=== PATIENT | female | born 1935 | race Caucasian/White ===

== ENCOUNTER 2017-04-21 08:42 | Inpatient (IN) | payer OTHER ==
[2017-03-01 09:35] VITALS: BMI 29.0
--- NOTE | 2017-03-01 10:18 | PAT Medication Instructions ---
Service Date Mar 01, 2017. Current Home Medication List Acetaminophen (Tylenol), 1,000 MG PO Q8 PRN for Pain Aspirin (Aspir-81), 81 MG PO QAM Calcium Carbonate-Cholecalcife (Caltrate 600+D), 1 TAB PO QPM Clopidogrel (Plavix), 75 MG PO QAM Coenzyme Q10 (Ubidecarenone) (Co Q10), 2 CAP PO QAM Colchicine (Colchicine), 0.6 MG PO HS Duloxetine HCl (Cymbalta), 1 CAP PO QAM Escitalopram (Lexapro), 10 MG PO QAM Flaxseed (Linseed) (Flaxseed Oil), 1 CAP PO QAM Gabapentin (Neurontin), 300 MG PO HS Levothyroxine Sodium (Levothyroxine Sodium), 100 MCG PO QAM Lorazepam (Ativan), 0.5 MG PO TID PRN for Anxiety Losartan Potassium (Losartan Potassium), 50 MG PO QAM Metoprolol Tartrate (Lopressor) (Lopressor), 25 MG PO BID Nitroglycerin (Nitrostat), 0.4 MG UT PRN Ocuvite Preservision (Ocuvite Preservision), 1 TAB PO BID Omeprazole (Omeprazole), 20 MG PO QAM Oxybutynin Chloride (Ditropan Xl), 1 TAB PO QAM Prednisone (Prednisone), 5 MG PO QAM Rosuvastatin Calcium (Crestor), 40 MG PO QAM Wheat Dextrin (Benefiber), 1 TAB PO QAM Zoledronic Acid (Reclast), 1 DOSE IV YEARLY Medication Instructions For Your Scheduled Surgery Check with surgeon/psychologist research assistant for instructions: Aspirin (Aspir-81), 81 MG PO QAM Clopidogrel (Plavix), 75 MG PO QAM - Continue as directed: Zoledronic Acid (Reclast), 1 DOSE IV YEARLY - Hold the following medications 2 weeks prior to surgery: Coenzyme Q10 (Ubidecarenone) (Co Q10), 2 CAP PO QAM Flaxseed (Linseed) (Flaxseed Oil), 1 CAP PO QAM - Hold the following medications the morning of surgery: Wheat Dextrin (Benefiber), 1 TAB PO QAM Oxybutynin Chloride (Ditropan Xl), 1 TAB PO QAM Ocuvite Preservision (Ocuvite Preservision), 1 TAB PO BID Losartan Potassium (Losartan Potassium), 50 MG PO QAM - Take the following medications the morning of surgery with a sip of water: Rosuvastatin Calcium (Crestor), 40 MG PO QAM Prednisone (Prednisone), 5 MG PO QAM Omeprazole (Omeprazole), 20 MG PO QAM Metoprolol Tartrate (Lopressor) (Lopressor), 25 MG PO BID Lorazepam (Ativan), 0.5 MG PO TID PRN for Anxiety (if needed) Levothyroxine Sodium (Levothyroxine Sodium), 100 MCG PO QAM Escitalopram (Lexapro), 10 MG PO QAM Duloxetine HCl (Cymbalta), 1 CAP PO QAM Nitroglycerin (Nitrostat), 0.4 MG UT PRN (if needed) Acetaminophen (Tylenol), 1,000 MG PO Q8 PRN for Pain (if needed) - Hold the following medications as scheduled the night before surgery: Colchicine (Colchicine), 0.6 MG PO HS - Take the following medications as scheduled the night before surgery: Metoprolol Tartrate (Lopressor) (Lopressor), 25 MG PO BID Lorazepam (Ativan), 0.5 MG PO TID PRN for Anxiety (if needed) Gabapentin (Neurontin), 300 MG PO HS Calcium Carbonate-Cholecalcife (Caltrate 600+D), 1 TAB PO QPM Nitroglycerin (Nitrostat), 0.4 MG UT PRN (if needed) Acetaminophen (Tylenol), 1,000 MG PO Q8 PRN for Pain (if needed) If you have any questions please call us at [phone] or [phone] or [phone]
--- NOTE | 2017-03-01 10:52 | DIAGNOSTIC IMAGING REPORT ---
CHEST PREADMISSION(PA/LAT) CLINICAL HISTORY: PAT preoperative evaluation COMPARISON STUDY: No previous studies for comparison. FINDINGS: Heart is top limits normal terms of size. Diaphragms are smooth. There are no focal infiltrates. Possible 6 mm nodule left base. IMPRESSION: Possible 6 mm nodule left base versus overlap artifact. CT of the chest is suggested as follow-up. Electronically signed by: Dylan Garzon M.D. 03/01/2017 10:51 AM Dictated Date/Time: 03/01/2017 10:50 AM
[2017-03-01 11:36] LABS: BASO % 0.5 %; BASO ABS # 0.05 K/uL (0-0.2); COMPLETE YES; EOS % 1.9 %; HEMATOCRIT 36.2 % (37-47); IG% 0.2 %; LYMPH % 26.4 %; LYMPH ABS # 2.47 K/uL (1.2-3.4); MEAN CELL VOLUME 92.8 fL (80-100); MEAN CORPUSCULAR HEMOGLOBIN 30.5 pg (25-34); MEAN CORPUSCULAR HGB CONC 32.9 g/dl (32-36); MEAN PLATELET VOLUME 11.8 fL (7.4-10.4); MONO % 12.2 %; NEUT % 58.8 %; PLATELET COUNT 141 K/uL (130-400); WHITE BLOOD COUNT 9.35 K/uL (4.8-10.8)
[2017-03-01 11:48] LABS: INR 0.9 (0.9-1.1); PROTHROMBIN TIME (PATIENT) 9.7 SECONDS (9.0-12.0)
[2017-03-01 11:48] LABS: URINE APPEARANCE CLEAR (CLEAR); URINE BILIRUBIN NEG (NEG); URINE COLOR DK YELLOW; URINE NITRITE NEG (NEG); URINE SPECIFIC GRAVITY 1.025 (1.000-1.030); UROBILINOGEN NEG (NEG); ZZUR CULT IF INDIC CLEAN CATCH NO
[2017-03-01 11:51] LABS: ESTIMATED AVERAGE GLUCOSE 126 mg/dl; HA1C FLAG Normal (Normal)
[2017-03-01 11:55] LABS: BUN/CREATININE RATIO 17.5 (10-20); CALCIUM 9.3 mg/dl (8.5-10.1); CREATININE 0.89 mg/dl (0.60-1.20); POTASSIUM 4.1 mmol/L (3.5-5.1)
[2017-03-01 12:07] LABS: MANUAL MICROSCOPIC REQUIRED? NO; REVIEW REQ? NO
[2017-04-18 11:47] VITALS: BMI 29.0
--- NOTE | 2017-04-19 07:05 | HISTORY & PHYSICAL EXAMINATION ---
DATE OF ADMISSION: 04/21/2017 SUBJECTIVE/CHIEF COMPLAINT: Right knee pain. HISTORY OF PRESENT ILLNESS: The patient is an 81-year-old female who complains of right knee pain. She states that the symptoms have been chronic and nontraumatic in nature. She states that the symptoms occur constantly, they are described as aching and sharp. She has tried cortisone injections, physical therapy and nonsteroidal anti-inflammatories with no relief. She would like to proceed with a right total knee arthroplasty. PAST MEDICAL HISTORY: Significant for hypertension, hypercholesterolemia, heart attack in 10/2015, shortness of breath while walking uphill, hypothyroidism, osteoarthritis, history of colorectal cancer. PAST SURGICAL HISTORY: One stent, cholecystectomy, left TKA, ORIF right hip, Achilles tendon repair, tonsillectomy. ALLERGIES: She has no known drug allergies. MEDICATIONS: Acetaminophen 1000 mg p.o. q. 8 hours p.r.n. pain, aspirin 81 mg p.o. q.a.m., Caltrate 1 tab p.o. q.p.m., Plavix 75 mg p.o. q.a.m., coenzyme Q10 two capsules p.o. q.a.m., duloxetine 1 capsule p.o. q.a.m., Lexapro 10 mg p.o. q.a.m., flaxseed oil 1 capsule p.o. q.a.m., Neurontin 300 mg p.o. at bedtime, levothyroxine 1000 mcg p.o. q.a.m., Ativan 0.5 mg p.o. t.i.d. p.r.n. for anxiety, losartan 50 mg p.o. q.a.m., Lopressor 25 mg p.o. b.i.d., Nitrostat 0.4 mg under the tongue p.r.n., Ocuvite PreserVision 1 tab p.o. b.i.d., omeprazole 20 mg p.o. q.a.m., Ditropan 1 tab p.o. q.a.m., prednisone 5 mg p.o. q.a.m., Crestor 40 mg p.o. q.a.m., fenofibrate 1 tablet p.o. q.a.m. SOCIAL HISTORY: She denies alcohol use. She denies smoking or tobacco use. She denies IV or illegal drug use. She lives in a 1-story house. She is currently retired. FAMILY HISTORY: Mom and father have a history of heart disease. REVIEW OF SYSTEMS: She denies headaches, fevers, chills, double vision, blurry vision, sore throat, cough, chest pain, nausea, vomiting, diarrhea, constipation, numbness, tingling, tired, urinary difficulties, thoughts to harm herself or harm others, or depression. She is positive for joint pain and joint stiffness on the right knee. OBJECTIVE: GENERAL APPEARANCE: The patient is an 81-year-old female, sitting, in no acute distress. She is well dressed and well nourished. She is awake, alert and oriented x3. VITAL SIGNS: She is 5 feet tall. She weighs 135 pounds. HEENT: Extraocular movements are intact. PERRLA. Mucosa is moist. No septal deviation. NECK: Supple with no lymphadenopathy, no JVD, no thyromegaly. HEART: Systolic murmur is appreciated in the aortic position. LUNGS: Clear to auscultation. ABDOMEN: Soft, nontender, nondistended. Normal bowel sounds. No hepatosplenomegaly. EXTREMITIES: Paying particular attention to the right knee, she is able to extend to 0 degrees, flex to 90 degrees. She has medial joint line tenderness. Ligaments are intact. NEUROLOGIC: Cranial nerves II-XII are intact. Pulses are compared bilaterally and are equal. IMAGING: Four view x-rays of the right knee show a femoral alon with osteophyte formation and [id number] on the medial aspect of the knee. IMPRESSION: Right knee primary osteoarthritis. PLAN: The patient is scheduled for a right total knee arthroplasty. She has failed conservative therapies including cortisone injections, physical therapy and nonsteroidal anti-inflammatories. This affects her activities of daily living. She would like to proceed with a right total knee arthroplasty. Risks and benefits to surgery were discussed that included but not limited to infection, DVT, pain, stiffness, need for revision surgeries, damage to blood vessels, damage to nerves, PE, , and anesthesia risks were all discussed with the patient and she wished to proceed. All questions were answered to her satisfaction. Per the cleaner operator, her Plavix and aspirin may be held for 5-7 days preoperatively. On discharge, she would like to go to [facility]. JEFFERY
[~2017-04-21] VITALS: Ht 152.4 cm; Wt 67.4 kg
[2017-04-21] VITALS (9 sets, daily range): BP systolic 105–126; BP diastolic 45–57; PULSE 60–88; TEMP 36.6–36.8; O2SAT 97–100; Ht 152.4 cm; Wt 67.4 kg
[~2017-04-21 08:42] MED LIST: ACET-1256 PO; ACETAMINOPHEN 500 MG TAB PO SCH; ASPI-232 PO; BUPIVACAINE 0.5 % 5 MG/1 ML PF 10ML VIAL ONE; CALC-354 PO; CEFAZOLIN 1000MG/55 ML D5W 55 ML IV SCH; CLOP1TAB15 PO; COEN1CAP28 PO; COLC0.6T54 PO; CZR50 PO; CeleBREX 200 MG CAP PO SCH; DEXAMETHASONE 4 MG TAB PO SCH; DULO-24 PO; ESCI10TA17 PO; EpHEDrine SULFATE 50MG/5ML SYR ONE; FAMOTIDINE 20 MG TAB PO SCH; FENTANYL CITRATE INJ 50 MCG/1 ML 2 ML VIAL ONE; FLAX12003 PO; GABA-113 PO; GABAPENTIN 300 MG CAP PO SCH; LACTATED RINGER'S 1000ML 1,000 ML IV SCH; LACTATED RINGER'S 1000ML 500 ML IV ONE; LACTATED RINGER'S 1000ML IV SCH; LEVO100T7 PO; LIDOCAINE HCL 2% 2 ML VIAL (20MG/ML) ONE; LORA-741 PO; METO25TA56 PO; METOCLOPRAMIDE HCL 10 MG TAB PO SCH; MIDAZOLAM HCL 1 MG/ML 2ML VIAL ONE; MULT-190 PO; NTRGSL/4 UT; OMEP20TA PO; OXYB5TAB21 PO; OXYCODONE HCL 10 MG TABCR (OXYCONTIN) PO SCH; PHENYLEPHRINE 100MCG/ML 5ML SYR ONE; PRED-301 PO; PROPOFOL IV EMULSION 10 MG/ML 20 ML VIAL IV ONE; ROPIVACAINE 5MG/ML 30 ML 150 MG, BUPIVACAINE/EPINEPHR 0.5% MPF 30 ML, KETOROLAC TROMETH... INFIL SCH; ROSU40TA PO; WHEATAB2 PO; ZOLE5INJ IV
--- NOTE | 2017-04-21 09:39 | History & Physical Bridge Note ---
H&P Re-Evaluation Bridge Note: I have examined the patient, reviewed the History & Physical and in the interval since the performance of the History & Physical I have noted the following changes of clinical significance: No changes noted
[2017-04-21] MEDS ORDERED: BUPIVACAINE 0.25% 30 ML VIAL ONE (10:19)
[2017-04-21] MEDS ORDERED: ORTHO JOINT ANESTHETIC ONE (10:21)
[2017-04-21] MEDS ORDERED: BACITRACIN 50000 UNIT VIAL ONE (10:21)
[2017-04-21] MEDS ORDERED: POVIDONE-IODINE OP SOLN 30 ML BTL ONE (10:21)
[2017-04-21] MEDS ORDERED: DEXAMETHASONE SOD INJ 4 MG/ML VIAL ONE (11:14)
[2017-04-21] MEDS ORDERED: ONDANSETRON INJ 2 MG/ML 2 ML VIAL ONE (11:14)
[2017-04-21] MEDS ORDERED: NURSING VERBAL MED ORDER STA (11:21)
[2017-04-21] MEDS ORDERED: FENTANYL CITRATE INJ 50 MCG/1 ML 2 ML VIAL ONE (11:35)
[2017-04-21] MEDS ORDERED: EpHEDrine SULFATE INJ 50 MG/ML AMP IV PRN (11:45)
[2017-04-21] MEDS ORDERED: TRANEXAMIC ACID INJ 1,000 MG in SODIUM CHLORIDE 0.9% 100ML 100 ML TOP SCH (11:45)
[2017-04-21] MEDS ORDERED: ATROPINE SULFATE 0.1 MG/ML 5ML SYR IV PRN (11:45)
[2017-04-21] MEDS ORDERED: MoRPHine SULFATE 10 MG/ML CARP/VIAL IV PRN (11:45)
[2017-04-21] MEDS ORDERED: ONDANSETRON INJ 2 MG/ML 2 ML VIAL IV PRN ×2 (11:45→13:00)
[2017-04-21] MEDS ORDERED: FENTANYL CITRATE INJ 50 MCG/1 ML 2 ML VIAL IV PRN (11:45)
[2017-04-21] MEDS ORDERED: PROPOFOL IV EMULSION 10 MG/ML 20 ML VIAL IV ONE (12:30)
--- NOTE | 2017-04-21 12:41 | [facility] Operative Report ---
Operative Report Operative Date Apr 21, 2017. Pre-Operative Diagnosis right knee primary osteoarthritis Post-Operative Diagnosis right knee primary osteoarthritis Procedure(s) Performed Right Total Knee Arthroplasty Surgeon Dr. Hair Calderon Ui Developer With Angular Js Surgeon(s) Jack Perla PA-C Estimated Blood Loss 100ml Findings As above Specimens A. Right Knee Bone and Tissue Drains spinal Anesthesia 2 Hemovac Complication(s) None Disposition Recovery Room / PACU Indications 81-year-old female with [id number] osteoarthritis the right knee. She is failed conservative measures including cortisone injections. She is allergic to NSAIDs. Failing conservative measures she wishes to proceed with a right total knee arthroplasty Description of Procedure Risks benefits and alternatives of surgery including but not limited to infection DVT pain stiffness need for surgery damage to blood vessels damage to nerves or risks of anesthesia were discussed with the patient and she wished to proceed. Patient was identified in the laterality was confirmed and marked. She received a preoperative antibiotic is also a spinal anesthetic and a abductor canal block. A well-padded tourniquet was applied and then the limb was prepped and draped in standard manner with ChloraPrep. The limb was exsanguinated and the tourniquet was inflated. I made a standard anterior incision. I sharply incised the skin then utilized Bovie electrocautery as well as the aqua mantis to achieve hemostasis. I made a medial parapatellar arthrotomy immobilized the patella laterally. I then excised the anterior horns of the medial and lateral meniscus as well as the infrapatellar fat pad. I elevated a portion of the MCL off of the tibia. I then pinned into place a patient-matched distal femoral cutting guide and made my distal femoral resection. I then pinned into place a size 4 5 in 1 cutting guide. I made my anterior, posterior and chamfer cuts. I then excised the cruciates and the remaining portions of the menisci. I then pinned into place a patient- matched tibial cutting guide and made my tibial resection. I then pinned into place a size 3 tibia utilizing alignment rods to confirm rotation. I then cut for the post. Utilizing a lamina revenue field auditor and then removed posterior osteophytes off the femur. I then placed a trial femur into position and cut for the trochlear component. I then sequentially trialed to size 11 polyethylene. There was good soft tissue balancing and range of motion with this polyethylene. I then prepared the patella with a freehand cut utilizing sagittal saw. I sized and drilled for a size 35 patella. There was good tracking to the patella no lateral release was needed. All the trial components were removed. The deep tissues were anesthetized with and ortho mix solution. Then with Simplex HV with gentamicin cement I cemented my definitive components. Definitive components, [employer] [place]: Femur 4 Tibia 3 Poly 11 Patella 35 oval Betadine soak was performed. A transient acid soak was performed as we were not able to give this intravenously given her prior cardiac history. A deep drain was placed. The arthrotomy was closed with interrupted #1 Vicryl suture subcutaneous tissue was closed with interrupted 2-0 Vicryl suture and skin with basilio. Sterile dressings applied and the tourniquet was released. All needle and sponge counts were correct at the end of the procedure patient was transferred to the PACU in stable condition without apparent complication. The PA-C was necessary for assistance with procedure for assistance in positioning, prepping, draping, retraction and closure. I attest to the content of the Intraoperative Record and any orders documented therein. Any exceptions are noted below.
[2017-04-21] MEDS ORDERED: METOCLOPRAMIDE HCL INJ 5 MG/ML 2 ML VIAL IV PRN (13:00)
[2017-04-21] MEDS ORDERED: ZOLPIDEM TARTRATE 5 MG TAB PO PRN (13:00)
[2017-04-21] MEDS ORDERED: BISACODYL 10 MG SUPP PR PRN (13:00)
[2017-04-21] MEDS ORDERED: ALUMINUM/MAGNESIUM/SIMETH (MAALOX MAX) 30 ML UDC PO PRN (13:00)
[2017-04-21] MEDS ORDERED: SOD PHOSPHATE/SOD BIPHOSPHATE ENEMA 132 ML BTL PR PRN (13:00)
[2017-04-21] MEDS ORDERED: MAGNESIUM HYDROXIDE SUSP 30 ML UDC PO PRN (13:00)
--- NOTE | 2017-04-21 14:16 | DIAGNOSTIC IMAGING REPORT ---
RIGHT KNEE 1 OR 2 VIEWS ROUTINE CLINICAL HISTORY: 81 years-old Female presenting with postop right knee arthroplasty. TECHNIQUE: Frontal and lateral views of the right knee were obtained. COMPARISON: None. FINDINGS: Postsurgical changes of total right knee arthroplasty with patellar resurfacing. Surgical drain in place. Soft tissue emphysema and skin basilio noted. Intramedullary alon and interlocking screw fixation of the femoral diametaphysis. No acute fracture or malalignment. Osteopenia suggested. IMPRESSION: Expected postoperative appearance status post total right knee arthroplasty with patellar resurfacing. Electronically signed by: Hair Martínez M.D. 04/21/2017 2:15 PM Dictated Date/Time: 04/21/2017 2:13 PM
[2017-04-21] MEDS ORDERED: LORAZEPAM 0.5 MG TAB PO PRN (15:15)
[2017-04-21] MEDS ORDERED: NITROGLYCERIN 0.4 MG SL PER TAB CHARGE UT PRN (15:15)
--- NOTE | 2017-04-21 15:16 | Anesthesiology Progress Note ---
Anesthesia Post Op Note Date & Time Apr 21, 2017 at 15:16 Vital Signs Pain Intensity: 0.0 Vital Signs Past 12 Hours Date Time Temp Pulse Resp B/P (MAP) Pulse Ox O2 Delivery O2 Flow Rate FiO2 04/21/17 14:38 88 16 115/51 (72) 98 Nasal Cannula 2.0 04/21/17 14:10 98 Nasal Cannula 3.0 04/21/17 14:10 36.7 82 16 115/54 (74) 98 Nasal Cannula 3.0 04/21/17 13:55 37.1 90 16 120/48 99 Nasal Cannula 4 04/21/17 13:45 37.1 84 16 122/48 99 Nasal Cannula 4 04/21/17 13:35 37.1 85 16 127/48 98 Nasal Cannula 4 04/21/17 13:25 84 16 133/48 98 Oxymask 10 04/21/17 13:15 83 16 120/46 98 Oxymask 10 04/21/17 13:05 81 16 109/44 98 Oxymask 10 04/21/17 12:55 36.2 79 16 106/43 97 Oxymask 10 04/21/17 09:55 36.8 60 18 126/56 97 Room Air Notes Mental Status: alert / awake / arousable, participated in evaluation Pt Amnestic to Procedure: Yes Nausea / Vomiting: adequately controlled Pain: adequately controlled Airway Patency, RR, SpO2: stable & adequate BP & HR: stable & adequate Hydration State: stable & adequate Anesthetic Complications: no major complications apparent
[2017-04-21] MEDS: SODIUM CHLORIDE 0.9% 1000ML 1,000 ML IV SCH (15:17)
[2017-04-21] MEDS ORDERED: IMDSR30 PO (15:25)
[2017-04-21] MEDS: OXYBUTYNIN CHLORIDE 5 MG TABCR PO SCH (17:39)
[2017-04-21] MEDS: FERROUS GLUCONATE 324 MG TAB PO SCH (17:40)
[2017-04-21] MEDS: LOSARTAN POTASSIUM 50 MG TAB PO SCH (17:44)
--- NOTE | 2017-04-21 17:45 | Medical Consult ---
Consultation Date of Consultation: Apr 21, 2017. Attending Physician: Hair Calderon M.D. Reason for Consultation: medical management History of Present Illness Patient seen and examined. States she is feeling groggy, but has no other complaints. Denies dizziness, chest pain, SOB, N/V, pain, numbness/tingling. Does not recall if she voided yet after surgery. Last BM was yesterday. Past Medical/Surgical History Medical Problems: (1) Anxiety Status: Chronic (2) Aortic stenosis Status: Chronic (3) CAD (coronary artery disease) Status: Chronic (4) Depression Status: Chronic (5) Dyslipidemia Status: Chronic (6) Glaucoma Status: Chronic (7) H/O reduction of open fracture Status: Chronic (8) History of colorectal cancer Status: Chronic (9) History of hip fracture Status: Chronic (10) HTN (hypertension) Status: Chronic (11) Hypothyroidism Status: Chronic (12) Osteoporosis Status: Chronic (13) PMR (polymyalgia rheumatica) Status: Chronic (14) S/p bare metal coronary artery stent Status: Chronic Surgical Problems: (1) History of cataract surgery Status: Chronic (2) S/P cholecystectomy Status: Chronic (3) S/P partial mastectomy Status: Chronic (4) S/p removal of bowel lesion Status: Chronic (5) S/P total knee arthroplasty Status: Chronic Family History Noncontributory due to advanced age. Social History Smoking Status: Never Smoker Allergies Coded Allergies: Cyclobenzaprine (Verified Adverse Reaction, Unknown, DRY MOUTH, 04/21/17) NSAIDs (Unverified Adverse Reaction, Unknown, DYSPEPSIA, 04/21/17) PER RECORDS Statins (Unverified Adverse Reaction, Unknown, MYALGIAS, NAUSEA, 04/21/17) PER RECORDS Home Medications Active Reported Isosorbide Mononitrate ER (Isosorbide Mononitrate) 30 Mg Tabcr 30 Mg PO DAILY Flaxseed Oil (Flaxseed (Linseed)) 1 Cap Cap 1 Cap PO QAM Ocuvite Preservision (Multivitamins/Minerals) 1 Tab Tab 1 Tab PO BID Benefiber (Wheat Dextrin) 1 Tab Tab 1 Tab PO QAM PRN Co Q10 (Coenzyme Q10) 50 Mg Cap 2 Cap PO QAM Nitrostat (Nitroglycerin) 0.4 Mg Tab 0.4 Mg UT PRN Lexapro (Escitalopram Oxalate) 10 Mg Tab 10 Mg PO QAM Ativan (Lorazepam) 0.5 Mg Tab 0.5 Mg PO TID PRN Crestor (Rosuvastatin Calcium) 40 Mg Tab 40 Mg PO QAM Plavix (Clopidogrel Bisulfate) 75 Mg Tab 75 Mg PO QAM Ditropan Xl (Oxybutynin Chloride) 5 Mg Tab 1 Tab PO QAM 90 Days Neurontin (Gabapentin) 300 Mg Cap 300 Mg PO HS Prednisone 5 Mg Tab 5 Mg PO QAM Tylenol (Acetaminophen) 500 Mg Tab 1,000 Mg PO Q8 PRN Cymbalta (Duloxetine HCl) 20 Mg Cap 1 Cap PO QAM 30 Days Lopressor (Metoprolol Tartrate) 25 Mg Tab 25 Mg PO BID Colchicine 0.6 Mg Tab 0.6 Mg PO HS Reclast (Zoledronic Acid) 5 Mg/100 Ml Inj 1 Dose IV YEARLY PT DUE FOR NEXT INFUSION IN SEP 2017 Caltrate 600+D (Calcium Carbonate-Cholecalcife) 1 Tab Tab 1 Tab PO QPM Aspir-81 (Aspirin) 81 Mg Tab 81 Mg PO QAM Levothyroxine Sodium 100 Mcg Tab 100 Mcg PO UD Take 1 tablet (100 mcg) by mouth daily except Sundays. Take 1/2 tablet (50 mcg) on Tuesday. Omeprazole 20 Mg Tab 20 Mg PO QAM Losartan Potassium 50 Mg Tab 50 Mg PO QAM Current Inpatient Medications Current Inpatient Medications Medications (Trade) Dose Ordered Sig/Joanie Route Start Time Stop Time Status Last Admin Dose Admin Lactated Ringer's 1,000 ml @ 60 mls/hr [id number] IV 04/21/17 06:00 04/21/17 22:39 Cefazolin Sodium 55 ml @ 100 mls/hr PREOP IV 04/21/17 06:00 04/21/17 18:00 04/21/17 10:50 100 MLS/HR Acetaminophen (Tylenol Tab) 1,000 mg PREOP PO 04/21/17 06:00 04/21/17 18:00 04/21/17 09:56 1,000 MG Celecoxib (CeleBREX CAP) 200 mg PREOP PO 04/21/17 06:00 04/21/17 18:00 04/21/17 09:55 200 MG Dexamethasone (Decadron Tab) 8 mg PREOP PO 04/21/17 06:00 04/21/17 18:00 04/21/17 09:55 8 MG Famotidine (Pepcid Tab) 20 mg PREOP PO 04/21/17 06:00 04/21/17 18:00 04/21/17 09:56 20 MG Gabapentin (Neurontin Cap) 300 mg PREOP PO 04/21/17 06:00 04/21/17 18:00 04/21/17 09:55 300 MG Metoclopramide HCl (Reglan Tab) 10 mg PREOP PO 04/21/17 06:00 04/21/17 18:00 04/21/17 09:55 10 MG Oxycodone HCl (Oxycontin Tab) 10 mg PREOP PO 04/21/17 06:00 04/21/17 18:00 04/21/17 09:56 10 MG Lactated Ringer's 1,000 ml @ 15 mls/hr Q24H IV 04/21/17 06:00 04/22/17 05:59 04/21/17 10:10 15 MLS/HR Sodium Chloride 1,000 ml @ 100 mls/hr Q10H IV 04/21/17 15:00 04/22/17 14:59 04/21/17 15:17 100 MLS/HR Cefazolin Sodium 1000 mg/Dextrose 55 ml @ 100 mls/hr Q8@0200,1000,1800 IV 04/21/17 18:00 04/21/17 18:32 Oxycodone HCl (Roxicodone Immediate Rel Tab) 1 TABLET FOR PAIN RATING... Q4H PRN PO 04/21/17 13:00 05/05/17 12:59 Oxycodone HCl (Oxycontin Tab) 10 mg Q12 PO 04/21/17 21:00 05/05/17 20:59 Acetaminophen (Tylenol Tab) 1,000 mg Q8 PO 04/21/17 22:00 05/21/17 21:59 Magnesium Hydroxide (Milk Of Magnesia Susp) 30 ml Q6H PRN PO 04/21/17 13:00 05/21/17 12:59 Bisacodyl (Dulcolax Supp) 10 mg DAILY PRN [place] 04/21/17 13:00 05/21/17 12:59 Sodium Biphosphate/ Sodium Phosphate (Fleet Enema) 132 ml DAILY PRN [place] 04/21/17 13:00 05/21/17 12:59 Senna (Senokot Tab) 17.2 mg HS PO 04/21/17 21:00 05/21/17 20:59 Docusate Sodium (coLACE CAP) 100 mg BID PO 04/21/17 21:00 05/21/17 20:59 Diphenhydramine HCl (Benadryl Cap) 25 mg Q8H PRN PO 04/21/17 13:00 05/21/17 12:59 Al Hydrox/Mg Hydrox/Simethicone (Maalox Max Susp) 15 ml Q4H PRN PO 04/21/17 13:00 05/21/17 12:59 Zolpidem Tartrate (Ambien Tab) 5 mg HSZ PRN PO 04/21/17 13:00 05/21/17 12:59 Multivitamins (Multivitamin Tab) 1 tab QAM PO 04/22/17 09:00 05/22/17 08:59 Ondansetron HCl (Zofran Inj) 4 mg Q6H PRN IV 04/21/17 13:00 05/21/17 12:59 Metoclopramide HCl (Reglan Inj) 10 mg Q6H PRN IV 04/21/17 13:00 05/21/17 12:59 Ferrous Gluconate (Ferrous Gluconate Tab) 324 mg TIDM PO 04/21/17 17:45 05/21/17 17:59 Pantoprazole Sodium (Protonix Tab) 40 mg QAM PO 04/22/17 09:00 05/22/17 08:59 Aspirin (Ecotrin Tab) 81 mg BID PO 04/21/17 21:00 05/21/17 20:59 Colchicine (Colchicine Tab) 0.6 mg HS PO 04/21/17 21:00 05/21/17 20:59 Duloxetine HCl (Cymbalta Cap) 20 mg QAM PO 04/22/17 09:00 05/22/17 08:59 Escitalopram Oxalate (Lexapro Tab) 10 mg QAM PO 04/22/17 09:00 05/22/17 08:59 Gabapentin (Neurontin Cap) 300 mg HS PO 04/21/17 21:00 05/21/17 20:59 Isosorbide Mononitrate (Imdur Ext Rel Tab) 30 mg DAILY PO 04/22/17 09:00 05/22/17 08:59 Levothyroxine Sodium (Synthroid Tab) 100 mcg MoTuWeThFrSa@0630 PO 04/22/17 06:30 05/22/17 06:29 Lorazepam (Ativan Tab) 0.5 mg TID PRN PO 04/21/17 15:15 05/21/17 15:14 Losartan Potassium (coZAAR TAB) 50 mg QAM PO 04/21/17 17:00 05/21/17 16:59 Metoprolol Tartrate (Lopressor Tab) 25 mg BID PO 04/21/17 21:00 05/21/17 20:59 Nitroglycerin (Nitrostat Tab) 0.4 mg PRN PRN UT 04/21/17 15:15 05/21/17 15:14 Oxybutynin Chloride (Ditropan-Xl Tab) 5 mg QAM PO 04/21/17 17:00 05/21/17 16:59 Prednisone (PredniSONE TAB) 5 mg QAM PO 04/22/17 09:00 05/22/17 08:59 Rosuvastatin Calcium (Crestor Tab) 40 mg QAM PO 04/22/17 09:00 05/22/17 08:59 Levothyroxine Sodium (Synthroid Tab) 50 mcg Q7D@0630 PO 04/24/17 06:30 05/24/17 06:29 Review of Systems Ten systems reviewed and negative except as noted in HPI. Physical Exam Date Time Temp Pulse Resp B/P (MAP) Pulse Ox O2 Delivery O2 Flow Rate FiO2 04/21/17 16:10 87 16 109/50 (69) 99 Nasal Cannula 3.0 04/21/17 15:15 100 Nasal Cannula 3.0 04/21/17 15:10 36.7 85 16 112/56 (74) 100 Nasal Cannula 3.0 04/21/17 14:38 88 16 115/51 (72) 98 Nasal Cannula 2.0 04/21/17 14:10 98 Nasal Cannula 3.0 04/21/17 14:10 36.7 82 16 115/54 (74) 98 Nasal Cannula 3.0 04/21/17 13:55 37.1 90 16 120/48 99 Nasal Cannula 4 04/21/17 13:45 37.1 84 16 122/48 99 Nasal Cannula 4 04/21/17 13:35 37.1 85 16 127/48 98 Nasal Cannula 4 04/21/17 13:25 84 16 133/48 98 Oxymask 10 04/21/17 13:15 83 16 120/46 98 Oxymask 10 04/21/17 13:05 81 16 109/44 98 Oxymask 10 04/21/17 12:55 36.2 79 16 106/43 97 Oxymask 10 04/21/17 09:55 36.8 60 18 126/56 97 Room Air General Appearance: WD/WN, no apparent distress, + pertinent finding (drowsy 81 year old female) Head: normocephalic, atraumatic Eyes: normal inspection, PERRL ENT: hearing grossly normal, pharynx normal Neck: supple, trachea midline Respiratory/Chest: lungs clear, normal breath sounds, no respiratory distress, no accessory muscle use Cardiovascular: regular rate, rhythm, + systolic murmur Abdomen/GI: normal bowel sounds, non tender, soft Extremities/Musculoskelatal: no calf tenderness, no pedal edema, + pertinent finding (s/p right TKA. dressing in place. hemovac in place with sanguinous drainage. SCDs in place. ) Neurologic/Psych: normal mood/affect, oriented x 3, + pertinent finding ( drowsy. able to sense light touch on the bilateral feet ) Skin: normal color, warm/dry Assessment & Plan S/P RIGHT TKA POD #[address] Calderon Pain control, wound care, activity per ortho Monitor daily H/H for sign of acute blood loss anemia CAD Stable, no chest pain Recently had cardiac cath 03/31/17- stent was patent On aspirin, Imdur, beta ary, statin Resume Plavix when acceptable by ortho HYPERTENSION Stable, continue Losartan, metoprolol PMR On chronic prednisone HYPOTHYROIDISM Continue levothyroxine DEPRESSION/ ANXIETY Continue home meds DVT PROPHYLAXIS Per ortho DISPOSITION Per ortho Patient seen in collaboration with Dr. Dee. Please see her addendum. Attending addendum: Agree with the above consultation H&P; please refer to above for more detail. Patient is an 81 yo female who presented to the hospital for scheduled right knee replacement surgery for longstanding pain and osteoarthritis. The patient states she is grateful to have it done and feels she waited long because she was busy taking care of her who passed last fall. She reports her pain is well controlled presently. She denies any CP or SOB. She is tolerating PO without difficulty. She states she feels upset because she expects her to be here while she is recovering but is disappointed he is not around anymore and she lives alone which she is worried about. No other physical complaints noted. Cardiac: RR, S1 and S2 auscultated, +GABRIELLA Resp: CTA B/L GI: soft, NT, ND, +bowel sounds POSTOPERATIVE STATE: s/p right TKA -pain control, DVT prophylaxis, activity as per Ortho -bowel regimen -incentive spirometry -CBC monitoring for post op anemia CAD: -cath done due to abnormal stress test -recent cath showed stable CAD, with a patent stent -continue ASA, statin, BB -please resume plavix as soon as possible when ok with Ortho
[2017-04-21] MEDS ORDERED: CEFAZOLIN IV 1,000 MG in DEXTROSE 5% 50ML 50 ML IV SCH (18:00)
[2017-04-21] MEDS: METOPROLOL TARTRATE 25 MG TAB PO SCH (21:00)
[2017-04-21] MEDS: OXYCODONE HCL 10 MG TABCR (OXYCONTIN) PO SCH (21:36)
[2017-04-21] MEDS: SENNA 8.6 MG TAB PO SCH (21:37)
[2017-04-21] MEDS: GABAPENTIN 300 MG CAP PO SCH (21:38)
[2017-04-21] MEDS: COLCHICINE 0.6 MG TAB PO SCH (21:39)
[2017-04-21] MEDS: ASPIRIN 81 MG ECTAB PO SCH (21:40)
[2017-04-21] MEDS: DOCUSATE SODIUM 100 MG CAP PO SCH (21:40)
[2017-04-21] MEDS: ACETAMINOPHEN 500 MG TAB PO SCH (21:41)
[2017-04-22] VITALS (19 sets, daily range): BP systolic 96–147; BP diastolic 46–63; PULSE 65–89; TEMP 36.4–37.3; O2SAT 92–98
[2017-04-22] MEDS: SODIUM CHLORIDE 0.9% 1000ML 1,000 ML IV SCH ×2 (00:24→10:09)
[2017-04-22] MEDS: ACETAMINOPHEN 500 MG TAB PO SCH ×3 (05:59→22:05)
[2017-04-22] MEDS: LEVOTHYROXINE 100 MCG TAB PO SCH (05:59)
[2017-04-22 06:12] LABS: PROTHROMBIN TIME (PATIENT) 10.7 SECONDS (9.0-12.0)
[2017-04-22 06:41] LABS: BUN/CREATININE RATIO 28.2 (10-20); CALCIUM 7.8 mg/dl (8.5-10.1); CREATININE 1.1 mg/dl (0.60-1.20); POTASSIUM 5.1 mmol/L (3.5-5.1)
--- NOTE | 2017-04-22 06:55 | Orthopedic Progress Note ---
Orthopedic Progress Note Date of Service Apr 22, 2017. Subjective Post OP Day: 1 Reports: feeling well, pain controlled w PO medications, Denies: complaints, chest pain, SOB, nausea / vomiting, light headedness, calf pain Additional Notes: Patient states that she had her drain pull out overnight. She states there is no light headedness, dizziness, and minimal pain in her knee. Objective calves soft nontender, N/V intact, capillary refill less than 2 sec., dressing C /D/I, A&O x3, toes mobile, hemovac drainage (100mL) Date Time Temp Pulse Resp B/P (MAP) Pulse Ox O2 Delivery O2 Flow Rate FiO2 04/22/17 04:00 36.6 81 18 119/53 (75) 97 Room Air 04/21/17 22:50 36.6 84 16 105/45 (65) 98 Room Air 04/21/17 21:40 110/57 (74) 04/21/17 19:50 Room Air 04/21/17 17:42 119/52 (74) 99 Nasal Cannula 2.0 04/21/17 16:10 87 16 109/50 (69) 99 Nasal Cannula 3.0 04/21/17 15:15 100 Nasal Cannula 3.0 04/21/17 15:10 36.7 85 16 112/56 (74) 100 Nasal Cannula 3.0 04/21/17 14:38 88 16 115/51 (72) 98 Nasal Cannula 2.0 04/21/17 14:10 98 Nasal Cannula 3.0 04/21/17 14:10 36.7 82 16 115/54 (74) 98 Nasal Cannula 3.0 04/21/17 13:55 37.1 90 16 120/48 99 Nasal Cannula 4 04/21/17 13:45 37.1 84 16 122/48 99 Nasal Cannula 4 04/21/17 13:35 37.1 85 16 127/48 98 Nasal Cannula 4 04/21/17 13:25 84 16 133/48 98 Oxymask 10 04/21/17 13:15 83 16 120/46 98 Oxymask 10 04/21/17 13:05 81 16 109/44 98 Oxymask 10 04/21/17 12:55 36.2 79 16 106/43 97 Oxymask 10 04/21/17 09:55 36.8 60 18 126/56 97 Room Air Laboratory Results 24 Hours: Test 04/22/17 05:19 Prothromb Time International Ratio 1.0 Prothrombin Time 10.7 SECONDS Assessment & Plan Assessment: POD #1 Right TKA Plan: PT/OT Discharge - SNF - would like [place] DVT Prophylaxis - ASA Patient is doing well. She will be seen by social science instructor and PT this morning. Seen and examined, agree with above Inhouse Planning Pain Management: Oxycontin, Oxy IR DVT Prophylaxis: TEDs, SCDs, ASA Discharge Planning Discharge Planning: halfway facility Pain Management: Oxycontin, Oxy IR DVT Prophylaxis: TEDs, ASA Therapy: Physical Therapy
[2017-04-22] MEDS ORDERED: ASPI-232 PO (07:01)
[2017-04-22] MEDS ORDERED: RXC5 PO (07:01)
[2017-04-22] MEDS ORDERED: OXYSR10 PO (07:01)
--- NOTE | 2017-04-22 07:02 | Discharge Instructions ---
Discharge Instructions Date of Service Apr 22, 2017. Admission Reason for Admission: Right Knee Osteoarthritis Discharge Discharge Diagnosis / Problem: S/P Right total knee arthroplasty Discharge Goals Goal(s): Decrease discomfort, Improve function Activity Recommendations Activity Limitations: per Instructions/Follow-up section . Instructions / Follow-Up Instructions / Follow-Up ACTIVITY RECOMMENDATIONS: SELF CARE INSTRUCTIONS AFTER TOTAL KNEE REPLACEMENT A. You may need to continue a physical therapy program after discharge from the hospital. There are several options available to you. Your doctor will assist you in selecting the best one for you. 1. An out-patient facility 2 to 3 times a week for therapy or home therapy. 2. Continue working on all exercises taught to you in the hospital. Your goals should be to increase bending of your knee to 90 degrees and beyond and to fully straighten your knee. B. You may progress at your own pace from walking with a walker or crutches to a cane; then to no assistive devices. C. Make walking a part of your daily routine. Be up as much as comfortable with rest periods throughout the day. Rest with leg elevation is very important. Use the ice wrap frequently for the first 3-4 weeks. D. There are no restrictions on activities. You may ride in a car, shop, participate in cell liner and all social activities. E. Wear the long elastic stockings (DALJIT hose) 20 hours a day for 2 weeks after surgery. They can be removed several times a day for laundering and for a bath. F. You may shower, no tub baths until cleared by your doctor. SPECIAL CARE INSTRUCTIONS: VERY IMPORTANT TO READ AND REVIEW A. There are a few signs you need to watch for after you are home. Call [facility] if you notice any of the followin. Increased severe knee pain. Some pain is expected especially when you exercise. 2. Increased swelling in your leg or knee; pain or swelling of the calf muscle in either lower leg. 3. Any fluid drainage from the incision. 4. Shortness of breath or chest pain. B. Please call [facility] at if you have any concerns or questions about your operation or recovery. The doctor or his nurse will return your call promptly. C. You must take antibiotics before dental work, bladder, bowel or other surgery. Your doctor will provide you with a permanent care to carry describing this precaution. IMPORTANT: * REMEMBER TO TAKE ASPIRIN, 81 MG, TWICE DAILY FOR 4 WEEKS UNLESS OTHERWISE DIRECTED. THIS IS YOUR BLOOD THINNER. * HIGH RISK PATIENTS MAY BE PRESCRIBED A STRONGER BLOOD THINNER. THIS WILL BE PROVIDED AT DISCHARGE. * CALL IF INCREASED PAIN, REDNESS, DRAINAGE OR FEVER GREATER THAT 101. * WEAR DALJIT HOSE 20 HOURS PER DAY FOR 2 WEEKS. * YOU MAY HAVE A LARGE BAND-AID LIKE DRESSING (SILVERON). THIS WILL REMAIN ON YOUR INCISION FOR 7 DAYS, THEN CAN BE REMOVED. IF INCISION IS LEAKING THROUGH DRESSING, CALL THE OFFICE . FOLLOW UP VISIT: If appointment is not already scheduled: Please call [facility] to make a follow-up appointment for 2 weeks after your surgery at . Current Hospital Diet Patient's current hospital diet: Regular Diet Discharge Diet Recommended Diet: Regular Diet Procedures Procedures Performed: Right Total Knee Arthroplasty Pending Studies Studies pending at discharge: no Laboratory Results Hemoglobin A1c Test 03/01/17 10:19 Range/Units Estimated Average Glucose 126 mg/dl Hemoglobin A1c 6.0 H 4.5-5.6 % Medical Emergencies . Who to Call and When: Medical Emergencies: If at any time you feel your situation is an emergency, please call 911 immediately. . Non-Emergent Contact Non-Emergency issues call your: Surgeon Call Non-Emergent contact if: temperature is above 101.5, your pain is worsening, wound has increased drainage, wound has increased redness . "Provider Documentation" section prepared by Jack Perla. . VTE Core Measure Inpt VTE Proph given/why not?: Other Anticoagulation (Aspirin 81mg BID), Samina.EeLanna Connors [place] Drug Monitoring Program Search Results: patient reviewed within database, no issues identified
[2017-04-22 07:29] LABS: HEMATOCRIT 24.2 % (37-47); MEAN CELL VOLUME 95.7 fL (80-100); MEAN CORPUSCULAR HEMOGLOBIN 30.8 pg (25-34); MEAN CORPUSCULAR HGB CONC 32.2 g/dl (32-36); PLATELET COUNT 135 K/uL (130-400); RED BLOOD COUNT 2.53 M/uL (4.2-5.4); WHITE BLOOD COUNT 15.31 K/uL (4.8-10.8)
[2017-04-22 07:32] LABS: PLT ESTIMATE NORMAL
[2017-04-22] MEDS: DOCUSATE SODIUM 100 MG CAP PO SCH ×2 (08:43→21:00)
[2017-04-22] MEDS: OXYCODONE HCL 10 MG TABCR (OXYCONTIN) PO SCH ×2 (08:43→21:27)
[2017-04-22] MEDS: ASPIRIN 81 MG ECTAB PO SCH ×2 (08:44→21:20)
[2017-04-22] MEDS: ROSUVASTATIN CALCIUM 20 MG TAB PO SCH (08:44)
[2017-04-22] MEDS: LOSARTAN POTASSIUM 50 MG TAB PO SCH (08:44)
[2017-04-22] MEDS: METOPROLOL TARTRATE 25 MG TAB PO SCH ×2 (08:44→21:22)
[2017-04-22] MEDS: PANTOprazole SOD 40 MG TAB PO SCH (08:45)
[2017-04-22] MEDS: OXYBUTYNIN CHLORIDE 5 MG TABCR PO SCH (08:45)
[2017-04-22] MEDS: DULOXETINE HCL 20 MG CAP PO SCH (08:45)
[2017-04-22] MEDS: FERROUS GLUCONATE 324 MG TAB PO SCH ×3 (08:45→17:45)
[2017-04-22] MEDS: ESCITALOPRAM OXALATE 10 MG TAB PO SCH (08:45)
[2017-04-22] MEDS: ISOSORBIDE MONONITRATE 30 MG TABCR PO SCH (08:45)
[2017-04-22] MEDS: MULTIVITAMIN TAB PO SCH (08:45)
--- NOTE | 2017-04-22 13:43 | Anesthesiology Progress Note ---
Anesthesia Post Op Note Date & Time Apr 22, 2017 at 13:42 Vital Signs Pain Intensity: 5.0 Vital Signs Past 12 Hours Date Time Temp Pulse Resp B/P (MAP) Pulse Ox O2 Delivery O2 Flow Rate FiO2 04/22/17 12:00 37.3 73 16 97/52 (67) 98 Room Air 04/22/17 07:25 36.7 89 18 121/56 (77) 96 Room Air 04/22/17 07:24 97 Room Air 04/22/17 04:00 36.6 81 18 119/53 (75) 97 Room Air Notes Mental Status: alert / awake / arousable, participated in evaluation Pt Amnestic to Procedure: Yes Nausea / Vomiting: adequately controlled Pain: adequately controlled Airway Patency, RR, SpO2: stable & adequate BP & HR: stable & adequate Hydration State: stable & adequate Neuraxial Anesthesia: was administered, sensory block resolved Anesthetic Complications: no major complications apparent
[2017-04-22] MEDS ORDERED: FUROSEMIDE INJ 20 MG in SYRINGE 0 ML IV SCH (15:00)
[2017-04-22] MEDS: ACETAMINOPHEN 325 MG TAB PO SCH ×2 (15:47→15:48)
--- NOTE | 2017-04-22 16:17 | Progress Note ---
Internal Med Progress Note Date of Service: Apr 22, 2017. Provider Documentation: SUBJECTIVE: s/p Right TKA ambulated ok' has some pain while ambulating 'feeling weak and dizzy no fevers no chest pain has some sob while ambulating OBJECTIVE: Vital Signs-as noted below Exam: General-alert and oriented. Not in distress ENT-Normal hearing Neck-no neck masses supple Lungs-cta b/l no wheezing no crackles present Heart-s1 and s2 heard regular rate and rhythm no murmurs Abdomen-soft bowel sounds present non tender no distension Extremities- no erythema s/p Rt TKA dressing and drain intact Neuro-alert and oriented moves extremities Lab data as noted below. ASSESSMENT & PLAN: S/P RIGHT TKA POD #[address] Calderon Pain control, wound care, activity per ortho Dvt px and disposition as per ortho. Acute blood loss anemia post op hb 7.2 will transfuse 2 units prbc. CAD Stable, no chest pain asymptomatic Recent cardiac cath 03/31/17- stent was patent Continue aspirin, Imdur, beta ary, statin Resume Plavix when acceptable by ortho HYPERTENSION Stable, continue Losartan, metoprolol PMR On chronic prednisone HYPOTHYROIDISM Continue levothyroxine DEPRESSION/ ANXIETY Continue home meds DVT PROPHYLAXIS Per ortho DISPOSITION Per ortho Vital Signs: Date Time Temp Pulse Resp B/P (MAP) Pulse Ox O2 Delivery O2 Flow Rate FiO2 04/22/17 15:32 36.5 69 18 113/54 (73) 94 Room Air 04/22/17 12:00 37.3 73 16 97/52 (67) 98 Room Air 04/22/17 07:25 36.7 89 18 121/56 (77) 96 Room Air 04/22/17 07:24 97 Room Air 04/22/17 04:00 36.6 81 18 119/53 (75) 97 Room Air 04/21/17 22:50 36.6 84 16 105/45 (65) 98 Room Air 04/21/17 21:40 110/57 (74) 04/21/17 19:50 Room Air 04/21/17 17:42 119/52 (74) 99 Nasal Cannula 2.0 Lab Results: Results Past 24 Hours Test 04/22/17 05:19 04/22/17 13:45 Range/Units White Blood Count 15.31 4.8-10.8 K/uL Red Blood Count 2.53 4.2-5.4 M/uL Hemoglobin 7.8 7.2 12.0-16.0 g/dL Hematocrit 24.2 22.0 37-47 % Mean Corpuscular Volume 95.7 80-100 fL Mean Corpuscular Hemoglobin 30.8 25-34 pg Mean Corpuscular Hemoglobin Concent 32.2 32-36 g/dl RDW Standard Deviation 46.5 36.4-46.3 fL RDW Coefficient of Variation 13.2 11.5-14.5 % Platelet Count 135 130-400 K/uL Platelet Estimate NORMAL Prothrombin Time 10.7 9.0-12.0 SECONDS Prothromb Time International Ratio 1.0 0.9-1.1 Sodium Level 141 136-145 mmol/L Potassium Level 5.1 3.5-5.1 mmol/L Chloride Level 113 98-107 mmol/L Carbon Dioxide Level 23 21-32 mmol/L Anion Gap 5.0 3-11 mmol/L Blood Urea Nitrogen 31 7-18 mg/dl Creatinine 1.10 0.60-1.20 mg/dl Est Creatinine Clear Calc Drug Dose 33.2 ml/min Estimated GFR () 53.8 Estimated GFR (Non- 46.4 BUN/Creatinine Ratio 28.2 10-20 Random Glucose 116 70-99 mg/dl Calcium Level 7.8 8.5-10.1 mg/dl
[2017-04-22] MEDS: SENNA 8.6 MG TAB PO SCH (21:00)
[2017-04-22] MEDS: COLCHICINE 0.6 MG TAB PO SCH (21:20)
[2017-04-22] MEDS: GABAPENTIN 300 MG CAP PO SCH (21:24)
[2017-04-23] MEDS: LEVOTHYROXINE 100 MCG TAB PO SCH (05:34)
[2017-04-23] MEDS: ACETAMINOPHEN 500 MG TAB PO SCH (06:01)
[2017-04-23 07:06] LABS: BUN/CREATININE RATIO 26.1 (10-20); CALCIUM 8.1 mg/dl (8.5-10.1); CREATININE 0.93 mg/dl (0.60-1.20); POTASSIUM 4.8 mmol/L (3.5-5.1)
[2017-04-23 07:20] LABS: BASO % 0.2 %; BASO ABS # 0.03 K/uL (0-0.2); COMPLETE YES; EOS % 0.5 %; HEMATOCRIT 32.1 % (37-47); IG% 0.3 %; LYMPH ABS # 2.81 K/uL (1.2-3.4); MEAN CORPUSCULAR HEMOGLOBIN 29.9 pg (25-34); MEAN CORPUSCULAR HGB CONC 32.1 g/dl (32-36); MONO % 8.4 %; NEUT % 68.6 %; PLATELET COUNT 124 K/uL (130-400); PLT ESTIMATE DECREASED; RED BLOOD COUNT 3.45 M/uL (4.2-5.4); WHITE BLOOD COUNT 12.75 K/uL (4.8-10.8)
[2017-04-23 07:45] VITALS: BP 126/56; PULSE 62; TEMP 36.5; O2SAT 96
[2017-04-23] MEDS: OXYCODONE HCL IR 5 MG TAB (IMMEDIATE RELEASE) PO PRN ×2 (07:45→12:11)
[2017-04-23] MEDS: DOCUSATE SODIUM 100 MG CAP PO SCH ×2 (09:00→10:07)
--- NOTE | 2017-04-23 09:06 | Orthopedic Progress Note ---
Orthopedic Progress Note Date of Service Apr 23, 2017. Subjective Post OP Day: 2 Reports: feeling well, pain controlled w PO medications, Denies: complaints, chest pain, SOB, nausea / vomiting, light headedness, calf pain Objective calves soft nontender, N/V intact, capillary refill less than 2 sec., dressing C /D/I, A&O x3, toes mobile Date Time Temp Pulse Resp B/P (MAP) Pulse Ox O2 Delivery O2 Flow Rate FiO2 04/23/17 07:45 36.5 62 16 126/56 (79) 96 Room Air 04/23/17 00:02 Room Air 04/22/17 23:45 36.7 70 16 110/53 97 04/22/17 22:55 36.7 65 18 110/59 (76) 92 Room Air 04/22/17 22:55 36.7 65 18 110/59 92 04/22/17 21:55 36.9 67 18 124/57 96 04/22/17 21:25 36.8 77 18 108/55 98 04/22/17 20:55 36.9 71 18 132/63 98 04/22/17 20:25 36.7 71 20 96/48 04/22/17 19:45 36.7 76 18 110/50 97 04/22/17 18:45 36.7 73 18 115/50 94 04/22/17 17:45 36.6 72 18 147/58 98 04/22/17 17:17 36.8 75 18 124/55 97 04/22/17 17:15 36.8 75 18 124/55 97 04/22/17 17:00 36.4 75 18 121/46 97 04/22/17 16:45 36.7 73 18 115/50 94 04/22/17 16:36 36.7 74 20 131/58 97 0.0 04/22/17 15:40 Room Air 04/22/17 15:32 36.5 69 18 113/54 (73) 94 Room Air 04/22/17 12:00 37.3 73 16 97/52 (67) 98 Room Air Laboratory Results 24 Hours: Test 04/22/17 13:45 04/23/17 06:01 Hematocrit 22.0 % 32.1 % Hemoglobin 7.2 g/dL 10.3 g/dL White Blood Count 12.75 K/uL Red Blood Count 3.45 M/uL Mean Corpuscular Volume 93.0 fL Mean Corpuscular Hemoglobin 29.9 pg Mean Corpuscular Hemoglobin Concent 32.1 g/dl Platelet Count 124 K/uL Neutrophils (%) (Auto) 68.6 % Lymphocytes (%) (Auto) 22.0 % Monocytes (%) (Auto) 8.4 % Eosinophils (%) (Auto) 0.5 % Basophils (%) (Auto) 0.2 % Neutrophils # (Auto) 8.73 K/uL Lymphocytes # (Auto) 2.81 K/uL Monocytes # (Auto) 1.07 K/uL Eosinophils # (Auto) 0.07 K/uL Basophils # (Auto) 0.03 K/uL Assessment & Plan Assessment: POD #2 Right TKA Plan: PT/OT Discharge - SNF - [facility] DVT Prophylaxis - ASA Seen and examined, agree with above Inhouse Planning Pain Management: Oxycontin, Oxy IR DVT Prophylaxis: TEDs, SCDs, ASA Discharge Planning [facility] ([facility] Pain Management: Oxycontin, Oxy IR DVT Prophylaxis: TEDs, ASA Therapy: Physical Therapy
--- NOTE | 2017-04-23 09:08 | Discharge Instructions ---
Discharge Instructions Date of Service Apr 23, 2017. Admission Reason for Admission: Right Knee Osteoarthritis Discharge Discharge Diagnosis / Problem: right knee ostoearthritis Discharge Goals Goal(s): Decrease discomfort, Improve function Activity Recommendations Activity Level: Up Ad Tete Weightbearing Status: Right weightbearing (as tolerated) . Additional Information Patient informed of condition: Yes Advance Directives: Yes DNR: No Level of Care: Acute Rehab Communicable Disease: No Prognosis: Stable Instructions / Follow-Up Instructions / Follow-Up ACTIVITY RECOMMENDATIONS: SELF CARE INSTRUCTIONS AFTER TOTAL KNEE REPLACEMENT A. You may need to continue a physical therapy program after discharge from the hospital. There are several options available to you. Your doctor will assist you in selecting the best one for you. 1. An out-patient facility 3 times a week for therapy. 2. Home therapy for 1 to 2 weeks with outpatient therapy to follow. 3. Continue working on all exercises taught by physical therapy three times a day for 20 minutes on non-therapy days. Your goals should be to increase the bending of your knee to 90 degrees and beyond and to fully straighten your knee. Ice and elevate knee after exercise. B. Weight as tolerated with a walker or as instructed by your physician. C. It is okay to shower if minimal to no drainage from incision. No Baths. Do not soak wound. D. Make walking a part of your daily routine. Be up as much as comfortable with rest periods throughout the day. Rest with leg elevation is very important. Use the ice wrap frequently for the first 3-4 weeks. E. There are no restrictions on activities. You may ride in a car, shop, participate in textiles and clothing teacher and all social activities. F. Wear the long elastic stockings (DALJIT hose) 20 hours a day for one month after surgery. They can be removed several times a day for laundering and when showering. G. Silverlon- This is a large adhesive bandage that contains silver ions. This helps your incision heal by fighting off bacteria and protecting it from the outside environment. You are permitted to shower with this dressing. This will remain on your incision for 7 days and then should be removed. Some visible blood or drainage through the dressing window is normal. If there is significant drainage or leaking noted before the 7 days notify your doctor's office immediately. Once removed, keep incision clean and dry. If there is any drainage or redness noted, please call your surgeon. SPECIAL CARE INSTRUCTIONS: VERY IMPORTANT TO READ AND REVIEW A. Take Aspirin (blood thinning medications) as directed by your doctor. If on Coumadin, have a pro-time (blood test) drawn according to your doctor's instructions. This will tell the doctor how well the Coumadin is thinning your blood. B. There are a few signs you need to watch for after you are home. Call [facility] if you notice any of the followin. Increased severe knee pain. Some pain is expected especially when you exercise. 2. Increased swelling in your leg or knee; pain or swelling of the calf muscle in either lower leg. 3. Any redness or fluid drainage from the incision. 4. Shortness of breath or chest pain. 5. A Temperature of 101 degrees F or greater. C. Please call [facility] at if you have any concerns or questions about your operation or recovery. The doctor or his nurse will return your call promptly. D. You must take antibiotics before dental work, bladder, bowel or other surgery. Your doctor will provide you with a permanent care to carry describing this precaution. FOLLOW UP VISIT: If appointment is not already scheduled: Please call [facility] to make a follow-up appointment for after your surgery at . Current Hospital Diet Patient's current hospital diet: Regular Diet Discharge Diet Recommended Diet: Regular Diet Procedures Procedures Performed: Right Total Knee Arthroplasty Pending Studies Studies pending at discharge: no Laboratory Results Hemoglobin A1c Test 03/01/17 10:19 Range/Units Estimated Average Glucose 126 mg/dl Hemoglobin A1c 6.0 H 4.5-5.6 % Medical Emergencies . Who to Call and When: Medical Emergencies: If at any time you feel your situation is an emergency, please call 911 immediately. . Non-Emergent Contact Non-Emergency issues call your: Surgeon Call Non-Emergent contact if: temperature is above 101, your pain is not controlled, your pain is worsening, wound has increased drainage, wound has increased redness . . "Provider Documentation" section prepared by Sea Wright. . Core Measure Problem Core Measures: None
[2017-04-23 09:10] VITALS: BP 124/58; PULSE 63; O2SAT 95
[2017-04-23] MEDS: METOPROLOL TARTRATE 25 MG TAB PO SCH (10:05)
[2017-04-23] MEDS: OXYCODONE HCL 10 MG TABCR (OXYCONTIN) PO SCH (10:05)
[2017-04-23] MEDS: LOSARTAN POTASSIUM 50 MG TAB PO SCH (10:05)
[2017-04-23] MEDS: OXYBUTYNIN CHLORIDE 5 MG TABCR PO SCH (10:06)
[2017-04-23] MEDS: FERROUS GLUCONATE 324 MG TAB PO SCH (10:06)
[2017-04-23] MEDS: PANTOprazole SOD 40 MG TAB PO SCH (10:06)
[2017-04-23] MEDS: ISOSORBIDE MONONITRATE 30 MG TABCR PO SCH (10:06)
[2017-04-23] MEDS: ROSUVASTATIN CALCIUM 20 MG TAB PO SCH (10:07)
[2017-04-23] MEDS: DULOXETINE HCL 20 MG CAP PO SCH (10:07)
[2017-04-23] MEDS: ASPIRIN 81 MG ECTAB PO SCH (10:07)
[2017-04-23] MEDS: ESCITALOPRAM OXALATE 10 MG TAB PO SCH (10:08)
[2017-04-23] MEDS: MULTIVITAMIN TAB PO SCH (10:08)
[2017-04-23 10:13] VITALS: BP 126/56; PULSE 62; TEMP 36.5; O2SAT 96
[2017-04-23] MEDS ORDERED: LORA-741 PO (10:38)
[2017-04-24] MEDS ORDERED: LEVOTHYROXINE 50 MCG TAB PO SCH (06:30)
--- NOTE | 2017-04-25 08:46 | Discharge Summary ---
Orthopedic Discharge Summary Admission Date/Reason Apr 21, 2017 at 09:37 Right Knee Osteoarthritis. Discharge Date/Disposition Apr 23, 2017 nursing home facility Diagnosis Principal Diagnosis: S/P Right Total Knee Arthroplasty Medication Reconciliation as per discharge instructions Admission Physical Exam As per Admitting History & Physical. Hospital Course POD #1 patient was feeling well with minimal pain. Her dressing was clean, dry and intact. She was Neurovascularly intact. She would like to go to [facility]. We will work on getting this authorized. POD #2 patient was feeling well. She denied any complaints. She got authorization to go to [facility]. She will be discharged on POD #2 to SNF. Discharge Instructions Please refer to the electronic Patient Visit Report (Discharge Instructions) for additional information.
== END 2017-04-23 12:40 | DRG 470 ==
LOC: C.ACU 08:42 → C.3E 09:37 → ENRESERV 13:34
PROVIDERS: ADMIT Orthopaedic Surgery; ATTEND Orthopaedic Surgery
PROC: 0SRC0J9 Replacement of Right Knee Joint with Synthetic Substitute, Cemented, Open Approach (ICD-10-PCS; principal; 2017-04-21 11:15)
DX: M17.11 Unilateral primary osteoarthritis, right knee (principal); D62 Acute posthemorrhagic anemia; I10 Essential (primary) hypertension; E78.00 Pure hypercholesterolemia, unspecified; I25.10 Atherosclerotic heart disease of native coronary artery without angina pectoris; I25.2 Old myocardial infarction; E03.9 Hypothyroidism, unspecified; M35.3 Polymyalgia rheumatica; Z79.02 Long term (current) use of antithrombotics/antiplatelets; Z79.899 Other long term (current) drug therapy; Z79.52 Long term (current) use of systemic steroids

== ENCOUNTER 2017-05-11 13:22 | Inpatient (IN) | payer OTHER ==
[~2017-05-11] VITALS: Ht 152.4 cm; Wt 62.5 kg
[~2017-05-11 13:22] MED LIST changes: -ACETAMINOPHEN 500 MG TAB PO SCH; -BUPIVACAINE 0.5 % 5 MG/1 ML PF 10ML VIAL ONE; -CEFAZOLIN 1000MG/55 ML D5W 55 ML IV SCH; -CeleBREX 200 MG CAP PO SCH; -DEXAMETHASONE 4 MG TAB PO SCH; -EpHEDrine SULFATE 50MG/5ML SYR ONE; -FAMOTIDINE 20 MG TAB PO SCH; -FENTANYL CITRATE INJ 50 MCG/1 ML 2 ML VIAL ONE; -GABAPENTIN 300 MG CAP PO SCH; +IMDSR30 PO; -LACTATED RINGER'S 1000ML 1,000 ML IV SCH; -LACTATED RINGER'S 1000ML 500 ML IV ONE; -LACTATED RINGER'S 1000ML IV SCH; -LIDOCAINE HCL 2% 2 ML VIAL (20MG/ML) ONE; -LORA-741 PO; -METOCLOPRAMIDE HCL 10 MG TAB PO SCH; -MIDAZOLAM HCL 1 MG/ML 2ML VIAL ONE; -OXYCODONE HCL 10 MG TABCR (OXYCONTIN) PO SCH; +OXYSR10 PO; -PHENYLEPHRINE 100MCG/ML 5ML SYR ONE; -PROPOFOL IV EMULSION 10 MG/ML 20 ML VIAL IV ONE; -ROPIVACAINE 5MG/ML 30 ML 150 MG, BUPIVACAINE/EPINEPHR 0.5% MPF 30 ML, KETOROLAC TROMETH... INFIL SCH; +RXC5 PO
[2017-05-11 14:50] VITALS: BP 119/63; PULSE 70; TEMP 36.8; O2SAT 97
[2017-05-11 15:01] VITALS: BP 119/63; PULSE 70; TEMP 36.8; O2SAT 97; Ht 152.4 cm; Wt 62.5 kg
[2017-05-11 15:40] VITALS: BP 106/48; PULSE 70; TEMP 36.7; O2SAT 96
[2017-05-11] MEDS ORDERED: DEXTROSE 5% 1000ML 1,000 ML IV SCH (16:15)
[2017-05-11] MEDS ORDERED: VANCOMYCIN CONSULT ACTIVE PRN (16:15)
[2017-05-11] MEDS ORDERED: VANCOMYCIN INJ 1,500 MG in SODIUM CHLORIDE 0.9% 500ML 500 ML IV ONE (16:30)
--- NOTE | 2017-05-11 16:56 | Pharmacy Progress Note ---
Pharmacy Abx Initial Consult Date of Service May 11, 2017. Pharmacy Dosing Scope Date of Consult: 05/11/17 Consultation requested by: Dr. Calderon Pharmacy is consulted to initiate vancomycin IV dosing therapy, order appropriate labs and adjust drug dose/frequency. Subjective The patient is a 81 year old female admitted on May 11, 2017 at 14:56. Objective Height (Feet): 5 Height (Inches): 0.00 Weight (Kilograms): 62.500 Vital Signs (Past 12Hrs) Vital Signs Past 12 Hours Date Time Temp Pulse Resp B/P (MAP) Pulse Ox O2 Delivery O2 Flow Rate FiO2 05/11/17 15:40 36.7 70 16 106/48 (67) 96 Room Air 05/11/17 15:01 36.8 70 15 119/63 97 Room Air 05/11/17 14:50 36.8 70 15 119/63 (81) 97 Room Air Lab Results (24Hrs) Laboratory Tests (24 Hours) Test 05/11/17 15:39 Micro Results Date/Time Source Procedure Growth Status 05/11/17 15:39 Blood Blood Culture Pending Ordered 05/11/17 15:39 Blood Blood Culture Pending Ordered Risk Factors for Resistance * Hospitalization for 48 hours or more within the past 90 days * Antimicrobial use within the last 90 days Ancef pre and postop Assessment & Plan Assessment 81 year old female admitted with a post-operative infection around her TKA (s/ p surgery 3 weeks ago).She has a PMH of hypertension, colorectal cancer, and myocardial infarction. Plan vancomycin for treatment of post-operative wound Vancomycin IV * Loading dose: 1500 mg (25 mg/kg) * Maintenance dose: 1000 mg IV (15 mg/kg) every 12 hours (population pharmacokinetics suggest a half-life of 11.9 hours) * Goal trough level for post-op infection : 15 to 20 mcg/mL * Trough is ordered for 05/13/17 prior 0600 dose Pharmacy will continue to follow and will adjust dose/frequency as necessary. Thank you.
[2017-05-11] MEDS ORDERED: PANT40TA PO (17:22)
[2017-05-11 17:30] LABS: BASO % 0.4 %; BASO ABS # 0.04 K/uL (0-0.2); COMPLETE YES; EOS % 1.2 %; IG% 0.4 %; LYMPH % 20.5 %; LYMPH ABS # 2.16 K/uL (1.2-3.4); MEAN CELL VOLUME 91.2 fL (80-100); MEAN CORPUSCULAR HEMOGLOBIN 30.6 pg (25-34); MEAN CORPUSCULAR HGB CONC 33.5 g/dl (32-36); MEAN PLATELET VOLUME 12.1 fL (7.4-10.4); MONO % 7.7 %; NEUT % 69.8 %; PLATELET COUNT 164 K/uL (130-400); RED BLOOD COUNT 3.73 M/uL (4.2-5.4); WHITE BLOOD COUNT 10.53 K/uL (4.8-10.8)
[2017-05-11 17:57] LABS: BUN/CREATININE RATIO 21.6 (10-20); CALCIUM 10.1 mg/dl (8.5-10.1); CREATININE 1.2 mg/dl (0.60-1.20); POTASSIUM 4.8 mmol/L (3.5-5.1)
[2017-05-11] MEDS ORDERED: ACETAMINOPHEN 325 MG TAB PO PRN (18:00)
[2017-05-11] MEDS ORDERED: NITROGLYCERIN 0.4 MG SL PER TAB CHARGE UT PRN (18:00)
[2017-05-11] MEDS ORDERED: WHEAT DEXTRIN PO PRN (18:00)
--- NOTE | 2017-05-11 18:33 | HISTORY & PHYSICAL EXAMINATION ---
DATE OF ADMISSION: 05/11/2017 SUBJECTIVE CHIEF COMPLAINT: Right knee pain. HISTORY OF PRESENT ILLNESS: The patient is an 81-year-old female who presented to the office with right knee pain. She was previously seen in the office on 05/04/2017 for staple removal, incision check and x-ray of her right total knee. Everything at this point in time of her office visit was okay, incision was clean, dry and intact, x-ray showed good alignment of her implant. Her range of motion was 0 degrees to 103 degrees flexion. She left the office without any complications. She went back to [facility] where she had physical therapy and on May 10, she started to notice mild drainage from her incision and on May 11, she noticed that the incision had opened and thus she came to the office. PAST MEDICAL HISTORY: Significant for hypertension, hypercholesterolemia, heart attack in October 2015, shortness of breath while walking up hill, hypothyroidism, osteoarthritis, and a history of colorectal cancer. PAST SURGICAL HISTORY: She had 1 stent, cholecystectomy, Left total knee, right total knee arthroplasty, open reduction internal fixation of the right hip, Achilles tendon repair, and tonsillectomy. ALLERGIES: She has no known drug allergies. DISCHARGE MEDICATIONS: Acetaminophen 1000 mg p.o. q. 8 hours p.r.n. pain, aspirin 81 mg b.i.d., Caltrate 1 tab p.o. q.p.m., Plavix 75 mg p.o. q.a.m., Coenzyme Q10 2 capsules p.o. q.a.m., duloxetine 1 capsule p.o. q.a.m., Lexapro 10 mg p.o. q.a.m., flaxseed oil 1 capsule p.o. q.a.m., Neurontin 300 mg p.o. at bedtime, levothyroxine 1000 mcg p.o. q.a.m., Ativan 0.5 mg p.o. t.i.d. p.r.n. for anxiety, losartan 50 mg p.o. q.a.m., Lopressor 25 mg p.o. b.i.d., Nitrostat 0.4 mg under the tongue p.r.n., Ocuvite PreserVision 1 tab p.o. b.i.d., omeprazole 20 mg p.o. q.a.m., Ditropan 1 tab p.o. q.a.m., prednisone 5 mg p.o. q.a.m., Crestor 40 mg p.o. q.a.m., fenofibrate 1 tablet p.o. q.a.m. SOCIAL HISTORY: She denies alcohol use, denies smoking or tobacco use. She denies IV or illegal drug use. She lives in a [address] house and she is currently retired. FAMILY HISTORY: Mother and father have a history of heart disease. REVIEW OF SYSTEMS: She denies headaches, fevers, chills, double vision, blurry vision, sore throat, cough, chest pain, nausea, vomiting, diarrhea, constipation, numbness, tingling, tired, urinary difficulties, thoughts to harm herself or harm others. OBJECTIVE: GENERAL APPEARANCE: The patient is an 81-year-old female sitting in a wheelchair in no acute distress. She is well dressed, well nourished. She is awake, alert and oriented x3. VITAL SIGNS: She is 5 feet tall, 135 pounds. HEENT: Extraocular movements are intact. Normocephalic, atraumatic. Mucosa was moist. No septal deviation. NECK: Supple with no lymphadenopathy, no JVD, no thyromegaly. HEART: Has a systolic murmur that is appreciated in the aortic position. LUNGS: Clear to auscultation. No wheezing or rhonchi. ABDOMEN: Soft, nontender, nondistended. Normal bowel sounds, no hepatosplenomegaly. EXTREMITIES: Paying particular attention to the right knee, you can visibly see part of the patella as the incision is open around the patellar about 3-4 cm long x 2 cm wide. There is no erythema or edema around the incision. Steri-Strips were intact. The incision distally and proximally to the knee cap were intact. She was able to extend to 0 degrees and flex to 90 degrees. NEUROLOGIC: Cranial nerves II-XII are intact. Pulses were compared bilaterally and were equal. IMPRESSION: Status post 3 weeks right total knee arthroplasty with wound dehiscence. PLAN: The patient is scheduled to go to the operating room for a right knee I&D with possible poly exchange. She noticed wound dehiscence May 10 and May 11 and presented to the office with an open wound status post 3 weeks of the right TKA. Given this, she was directly admitted to the hospital where she will undergo a right knee I&D with possible poly exchange. Risks and benefits to surgery were discussed and included but not limited to infection, DVT, pain, stiffness, need for revision surgery, damage to blood vessels, damage to nerves, PE, and anesthesia risks were all discussed with the patient and she wishes to proceed. All questions were answered to her satisfaction. JEFFERY
[2017-05-11] MEDS ORDERED: BACITRACIN 50000 UNIT VIAL ONE ×2 (20:05→20:15)
[2017-05-11] MEDS ORDERED: BUPIVACAINE 0.5 % 5 MG/1 ML MPF 30ML VIAL ONE (20:05)
[2017-05-11] MEDS ORDERED: FENTANYL CITRATE INJ 50 MCG/1 ML 2 ML VIAL ONE (20:07)
[2017-05-11] MEDS ORDERED: POVIDONE-IODINE OP SOLN 30 ML BTL ONE (20:15)
[2017-05-11] MEDS: COLCHICINE 0.6 MG TAB PO SCH (21:00)
[2017-05-11] MEDS: CEROVITE ADV FORMULA TAB PO SCH (21:00)
[2017-05-11] MEDS: GABAPENTIN 100 MG CAP PO SCH (21:00)
[2017-05-11] MEDS ORDERED: ONDANSETRON INJ 2 MG/ML 2 ML VIAL ONE (22:02)
[2017-05-11] MEDS ORDERED: LABETALOL HCL IV 5 MG/ML 20ML IV ONE (22:02)
[2017-05-11] MEDS ORDERED: ETOMIDATE 2 MG/ML 20 ML VIAL IV ONE (22:03)
[2017-05-11] MEDS ORDERED: PROPOFOL IV EMULSION 10 MG/ML 20 ML VIAL IV ONE (22:03)
[2017-05-11] MEDS ORDERED: LIDOCAINE HCL 2% 2 ML VIAL (20MG/ML) ONE (22:03)
--- NOTE | 2017-05-11 22:35 | [facility] Operative Report ---
Operative Report Operative Date May 11, 2017. Pre-Operative Diagnosis Right knee wound dehiscence Post-Operative Diagnosis Right knee wound dehiscence with rupture of the arthrotomy Procedure(s) Performed Right Knee Incision and Drainage and Poly Exchange Due to Wound Dehiscence and Arthrotomy Rupture with repair of dehised wound and arthrotomy Surgeon Dr. Calderon Fabricator Foam Rubber Surgeon(s) 0 Estimated Blood Loss 20ml Findings wound appeared clean, no signs of infection. Suture thread in arthrotomy were intact but torn through the tissue Specimens A. Explanted Hardware Right Knee For Culture: 1. Right Knee Wound - Routine - C+S, Gram Stain, Aerobic/Anaerobic Drains 2 hemovac Anesthesia geta Complication(s) None Disposition Recovery Room / PACU Indications 81 yo female who underwent on, daily right total knee arthroplasty on April 21. The only difficulty she had her postoperative course was she had a fall striking her back. There is a concern for injury to the spine at that time. Her knee had been feeling good. Yesterday at physical therapy she had some slightly increased drainage from the knee. Today after physical therapy she is returning to her room and noticed drooping of the leg. She is seen in the office and the wound had opened and the patella was visible. She presents for irrigation and debridement with exploration of the wound and possible polyethylene exchange. She had denied any fevers chills or increasing pain or swelling in the knee or any other signs or symptoms of infection. Description of Procedure Risks benefits and alternatives of surgery including but not limited to infection DVT pain stiffness need for surgery damage to blood vessels damage to nerves or risks of anesthesia were discussed with the patient and she wished to proceed. Patient was identified in the laterality was confirmed and marked. She received a preoperative antibiotic is also a spinal anesthetic and a abductor canal block. A well-padded tourniquet was applied and then the limb was prepped and draped in standard manner with ChloraPrep. The limb was exsanguinated and the tourniquet was inflated. The central aspect of her incision had opened over the course of about 6 cm. Inspection revealed that the arthrotomy repair had ruptured. The entire wound was then reopened. The Vicryl sutures throughout its for the repair of her arthrotomy were all intact and had not broken but had ripped through the tissue. I could visualize where the sutures had slows through some of the tissue. There was some hematoma within the wound but no purulent material. No signs or symptoms of infection. I did take cultures given the possible concern for infection but clinically the wound appeared clean. I removed her previous Vicryl sutures debrided the hematoma. I thoroughly irrigated the wound with bacitracin fluid. I removed the previous polyethylene. I irrigated the posterior capsule. I then trialed a 11 mm polyethylene as this is what she had previously and I was still satisfied with the soft tissue balancing and range of motion. A fresh 11 mm polyethylene was placed. A Betadine soak was performed. A deep drain was placed. I freshened the skin edges to establish a good bleeding response. The arthrotomy was closed with interrupted #1 Vicryl suture , the subcutaneous tissue was closed with interrupted 2-0 Vicryl suture and skin with 3-0 nylon horizontal mattress fashion. A provisional wound VAC was placed. All needle and sponge counts were correct at the end of the procedure patient was transferred to the PACU in stable condition without apparent complication. Given the clean appearance of the wound and the tear through of the sutures through the tissue, my suspicion is that she ruptured her arthrotomy at the time of her fall last week and then had progressive opening of the subcutaneous tissue as it saw additional stress with the arthrotomy ruptured. I attest to the content of the Intraoperative Record and any orders documented therein. Any exceptions are noted below.
--- NOTE | 2017-05-11 22:39 | Anesthesiology Progress Note ---
Anesthesia Post Op Note Date & Time May 11, 2017 at 22:39 Vital Signs Pain Intensity: 0.0 Vital Signs Past 12 Hours Date Time Temp Pulse Resp B/P (MAP) Pulse Ox O2 Delivery O2 Flow Rate FiO2 05/11/17 16:05 Room Air 05/11/17 15:40 36.7 70 16 106/48 (67) 96 Room Air 05/11/17 15:01 36.8 70 15 119/63 97 Room Air 05/11/17 14:50 36.8 70 15 119/63 (81) 97 Room Air Notes Mental Status: alert / awake / arousable, participated in evaluation Pt Amnestic to Procedure: Yes Nausea / Vomiting: adequately controlled Pain: adequately controlled Airway Patency, RR, SpO2: stable & adequate BP & HR: stable & adequate Hydration State: stable & adequate Anesthetic Complications: no major complications apparent
[2017-05-11] MEDS ORDERED: HYDROmorphone INJ 2 MG/ML SYR/VIAL ONE (22:43)
[2017-05-11] MEDS ORDERED: ALUMINUM/MAGNESIUM/SIMETH (MAALOX MAX) 30 ML UDC PO PRN (22:45)
[2017-05-11] MEDS ORDERED: PHENYLEPHRINE 100MCG/ML 5ML SYR IV PRN (22:45)
[2017-05-11] MEDS ORDERED: ATROPINE SULFATE 0.1 MG/ML 5ML SYR IV PRN (22:45)
[2017-05-11] MEDS ORDERED: OXYCODONE HCL IR 5 MG TAB (IMMEDIATE RELEASE) PO PRN (22:45)
[2017-05-11] MEDS ORDERED: EpHEDrine SULFATE INJ 50 MG/ML AMP IV PRN (22:45)
[2017-05-11] MEDS ORDERED: MAGNESIUM HYDROXIDE SUSP 30 ML UDC PO PRN (22:45)
[2017-05-11] MEDS ORDERED: HYDROmorphone INJ 2 MG/ML SYR/VIAL IV PRN (22:45)
[2017-05-11] MEDS ORDERED: ONDANSETRON INJ 2 MG/ML 2 ML VIAL IV PRN ×2 (22:45)
[2017-05-11] MEDS ORDERED: MoRPHine SULFATE 2 MG/ML CARP IV PRN (22:45)
[2017-05-12] VITALS (12 sets, daily range): BP systolic 106–182; BP diastolic 46–73; PULSE 62–89; TEMP 36.4–37.1; O2SAT 93–99
[2017-05-12] MEDS: D5W AND 1/2NSS + 20MEQ KCL 1,000 ML IV SCH ×3 (00:15→19:05)
[2017-05-12] MEDS: ACETAMINOPHEN 500 MG TAB PO SCH ×4 (00:21→23:50)
[2017-05-12] MEDS: METOPROLOL TARTRATE 25 MG TAB PO SCH ×3 (00:22→21:27)
[2017-05-12] MEDS: OXYCODONE HCL IR 5 MG TAB (IMMEDIATE RELEASE) PO PRN ×5 (01:42→23:51)
[2017-05-12] MEDS: LEVOTHYROXINE 100 MCG TAB PO SCH (05:31)
[2017-05-12] MEDS ORDERED: VANCOMYCIN INJ 1,000 MG in SODIUM CHLORIDE 0.9% 250ML 250 ML IV SCH (06:00)
--- NOTE | 2017-05-12 07:00 | Orthopedic Progress Note ---
Orthopedic Progress Note Date of Service May 12, 2017. Subjective Post OP Day: 1 Reports: feeling well, pain controlled w PO medications, Denies: complaints, chest pain, SOB, nausea / vomiting, light headedness, calf pain Objective calves soft nontender, N/V intact, capillary refill less than 2 sec., dressing C /D/I, A&O x3, toes mobile, hemovac drainage (100 last shift) Date Time Temp Pulse Resp B/P (MAP) Pulse Ox O2 Delivery O2 Flow Rate FiO2 05/12/17 05:22 68 96 Room Air 05/12/17 03:02 36.5 72 24 133/67 (89) 99 Nasal Cannula 1.0 05/12/17 01:59 36.4 74 15 132/73 (92) 99 Nasal Cannula 1.0 05/12/17 00:59 36.9 83 16 155/71 (99) 99 Nasal Cannula 3.0 05/12/17 00:31 36.8 85 18 154/65 (94) 99 Nasal Cannula 1.0 05/12/17 00:00 Room Air 91.0 05/12/17 00:00 Nasal Cannula 2.0 05/12/17 00:00 37.0 89 17 182/71 (108) 93 Room Air 05/11/17 23:20 36.2 94 16 173/66 100 Nasal Cannula 3 05/11/17 23:10 90 13 167/55 100 Nasal Cannula 3 05/11/17 23:00 86 15 174/66 100 Nasal Cannula 3 05/11/17 22:50 85 17 169/54 100 Oxymask 10 05/11/17 22:40 83 13 164/74 100 Oxymask 10 05/11/17 22:33 36.6 86 20 172/61 99 Oxymask 10 05/11/17 16:05 Room Air 05/11/17 15:40 36.7 70 16 106/48 (67) 96 Room Air 05/11/17 15:01 36.8 70 15 119/63 97 Room Air 05/11/17 14:50 36.8 70 15 119/63 (81) 97 Room Air Laboratory Results 24 Hours: Test 05/11/17 17:10 05/12/17 06:40 White Blood Count 10.53 K/uL Red Blood Count 3.73 M/uL Hemoglobin 11.4 g/dL Hematocrit 34.0 % Mean Corpuscular Volume 91.2 fL Mean Corpuscular Hemoglobin 30.6 pg Mean Corpuscular Hemoglobin Concent 33.5 g/dl Platelet Count 164 K/uL Mean Platelet Volume 12.1 fL Neutrophils (%) (Auto) 69.8 % Lymphocytes (%) (Auto) 20.5 % Monocytes (%) (Auto) 7.7 % Eosinophils (%) (Auto) 1.2 % Basophils (%) (Auto) 0.4 % Neutrophils # (Auto) 7.35 K/uL Lymphocytes # (Auto) 2.16 K/uL Monocytes # (Auto) 0.81 K/uL Eosinophils # (Auto) 0.13 K/uL Basophils # (Auto) 0.04 K/uL Assessment & Plan Assessment: POD #1 S/P 3 weeks Right TKA with wound dehiscence and arthrotomy rupture. Plan: DVT - ASA PT/OT Appreciate consults with support Discharge - SNF Pt seen and examined, agree with above Cx's growing staph, uncertain if from wound being exposed or true deep infection. Will await sensitivities Inhouse Planning Pain Management: Oxycontin, Oxy IR DVT Prophylaxis: TEDs, SCDs, ASA Discharge Planning Discharge Planning: half-way facility DVT Prophylaxis: TEDs Therapy: Physical Therapy
[2017-05-12 07:36] LABS: BUN/CREATININE RATIO 18.2 (10-20); CREATININE 0.96 mg/dl (0.60-1.20); POTASSIUM 4.4 mmol/L (3.5-5.1)
[2017-05-12 08:04] LABS: HEMATOCRIT 28.2 % (37-47); MEAN CELL VOLUME 92.8 fL (80-100); MEAN CORPUSCULAR HEMOGLOBIN 30.3 pg (25-34); MEAN CORPUSCULAR HGB CONC 32.6 g/dl (32-36); PLATELET COUNT 212 K/uL (130-400); RED BLOOD COUNT 3.04 M/uL (4.2-5.4); WHITE BLOOD COUNT 12.51 K/uL (4.8-10.8)
[2017-05-12] MEDS ORDERED: PANTOprazole SOD 40 MG TAB PO SCH ×2 (09:00)
[2017-05-12] MEDS ORDERED: NON-FORMULARY MEDICATION (Coenzyme Q10 (Ubidecarenone) (Co Q10) 2 CAP) PO SCH (09:00)
[2017-05-12] MEDS ORDERED: NON-FORMULARY MEDICATION (Flaxseed (Linseed) (Flaxseed Oil) 1 CAP) PO SCH (09:00)
[2017-05-12] MEDS: FERROUS GLUCONATE 324 MG TAB PO SCH ×3 (09:02→17:56)
[2017-05-12] MEDS: CALCIUM 600MG + VIT D 400 IU TAB PO SCH ×2 (09:02→17:56)
[2017-05-12] MEDS: LOSARTAN POTASSIUM 50 MG TAB PO SCH (09:03)
[2017-05-12] MEDS: MULTIVITAMIN TAB PO SCH (09:03)
[2017-05-12] MEDS: GABAPENTIN 100 MG CAP PO SCH ×3 (09:04→21:27)
[2017-05-12] MEDS: CEROVITE ADV FORMULA TAB PO SCH ×2 (09:05→21:27)
[2017-05-12] MEDS: ROSUVASTATIN CALCIUM 20 MG TAB PO SCH (09:05)
[2017-05-12] MEDS: ESCITALOPRAM OXALATE 10 MG TAB PO SCH (09:06)
[2017-05-12] MEDS: ISOSORBIDE MONONITRATE 30 MG TABCR PO SCH (09:06)
[2017-05-12] MEDS: OXYBUTYNIN CHLORIDE 5 MG TABCR PO SCH (09:06)
[2017-05-12] MEDS: DULOXETINE HCL 20 MG CAP PO SCH (09:06)
[2017-05-12] MEDS: PANTOprazole SOD 40 MG TAB PO SCH (09:07)
--- NOTE | 2017-05-12 09:09 | Anesthesiology Progress Note ---
Anesthesia Post Op Note Date & Time May 12, 2017 at 09:08 Vital Signs Pain Intensity: 9 Vital Signs Past 12 Hours Date Time Temp Pulse Resp B/P (MAP) Pulse Ox O2 Delivery O2 Flow Rate FiO2 05/12/17 08:05 36.6 64 14 134/70 (91) 96 Room Air 05/12/17 07:15 Room Air 05/12/17 05:22 68 96 Room Air 05/12/17 03:02 36.5 72 24 133/67 (89) 99 Nasal Cannula 1.0 05/12/17 01:59 36.4 74 15 132/73 (92) 99 Nasal Cannula 1.0 05/12/17 00:59 36.9 83 16 155/71 (99) 99 Nasal Cannula 3.0 05/12/17 00:31 36.8 85 18 154/65 (94) 99 Nasal Cannula 1.0 05/12/17 00:00 Room Air 91.0 05/12/17 00:00 Nasal Cannula 2.0 05/12/17 00:00 37.0 89 17 182/71 (108) 93 Room Air 05/11/17 23:20 36.2 94 16 173/66 100 Nasal Cannula 3 05/11/17 23:10 90 13 167/55 100 Nasal Cannula 3 05/11/17 23:00 86 15 174/66 100 Nasal Cannula 3 05/11/17 22:50 85 17 169/54 100 Oxymask 10 05/11/17 22:40 83 13 164/74 100 Oxymask 10 05/11/17 22:33 36.6 86 20 172/61 99 Oxymask 10 Notes Mental Status: alert / awake / arousable Pt Amnestic to Procedure: Yes Nausea / Vomiting: adequately controlled Pain: see Notes Airway Patency, RR, SpO2: stable & adequate BP & HR: stable & adequate Hydration State: stable & adequate pt stated she has not received any pain medication since her procedure; pt has not voided
--- NOTE | 2017-05-12 09:21 | Medical Consult ---
Consultation Date of Consultation: May 12, 2017. Attending Physician: Hair Calderon M.D. Reason for Consultation: medical management . History of Present Illness I & D / poly exchange right knee performed yesterday. Doing well postoperatively. No chest pain. No cough or dyspnea. No nausea or vomiting. Postop pain well-controlled. . Past Medical/Surgical History Chronic and Resolved Medical Problems: (1) Anxiety Status: Chronic (2) Aortic stenosis Status: Chronic (3) CAD (coronary artery disease) Status: Chronic (4) Depression Status: Chronic (5) Dyslipidemia Status: Chronic (6) Glaucoma Status: Chronic (7) H/O reduction of open fracture Status: Chronic (8) History of colorectal cancer Status: Chronic (9) History of hip fracture Status: Chronic (10) HTN (hypertension) Status: Chronic (11) Hypothyroidism Status: Chronic (12) Osteoporosis Status: Chronic (13) PMR (polymyalgia rheumatica) Status: Chronic (14) S/p bare metal coronary artery stent Status: Chronic Surgical Problems: (1) History of cataract surgery Status: Chronic (2) S/P cholecystectomy Status: Chronic (3) S/P partial mastectomy Status: Chronic (4) S/p removal of bowel lesion Status: Chronic (5) S/P total knee arthroplasty Status: Chronic . Family History FATHER Heart disease MOTHER Heart disease SISTER Heart disease SISTER Pancreatic cancer Social History Smoking Status: Never Smoker Alcohol Use: none Allergies Coded Allergies: Cyclobenzaprine (Verified Adverse Reaction, Unknown, DRY MOUTH, 04/21/17) NSAIDs (Unverified Adverse Reaction, Unknown, DYSPEPSIA, 04/21/17) PER RECORDS Statins (Unverified Adverse Reaction, Unknown, MYALGIAS, NAUSEA, 04/21/17) PER RECORDS Home Medications Reported Home Medications Medications Dose Route/Sig Max Daily Dose Days Date Category Dose Instructions Protonix (Pantoprazole Sodium) 40 Mg Tab 40 Mg PO DAILY 05/11/17 Reported Oxycodone HCl 5 Mg Tab 5-10 Mg PO Q4H PRN 04/22/17 Rx Oxycontin (Oxycodone HCl) 10 Mg Tabcr 10 Mg PO Q12 04/22/17 Rx Aspir-81 (Aspirin) 81 Mg Tab 81 Mg PO QAM 30 04/22/17 Rx Take Aspirin 81mg twice a day for 30 days. Then resume normal aspirin routine. Isosorbide Mononitrate ER (Isosorbide Mononitrate) 30 Mg Tabcr 30 Mg PO DAILY 04/21/17 Reported Flaxseed Oil (Flaxseed (Linseed)) 1 Cap Cap 1 Cap PO QAM 03/01/17 Reported Ocuvite Preservision (Multivitamins/Minerals) 1 Tab Tab 1 Tab PO BID 03/01/17 Reported Benefiber (Wheat Dextrin) 1 Tab Tab 1 Tab PO QAM PRN 03/01/17 Reported Co Q10 (Coenzyme Q10) 50 Mg Cap 2 Cap PO QAM 03/01/17 Reported Nitrostat (Nitroglycerin) 0.4 Mg Tab 0.4 Mg UT PRN 03/01/17 Reported Lexapro (Escitalopram Oxalate) 10 Mg Tab 20 Mg PO QAM 03/01/17 Reported Crestor (Rosuvastatin Calcium) 40 Mg Tab 40 Mg PO QAM 03/01/17 Reported Plavix (Clopidogrel Bisulfate) 75 Mg Tab 75 Mg PO QAM 03/01/17 Reported Ditropan Xl (Oxybutynin Chloride) 5 Mg Tab 1 Tab PO QAM 90 03/01/17 Reported Neurontin (Gabapentin) 300 Mg Cap 100 Mg PO TID 03/01/17 Reported Prednisone 5 Mg Tab 5 Mg PO QAM 03/01/17 Reported Tylenol (Acetaminophen) 500 Mg Tab 650 Mg PO Q4 PRN 03/01/17 Reported Cymbalta (Duloxetine HCl) 20 Mg Cap 1 Cap PO QAM 30 03/01/17 Reported Lopressor (Metoprolol Tartrate) 25 Mg Tab 25 Mg PO BID 03/01/17 Reported Colchicine 0.6 Mg Tab 0.6 Mg PO HS 03/01/17 Reported Reclast (Zoledronic Acid) 5 Mg/100 Ml Inj 1 Dose IV YEARLY 09/24/14 Reported PT DUE FOR NEXT INFUSION IN SEP 2017 Caltrate 600+D (Calcium Carbonate-Cholecalcife) 1 Tab Tab 1 Tab PO BID 09/24/14 Reported Levothyroxine Sodium 100 Mcg Tab 100 Mcg PO UD 09/24/14 Reported Take 1 tablet (100 mcg) by mouth daily except Sundays. Take 1/2 tablet (50 mcg) on Tuesday. Omeprazole 20 Mg Tab 20 Mg PO QAM 09/24/14 Reported Losartan Potassium 50 Mg Tab 50 Mg PO QAM 09/24/14 Reported Current Inpatient Medications Current Inpatient Medications Medications (Trade) Dose Ordered Sig/Joanie Route Start Time Stop Time Status Last Admin Dose Admin Vancomycin HCl (Consult) 1 ea UD PRN N/A 05/11/17 16:15 06/10/17 16:14 Acetaminophen (Tylenol Tab) 650 mg Q4 PRN PO 05/11/17 18:00 06/10/17 17:59 Future Hold Colchicine (Colchicine Tab) 0.6 mg HS PO 05/11/17 21:00 06/10/17 20:59 Duloxetine HCl (Cymbalta Cap) 20 mg QAM PO 05/12/17 09:00 06/11/17 08:59 05/12/17 09:06 20 MG Escitalopram Oxalate (Lexapro Tab) 20 mg QAM PO 05/12/17 09:00 06/11/17 08:59 05/12/17 09:06 20 MG Gabapentin (Neurontin Cap) 100 mg TID PO 05/11/17 21:00 06/10/17 20:59 05/12/17 09:04 100 MG Isosorbide Mononitrate (Imdur Ext Rel Tab) 30 mg DAILY PO 05/12/17 09:00 06/11/17 08:59 05/12/17 09:06 30 MG Levothyroxine Sodium (Synthroid Tab) 100 mcg MoTuWeThFrSa@0630 PO 05/12/17 06:30 06/11/17 06:29 05/12/17 05:31 100 MCG Losartan Potassium (coZAAR TAB) 50 mg QAM PO 05/12/17 09:00 06/11/17 08:59 05/12/17 09:03 50 MG Metoprolol Tartrate (Lopressor Tab) 25 mg BID PO 05/11/17 21:00 06/10/17 20:59 05/12/17 09:05 25 MG Nitroglycerin (Nitrostat Tab) 0.4 mg UD PRN UT 05/11/17 18:00 06/10/17 17:59 Multivitamins/ Minerals (Multivitamin W/ Minerals Tab) 1 tab BID PO 05/11/17 21:00 06/10/17 20:59 05/12/17 09:05 1 TAB Oxybutynin Chloride (Ditropan-Xl Tab) 5 mg QAM PO 05/12/17 09:00 9/23/17 08:59 05/12/17 09:06 5 MG Oxycodone HCl (Roxicodone Immediate Rel Tab) 5mg for pain 1-5 10mg ... Q4H PRN PO 05/11/17 18:00 05/25/17 17:59 05/12/17 07:15 10 MG Prednisone (PredniSONE TAB) 5 mg QAM PO 05/12/17 09:00 06/11/17 08:59 05/12/17 09:04 5 MG Rosuvastatin Calcium (Crestor Tab) 40 mg QAM PO 05/12/17 09:00 06/11/17 08:59 05/12/17 09:05 40 MG Calcium/Vitamin D (Caltrate Plus Tab) 1 tab BIDM PO 05/12/17 08:30 06/11/17 08:29 05/12/17 09:02 1 TAB Pantoprazole Sodium (Protonix Tab) 40 mg QAM PO 05/12/17 09:00 06/11/17 08:59 05/12/17 09:07 40 MG Levothyroxine Sodium (Synthroid Tab) 50 mcg Gaming@0630 PO 05/15/17 06:30 06/14/17 06:29 Vancomycin HCl 750 mg/Sodium Chloride 265 ml @ 125 mls/hr Q24H IV 05/12/17 18:00 05/21/17 17:59 Potassium Chloride/Dextrose/ Sod Cl 1,000 ml @ 100 mls/hr Q10H IV 05/11/17 22:35 05/12/17 22:34 05/12/17 09:00 100 MLS/HR Morphine Sulfate (MoRPHine SULFATE INJ) 2 mg Q2H PRN IV 05/11/17 22:45 05/25/17 22:44 Acetaminophen (Tylenol Tab) 1,000 mg Q8H PO 05/12/17 00:00 06/11/17 00:00 05/12/17 09:01 1,000 MG Magnesium Hydroxide (Milk Of Magnesia Susp) 30 ml Q6H PRN PO 05/11/17 22:45 06/10/17 22:44 Al Hydrox/Mg Hydrox/Simethicone (Maalox Max Susp) 15 ml Q4H PRN PO 05/11/17 22:45 06/10/17 22:44 Multivitamins (Multivitamin Tab) 1 tab QAM PO 05/12/17 09:00 06/11/17 08:59 05/12/17 09:03 1 TAB Ondansetron HCl (Zofran Inj) 4 mg Q6H PRN IV 05/11/17 22:45 06/10/17 22:44 Ferrous Gluconate (Ferrous Gluconate Tab) 324 mg TIDM PO 05/12/17 08:30 06/11/17 08:29 05/12/17 09:02 324 MG Review of Systems Constitutional: No fever Respiratory: No cough, No shortness of breath Cardiovascular: No chest pain Abdomen: No nausea, No vomiting, No GI bleeding Musculoskeletal: + joint pain Genitourinary - Female: No dysuria Psychiatric: + depression symptoms Physical Exam Date Time Temp Pulse Resp B/P (MAP) Pulse Ox O2 Delivery O2 Flow Rate FiO2 05/12/17 08:05 36.6 64 14 134/70 (91) 96 Room Air 05/12/17 07:15 Room Air 05/12/17 05:22 68 96 Room Air 05/12/17 03:02 36.5 72 24 133/67 (89) 99 Nasal Cannula 1.0 05/12/17 01:59 36.4 74 15 132/73 (92) 99 Nasal Cannula 1.0 05/12/17 00:59 36.9 83 16 155/71 (99) 99 Nasal Cannula 3.0 05/12/17 00:31 36.8 85 18 154/65 (94) 99 Nasal Cannula 1.0 05/12/17 00:00 Room Air 91.0 05/12/17 00:00 Nasal Cannula 2.0 05/12/17 00:00 37.0 89 17 182/71 (108) 93 Room Air 05/11/17 23:20 36.2 94 16 173/66 100 Nasal Cannula 3 05/11/17 23:10 90 13 167/55 100 Nasal Cannula 3 05/11/17 23:00 86 15 174/66 100 Nasal Cannula 3 05/11/17 22:50 85 17 169/54 100 Oxymask 10 05/11/17 22:40 83 13 164/74 100 Oxymask 10 05/11/17 22:33 36.6 86 20 172/61 99 Oxymask 10 05/11/17 16:05 Room Air 8/23/17 15:40 36.7 70 16 106/48 (67) 96 Room Air 05/11/17 15:01 36.8 70 15 119/63 97 Room Air 05/11/17 14:50 36.8 70 15 119/63 (81) 97 Room Air General Appearance: WD/WN, no apparent distress Head: normocephalic, atraumatic Eyes: normal inspection, PERRL, EOMI, sclerae normal ENT: hearing grossly normal, + pertinent finding (dentition fair) Neck: supple, no adenopathy, thyroid normal, no JVD, trachea midline Respiratory/Chest: lungs clear, no respiratory distress, no accessory muscle use Cardiovascular: regular rate, rhythm, no edema, no gallop, no JVD, + systolic murmur (II/ systolic murmur at base) Abdomen/GI: normal bowel sounds, non tender, soft, no organomegaly, no pulsatile mass Extremities/Musculoskelatal: no calf tenderness, + pertinent finding (right knee bandaged; SCD's applied) Neurologic/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: 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 (PERRL, EOMI, no facial palsy, no dysarthria), no motor/sensory deficits, alert, oriented x 3, + depressed affect Skin: normal color, warm/dry Lymphatic: no adenopathy (cervical) Laboratory Results Last 24 Hours Test 05/11/17 17:10 05/12/17 06:40 White Blood Count 10.53 K/uL 12.51 K/uL Red Blood Count 3.73 M/uL 3.04 M/uL Hemoglobin 11.4 g/dL 9.2 g/dL Hematocrit 34.0 % 28.2 % Mean Corpuscular Volume 91.2 fL 92.8 fL Mean Corpuscular Hemoglobin 30.6 pg 30.3 pg Mean Corpuscular Hemoglobin Concent 33.5 g/dl 32.6 g/dl Platelet Count 164 K/uL 212 K/uL Mean Platelet Volume 12.1 fL Neutrophils (%) (Auto) 69.8 % Lymphocytes (%) (Auto) 20.5 % Monocytes (%) (Auto) 7.7 % Eosinophils (%) (Auto) 1.2 % Basophils (%) (Auto) 0.4 % Neutrophils # (Auto) 7.35 K/uL Lymphocytes # (Auto) 2.16 K/uL Monocytes # (Auto) 0.81 K/uL Eosinophils # (Auto) 0.13 K/uL Basophils # (Auto) 0.04 K/uL RDW Standard Deviation 48.1 fL 48.6 fL RDW Coefficient of Variation 14.4 % 14.5 % Immature Granulocyte % (Auto) 0.4 % Immature Granulocyte # (Auto) 0.04 K/uL Sodium Level 139 mmol/L 138 mmol/L Potassium Level 4.8 mmol/L 4.4 mmol/L Chloride Level 108 mmol/L 106 mmol/L Carbon Dioxide Level 25 mmol/L 25 mmol/L Anion Gap 6.0 mmol/L 7.0 mmol/L Blood Urea Nitrogen 26 mg/dl 18 mg/dl Creatinine 1.20 mg/dl 0.96 mg/dl Est Creatinine Clear Calc Drug Dose 29.3 ml/min 36.7 ml/min Estimated GFR () 48.4 63.4 Estimated GFR (Non- 41.8 54.7 BUN/Creatinine Ratio 21.6 18.2 Random Glucose 100 mg/dl 134 mg/dl Calcium Level 10.1 mg/dl Total Bilirubin 0.6 mg/dl Aspartate Amino Transf (AST/SGOT) 26 U/L Alanine Aminotransferase (ALT/SGPT) 31 U/L Alkaline Phosphatase 157 U/L Total Protein 7.4 gm/dl Albumin 3.7 gm/dl Globulin 3.7 gm/dl Albumin/Globulin Ratio 1.0 Assessment & Plan CORONARY ARTERY DISEASE Non anginal symptoms. Continue metoprolol and nitrates. Resume aspirin and clopidogrel when OK from surgical perspective. HYPERTENSION Continue metoprolol, losartan. DYSLIPIDEMIA Continue rosuvastatin. PMR Continue prednisone. VTE PROPHYLAXIS Per Ortho. Thank you for receiving this patient in transfer. Please call if you have any questions. Cristian Meyers .
[2017-05-12 10:07] LABS: CALCIUM 8.5 mg/dl (8.5-10.1)
--- NOTE | 2017-05-12 10:14 | Medical Consult ---
Consultation Date of Consultation: May 12, 2017. Attending Physician: Hair Calderon M.D. Reason for Consultation: infected TKA , exposed hardware History of Present Illness 81-year-old female status post right TKA April 21, had initially did well postoperatively with good healing, but recently developed drainage from the wound with increasing redness and eventually exposure of hardware. She was admitted to the hospital and has undergone debridement and poly exchange. Operative Gram stain negative, cultures are pending. Patient has denied any significant fever chills or other new systemic complaints. Currently on vancomycin. 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 (15) S/p bare metal coronary artery stent Surgical Problems: (1) History of cataract surgery (2) S/P cholecystectomy (3) S/P partial mastectomy (4) S/p removal of bowel lesion (5) S/P total knee arthroplasty Family History Noncontributory Social History Smoking Status: Never Smoker Allergies Coded Allergies: Cyclobenzaprine (Verified Adverse Reaction, Unknown, DRY MOUTH, 04/21/17) NSAIDs (Unverified Adverse Reaction, Unknown, DYSPEPSIA, 04/21/17) PER RECORDS Statins (Unverified Adverse Reaction, Unknown, MYALGIAS, NAUSEA, 04/21/17) PER RECORDS Current Inpatient Medications Current Inpatient Medications Medications (Trade) Dose Ordered Sig/Joanie Route Start Time Stop Time Status Last Admin Dose Admin Vancomycin HCl (Consult) 1 ea UD PRN N/A 05/11/17 16:15 06/10/17 16:14 Acetaminophen (Tylenol Tab) 650 mg Q4 PRN PO 05/11/17 18:00 06/10/17 17:59 Future Hold Colchicine (Colchicine Tab) 0.6 mg HS PO 05/11/17 21:00 06/10/17 20:59 Duloxetine HCl (Cymbalta Cap) 20 mg QAM PO 05/12/17 09:00 06/11/17 08:59 05/12/17 09:06 20 MG Escitalopram Oxalate (Lexapro Tab) 20 mg QAM PO 05/12/17 09:00 06/11/17 08:59 05/12/17 09:06 20 MG Gabapentin (Neurontin Cap) 100 mg TID PO 05/11/17 21:00 06/10/17 20:59 05/12/17 09:04 100 MG Isosorbide Mononitrate (Imdur Ext Rel Tab) 30 mg DAILY PO 05/12/17 09:00 06/11/17 08:59 05/12/17 09:06 30 MG Levothyroxine Sodium (Synthroid Tab) 100 mcg MoTuWeThFrSa@0630 PO 05/12/17 06:30 06/11/17 06:29 05/12/17 05:31 100 MCG Losartan Potassium (coZAAR TAB) 50 mg QAM PO 05/12/17 09:00 06/11/17 08:59 05/12/17 09:03 50 MG Metoprolol Tartrate (Lopressor Tab) 25 mg BID PO 05/11/17 21:00 06/10/17 20:59 05/12/17 09:05 25 MG Nitroglycerin (Nitrostat Tab) 0.4 mg UD PRN UT 05/11/17 18:00 06/10/17 17:59 Multivitamins/ Minerals (Multivitamin W/ Minerals Tab) 1 tab BID PO 05/11/17 21:00 06/10/17 20:59 05/12/17 09:05 1 TAB Oxybutynin Chloride (Ditropan-Xl Tab) 5 mg QAM PO 05/12/17 09:00 06/11/17 08:59 05/12/17 09:06 5 MG Oxycodone HCl (Roxicodone Immediate Rel Tab) 5mg for pain 1-5 10mg ... Q4H PRN PO 05/11/17 18:00 05/25/17 17:59 05/12/17 07:15 10 MG Prednisone (PredniSONE TAB) 5 mg QAM PO 05/12/17 09:00 06/11/17 08:59 05/12/17 09:04 5 MG Rosuvastatin Calcium (Crestor Tab) 40 mg QAM PO 05/12/17 09:00 06/11/17 08:59 05/12/17 09:05 40 MG Calcium/Vitamin D (Caltrate Plus Tab) 1 tab BIDM PO 05/12/17 08:30 06/11/17 08:29 05/12/17 09:02 1 TAB Pantoprazole Sodium (Protonix Tab) 40 mg QAM PO 05/12/17 09:00 06/11/17 08:59 05/12/17 09:07 40 MG Levothyroxine Sodium (Synthroid Tab) 50 mcg Gaming@0630 PO 05/15/17 06:30 06/14/17 06:29 Vancomycin HCl 750 mg/Sodium Chloride 265 ml @ 125 mls/hr Q24H IV 05/12/17 18:00 05/21/17 17:59 Potassium Chloride/Dextrose/ Sod Cl 1,000 ml @ 100 mls/hr Q10H IV 05/11/17 22:35 05/12/17 22:34 05/12/17 09:00 100 MLS/HR Morphine Sulfate (MoRPHine SULFATE INJ) 2 mg Q2H PRN IV 05/11/17 22:45 05/25/17 22:44 Acetaminophen (Tylenol Tab) 1,000 mg Q8H PO 05/12/17 00:00 06/11/17 00:00 05/12/17 09:01 1,000 MG Magnesium Hydroxide (Milk Of Magnesia Susp) 30 ml Q6H PRN PO 05/11/17 22:45 06/10/17 22:44 Al Hydrox/Mg Hydrox/Simethicone (Maalox Max Susp) 15 ml Q4H PRN PO 05/11/17 22:45 06/10/17 22:44 Multivitamins (Multivitamin Tab) 1 tab QAM PO 05/12/17 09:00 06/11/17 08:59 05/12/17 09:03 1 TAB Ondansetron HCl (Zofran Inj) 4 mg Q6H PRN IV 05/11/17 22:45 06/10/17 22:44 Ferrous Gluconate (Ferrous Gluconate Tab) 324 mg TIDM PO 05/12/17 08:30 06/11/17 08:29 05/12/17 09:02 324 MG Review of Systems All systems were reviewed and are negative except as per HPI Physical Exam Date Time Temp Pulse Resp B/P (MAP) Pulse Ox O2 Delivery O2 Flow Rate FiO2 05/12/17 09:28 96 Room Air 05/12/17 08:05 36.6 64 14 134/70 (91) 96 Room Air 05/12/17 07:15 Room Air 05/12/17 05:22 68 96 Room Air 05/12/17 03:02 36.5 72 24 133/67 (89) 99 Nasal Cannula 1.0 05/12/17 01:59 36.4 74 15 132/73 (92) 99 Nasal Cannula 1.0 05/12/17 00:59 36.9 83 16 155/71 (99) 99 Nasal Cannula 3.0 05/12/17 00:31 36.8 85 18 154/65 (94) 99 Nasal Cannula 1.0 05/12/17 00:00 Room Air 91.0 05/12/17 00:00 Nasal Cannula 2.0 05/12/17 00:00 37.0 89 17 182/71 (108) 93 Room Air 05/11/17 23:20 36.2 94 16 173/66 100 Nasal Cannula 3 05/11/17 23:10 90 13 167/55 100 Nasal Cannula 3 05/11/17 23:00 86 15 174/66 100 Nasal Cannula 3 05/11/17 22:50 85 17 169/54 100 Oxymask 10 05/11/17 22:40 83 13 164/74 100 Oxymask 10 05/11/17 22:33 36.6 86 20 172/61 99 Oxymask 10 05/11/17 16:05 Room Air 05/11/17 15:40 36.7 70 16 106/48 (67) 96 Room Air 05/11/17 15:01 36.8 70 15 119/63 97 Room Air 05/11/17 14:50 36.8 70 15 119/63 (81) 97 Room Air General Appearance: WD/WN, no apparent distress Head: normocephalic, atraumatic Eyes: normal inspection, EOMI, sclerae normal ENT: normal ENT inspection, pharynx normal Neck: supple, no adenopathy, thyroid normal, trachea midline Respiratory/Chest: chest non-tender, lungs clear, normal breath sounds, no respiratory distress Cardiovascular: regular rate, rhythm, no gallop, no murmur Abdomen/GI: normal bowel sounds, non tender, soft, no organomegaly Back: normal inspection, no CVA tenderness Extremities/Musculoskelatal: no calf tenderness, non-tender Neurologic/Psych: alert, oriented x 3 Skin: normal color, no rash, + pertinent finding (Surgical dressing intact) Lymphatic: no adenopathy Laboratory Results Date/Time Source Procedure Growth Status 05/11/17 17:15 Blood Blood Culture Pending Received 05/11/17 17:10 Blood Blood Culture Pending Received 05/11/17 21:00 Incision Site Knee Right Gram Stain - Final Resulted 05/11/17 21:00 Incision Site Knee Right Bacterial Culture Pending Resulted Last 24 Hours Test 05/11/17 17:10 05/12/17 06:40 White Blood Count 10.53 K/uL 12.51 K/uL Red Blood Count 3.73 M/uL 3.04 M/uL Hemoglobin 11.4 g/dL 9.2 g/dL Hematocrit 34.0 % 28.2 % Mean Corpuscular Volume 91.2 fL 92.8 fL Mean Corpuscular Hemoglobin 30.6 pg 30.3 pg Mean Corpuscular Hemoglobin Concent 33.5 g/dl 32.6 g/dl Platelet Count 164 K/uL 212 K/uL Mean Platelet Volume 12.1 fL Neutrophils (%) (Auto) 69.8 % Lymphocytes (%) (Auto) 20.5 % Monocytes (%) (Auto) 7.7 % Eosinophils (%) (Auto) 1.2 % Basophils (%) (Auto) 0.4 % Neutrophils # (Auto) 7.35 K/uL Lymphocytes # (Auto) 2.16 K/uL Monocytes # (Auto) 0.81 K/uL Eosinophils # (Auto) 0.13 K/uL Basophils # (Auto) 0.04 K/uL RDW Standard Deviation 48.1 fL 48.6 fL RDW Coefficient of Variation 14.4 % 14.5 % Immature Granulocyte % (Auto) 0.4 % Immature Granulocyte # (Auto) 0.04 K/uL Sodium Level 139 mmol/L 138 mmol/L Potassium Level 4.8 mmol/L 4.4 mmol/L Chloride Level 108 mmol/L 106 mmol/L Carbon Dioxide Level 25 mmol/L 25 mmol/L Anion Gap 6.0 mmol/L 7.0 mmol/L Blood Urea Nitrogen 26 mg/dl 18 mg/dl Creatinine 1.20 mg/dl 0.96 mg/dl Est Creatinine Clear Calc Drug Dose 29.3 ml/min 36.7 ml/min Estimated GFR () 48.4 63.4 Estimated GFR (Non- 41.8 54.7 BUN/Creatinine Ratio 21.6 18.2 Random Glucose 100 mg/dl 134 mg/dl Calcium Level 10.1 mg/dl 8.5 mg/dl Total Bilirubin 0.6 mg/dl Aspartate Amino Transf (AST/SGOT) 26 U/L Alanine Aminotransferase (ALT/SGPT) 31 U/L Alkaline Phosphatase 157 U/L Total Protein 7.4 gm/dl Albumin 3.7 gm/dl Globulin 3.7 gm/dl Albumin/Globulin Ratio 1.0 Assessment & Plan Infected right TKA, cultures are pending. Patient should be continued on vancomycin pending final culture results. Will likely need 6 weeks of IV antibiotics. Would recommend PICC line placement. I will adjust antibiotics once culture results are available. Will follow.
[2017-05-12] MEDS: VANCOMYCIN INJ 750 MG in SODIUM CHLORIDE 0.9% 250ML 250 ML IV SCH (17:55)
[2017-05-12] MEDS: COLCHICINE 0.6 MG TAB PO SCH (21:27)
[2017-05-13] MEDS ORDERED: VANCOMYCIN TROUGH SCH (05:30)
[2017-05-13] MEDS: LEVOTHYROXINE 100 MCG TAB PO SCH (06:34)
[2017-05-13 06:47] VITALS: BP 113/68; PULSE 75; TEMP 37.4; O2SAT 92
[2017-05-13 06:57] LABS: CREATININE 0.95 mg/dl (0.60-1.20)
[2017-05-13] MEDS: ACETAMINOPHEN 500 MG TAB PO SCH ×2 (08:06→16:38)
[2017-05-13] MEDS: OXYCODONE HCL IR 5 MG TAB (IMMEDIATE RELEASE) PO PRN ×2 (08:09→13:11)
[2017-05-13] MEDS: CALCIUM 600MG + VIT D 400 IU TAB PO SCH ×2 (08:53→19:07)
[2017-05-13] MEDS: FERROUS GLUCONATE 324 MG TAB PO SCH ×3 (08:54→19:08)
[2017-05-13 08:56] VITALS: BP 100/56; PULSE 73
[2017-05-13] MEDS: ROSUVASTATIN CALCIUM 20 MG TAB PO SCH (08:57)
[2017-05-13] MEDS: LOSARTAN POTASSIUM 50 MG TAB PO SCH (08:57)
[2017-05-13] MEDS: DULOXETINE HCL 20 MG CAP PO SCH (08:58)
[2017-05-13] MEDS: OXYBUTYNIN CHLORIDE 5 MG TABCR PO SCH (08:58)
[2017-05-13] MEDS: ISOSORBIDE MONONITRATE 30 MG TABCR PO SCH (08:59)
[2017-05-13] MEDS: ESCITALOPRAM OXALATE 10 MG TAB PO SCH (08:59)
[2017-05-13] MEDS: METOPROLOL TARTRATE 25 MG TAB PO SCH ×2 (08:59→21:00)
[2017-05-13] MEDS: MULTIVITAMIN TAB PO SCH (09:00)
[2017-05-13] MEDS: GABAPENTIN 100 MG CAP PO SCH ×3 (09:00→22:31)
[2017-05-13] MEDS: CEROVITE ADV FORMULA TAB PO SCH ×2 (09:00→22:30)
[2017-05-13] MEDS: PANTOprazole SOD 40 MG TAB PO SCH (09:01)
[2017-05-13 15:34] VITALS: BP 90/47; PULSE 81; TEMP 37.3; O2SAT 95
[2017-05-13] MEDS: VANCOMYCIN INJ 750 MG in SODIUM CHLORIDE 0.9% 250ML 250 ML IV SCH (19:06)
--- NOTE | 2017-05-13 22:02 | Orthopedic Progress Note ---
Orthopedic Progress Note Date of Service May 13, 2017. Subjective Post OP Day: 2 Reports: feeling well, pain controlled w PO medications, Denies: complaints, chest pain, SOB, nausea / vomiting, light headedness, calf pain Objective calves soft nontender, N/V intact, capillary refill less than 2 sec., dressing C /D/I, A&O x3, toes mobile Date Time Temp Pulse Resp B/P (MAP) Pulse Ox O2 Delivery O2 Flow Rate FiO2 05/13/17 15:34 37.3 81 18 90/47 (61) 95 Room Air 05/13/17 08:56 73 100/56 (71) 05/13/17 08:00 Room Air 05/13/17 06:47 37.4 75 17 113/68 (83) 92 Room Air 05/12/17 22:41 37.1 87 16 117/63 (81) 94 Room Air Assessment & Plan Assessment: POD #2 S/P 3 weeks Right TKA with wound dehiscence and arthrotomy rupture. Plan: DVT - ASA PT/OT Appreciate consults with support Discharge - SNF Pt seen and examined, agree with above Cx's growing MSSA, no recomendation yet from Dr. Wall about abx recommendation. Once we have plan, can make arrangements for d/c Inhouse Planning Pain Management: Oxycontin, Oxy IR DVT Prophylaxis: BEATRIZ Daviss, ASA Discharge Planning Discharge Planning: correction facility (with IV antibiotics upon approval from insurance. ) DVT Prophylaxis: Ryan Therapy: Physical Therapy
[2017-05-13] MEDS: COLCHICINE 0.6 MG TAB PO SCH (22:31)
[2017-05-13 23:11] VITALS: BP 112/61; PULSE 88; TEMP 37.4; O2SAT 96
[2017-05-14] MEDS: OXYCODONE HCL IR 5 MG TAB (IMMEDIATE RELEASE) PO PRN ×3 (00:21→21:09)
[2017-05-14] MEDS: ACETAMINOPHEN 500 MG TAB PO SCH ×3 (00:22→16:28)
--- NOTE | 2017-05-14 04:34 | Progress Note ---
Medicine Progress Note Date & Time of Visit: late entry for 05/13/17 @ 16:30 . Subjective Doing well postoperatively. No fever. No chest pain. No cough or dyspnea. No nausea or vomiting. Postop pain well-controlled. . Objective Last 8 Hrs Date Time Temp Pulse Resp B/P (MAP) Pulse Ox O2 Delivery O2 Flow Rate FiO2 05/14/17 00:20 Room Air 05/13/17 23:11 37.4 88 16 112/61 (78) 96 Room Air Physical Exam: General- no distress Lungs- clear Heart- RRR Abdomen- + BS, soft, nontender Extremities- right knee bandaged; no calf tenderness Neuro- alert . Laboratory Results: Last 24 Hours Test 05/13/17 05:49 Creatinine 0.95 mg/dl Est Creatinine Clear Calc Drug Dose 37.0 ml/min Estimated GFR () 64.2 Estimated GFR (Non- 55.4 Assessment & Plan RIGHT KNEE INFECTION I&D with poly exchange performed by Ortho. Wound culture growing Staph aureus. Afebrile. ID consulted. CORONARY ARTERY DISEASE Non anginal symptoms. Continue metoprolol and nitrates. Resume aspirin and clopidogrel when OK from surgical perspective. HYPERTENSION Continue metoprolol, losartan. DYSLIPIDEMIA Continue rosuvastatin. PMR Continue prednisone. VTE PROPHYLAXIS Per Ortho. Thank you for this consultation. We will follow the patient with you during their hospital stay. Dr. Gallego will be assuming medical management 05/14. You can reach a member of the [facility] Hospitalist Team 11/04 via pager @ [phone]. You can reach me via cell @ [phone]. . . Current Inpatient Medications: Current Inpatient Medications Medications (Trade) Dose Ordered Sig/Joanie Route Start Time Stop Time Status Last Admin Dose Admin Vancomycin HCl (Consult) 1 ea UD PRN N/A 05/11/17 16:15 06/10/17 16:14 Acetaminophen (Tylenol Tab) 650 mg Q4 PRN PO 05/11/17 18:00 06/10/17 17:59 Future Hold Colchicine (Colchicine Tab) 0.6 mg HS PO 05/11/17 21:00 06/10/17 20:59 05/13/17 22:31 0.6 MG Duloxetine HCl (Cymbalta Cap) 20 mg QAM PO 05/12/17 09:00 06/11/17 08:59 05/13/17 08:58 20 MG Escitalopram Oxalate (Lexapro Tab) 20 mg QAM PO 05/12/17 09:00 06/11/17 08:59 05/13/17 08:59 20 MG Gabapentin (Neurontin Cap) 100 mg TID PO 05/11/17 21:00 06/10/17 20:59 05/13/17 22:31 100 MG Isosorbide Mononitrate (Imdur Ext Rel Tab) 30 mg DAILY PO 05/12/17 09:00 06/11/17 08:59 05/13/17 08:59 30 MG Levothyroxine Sodium (Synthroid Tab) 100 mcg MoTuWeThFrSa@0630 PO 05/12/17 06:30 06/11/17 06:29 05/13/17 06:34 100 MCG Losartan Potassium (coZAAR TAB) 50 mg QAM PO 05/12/17 09:00 06/11/17 08:59 05/13/17 08:57 50 MG Metoprolol Tartrate (Lopressor Tab) 25 mg BID PO 05/11/17 21:00 06/10/17 20:59 05/12/17 21:27 25 MG Nitroglycerin (Nitrostat Tab) 0.4 mg UD PRN UT 05/11/17 18:00 06/10/17 17:59 Multivitamins/ Minerals (Multivitamin W/ Minerals Tab) 1 tab BID PO 05/11/17 21:00 06/10/17 20:59 05/13/17 22:30 1 TAB Oxybutynin Chloride (Ditropan-Xl Tab) 5 mg QAM PO 05/12/17 09:00 06/11/17 08:59 05/13/17 08:58 5 MG Oxycodone HCl (Roxicodone Immediate Rel Tab) 5mg for pain 1-5 10mg ... Q4H PRN PO 05/11/17 18:00 05/25/17 17:59 05/14/17 00:21 10 MG Prednisone (PredniSONE TAB) 5 mg QAM PO 05/12/17 09:00 06/11/17 08:59 05/13/17 09:01 5 MG Rosuvastatin Calcium (Crestor Tab) 40 mg QAM PO 05/12/17 09:00 06/11/17 08:59 05/13/17 08:57 40 MG Calcium/Vitamin D (Caltrate Plus Tab) 1 tab BIDM PO 05/12/17 08:30 06/11/17 08:29 05/13/17 19:07 1 TAB Pantoprazole Sodium (Protonix Tab) 40 mg QAM PO 05/12/17 09:00 06/11/17 08:59 05/13/17 09:01 40 MG Levothyroxine Sodium (Synthroid Tab) 50 mcg Gaming@0630 PO 05/15/17 06:30 06/14/17 06:29 Vancomycin HCl 750 mg/Sodium Chloride 265 ml @ 125 mls/hr Q24H IV 05/12/17 18:00 05/21/17 17:59 05/13/17 19:06 125 MLS/HR Morphine Sulfate (MoRPHine SULFATE INJ) 2 mg Q2H PRN IV 05/11/17 22:45 05/25/17 22:44 05/13/17 19:12 2 MG Acetaminophen (Tylenol Tab) 1,000 mg Q8H PO 05/12/17 00:00 06/11/17 00:00 05/14/17 00:22 1,000 MG Magnesium Hydroxide (Milk Of Magnesia Susp) 30 ml Q6H PRN PO 05/11/17 22:45 06/10/17 22:44 Al Hydrox/Mg Hydrox/Simethicone (Maalox Max Susp) 15 ml Q4H PRN PO 05/11/17 22:45 06/10/17 22:44 Multivitamins (Multivitamin Tab) 1 tab QAM PO 05/12/17 09:00 06/11/17 08:59 05/13/17 09:00 1 TAB Ondansetron HCl (Zofran Inj) 4 mg Q6H PRN IV 05/11/17 22:45 06/10/17 22:44 Ferrous Gluconate (Ferrous Gluconate Tab) 324 mg TIDM PO 05/12/17 08:30 06/11/17 08:29 05/13/17 19:08 324 MG Heparin Sodium (Porcine) (Heparin 10 Unit/ ml 5 ml Flush) 5 ml PRN PRN FLUSH 05/12/17 21:15 06/11/17 21:14 05/13/17 19:44 5 ML
[2017-05-14] MEDS: LEVOTHYROXINE 100 MCG TAB PO SCH (06:00)
--- NOTE | 2017-05-14 06:13 | Infectious Disease Progress Nt ---
Progress Note Date of Service May 13, 2017. Subjective Pt evaluation today including: conversation w/ patient, physical exam, chart review, lab review, review of studies, conversation w/ outplacement consultant, review of inpatient medication list No new complaints. Remains afebrile. Pain controlled. Cultures growing MSSA. All Other Systems: Reviewed and Negative Medications Current Inpatient Medications Medications (Trade) Dose Ordered Sig/Joanie Route Start Time Stop Time Status Last Admin Dose Admin Vancomycin HCl (Consult) 1 ea UD PRN N/A 05/11/17 16:15 06/10/17 16:14 Acetaminophen (Tylenol Tab) 650 mg Q4 PRN PO 05/11/17 18:00 06/10/17 17:59 Future Hold Colchicine (Colchicine Tab) 0.6 mg HS PO 05/11/17 21:00 06/10/17 20:59 05/13/17 22:31 0.6 MG Duloxetine HCl (Cymbalta Cap) 20 mg QAM PO 05/12/17 09:00 06/11/17 08:59 05/13/17 08:58 20 MG Escitalopram Oxalate (Lexapro Tab) 20 mg QAM PO 05/12/17 09:00 06/11/17 08:59 05/13/17 08:59 20 MG Gabapentin (Neurontin Cap) 100 mg TID PO 05/11/17 21:00 06/10/17 20:59 05/13/17 22:31 100 MG Isosorbide Mononitrate (Imdur Ext Rel Tab) 30 mg DAILY PO 05/12/17 09:00 06/11/17 08:59 05/13/17 08:59 30 MG Levothyroxine Sodium (Synthroid Tab) 100 mcg MoTuWeThFrSa@0630 PO 05/12/17 06:30 06/11/17 06:29 05/14/17 06:00 100 MCG Losartan Potassium (coZAAR TAB) 50 mg QAM PO 05/12/17 09:00 06/11/17 08:59 05/13/17 08:57 50 MG Metoprolol Tartrate (Lopressor Tab) 25 mg BID PO 05/11/17 21:00 06/10/17 20:59 05/12/17 21:27 25 MG Nitroglycerin (Nitrostat Tab) 0.4 mg UD PRN UT 05/11/17 18:00 06/10/17 17:59 Multivitamins/ Minerals (Multivitamin W/ Minerals Tab) 1 tab BID PO 05/11/17 21:00 06/10/17 20:59 05/13/17 22:30 1 TAB Oxybutynin Chloride (Ditropan-Xl Tab) 5 mg QAM PO 05/12/17 09:00 06/11/17 08:59 05/13/17 08:58 5 MG Oxycodone HCl (Roxicodone Immediate Rel Tab) 5mg for pain 1-5 10mg ... Q4H PRN PO 05/11/17 18:00 05/25/17 17:59 05/14/17 00:21 10 MG Prednisone (PredniSONE TAB) 5 mg QAM PO 05/12/17 09:00 06/11/17 08:59 05/13/17 09:01 5 MG Rosuvastatin Calcium (Crestor Tab) 40 mg QAM PO 05/12/17 09:00 06/11/17 08:59 05/13/17 08:57 40 MG Calcium/Vitamin D (Caltrate Plus Tab) 1 tab BIDM PO 05/12/17 08:30 06/11/17 08:29 05/13/17 19:07 1 TAB Pantoprazole Sodium (Protonix Tab) 40 mg QAM PO 05/12/17 09:00 06/11/17 08:59 05/13/17 09:01 40 MG Levothyroxine Sodium (Synthroid Tab) 50 mcg Gaming@0630 PO 05/15/17 06:30 06/14/17 06:29 Vancomycin HCl 750 mg/Sodium Chloride 265 ml @ 125 mls/hr Q24H IV 05/12/17 18:00 05/21/17 17:59 05/13/17 19:06 125 MLS/HR Morphine Sulfate (MoRPHine SULFATE INJ) 2 mg Q2H PRN IV 05/11/17 22:45 05/25/17 22:44 05/13/17 19:12 2 MG Acetaminophen (Tylenol Tab) 1,000 mg Q8H PO 05/12/17 00:00 06/11/17 00:00 05/14/17 00:22 1,000 MG Magnesium Hydroxide (Milk Of Magnesia Susp) 30 ml Q6H PRN PO 05/11/17 22:45 06/10/17 22:44 Al Hydrox/Mg Hydrox/Simethicone (Maalox Max Susp) 15 ml Q4H PRN PO 05/11/17 22:45 06/10/17 22:44 Multivitamins (Multivitamin Tab) 1 tab QAM PO 05/12/17 09:00 06/11/17 08:59 05/13/17 09:00 1 TAB Ondansetron HCl (Zofran Inj) 4 mg Q6H PRN IV 05/11/17 22:45 06/10/17 22:44 Ferrous Gluconate (Ferrous Gluconate Tab) 324 mg TIDM PO 05/12/17 08:30 06/11/17 08:29 05/13/17 19:08 324 MG Heparin Sodium (Porcine) (Heparin 10 Unit/ ml 5 ml Flush) 5 ml PRN PRN FLUSH 05/12/17 21:15 06/11/17 21:14 05/14/17 05:36 5 ML Objective Vital Signs Date Time Temp Pulse Resp B/P (MAP) Pulse Ox O2 Delivery O2 Flow Rate FiO2 05/14/17 00:20 Room Air 05/13/17 23:11 37.4 88 16 112/61 (78) 96 Room Air 05/13/17 16:15 Room Air 05/13/17 15:34 37.3 81 18 90/47 (61) 95 Room Air 05/13/17 08:56 73 100/56 (71) 05/13/17 08:00 Room Air 05/13/17 06:47 37.4 75 17 113/68 (83) 92 Room Air Physical Exam General Appearance: WD/WN, no apparent distress Eyes: normal inspection, sclerae normal ENT: normal ENT inspection, pharynx normal Neck: supple, no adenopathy, trachea midline Respiratory/Chest: chest non-tender, lungs clear, normal breath sounds, no respiratory distress Cardiovascular: regular rate, rhythm, no gallop, no murmur Abdomen: normal bowel sounds, non tender, soft, no organomegaly Extremities: non-tender, no calf tenderness Neurologic/Psychiatric: alert, oriented x 3 Skin: normal color, warm/dry, no rash Lymphatic: no adenopathy Laboratory Results RUN DATE: 05/13/17 [facility] PAGE 1 RUN TIME: 1051 Specimen Inquiry PATIENT: LEVI LEVI LOC: JORDY U # : [id number] AGE/SX: 81/F ROOM: [facility] REG : 05/11/[address]: Hair Calderon M.D. : 1935 BED: 1 DIS : STATUS: ADM IN TLOC: SPEC #: [id number] JORDY: 05/11/17 STATUS: RES REQ #: [id number] RECD: 05/11/[address]: Hair Calderon M.D. SOURCE: INC.SITE ENTR: 05/11/17 [facility] DR: Raman Wall MD SPDESC: KNEE RIGHT Coppes, Thomas Hays Jennifer., D.O. Szulawski, Ireneusz ORDERED: AER/MELISSA CULTSMR Procedure Result Verified Site GRAM STAIN Final 05/12/17-738 RESULT RARE WBCs SEEN NO ORGANISMS SEEN OR AER/MELISSA CULT Preliminary 05/13/17-1050 Organism 1 STAPHYLOCOCCUS AUREUS QUANITY MODERATE SENS SENSITIVITY TO FOLLOW 1. STAPHYLOCOCCUS AUREUS Target Route Dose RX AB Cost M.I.C. IQ ------ ----- ------ -- ------ -------- - ------ TRIMET/SULFA S <=0.5/ 9.5 * OXACILLIN S 0.5 VANCOMYCIN S 2 ERYTHROMYCIN S <=0.5 TETRACYCLINE S <=4 CLINDAMYCIN S <=0.5 DAPTOMYCIN S 1 S = SENSITIVE I = INTERMEDIATE R = RESISTANT Assessment and Plan Infected right TKA, with MSSA, s/p debridement and poly-exchange. Will change to cefazolin, which can be continued if patient goes to SNF. If home Rx, would recommend either daptomycin or ceftriaxone to allow once daily dosing. Will discuss.
[2017-05-14] MEDS: CEFAZOLIN IV 2,000 MG in DEXTROSE 5% 50ML 50 ML IV SCH ×3 (06:44→22:09)
[2017-05-14 06:45] LABS: CREATININE 0.93 mg/dl (0.60-1.20)
[2017-05-14 07:22] VITALS: BP 125/61; PULSE 92; TEMP 36.9; O2SAT 97
[2017-05-14] MEDS: MULTIVITAMIN TAB PO SCH (09:00)
[2017-05-14] MEDS: GABAPENTIN 100 MG CAP PO SCH ×3 (09:18→21:10)
[2017-05-14] MEDS: CALCIUM 600MG + VIT D 400 IU TAB PO SCH ×2 (09:18→17:57)
[2017-05-14] MEDS: DULOXETINE HCL 20 MG CAP PO SCH (09:18)
[2017-05-14] MEDS: ROSUVASTATIN CALCIUM 20 MG TAB PO SCH (09:19)
[2017-05-14] MEDS: ISOSORBIDE MONONITRATE 30 MG TABCR PO SCH (09:19)
[2017-05-14] MEDS: LOSARTAN POTASSIUM 50 MG TAB PO SCH (09:19)
[2017-05-14] MEDS: FERROUS GLUCONATE 324 MG TAB PO SCH ×3 (09:20→17:58)
[2017-05-14] MEDS: OXYBUTYNIN CHLORIDE 5 MG TABCR PO SCH (09:20)
[2017-05-14] MEDS: METOPROLOL TARTRATE 25 MG TAB PO SCH ×2 (09:20→21:09)
[2017-05-14] MEDS: ESCITALOPRAM OXALATE 10 MG TAB PO SCH (09:20)
[2017-05-14] MEDS: CEROVITE ADV FORMULA TAB PO SCH ×2 (09:20→21:10)
[2017-05-14] MEDS: PANTOprazole SOD 40 MG TAB PO SCH (09:20)
--- NOTE | 2017-05-14 10:24 | Orthopedic Progress Note ---
Orthopedic Progress Note Date of Service May 14, 2017. Subjective Post OP Day: 3 Reports: feeling well, Denies: complaints Objective calves soft nontender, N/V intact, capillary refill less than 2 sec., dressing C /D/I Date Time Temp Pulse Resp B/P (MAP) Pulse Ox O2 Delivery O2 Flow Rate FiO2 05/14/17 08:00 Room Air 05/14/17 07:22 36.9 92 18 125/61 (82) 97 Room Air 05/14/17 00:20 Room Air 05/13/17 23:11 37.4 88 16 112/61 (78) 96 Room Air 05/13/17 16:15 Room Air 05/13/17 15:34 37.3 81 18 90/47 (61) 95 Room Air Assessment & Plan Assessment: POD # S/P 3 weeks Right TKA with wound dehiscence and arthrotomy rupture. Plan: DVT - ASA PT/OT Appreciate consults with support Discharge - SNF Cx's growing MSSA, DR. Wall rec Ancef while she is at SNF. Can D/C once arrangements for SNF are set Inhouse Planning Pain Management: Oxycontin, Oxy IR DVT Prophylaxis: TEDs, SCDs, ASA Discharge Planning Discharge Planning: half-way facility (with IV antibiotics upon approval from insurance. ) DVT Prophylaxis: TEDs Therapy: Physical Therapy
[2017-05-14 12:28] LABS: BASO % 0.3 %; BASO ABS # 0.04 K/uL (0-0.2); COMPLETE YES; EOS % 1.9 %; HEMATOCRIT 24.9 % (37-47); IG% 0.3 %; LYMPH % 15.1 %; LYMPH ABS # 1.95 K/uL (1.2-3.4); MEAN CELL VOLUME 92.9 fL (80-100); MEAN CORPUSCULAR HEMOGLOBIN 30.2 pg (25-34); MEAN CORPUSCULAR HGB CONC 32.5 g/dl (32-36); MEAN PLATELET VOLUME 11.5 fL (7.4-10.4); MONO % 9.1 %; NEUT % 73.3 %; PLATELET COUNT 176 K/uL (130-400); RED BLOOD COUNT 2.68 M/uL (4.2-5.4); WHITE BLOOD COUNT 12.91 K/uL (4.8-10.8)
[2017-05-14 15:03] VITALS: BP 90/50; PULSE 72; TEMP 36.8; O2SAT 96
[2017-05-14 16:25] VITALS: O2SAT 96
[2017-05-14] MEDS ORDERED: VANCOMYCIN TROUGH ONE (17:30)
--- NOTE | 2017-05-14 18:56 | Progress Note ---
Internal Med Progress Note Date of Service: May 14, 2017. Provider Documentation: SUBJECTIVE: sitting on the chair comfortably eating fine ambulating k afebrile awaiting placement OBJECTIVE: Vital Signs-as noted below Exam: General-alert and oriented. Not in distress ENT-normal hearing Neck-no neck masses Lungs-cta b/l no wheezing or crackles Heart-s1 and s2 heard regular rate and rhythm, no murmurs Abdomen-soft bowel sounds present non tender no distension Extremities no edema no erythema s/p right knee surgery Neuro-alert and oriented moves extremities Lab data as noted below. ASSESSMENT & PLAN: RIGHT KNEE INFECTION I&D with poly exchange performed by Ortho. Wound culture growing MSSA ID consulted. s/p picc line on iv ancef CORONARY ARTERY DISEASE stable on metoprolol and nitrates. Resume aspirin and clopidogrel when OK from surgical perspective. HYPERTENSION on metoprolol, losartan. DYSLIPIDEMIA on rosuvastatin. PMR Continue prednisone. VTE PROPHYLAXIS Per Ortho. DISPOSITION as per ortho Vital Signs: Date Time Temp Pulse Resp B/P (MAP) Pulse Ox O2 Delivery O2 Flow Rate FiO2 05/14/17 15:03 36.8 72 16 90/50 (63) 96 05/14/17 08:00 Room Air 05/14/17 07:22 36.9 92 18 125/61 (82) 97 Room Air 05/14/17 00:20 Room Air 05/13/17 23:11 37.4 88 16 112/61 (78) 96 Room Air Lab Results: Results Past 24 Hours Test 05/14/17 05:36 05/14/17 11:32 Range/Units Creatinine 0.93 0.60-1.20 mg/dl Est Creatinine Clear Calc Drug Dose 37.8 ml/min Estimated GFR () 65.9 Estimated GFR (Non- 56.8 White Blood Count 12.91 4.8-10.8 K/uL Red Blood Count 2.68 4.2-5.4 M/uL Hemoglobin 8.1 12.0-16.0 g/dL Hematocrit 24.9 37-47 % Mean Corpuscular Volume 92.9 80-100 fL Mean Corpuscular Hemoglobin 30.2 25-34 pg Mean Corpuscular Hemoglobin Concent 32.5 32-36 g/dl Platelet Count 176 130-400 K/uL Mean Platelet Volume 11.5 7.4-10.4 fL Neutrophils (%) (Auto) 73.3 % Lymphocytes (%) (Auto) 15.1 % Monocytes (%) (Auto) 9.1 % Eosinophils (%) (Auto) 1.9 % Basophils (%) (Auto) 0.3 % Neutrophils # (Auto) 9.47 1.4-6.5 K/uL Lymphocytes # (Auto) 1.95 1.2-3.4 K/uL Monocytes # (Auto) 1.17 0.11-0.59 K/uL Eosinophils # (Auto) 0.24 0-0.5 K/uL Basophils # (Auto) 0.04 0-0.2 K/uL RDW Standard Deviation 49.4 36.4-46.3 fL RDW Coefficient of Variation 14.8 11.5-14.5 % Immature Granulocyte % (Auto) 0.3 % Immature Granulocyte # (Auto) 0.04 0.00-0.02 K/uL Red Blood Cell Morphology Unremarkable
[2017-05-14] MEDS: COLCHICINE 0.6 MG TAB PO SCH (21:10)
[2017-05-14 23:09] VITALS: BP 82/38; PULSE 74; TEMP 37.5; O2SAT 97
[2017-05-14 23:10] VITALS: BP 85/44; PULSE 75
[2017-05-14] MEDS ORDERED: SODIUM CHLORIDE 0.9% 1000ML 750 ML IV SCH (23:45)
[2017-05-14] MEDS ORDERED: SODIUM CHLORIDE 0.9% 1000ML 250 ML IV SCH (23:45)
[2017-05-15] MEDS: ACETAMINOPHEN 500 MG TAB PO SCH ×2 (00:32→07:40)
[2017-05-15] MEDS: OXYCODONE HCL IR 5 MG TAB (IMMEDIATE RELEASE) PO PRN ×2 (00:39→07:40)
[2017-05-15 01:27] VITALS: BP 96/52; PULSE 73
[2017-05-15] MEDS: CEFAZOLIN IV 2,000 MG in DEXTROSE 5% 50ML 50 ML IV SCH (05:56)
[2017-05-15] MEDS ORDERED: LEVOTHYROXINE 50 MCG TAB PO SCH (06:30)
[2017-05-15 07:25] VITALS: BP 133/63; PULSE 71; TEMP 36.8; O2SAT 98
[2017-05-15] MEDS: ISOSORBIDE MONONITRATE 30 MG TABCR PO SCH (09:00)
[2017-05-15] MEDS: LOSARTAN POTASSIUM 50 MG TAB PO SCH (09:00)
[2017-05-15] MEDS: METOPROLOL TARTRATE 25 MG TAB PO SCH (09:00)
[2017-05-15] MEDS: ESCITALOPRAM OXALATE 10 MG TAB PO SCH (09:09)
[2017-05-15] MEDS: FERROUS GLUCONATE 324 MG TAB PO SCH (09:09)
[2017-05-15] MEDS: CEROVITE ADV FORMULA TAB PO SCH (09:09)
[2017-05-15] MEDS: PANTOprazole SOD 40 MG TAB PO SCH (09:09)
[2017-05-15] MEDS: OXYBUTYNIN CHLORIDE 5 MG TABCR PO SCH (09:09)
[2017-05-15] MEDS: MULTIVITAMIN TAB PO SCH (09:10)
[2017-05-15] MEDS: DULOXETINE HCL 20 MG CAP PO SCH (09:11)
[2017-05-15] MEDS: ROSUVASTATIN CALCIUM 20 MG TAB PO SCH (09:11)
[2017-05-15] MEDS: GABAPENTIN 100 MG CAP PO SCH (09:11)
[2017-05-15] MEDS: CALCIUM 600MG + VIT D 400 IU TAB PO SCH (09:11)
--- NOTE | 2017-05-15 09:15 | Orthopedic Progress Note ---
Orthopedic Progress Note Date of Service May 15, 2017. Subjective Post OP Day: 2 Reports: feeling well, pain controlled w PO medications, Denies: chest pain, SOB , nausea / vomiting, light headedness, calf pain Objective calves soft nontender, N/V intact, capillary refill less than 2 sec., dressing C /D/I, A&O x3, toes mobile Date Time Temp Pulse Resp B/P (MAP) Pulse Ox O2 Delivery O2 Flow Rate FiO2 05/15/17 07:58 Room Air 05/15/17 07:25 36.8 71 18 133/63 (86) 98 Room Air 05/15/17 01:27 73 96/52 (67) 05/15/17 00:30 Room Air 05/14/17 23:10 75 85/44 (58) 05/14/17 23:09 37.5 74 16 82/38 (53) 97 Room Air 05/14/17 16:25 96 Room Air 91.0 05/14/17 15:03 36.8 72 16 90/50 (63) 96 Laboratory Results 24 Hours: Test 05/14/17 11:32 White Blood Count 12.91 K/uL Red Blood Count 2.68 M/uL Hemoglobin 8.1 g/dL Hematocrit 24.9 % Mean Corpuscular Volume 92.9 fL Mean Corpuscular Hemoglobin 30.2 pg Mean Corpuscular Hemoglobin Concent 32.5 g/dl Platelet Count 176 K/uL Mean Platelet Volume 11.5 fL Neutrophils (%) (Auto) 73.3 % Lymphocytes (%) (Auto) 15.1 % Monocytes (%) (Auto) 9.1 % Eosinophils (%) (Auto) 1.9 % Basophils (%) (Auto) 0.3 % Neutrophils # (Auto) 9.47 K/uL Lymphocytes # (Auto) 1.95 K/uL Monocytes # (Auto) 1.17 K/uL Eosinophils # (Auto) 0.24 K/uL Basophils # (Auto) 0.04 K/uL Assessment & Plan Assessment: POD # S/P 3 weeks Right TKA with wound dehiscence and arthrotomy rupture. Plan: DVT - ASA resumed plavix per medicine PT/OT Appreciate consults with support Discharge - [facility] today pending approval Cx's growing MSSA, DR. Wall rec Ancef while she is at SNF. Patient seen and examined, agree with above Inhouse Planning Pain Management: PO Tylenol, Oxy IR DVT Prophylaxis: TEDs, SCDs, ASA Discharge Planning Discharge Planning: alf facility (with IV antibiotics upon approval from insurance. ) Pain Management: PO Tylenol, Oxy IR DVT Prophylaxis: TEDs, SCDs, ASA Therapy: Physical Therapy
[2017-05-15 09:16] VITALS: BP 101/42; PULSE 71
[2017-05-15] MEDS ORDERED: ACET-24 PO (09:23)
[2017-05-15] MEDS ORDERED: ONDA8TAB6 PO (09:23)
[2017-05-15] MEDS ORDERED: FRRG PO (09:23)
[2017-05-15] MEDS ORDERED: KFZAV1 IV (09:23)
--- NOTE | 2017-05-15 09:28 | Discharge Instructions ---
Discharge Instructions Date of Service May 15, 2017. Admission Reason for Admission: Right Knee Wound Discharge Discharge Diagnosis / Problem: s/p right knee TKA 3weeks ago, wound dehiscence and arthrotomy rupture Discharge Goals Goal(s): Decrease discomfort, Improve function, Increase independence, Therapeutic intervention Activity Recommendations Activity Level: Assistance Required Therapies: Physical Therapy, Occupational Therapy ACTIVITY RECOMMENDATIONS: SELF CARE INSTRUCTIONS AFTER TOTAL KNEE REPLACEMENT A. You may need to continue a physical therapy program after discharge from the hospital. There are several options available to you. Your doctor will assist you in selecting the best one for you. 1. An out-patient facility 2 to 3 times a week for therapy or home therapy. 2. Continue working on all exercises taught to you in the hospital. Your goals should be to increase bending of your knee to 90 degrees and beyond and to fully straighten your knee. B. You may progress at your own pace from walking with a walker or crutches to a cane; then to no assistive devices. C. Make walking a part of your daily routine. Be up as much as comfortable with rest periods throughout the day. Rest with leg elevation is very important. Use the ice wrap frequently for the first 3-4 weeks. D. There are no restrictions on activities. You may ride in a car, shop, participate in stem crusher and all social activities. E. Wear the long elastic stockings (DALJIT hose) 20 hours a day for 2 weeks after surgery. They can be removed several times a day for laundering and for a bath. F. You may shower, no tub baths until cleared by your doctor. SPECIAL CARE INSTRUCTIONS: VERY IMPORTANT TO READ AND REVIEW A. There are a few signs you need to watch for after you are home. Call [facility] if you notice any of the followin. Increased severe knee pain. Some pain is expected especially when you exercise. 2. Increased swelling in your leg or knee; pain or swelling of the calf muscle in either lower leg. 3. Any fluid drainage from the incision. 4. Shortness of breath or chest pain. B. Please call [facility] at if you have any concerns or questions about your operation or recovery. The doctor or his nurse will return your call promptly. C. You must take antibiotics before dental work, bladder, bowel or other surgery. Your doctor will provide you with a permanent care to carry describing this precaution. IMPORTANT: * REMEMBER TO TAKE ASPIRIN, 81 MG, TWICE DAILY FOR 4 WEEKS UNLESS OTHERWISE DIRECTED. THIS IS YOUR BLOOD THINNER. * HIGH RISK PATIENTS MAY BE PRESCRIBED A STRONGER BLOOD THINNER. THIS WILL BE PROVIDED AT DISCHARGE. * CALL IF INCREASED PAIN, REDNESS, DRAINAGE OR FEVER GREATER THAT 101. * WEAR DALJIT HOSE 20 HOURS PER DAY FOR 2 WEEKS. * YOU MAY HAVE A LARGE BAND-AID LIKE DRESSING (SILVERON). THIS WILL REMAIN ON YOUR INCISION FOR 7 DAYS, THEN CAN BE REMOVED. IF INCISION IS LEAKING THROUGH DRESSING, CALL THE OFFICE . FOLLOW UP VISIT: If appointment is not already scheduled: Please call [facility] to make a follow-up appointment for 2 weeks after your surgery at . . Additional Information Patient informed of condition: Yes Advance Directives: No DNR: No Level of Care: Skilled Communicable Disease: No Prognosis: Stable Miller Catheter: No Current Hospital Diet Patient's current hospital diet: Regular Diet Discharge Diet Recommended Diet: Regular Diet Procedures Procedures Performed: Right Knee Incision and Drainage and Poly Exchange Due to Wound Dehiscence and Arthrotomy Rupture with repair of dehised wound and arthrotomy Pending Studies Studies pending at discharge: no Laboratory Results Hemoglobin A1c Test 03/01/17 10:19 Range/Units Estimated Average Glucose 126 mg/dl Hemoglobin A1c 6.0 H 4.5-5.6 % Medical Emergencies . Who to Call and When: Medical Emergencies: If at any time you feel your situation is an emergency, please call 911 immediately. . Non-Emergent Contact Non-Emergency issues call your: Primary Care Provider . . "Provider Documentation" section prepared by Grecia Munoz. . Core Measure Problem Core Measures: None [place] Drug Monitoring Program Search Results: patient reviewed within database, no issues identified
[2017-05-15] MEDS ORDERED: OXYSR10 PO (09:30)
[2017-05-15] MEDS ORDERED: RXC5 PO (09:30)
[2017-05-15 10:44] VITALS: BP 101/42; PULSE 71; TEMP 36.8; O2SAT 98
[2017-05-16] MEDS ORDERED: ASPIRIN 81 MG ECTAB PO SCH (09:00)
[2017-05-16] MEDS ORDERED: CLOPIDOGREL BISULFATE 75 MG TAB PO SCH (09:00)
--- NOTE | 2017-05-31 12:57 | Discharge Summary ---
Orthopedic Discharge Summary Admission Date/Reason May 11, 2017 at 14:56 Right Knee Wound. Discharge Date/Disposition May 15, 2017 [facility] facility Diagnosis Principal Diagnosis: S/P I & D of right knee with poly exchange Medication Reconciliation as per discharge instructions Admission Physical Exam As per Admitting History & Physical. Hospital Course POD #1 patient was feeling well, dressing was clean, dry and intact. Cultures were pending from surgery. POD #2 patient was feeling well and dressing was clean, dry and intact. Her cultures came back with Staph but no sensitivities at this time. Patient was continued on vancomycin. POD #3 Patient feeling well and pain controlled. Cultures grew MSSA. Dr. Wall gave a recommendation for antibiotics to use IV. Discharge was to be to a senior living facility once approved by insurance. POD #4 patient feeling well and approved was complete. She was discharge to a SNF. Discharge Instructions Please refer to the electronic Patient Visit Report (Discharge Instructions) for additional information.
== END 2017-05-15 12:10 | DRG 909 ==
LOC: C.MSW 13:22 → UNDOADMIN 13:22 → C.MSW 14:56
PROVIDERS: ADMIT Orthopaedic Surgery; ATTEND Orthopaedic Surgery
PROC: 0SPC0JZ Removal of Synthetic Substitute from Right Knee Joint, Open Approach (ICD-10-PCS; principal; 2017-05-11 07:30)
PROC: 0J9N00Z Drainage of Right Lower Leg Subcutaneous Tissue and Fascia with Drainage Device, Open Approach (ICD-10-PCS; principal; 2017-05-11 07:30)
PROC: 0SRC0J9 Replacement of Right Knee Joint with Synthetic Substitute, Cemented, Open Approach (ICD-10-PCS; principal; 2017-05-11 07:30)
PROC: 0JCN0ZZ Extirpation of Matter from Right Lower Leg Subcutaneous Tissue and Fascia, Open Approach (ICD-10-PCS; principal; 2017-05-11 07:30)
PROC: 02HV33Z Insertion of Infusion Device into Superior Vena Cava, Percutaneous Approach (ICD-10-PCS; 2017-05-12)
DX: T81.32XA Disruption of internal operation (surgical) wound, not elsewhere classified, initial encounter (principal); E78.5 Hyperlipidemia, unspecified; I10 Essential (primary) hypertension; I25.2 Old myocardial infarction; E03.9 Hypothyroidism, unspecified; I35.0 Nonrheumatic aortic (valve) stenosis; B95.61 Methicillin susceptible Staphylococcus aureus infection as the cause of diseases classified elsewhere; H40.9 Unspecified glaucoma; M81.0 Age-related osteoporosis without current pathological fracture; M35.3 Polymyalgia rheumatica; I25.10 Atherosclerotic heart disease of native coronary artery without angina pectoris; Y83.8 Other surgical procedures as the cause of abnormal reaction of the patient, or of later complication, without mention of misadventure at the time of the procedure; Y92.129 Unspecified place in nursing home as the place of occurrence of the external cause; Z96.653 Presence of artificial knee joint, bilateral

== ENCOUNTER → 2017-07-06 | Outpatient (CLI) | payer OTHER ==
[~2017-07-06] MED LIST changes: -ACET-1256 PO; +ACET-24 PO; +ASPI81TA28 PO; +EYED OPR; +FRRG PO; +KFZAV1 IV; +ONDA8TAB6 PO; +PANT40TA PO
[2017-07-06 17:53] LABS: INR 0.9 (0.9-1.1); PARTIAL THROMBOPLASTIN RATIO 0.9; PROTHROMBIN TIME (PATIENT) 9.8 SECONDS (9.0-12.0)
[2017-07-06 17:56] LABS: BASO % 0.5 %; BASO ABS # 0.07 K/uL (0-0.2); COMPLETE YES; EOS % 1.8 %; HEMATOCRIT 37.3 % (37-47); IG% 0.4 %; LYMPH % 13.6 %; LYMPH ABS # 1.76 K/uL (1.2-3.4); MEAN CELL VOLUME 96.6 fL (80-100); MEAN CORPUSCULAR HEMOGLOBIN 31.3 pg (25-34); MEAN CORPUSCULAR HGB CONC 32.4 g/dl (32-36); MEAN PLATELET VOLUME 10.5 fL (7.4-10.4); MONO % 6.7 %; PLATELET COUNT 240 K/uL (130-400); RED BLOOD COUNT 3.86 M/uL (4.2-5.4); WHITE BLOOD COUNT 12.92 K/uL (4.8-10.8)
[2017-07-06 17:57] LABS: URINE APPEARANCE CLOUDY (CLEAR); URINE BILIRUBIN NEG (NEG); URINE COLOR DK YELLOW; URINE EPITHELIAL CELL AUTO >30 /lpf (0-5); URINE NITRITE NEG (NEG); URINE SPECIFIC GRAVITY 1.023 (1.000-1.030); UROBILINOGEN NEG (NEG)
[2017-07-06 17:58] LABS: BLOOD UREA NITROGEN 20 mg/dl (7-18); BUN/CREATININE RATIO 22.3 (10-20); CALCIUM 9.8 mg/dl (8.5-10.1); CARBON DIOXIDE 24 mmol/L (21-32); CHLORIDE 110 mmol/L (98-107); CREATININE 0.92 mg/dl (0.60-1.20); GLUCOSE 104 mg/dl (70-99); POTASSIUM 4.3 mmol/L (3.5-5.1); SODIUM 141 mmol/L (136-145)
[2017-07-06 18:08] LABS: MANUAL MICROSCOPIC REQUIRED? NO; REVIEW REQ? YES
[2017-07-06 18:18] LABS: URINE PATH CASTS 0-3 GRANULAR CASTS /lpf (0)
== END | disposition home or self-care (01) ==
LOC: C.LABMFLN 13:57
PROVIDERS: ATTEND Orthopaedic Surgery
DX: Z01.818 Encounter for other preprocedural examination (principal)

== ENCOUNTER 2017-07-15 08:36 | Inpatient (IN) | payer OTHER ==
[2017-07-07 11:19] VITALS: BMI 26.0
--- NOTE | 2017-07-13 07:57 | History and Physical ---
History & Physical Date Jul 13, 2017. Chief Complaint right knee pain History of Present Illness The patient is a 81 year old female with complaints of right knee pain after a fall. She noticed that her knee cap did not track correctly. She came in for evaluation into the office and found that the arthrotomy had failed. The skin was intact and she was not having any signs or symptoms of infection. She is scheduled for a right knee arthrotomy repair with possible poly exchange. 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 (15) S/p bare metal coronary artery stent Surgical Problems: (1) History of cataract surgery (2) S/P cholecystectomy (3) S/P partial mastectomy (4) S/p removal of bowel lesion (5) S/P total knee arthroplasty Additional History Hepatic Disease: No Endocrine Disorder: No Kidney Disease: No Hypertension: Yes Heart Disease: Yes Bleeding Tendencies: No Infectious Diseases: No Allergies Coded Allergies: Cyclobenzaprine (Verified Adverse Reaction, Unknown, DRY MOUTH, 07/07/17) NSAIDs (Unverified Adverse Reaction, Unknown, DYSPEPSIA, 07/07/17) PER RECORDS Statins (Unverified Adverse Reaction, Unknown, MYALGIAS, NAUSEA, 07/07/17) PER RECORDS Home Medications Scheduled Aspirin (Aspirin Ec), 81 MG PO QAM Calcium Carbonate-Cholecalcife (Caltrate 600+D), 1 TAB PO QAM Clopidogrel (Plavix), 75 MG PO QAM Coenzyme Q10 (Ubidecarenone) (Co Q10), 2 CAP PO QAM Colchicine (Colchicine), 0.6 MG PO HS Duloxetine HCl (Cymbalta), 1 CAP PO QAM Escitalopram (Lexapro), 20 MG PO QAM Eye Drops (Eye Drops), 1 DROP OPR HS Isosorbide Mononitrate (Isosorbide Mononitrate ER), 30 MG PO QAM Levothyroxine Sodium (Levothyroxine Sodium), 100 MCG PO UD Losartan Potassium (Losartan Potassium), 50 MG PO QAM Metoprolol Tartrate (Lopressor) (Lopressor), 25 MG PO BID Nitroglycerin (Nitrostat), 0.4 MG UT PRN Ocuvite Preservision (Ocuvite Preservision), 1 TAB PO BID Omeprazole (Omeprazole), 20 MG PO QAM Prednisone (Prednisone), 5 MG PO QAM Rosuvastatin Calcium (Crestor), 40 MG PO QAM Zoledronic Acid (Reclast), 1 DOSE IV YEARLY Scheduled PRN Wheat Dextrin (Benefiber), 1 TAB PO QAM PRN for Constipation Physical Examination Skin: warm/dry, no rash Eyes: normal inspection, EOMI ENT: normal ENT inspection Head: normocephalic, atraumatic Neck: supple, no adenopathy Respiratory/Chest: lungs clear, normal breath sounds Cardiovascular: regular rate, rhythm, no murmur Abdomen / GI: normal bowel sounds Extremities: + pertinent finding (brusing around the medial aspect of the knee , patella displaced laterally. Divit is felt where arthrotomy repair would be. ) Neurologic/Psych: alert, oriented x 3 Diagnosis S/P Fall with arthrotomy failure Plan of Treatment Patient is scheduled for a right knee arthrotomy repair with possible poly exchange. Risks and benefits to surgery were discussed. The patient understands the risks and wishes to proceed. All questions were answered to her satisfaction.
[~2017-07-15] VITALS: Ht 152.4 cm; Wt 62.3 kg
[2017-07-15] VITALS (10 sets, daily range): BP systolic 99–125; BP diastolic 45–61; PULSE 62–86; TEMP 36.5–36.9; O2SAT 94–100; Ht 152.4 cm; Wt 62.3 kg
[~2017-07-15 08:36] MED LIST changes: -ACET-24 PO; +ACETAMINOPHEN 500 MG TAB PO SCH; -ASPI-232 PO; +BUPIVACAINE 0.5 % 5 MG/1 ML PF 10ML VIAL ONE; +CEFAZOLIN 1000MG IV PUSH 5 ML IV SCH; +CeleBREX 200 MG CAP PO SCH; +DEXAMETHASONE 4 MG TAB PO SCH; +FAMOTIDINE 20 MG TAB PO SCH; -FLAX12003 PO; -FRRG PO; -GABA-113 PO; +GABAPENTIN 300 MG CAP PO SCH; -KFZAV1 IV; +LACTATED RINGER'S 1000ML 1,000 ML IV SCH; +LACTATED RINGER'S 1000ML IV SCH; +METOCLOPRAMIDE HCL 10 MG TAB PO SCH; -ONDA8TAB6 PO; -OXYB5TAB21 PO; +OXYCODONE HCL 10 MG TABCR (OXYCONTIN) PO SCH; -OXYSR10 PO; -PANT40TA PO; +ROPIVACAINE 5MG/ML 30 ML 150 MG, BUPIVACAINE/EPINEPHR 0.5% MPF 30 ML, KETOROLAC TROMETH... INFIL SCH; -RXC5 PO
[2017-07-15] MEDS ORDERED: LIDOCAINE HCL 2% 2 ML VIAL (20MG/ML) ONE (08:48)
[2017-07-15] MEDS ORDERED: MIDAZOLAM HCL 1 MG/ML 2ML VIAL ONE (08:48)
[2017-07-15] MEDS ORDERED: PROPOFOL IV EMULSION 10 MG/ML 20 ML VIAL IV ONE (08:48)
[2017-07-15] MEDS ORDERED: ATROPINE SULFATE 0.1 MG/ML 5ML SYR IV PRN (09:00)
[2017-07-15] MEDS ORDERED: ONDANSETRON INJ 2 MG/ML 2 ML VIAL IV PRN ×2 (09:00→12:15)
[2017-07-15] MEDS ORDERED: EpHEDrine SULFATE INJ 50 MG/ML AMP IV PRN (09:00)
[2017-07-15] MEDS ORDERED: FENTANYL CITRATE INJ 50 MCG/1 ML 2 ML VIAL ONE ×2 (09:21→11:06)
[2017-07-15] MEDS ORDERED: ONDANSETRON INJ 2 MG/ML 2 ML VIAL ONE (09:21)
[2017-07-15] MEDS ORDERED: IBUP-1050 PO (09:30)
[2017-07-15] MEDS ORDERED: BACITRACIN 50000 UNIT VIAL ONE (09:59)
[2017-07-15] MEDS ORDERED: ORTHO JOINT ANESTHETIC ONE (09:59)
[2017-07-15] MEDS ORDERED: POVIDONE-IODINE OP SOLN 30 ML BTL ONE (09:59)
[2017-07-15] MEDS ORDERED: EpHEDrine SULFATE INJ 50 MG/ML AMP ONE (10:36)
[2017-07-15] MEDS ORDERED: ZOLPIDEM TARTRATE 5 MG TAB PO PRN (12:15)
[2017-07-15] MEDS ORDERED: ALUMINUM/MAGNESIUM/SIMETH (MAALOX MAX) 30 ML UDC PO PRN (12:15)
[2017-07-15] MEDS ORDERED: NO NSAIDS SCH (12:15)
[2017-07-15] MEDS ORDERED: PSYLLIUM 58.6% PWD PACK S\\F PO PRN (12:15)
[2017-07-15] MEDS ORDERED: SOD PHOSPHATE/SOD BIPHOSPHATE ENEMA 132 ML BTL PR PRN (12:15)
[2017-07-15] MEDS ORDERED: BISACODYL 10 MG SUPP PR PRN (12:15)
[2017-07-15] MEDS ORDERED: MAGNESIUM HYDROXIDE SUSP 30 ML UDC PO PRN (12:15)
[2017-07-15] MEDS ORDERED: NITROGLYCERIN 0.4 MG SL PER TAB CHARGE UT PRN (12:15)
[2017-07-15] MEDS ORDERED: MoRPHine SULFATE 2 MG/ML CARP IV PRN (12:15)
[2017-07-15] MEDS: FENTANYL CITRATE INJ 50 MCG/1 ML 2 ML VIAL IV PRN ×3 (12:25→12:37)
--- NOTE | 2017-07-15 12:29 | [facility] Operative Report ---
Operative Report Operative Date Jul 15, 2017. Pre-Operative Diagnosis Disruption of right medial arthrotomy Post-Operative Diagnosis same as pre-operative Procedure(s) Performed Right medial retinacular repair Surgeon Dr. Calderon Comedian Surgeon(s) STEPHANI Agarwal Estimated Blood Loss 10ml Findings As above Specimens Culture: Right knee culture Drains 2 Hemovac Anesthesia Gen. Complication(s) None Disposition Recovery Room / PACU Indications 81-year-old female who had previously undergone a right total knee arthroplasty. She had sustained an injury and opened both her medial retinaculum as well as her skin. She underwent irrigation debridement. Cultures taken at that time grew staph and she was placed in 6 weeks of IV antibiotics. She is now 2 weeks out from the end of her antibiotic course and had been doing well from a infection standpoint. She sustained a new fall. On presentation she had obvious disruption of the medial retinaculum with lateral displacement of the patella. There is no erythema. No effusion. No fevers or chills. No signs or symptoms of any infection. She presents for repair of the medial retinaculum. Description of Procedure Risks benefits and alternatives of surgery including but not limited to infection, DVT, pain, stiffness, need for surgery, damage to blood vessels, damage to nerves or risks of anesthesia were discussed with the patient and they wished to proceed. The patient was identified and the laterality was confirmed and marked. They received a preoperative antibiotic as well as a spinal anesthetic and an abductor canal block. A well-padded tourniquet was applied and then the limb was prepped and draped in standard manner with ChloraPrep. The limb was exsanguinated and the tourniquet was inflated. I made a standard anterior incision. I sharply incised the skin then utilized Bovie electrocautery to achieve hemostasis. Her skin was intact. The medial arthrotomy was reruptured from the level of the patellar tendon extending around proximally past the level of the patella to about a centimeter proximal. The more proximal portion of her quadriceps tendon repair was intact. There was no purulent material. Minimal fluid was encountered in the knee. No signs or symptoms of infection. Given her previous history I took cultures again really didn't have any concern for infection at this time. The region was thoroughly irrigated with Pulsavac with 3 L of saline. I performed a lateral release to try to decompress and take stress off of her medial retinacular repair even though the patella seemed to sit well in the trochlear groove. The arthrotomy was closed with interrupted #2 ultra braid suture, the subcutaneous tissue was closed with interrupted 2-0 Vicryl suture. The skin was closed with with nylon. A Prevena wound VAC was placed. Sterile dressings were applied. All needle and sponge counts were correct at the end of the procedure patient was transferred to the PACU in stable condition without apparent complication. The PA-C was necessary for assistance with procedure for assistance in positioning, prepping, draping, retraction and closure. I attest to the content of the Intraoperative Record and any orders documented therein. Any exceptions are noted below.
--- NOTE | 2017-07-15 13:08 | Anesthesiology Progress Note ---
Anesthesia Post Op Note Date & Time Jul 15, 2017 at 13:08 Vital Signs Pain Intensity: 0 Vital Signs Past 12 Hours Date Time Temp Pulse Resp B/P (MAP) Pulse Ox O2 Delivery O2 Flow Rate FiO2 07/15/17 12:50 36.3 87 16 134/57 99 Nasal Cannula 3 07/15/17 12:40 87 16 140/54 96 Nasal Cannula 3 07/15/17 12:30 83 16 138/60 97 Oxymask 10 07/15/17 12:20 86 16 140/57 97 Oxymask 10 07/15/17 12:11 36.4 78 16 152/63 97 Oxymask 10 07/15/17 09:10 36.8 62 18 99/45 96 Room Air Notes Mental Status: alert / awake / arousable, participated in evaluation Pt Amnestic to Procedure: Yes Nausea / Vomiting: adequately controlled Pain: adequately controlled Airway Patency, RR, SpO2: stable & adequate BP & HR: stable & adequate Hydration State: stable & adequate Anesthetic Complications: no major complications apparent
[2017-07-15] MEDS: SODIUM CHLORIDE 0.9% 1000ML 1,000 ML IV SCH ×2 (13:48→23:08)
[2017-07-15] MEDS: FERROUS GLUCONATE 324 MG TAB PO SCH (17:31)
[2017-07-15] MEDS: CEFAZOLIN IV 1,000 MG in SYRINGE 0 ML IV SCH (17:53)
[2017-07-15] MEDS ORDERED: NON-FORMULARY MEDICATION (Coenzyme Q10 (Ubidecarenone) (Co Q10) 1 CAP) PO SCH (21:00)
[2017-07-15] MEDS: OXYCODONE HCL 10 MG TABCR (OXYCONTIN) PO SCH (21:35)
[2017-07-15] MEDS: CEROVITE ADV FORMULA TAB PO SCH (21:36)
[2017-07-15] MEDS: COLCHICINE 0.6 MG TAB PO SCH (21:36)
[2017-07-15] MEDS: ASPIRIN 81 MG ECTAB PO SCH (21:36)
[2017-07-15] MEDS: SENNA 8.6 MG TAB PO SCH (21:36)
[2017-07-15] MEDS: DOCUSATE SODIUM 100 MG CAP PO SCH (21:36)
[2017-07-15] MEDS: METOPROLOL TARTRATE 25 MG TAB PO SCH (21:38)
[2017-07-16] MEDS: CEFAZOLIN IV 1,000 MG in SYRINGE 0 ML IV SCH (01:44)
[2017-07-16 02:45] VITALS: BP 119/59; PULSE 70; TEMP 36.9; O2SAT 97
[2017-07-16] MEDS: OXYCODONE HCL IR 5 MG TAB (IMMEDIATE RELEASE) PO PRN (02:55)
[2017-07-16] MEDS: LEVOTHYROXINE 100 MCG TAB PO SCH (06:04)
[2017-07-16 06:51] VITALS: BP 111/51; PULSE 66; TEMP 36.9; O2SAT 94
[2017-07-16 06:51] LABS: INR 0.9 (0.9-1.1); PROTHROMBIN TIME (PATIENT) 10.1 SECONDS (9.0-12.0)
[2017-07-16 07:05] LABS: BUN/CREATININE RATIO 22.4 (10-20); CALCIUM 8.2 mg/dl (8.5-10.1); CREATININE 0.89 mg/dl (0.60-1.20); POTASSIUM 4.6 mmol/L (3.5-5.1)
[2017-07-16 07:24] LABS: HEMATOCRIT 29.5 % (37-47); MEAN CORPUSCULAR HEMOGLOBIN 31.3 pg (25-34); MEAN CORPUSCULAR HGB CONC 32.2 g/dl (32-36); PLATELET COUNT 135 K/uL (130-400); RED BLOOD COUNT 3.04 M/uL (4.2-5.4); WHITE BLOOD COUNT 10.24 K/uL (4.8-10.8)
--- NOTE | 2017-07-16 08:45 | Orthopedic Progress Note ---
Orthopedic Progress Note Date of Service Jul 16, 2017. Subjective Post OP Day: 1 Reports: feeling well, Denies: chest pain, SOB, nausea / vomiting, light headedness, calf pain Objective calves soft nontender, N/V intact, capillary refill less than 2 sec., dressing C /D/I (PREVENA), A&O x3, toes mobile, hemovac drainage (25/25CC PER SHIFT) Date Time Temp Pulse Resp B/P (MAP) Pulse Ox O2 Delivery O2 Flow Rate FiO2 07/16/17 06:51 36.9 66 16 111/51 (71) 94 07/16/17 02:45 36.9 70 20 119/59 (79) 97 Room Air 07/16/17 00:00 Room Air 07/15/17 23:35 36.7 75 18 113/61 (78) 97 Room Air 07/15/17 21:35 77 116/54 (74) 07/15/17 19:50 Room Air 07/15/17 18:53 36.9 83 17 107/54 (71) 97 Room Air 07/15/17 16:30 36.7 81 16 113/58 (76) 94 Room Air 07/15/17 15:42 96 Room Air 07/15/17 15:26 36.5 79 17 103/50 (67) 99 Room Air 07/15/17 14:30 82 16 118/57 (77) 100 Nasal Cannula 3.0 07/15/17 13:57 86 16 110/56 (74) 98 Nasal Cannula 3.0 07/15/17 13:30 100 Nasal Cannula 2.0 07/15/17 13:30 36.7 83 16 125/57 (79) 100 Nasal Cannula 2.0 07/15/17 13:30 100 Nasal Cannula 2.0 07/15/17 13:15 84 16 127/54 99 Nasal Cannula 3 07/15/17 13:00 88 18 133/53 99 Nasal Cannula 3 07/15/17 12:50 36.3 87 16 134/57 99 Nasal Cannula 3 07/15/17 12:40 87 16 140/54 96 Nasal Cannula 3 07/15/17 12:30 83 16 138/60 97 Oxymask 10 07/15/17 12:20 86 16 140/57 97 Oxymask 10 07/15/17 12:11 36.4 78 16 152/63 97 Oxymask 10 07/15/17 09:10 36.8 62 18 99/45 96 Room Air Laboratory Results 24 Hours: Test 07/16/17 06:05 Hematocrit 29.5 % Hemoglobin 9.5 g/dL Prothromb Time International Ratio 0.9 Prothrombin Time 10.1 SECONDS Assessment & Plan Assessment: POD#1 SP MEDIAL RETINACULAR REPAIR SP FALL Plan: PT/OT DVT PROPH PAIN MANAGEMENT DC PLANNING- PATIENT IS A FALL RISK, PLANNING ON REFERRAL TO [facility]. WILL STAY UNTIL TUESDAY [employer].
[2017-07-16] MEDS: METOPROLOL TARTRATE 25 MG TAB PO SCH ×2 (08:50→20:38)
[2017-07-16] MEDS: PANTOprazole SOD 40 MG TAB PO SCH (08:50)
[2017-07-16] MEDS: ROSUVASTATIN CALCIUM 20 MG TAB PO SCH (08:50)
[2017-07-16] MEDS: ESCITALOPRAM OXALATE 20 MG TAB PO SCH (08:50)
[2017-07-16] MEDS: CLOPIDOGREL BISULFATE 75 MG TAB PO SCH (08:50)
[2017-07-16] MEDS: CALCIUM 600MG + VIT D 400 IU TAB PO SCH (08:50)
[2017-07-16] MEDS: OXYCODONE HCL 10 MG TABCR (OXYCONTIN) PO SCH ×2 (08:50→20:36)
[2017-07-16] MEDS: ASPIRIN 81 MG ECTAB PO SCH ×2 (08:50→20:37)
[2017-07-16] MEDS: DULOXETINE HCL 20 MG CAP PO SCH (08:50)
[2017-07-16] MEDS: CEROVITE ADV FORMULA TAB PO SCH ×2 (08:50→19:34)
[2017-07-16] MEDS: DOCUSATE SODIUM 100 MG CAP PO SCH ×2 (08:51→19:32)
[2017-07-16] MEDS: FERROUS GLUCONATE 324 MG TAB PO SCH ×3 (08:51→17:28)
[2017-07-16] MEDS: LOSARTAN POTASSIUM 50 MG TAB PO SCH (08:51)
[2017-07-16] MEDS: ISOSORBIDE MONONITRATE 30 MG TABCR PO SCH (08:51)
[2017-07-16] MEDS ORDERED: NON-FORMULARY MEDICATION (Omeprazole 20 MG) PO SCH (09:00)
[2017-07-16] MEDS ORDERED: NURSING VERBAL MED ORDER ONE (09:00)
[2017-07-16] MEDS ORDERED: MULTIVITAMIN TAB PO SCH (09:00)
[2017-07-16 15:15] VITALS: BP 120/64; PULSE 74; TEMP 36.9; O2SAT 91
[2017-07-16] MEDS: SENNA 8.6 MG TAB PO SCH (19:34)
[2017-07-16 20:35] VITALS: BP 128/64; PULSE 73
[2017-07-16] MEDS: COLCHICINE 0.6 MG TAB PO SCH (20:38)
[2017-07-16 22:46] VITALS: BP 127/64; PULSE 74; TEMP 36.8; O2SAT 93
[2017-07-17] MEDS: OXYCODONE HCL IR 5 MG TAB (IMMEDIATE RELEASE) PO PRN ×3 (02:51→19:33)
[2017-07-17] MEDS ORDERED: LEVOTHYROXINE 50 MCG TAB PO SCH (06:00)
[2017-07-17 07:35] VITALS: BP 130/61; PULSE 73; TEMP 36.8; O2SAT 92
--- NOTE | 2017-07-17 08:10 | Orthopedic Progress Note ---
Orthopedic Progress Note Date of Service Jul 17, 2017. Subjective Post OP Day: 2 Reports: feeling well, Denies: chest pain, SOB, nausea / vomiting, light headedness, calf pain Objective calves soft nontender, N/V intact, capillary refill less than 2 sec., dressing C /D/I, A&O x3, toes mobile Date Time Temp Pulse Resp B/P (MAP) Pulse Ox O2 Delivery O2 Flow Rate FiO2 07/17/17 08:03 Room Air 07/17/17 07:35 36.8 73 16 130/61 (84) 92 Room Air 07/16/17 23:22 Room Air 07/16/17 22:46 36.8 74 16 127/64 (85) 93 Room Air 07/16/17 20:35 73 128/64 (85) 07/16/17 19:41 Room Air 07/16/17 15:15 36.9 74 16 120/64 (82) 91 Room Air Assessment & Plan Assessment: POD#2 SP MEDIAL RETINACULAR REPAIR SP FALL Plan: PT/OT DVT PROPH PAIN MANAGEMENT DC PLANNING- PATIENT IS A FALL RISK, PLANNING ON REFERRAL TO [facility]. 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 DC DRESSING/DRAIN TODAY
[2017-07-17] MEDS: OXYCODONE HCL 10 MG TABCR (OXYCONTIN) PO SCH ×2 (08:34→21:28)
[2017-07-17] MEDS: FERROUS GLUCONATE 324 MG TAB PO SCH ×3 (08:35→17:32)
[2017-07-17] MEDS: PANTOprazole SOD 40 MG TAB PO SCH (08:36)
[2017-07-17] MEDS: DOCUSATE SODIUM 100 MG CAP PO SCH ×2 (08:36→21:25)
[2017-07-17] MEDS: CEROVITE ADV FORMULA TAB PO SCH ×2 (08:36→21:25)
[2017-07-17] MEDS: CLOPIDOGREL BISULFATE 75 MG TAB PO SCH (08:36)
[2017-07-17] MEDS: LOSARTAN POTASSIUM 50 MG TAB PO SCH (08:37)
[2017-07-17] MEDS: ROSUVASTATIN CALCIUM 20 MG TAB PO SCH (08:37)
[2017-07-17] MEDS: CALCIUM 600MG + VIT D 400 IU TAB PO SCH (08:37)
[2017-07-17] MEDS: DULOXETINE HCL 20 MG CAP PO SCH (08:37)
[2017-07-17] MEDS: ASPIRIN 81 MG ECTAB PO SCH ×2 (08:37→21:25)
[2017-07-17] MEDS: ESCITALOPRAM OXALATE 20 MG TAB PO SCH (08:38)
[2017-07-17] MEDS: ISOSORBIDE MONONITRATE 30 MG TABCR PO SCH (08:38)
[2017-07-17] MEDS: METOPROLOL TARTRATE 25 MG TAB PO SCH ×2 (10:48→21:25)
[2017-07-17 15:05] VITALS: BP 131/63; PULSE 65; TEMP 36.6; O2SAT 97
[2017-07-17 20:50] VITALS: BP 125/62; PULSE 72
[2017-07-17] MEDS: SENNA 8.6 MG TAB PO SCH (21:25)
[2017-07-17] MEDS: COLCHICINE 0.6 MG TAB PO SCH (21:25)
[2017-07-17 22:47] VITALS: BP 134/68; PULSE 67; TEMP 36.7; O2SAT 97
[2017-07-18] MEDS: LEVOTHYROXINE 100 MCG TAB PO SCH (05:32)
--- NOTE | 2017-07-18 06:49 | Orthopedic Progress Note ---
Orthopedic Progress Note Date of Service Jul 18, 2017. Subjective Post OP Day: 3 Reports: feeling well, pain controlled w PO medications, Denies: complaints, chest pain, SOB, nausea / vomiting, light headedness, calf pain Objective calves soft nontender, N/V intact, capillary refill less than 2 sec., dressing C /D/I (mild bloody drainage to the medial aspect of the bandage. ), A&O x3, toes mobile Date Time Temp Pulse Resp B/P (MAP) Pulse Ox O2 Delivery O2 Flow Rate FiO2 07/17/17 23:10 Room Air 07/17/17 22:47 36.7 67 18 134/68 (90) 97 Room Air 07/17/17 20:50 72 125/62 (83) 07/17/17 15:45 Room Air 07/17/17 15:05 36.6 65 18 131/63 (85) 97 Room Air 07/17/17 08:03 Room Air 07/17/17 07:35 36.8 73 16 130/61 (84) 92 Room Air Assessment & Plan Assessment: POD#3 SP MEDIAL RETINACULAR REPAIR SP FALL Plan: PT/OT DVT PROPH PAIN MANAGEMENT DC PLANNING- PATIENT IS A FALL RISK[facility] 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 Inhouse Planning Pain Management: Oxy IR DVT Prophylaxis: ASA Discharge Planning [facility]charge Planning[facility] facility
[2017-07-18] MEDS ORDERED: RXC5 PO (06:51)
[2017-07-18] MEDS ORDERED: ASPEC81 PO (06:51)
--- NOTE | 2017-07-18 06:56 | Discharge Instructions ---
Discharge Instructions Date of Service Jul 18, 2017. Admission Reason for Admission: Acute Pain Post Op Of Right Knee Discharge Discharge Diagnosis / Problem: S/P Right Medial retinacular repair s/p fall Discharge Goals Goal(s): Decrease discomfort, Improve function Activity Recommendations Activity Limitations: per Instructions/Follow-up section . Instructions / Follow-Up Instructions / Follow-Up ACTIVITY RECOMMENDATIONS: SELF CARE INSTRUCTIONS AFTER TOTAL KNEE REPLACEMENT A. NO PHYSICAL THERAPY FOR 6 WEEKS DUE TO REPAIR. MAINTAIN KNEE IMMOBILIZER AT ALL TIMES. B. You may progress at your own pace from walking with a walker or crutches to a cane; then to no assistive devices. C. Make walking a part of your daily routine. Be up as much as comfortable with rest periods throughout the day. Rest with leg elevation is very important. Use the ice wrap frequently for the first 3-4 weeks. D. There are no restrictions on activities. You may ride in a car, shop, participate in conductor yard and all social activities. E. Wear the long elastic stockings (DALJIT hose) 20 hours a day for 2 weeks after surgery. They can be removed several times a day for laundering and for a bath. F. You may shower, no tub baths until cleared by your doctor. SPECIAL CARE INSTRUCTIONS: VERY IMPORTANT TO READ AND REVIEW A. There are a few signs you need to watch for after you are home. Call [facility] if you notice any of the followin. Increased severe knee pain. Some pain is expected especially when you exercise. 2. Increased swelling in your leg or knee; pain or swelling of the calf muscle in either lower leg. 3. Any fluid drainage from the incision. 4. Shortness of breath or chest pain. B. Please call [facility] at if you have any concerns or questions about your operation or recovery. The doctor or his nurse will return your call promptly. C. You must take antibiotics before dental work, bladder, bowel or other surgery. Your doctor will provide you with a permanent care to carry describing this precaution. IMPORTANT: * REMEMBER TO TAKE ASPIRIN, 81 MG, TWICE DAILY FOR 4 WEEKS UNLESS OTHERWISE DIRECTED. THIS IS YOUR BLOOD THINNER. * CALL IF INCREASED PAIN, REDNESS, DRAINAGE OR FEVER GREATER THAT 101. * WEAR DALJIT HOSE 20 HOURS PER DAY FOR 2 WEEKS. * YOU HAVE A PRESSURE BANDAGE ON. THIS CAN BE CHANGED EVERY DAY IF SOAKING THROUGH. IT CAN BE CHANGED EVERY OTHER DAY IF NOT SOAKING THROUGH. FOLLOW UP VISIT: If appointment is not already scheduled: Please call [facility] to make a follow-up appointment for 2 weeks after your surgery at . Current Hospital Diet Patient's current hospital diet: Regular Diet Discharge Diet Recommended Diet: Regular Diet Procedures Procedures Performed: Right medial retinacular repair Pending Studies Studies pending at discharge: no Medical Emergencies . Who to Call and When: Medical Emergencies: If at any time you feel your situation is an emergency, please call 911 immediately. . Non-Emergent Contact Non-Emergency issues call your: Surgeon Call Non-Emergent contact if: temperature is above 101.5, your pain is worsening, wound has increased drainage, wound has increased redness . "Provider Documentation" section prepared by Jack Perla. . VTE Core Measure Inpt VTE Proph given/why not?: Other Anticoagulation (ASA) [place] Drug Monitoring Program Search Results: patient reviewed within database, no issues identified
[2017-07-18 07:13] VITALS: BP 189/69; PULSE 63; TEMP 36.8; O2SAT 97
--- NOTE | 2017-07-18 07:42 | Anesthesiology Progress Note ---
Anesthesia Post Op Note Date & Time Jul 18, 2017 at 07:41 Vital Signs Pain Intensity: 3.0 Vital Signs Past 12 Hours Date Time Temp Pulse Resp B/P (MAP) Pulse Ox O2 Delivery O2 Flow Rate FiO2 07/18/17 07:13 36.8 63 16 189/69 (109) 97 Room Air 07/18/17 07:00 Room Air 07/17/17 23:10 Room Air 07/17/17 22:47 36.7 67 18 134/68 (90) 97 Room Air 07/17/17 20:50 72 125/62 (83) Notes Mental Status: alert / awake / arousable, participated in evaluation Pt Amnestic to Procedure: Yes Nausea / Vomiting: adequately controlled Pain: adequately controlled Airway Patency, RR, SpO2: stable & adequate BP & HR: stable & adequate Hydration State: stable & adequate Anesthetic Complications: no major complications apparent
[2017-07-18 08:18] VITALS: BP 165/69
[2017-07-18] MEDS: PANTOprazole SOD 40 MG TAB PO SCH (08:23)
[2017-07-18] MEDS: ROSUVASTATIN CALCIUM 20 MG TAB PO SCH (08:24)
[2017-07-18] MEDS: CEROVITE ADV FORMULA TAB PO SCH ×2 (08:24→21:32)
[2017-07-18] MEDS: LOSARTAN POTASSIUM 50 MG TAB PO SCH (08:24)
[2017-07-18] MEDS: ASPIRIN 81 MG ECTAB PO SCH ×2 (08:24→21:32)
[2017-07-18] MEDS: CLOPIDOGREL BISULFATE 75 MG TAB PO SCH (08:24)
[2017-07-18] MEDS: ESCITALOPRAM OXALATE 20 MG TAB PO SCH (08:24)
[2017-07-18] MEDS: CALCIUM 600MG + VIT D 400 IU TAB PO SCH (08:25)
[2017-07-18] MEDS: DOCUSATE SODIUM 100 MG CAP PO SCH ×2 (08:25→21:33)
[2017-07-18] MEDS: ISOSORBIDE MONONITRATE 30 MG TABCR PO SCH (08:25)
[2017-07-18] MEDS: FERROUS GLUCONATE 324 MG TAB PO SCH ×3 (08:26→18:07)
[2017-07-18] MEDS: DULOXETINE HCL 20 MG CAP PO SCH (08:26)
[2017-07-18] MEDS: OXYCODONE HCL IR 5 MG TAB (IMMEDIATE RELEASE) PO PRN (08:32)
[2017-07-18] MEDS: OXYCODONE HCL 10 MG TABCR (OXYCONTIN) PO SCH ×2 (08:32→21:31)
[2017-07-18] MEDS: METOPROLOL TARTRATE 25 MG TAB PO SCH ×2 (09:05→21:32)
[2017-07-18 15:15] VITALS: BP 101/56; PULSE 76; TEMP 36.4; O2SAT 97
[2017-07-18] MEDS: COLCHICINE 0.6 MG TAB PO SCH (21:32)
[2017-07-18] MEDS: SENNA 8.6 MG TAB PO SCH (21:32)
[2017-07-18 23:22] VITALS: BP 146/67; PULSE 65; TEMP 36.8; O2SAT 98
[2017-07-19] MEDS: LEVOTHYROXINE 100 MCG TAB PO SCH (05:40)
[2017-07-19 06:46] VITALS: BP 134/61; PULSE 65; TEMP 36.8; O2SAT 99
[2017-07-19] MEDS: CALCIUM 600MG + VIT D 400 IU TAB PO SCH (08:40)
[2017-07-19] MEDS: FERROUS GLUCONATE 324 MG TAB PO SCH ×2 (08:40→12:42)
[2017-07-19] MEDS: LOSARTAN POTASSIUM 50 MG TAB PO SCH (08:41)
[2017-07-19] MEDS: ROSUVASTATIN CALCIUM 20 MG TAB PO SCH (08:41)
[2017-07-19] MEDS: DOCUSATE SODIUM 100 MG CAP PO SCH (08:41)
[2017-07-19] MEDS: ASPIRIN 81 MG ECTAB PO SCH (08:42)
[2017-07-19] MEDS: ISOSORBIDE MONONITRATE 30 MG TABCR PO SCH (08:42)
[2017-07-19] MEDS: ESCITALOPRAM OXALATE 20 MG TAB PO SCH (08:42)
[2017-07-19] MEDS: DULOXETINE HCL 20 MG CAP PO SCH (08:42)
[2017-07-19] MEDS: METOPROLOL TARTRATE 25 MG TAB PO SCH (08:43)
[2017-07-19] MEDS: CLOPIDOGREL BISULFATE 75 MG TAB PO SCH (08:43)
[2017-07-19] MEDS: PANTOprazole SOD 40 MG TAB PO SCH (08:43)
[2017-07-19] MEDS: CEROVITE ADV FORMULA TAB PO SCH (08:43)
[2017-07-19] MEDS: OXYCODONE HCL 10 MG TABCR (OXYCONTIN) PO SCH (08:47)
--- NOTE | 2017-07-19 09:43 | Orthopedic Progress Note ---
Orthopedic Progress Note Date of Service Jul 19, 2017. Subjective Post OP Day: 4 Reports: feeling well, Denies: complaints Objective calves soft nontender, N/V intact, dressing C/D/I, A&O x3, toes mobile Date Time Temp Pulse Resp B/P (MAP) Pulse Ox O2 Delivery O2 Flow Rate FiO2 07/19/17 09:31 Room Air 07/19/17 06:46 36.8 65 18 134/61 (85) 99 Room Air 07/18/17 23:22 36.8 65 16 146/67 (93) 98 Room Air 07/18/17 23:15 Room Air 07/18/17 15:35 Room Air 07/18/17 15:15 36.4 76 16 101/56 (71) 97 Room Air Assessment & Plan Assessment: POD#4 SP MEDIAL RETINACULAR REPAIR SP FALL Plan: PT/OT DVT PROPH PAIN MANAGEMENT DC PLANNING- PATIENT IS A FALL RISK, PLANNING ON REFERRAL TO [facility]. AWAITING AUTHORIZATION KNEE [employer]BIL[employer]. Inhouse Planning Pain Management: Oxy IR DVT Prophylaxis: ASA Discharge Planning Discharge Planning: long term facility
[2017-07-19 10:01] VITALS: BP 134/61; PULSE 65; TEMP 36.8; O2SAT 99
[2017-07-19 15:00] VITALS: BP 127/68; PULSE 66; TEMP 36.5; O2SAT 98
[2017-07-20] MEDS ORDERED: CEFAZOLIN IV 2,000 MG in DEXTROSE 5% 50ML 50 ML IV SCH (06:00)
--- NOTE | 2017-07-27 08:53 | Discharge Summary ---
Orthopedic Discharge Summary Admission Date/Reason Jul 15, 2017 at 12:20 Acute Pain Post Op Of Right Knee. Discharge Date/Disposition Jul 18, 2017 retirement facility Diagnosis Principal Diagnosis: S/P Right knee retinacular repair after fall Medication Reconciliation as per discharge instructions Admission Physical Exam As per Admitting History & Physical. Hospital Course POD#1 patient was feeling well. Prevena dressing was intact. Knee immobilizer was remain on at all times. Her pain was well controlled. We were awaiting antibiotic treatment and placement for her to a detention facility. POD#2 patient was feeling well. Prevena dressing was intact. Knee immobilizer was remain on at all times. Her pain was well controlled. We were awaiting placement for her to a detention facility. POD#3 patient was feeling well. Prevena dressing was intact. Knee immobilizer was remain on at all times. Her pain was well controlled. She was scheduled to be discharge to a detention facility the next day. Discharge Instructions Please refer to the electronic Patient Visit Report (Discharge Instructions) for additional information.
== END 2017-07-19 16:50 | DRG 909 ==
LOC: C.ACU 08:36 → C.3E 12:20 → ENRESERV 12:55 → C.3E 07-16 13:40
PROVIDERS: ADMIT Orthopaedic Surgery; ATTEND Orthopaedic Surgery
PROC: 0LQL0ZZ Repair Right Upper Leg Tendon, Open Approach (ICD-10-PCS; principal; 2017-07-15 11:25)
DX: T81.32XA Disruption of internal operation (surgical) wound, not elsewhere classified, initial encounter (principal); F41.9 Anxiety disorder, unspecified; I25.10 Atherosclerotic heart disease of native coronary artery without angina pectoris; F32.9 Major depressive disorder, single episode, unspecified; E78.5 Hyperlipidemia, unspecified; I10 Essential (primary) hypertension; E03.9 Hypothyroidism, unspecified; M81.0 Age-related osteoporosis without current pathological fracture; M35.3 Polymyalgia rheumatica; Z96.653 Presence of artificial knee joint, bilateral; Y83.8 Other surgical procedures as the cause of abnormal reaction of the patient, or of later complication, without mention of misadventure at the time of the procedure; W19.XXXA Unspecified fall, initial encounter; Z90.49 Acquired absence of other specified parts of digestive tract; Z79.82 Long term (current) use of aspirin

== ENCOUNTER 2017-08-10 12:18 | Inpatient (IN) | payer OTHER ==
[~2017-08-10] VITALS: Ht 152.4 cm; Wt 59.5 kg
[~2017-08-10 12:18] MED LIST changes: -ACETAMINOPHEN 500 MG TAB PO SCH; +ASPEC81 PO; -ASPI81TA28 PO; -BUPIVACAINE 0.5 % 5 MG/1 ML PF 10ML VIAL ONE; -CEFAZOLIN 1000MG IV PUSH 5 ML IV SCH; -CeleBREX 200 MG CAP PO SCH; -DEXAMETHASONE 4 MG TAB PO SCH; -FAMOTIDINE 20 MG TAB PO SCH; -GABAPENTIN 300 MG CAP PO SCH; -LACTATED RINGER'S 1000ML 1,000 ML IV SCH; -LACTATED RINGER'S 1000ML IV SCH; -METOCLOPRAMIDE HCL 10 MG TAB PO SCH; -OXYCODONE HCL 10 MG TABCR (OXYCONTIN) PO SCH; -ROPIVACAINE 5MG/ML 30 ML 150 MG, BUPIVACAINE/EPINEPHR 0.5% MPF 30 ML, KETOROLAC TROMETH... INFIL SCH; +RXC5 PO
--- NOTE | 2017-08-10 13:28 | HISTORY & PHYSICAL EXAMINATION ---
DATE OF ADMISSION: 08/10/2017 CHIEF COMPLAINT: Right knee drainage. HISTORY OF PRESENT ILLNESS: The patient is an 81-year-old female that presents to the office with right knee drainage. She denies any type of trauma to her knee. She states that the drainage started a few days ago with just some mild drainage, but now has been soaking through gauze quite frequently. She did have a right total knee done 111 days ago. Then she had a fall and her incision was open of which it was repaired. Then she had a second fall with an arthrotomy disruption. She is a direct admit to [facility] for IV antibiotics for right knee cellulitis with a possibility of doing an I&D with possible poly exchange. PAST MEDICAL HISTORY: Significant for anxiety, aortic stenosis, coronary artery disease, depression, dyslipidemia, hypertension, hypothyroidism, osteoporosis, right knee degenerative joint disease. PAST SURGICAL HISTORY: Cataract surgery, cholecystectomy, partial mastectomy, right total knee arthroplasty. ALLERGIES: CYCLOBENZAPRINE, NSAIDs AND STATINS. MEDICATIONS: Aspirin 81 mg q.a.m., Plavix 75 mg q.a.m., Coenzyme Q10 2 capsules q.a.m., duloxetine 1 capsule p.o. q.a.m., Lexapro 20 mg p.o. q.a.m., isosorbide mononitrate 30 mg p.o. q.a.m., levothyroxine 100 mcg p.o. q.a.m., losartan 50 mg p.o. q.a.m., metoprolol 25 mg p.o. b.i.d., Nitrostat 0.4 mg as needed, PreserVision 1 tablet p.o. b.i.d., omeprazole 20 mg p.o. q.a.m., prednisone 5 mg p.o. q.a.m., Crestor 40 mg p.o. q.a.m. PHYSICAL EXAMINATION: HEENT: Normocephalic, atraumatic. Extraocular movements are intact. PERRLA. Mucosa was moist. No septal deviation. NECK: Supple with no lymphadenopathy, no JVD, no thyromegaly. HEART: Regular rate and rhythm. No murmurs or gallops. LUNGS: Clear to auscultation. No wheezing or rhonchi. ABDOMEN: Soft, nontender, nondistended. Normal bowel sounds, no hepatosplenomegaly. EXTREMITIES: Paying particular attention to the right lower extremity incision over her knee, presents with 3-4 cm area over the incision that is blackened with the medial aspect slightly open draining a serosanguineous fluid. There is erythema throughout the rest of the incision. She is able to extend to 0 degrees and flex to 90 degrees. The knee is warm to touch. ASSESSMENT: Status post right total knee arthroplasty with cellulitis and possible wound dehiscence. PLAN: The patient will be direct admitted from the office to [facility] for IV antibiotic treatment with possible I&D of the right knee with poly exchange. The patient denies any trauma and started noticing some drainage over the past few days. She went to [place] emergency room where she had blood cultures drawn that demonstrated a gram positive cocci of which she was getting a dose of IV vancomycin and cefepime. Risks and benefits to surgery were discussed with the patient and the patient understands the risks if the surgery were to proceed. All questions were answered. JEFFERY
[2017-08-10 14:41] VITALS: BP 145/68; PULSE 118; TEMP 39.3; O2SAT 99; Ht 152.4 cm; Wt 59.5 kg
[2017-08-10] MEDS ORDERED: VANCOMYCIN INJ 1,500 MG in SODIUM CHLORIDE 0.9% 500ML 500 ML IV ONE (15:00)
[2017-08-10] MEDS ORDERED: VANCOMYCIN CONSULT ACTIVE PRN (15:00)
[2017-08-10] MEDS ORDERED: PATIENT'S HEIGHT AND/OR WEIGHT NEEDED SCH (15:00)
--- NOTE | 2017-08-10 15:24 | Pharmacy Progress Note ---
Pharmacy Abx Initial Consult Date of Service Aug 10, 2017. Pharmacy Dosing Scope Date of Consult: 08/10/17 Consultation requested by: Jack Perla PA-C Pharmacy is consulted to initiate Vancomycin IV dosing therapy, order appropriate labs and adjust drug dose/frequency. Subjective Objective Height (Feet): 5 Height (Inches): 0.00 Weight (Kilograms): 59.500 Vital Signs (Past 12Hrs) Vital Signs Past 12 Hours Date Time Temp Pulse Resp B/P (MAP) Pulse Ox O2 Delivery O2 Flow Rate FiO2 08/10/17 14:41 39.3 118 18 145/68 99 Room Air Lab Results (24Hrs) Laboratory Tests (24 Hours) Test 08/10/17 14:36 Micro Results Date/Time Source Procedure Growth Status 08/10/17 14:36 Blood Blood Culture Pending Ordered 08/10/17 14:36 Blood Blood Culture Pending Ordered Assessment & Plan Assessment 81 year old female being treated for cellulitis and possible wound dehiscence of right knee. * Pt evaluated at [place] emergency department on 08/09. I contacted the pharmacy at [place] and spoke with Kaitlyn Jaime. She reported that Darcie received a dose of Vancomycin 1500 mg IV 08/09 @ 1723. * 1/2 preliminary BC from [place] grew GPC. Plan Continue Vancomycin IV for treatment of cellulitis and possible GPC bacteremia. * No loading dose will be given since patient received 25 mg/kg dose @ [facility] less than 24 hours ago * Maintenance dose: 1000 mg IV every 24 hours (based on renal function from June admission- Scr/crcl pending. will adjust dose if Scr elevated from baseline) * Goal trough level for cellulitis/bacteremia : 15 to 20 mcg/mL * Trough level ordered for 08/12/17 Pharmacy will continue to follow and will adjust dose/frequency as necessary. Thank you.
[2017-08-10 15:45] VITALS: TEMP 37.5
[2017-08-10 15:54] LABS: HEMATOCRIT 32.5 % (37-47); HEMOGLOBIN 10.6 g/dL (12.0-16.0); MEAN CELL VOLUME 92.9 fL (80-100); MEAN CORPUSCULAR HEMOGLOBIN 30.3 pg (25-34); MEAN CORPUSCULAR HGB CONC 32.6 g/dl (32-36); RED CELL DISTRIBUTION WIDTH CV 13.1 % (11.5-14.5); RED CELL DISTRIBUTION WIDTH SD 44.4 fL (36.4-46.3); WHITE BLOOD COUNT 8.99 K/uL (4.8-10.8)
[2017-08-10 16:39] LABS: ALBUMIN 3.3 gm/dl (3.4-5.0); CALCIUM 9.6 mg/dl (8.5-10.1); CREATININE 0.89 mg/dl (0.60-1.20)
[2017-08-10 16:42] LABS: TOTAL PROTEIN 7.3 gm/dl (6.4-8.2)
[2017-08-10] MEDS ORDERED: LIDOCAINE HCL 1% 20 ML VIAL ONE (16:53)
[2017-08-10 17:23] LABS: PLATELET COUNT 51 K/uL (130-400)
[2017-08-10 17:29] LABS: BASO % 0.6 %; BASO ABS # 0.05 K/uL (0-0.2); EOS % 0.3 %; EOS ABS # 0.03 K/uL (0-0.5); IG# 0.03 K/uL (0.00-0.02); LYMPH % 16.4 %; LYMPH ABS # 1.47 K/uL (1.2-3.4); MONO % 12.7 %; MONO ABS # 1.14 K/uL (0.11-0.59); NEUT % 69.7 %; NEUT ABS # 6.27 K/uL (1.4-6.5)
[2017-08-10] MEDS: VANCOMYCIN INJ 1,000 MG in SODIUM CHLORIDE 0.9% 250ML 250 ML IV SCH (17:47)
--- NOTE | 2017-08-10 17:49 | Orthopedic Progress Note ---
Orthopedic Progress Note Date of Service Aug 10, 2017. Objective Area of scab over skin removed, skin opened up a bit and a fair amount of cloudy fluid drained from the region Date Time Temp Pulse Resp B/P (MAP) Pulse Ox O2 Delivery O2 Flow Rate FiO2 08/10/17 15:45 37.5 08/10/17 14:41 39.3 118 18 145/68 99 Room Air Laboratory Results 24 Hours: Test 08/10/17 15:19 White Blood Count 8.99 K/uL Red Blood Count 3.50 M/uL Hemoglobin 10.6 g/dL Hematocrit 32.5 % Mean Corpuscular Volume 92.9 fL Mean Corpuscular Hemoglobin 30.3 pg Mean Corpuscular Hemoglobin Concent 32.6 g/dl Platelet Count 51 K/uL Mean Platelet Volume 12.0 fL Neutrophils (%) (Auto) 69.7 % Lymphocytes (%) (Auto) 16.4 % Monocytes (%) (Auto) 12.7 % Eosinophils (%) (Auto) 0.3 % Basophils (%) (Auto) 0.6 % Neutrophils # (Auto) 6.27 K/uL Lymphocytes # (Auto) 1.47 K/uL Monocytes # (Auto) 1.14 K/uL Eosinophils # (Auto) 0.03 K/uL Basophils # (Auto) 0.05 K/uL Assessment & Plan Assessment: R TKA infection Plan: The knee was aspirated at the bedside. Cloudy yellow fluid was drained. 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 She has previously under gone I&D and poly exchange with 6 weeks of abx after a wound dehiscence. She then fell and ruptured her retinaculum repair. This was repaired 3 weeks ago. Now with recurrent wound problem and likely deep infection. The plan will be for excision of the TKA and placement of abx spacer. The patient has been an plavix. Will hold this. Given the plavix and with the holiday tomorrow I will not be able to get all the equipment necessary to remove the knee tomorrow. Will plan to do this Tuesday.
[2017-08-10] MEDS ORDERED: NITROGLYCERIN 0.4 MG SL PER TAB CHARGE UT SCH (18:00)
[2017-08-10] MEDS ORDERED: MoRPHine SULFATE 2 MG/ML CARP IV PRN (18:00)
[2017-08-10] MEDS ORDERED: ALUMINUM/MAGNESIUM SUSP 30 ML UDC PO PRN (18:00)
[2017-08-10] MEDS ORDERED: ONDANSETRON INJ 2 MG/ML 2 ML VIAL IV PRN (18:00)
[2017-08-10] MEDS ORDERED: METOCLOPRAMIDE HCL INJ 5 MG/ML 2 ML VIAL IV PRN (18:00)
[2017-08-10] MEDS ORDERED: CALCIUM POLYCARBOPHIL 1 TAB PO PRN (18:00)
[2017-08-10] MEDS ORDERED: ACETAMINOPHEN 325 MG TAB PO PRN (18:00)
[2017-08-10 19:00] LABS: PTT PATIENT 31.5 SECONDS (21.0-31.0)
[2017-08-10] MEDS ORDERED: FERR325T18 PO (20:04)
[2017-08-10] MEDS ORDERED: PANT40TA PO (20:04)
[2017-08-10] MEDS: OXYCODONE HCL IR 5 MG TAB (IMMEDIATE RELEASE) PO PRN (20:36)
[2017-08-10] MEDS: CEROVITE ADV FORMULA TAB PO SCH (20:37)
[2017-08-10] MEDS: COLCHICINE 0.6 MG TAB PO SCH (20:37)
[2017-08-10 20:40] VITALS: BP 99/57
[2017-08-10] MEDS: METOPROLOL TARTRATE 25 MG TAB PO SCH (20:40)
--- NOTE | 2017-08-10 20:52 | Medical Consult ---
Consultation Date of Consultation: Aug 10, 2017. Attending Physician: Hair Calderon M.D. Reason for Consultation: Medical management History of Present Illness Pt is 81 y/o F with PMH CAD, hypothyroidism, anemia, PMR, anxiety, depression, GERD, HTN, hyperlipidemia is admitted for R TKA infection by Dr Calderon. Pt with hx R TKA 111 days ago. Hx I&D and poly exchange with 6 weeks IV antibiotics after wound dehiscence, then fall and ruptured retinaculum and repaired 3 weeks ago. Pt states couple of days ago noticed some discharge from right knee and noticed increased discharge. Seen at [facility] yesterday and had blood cultures which were positive for gram + cocci and given vancomycin and cefepime. Here in hospital pt seen by Dr Calderon and had R knee aspirated and pt started on vancomycin with ID consult. Pt states after R knee aspiration mild discomfort. States past couple of days having chills without fevers. Denies diaphoresis, N/V/D/C, DEY, dizziness, syncope, vision changes, neck pain, CP, SOB, orthopnea, palpitations, cough, sore throat, choking, otalgia, rhinorrhea, abdominal pain, paresthesias, weakness, urinary symptoms. Past Medical/Surgical History Medical Problems: (1) Anxiety Status: Chronic (2) Aortic stenosis Status: Chronic (3) CAD (coronary artery disease) Status: Chronic (4) Depression Status: Chronic (5) Dyslipidemia Status: Chronic (6) Glaucoma Status: Chronic (7) H/O reduction of open fracture Status: Chronic (8) History of colorectal cancer Status: Chronic (9) History of hip fracture Status: Chronic (10) HTN (hypertension) Status: Chronic (11) Hypothyroidism Status: Chronic (12) Osteoporosis Status: Chronic (13) PMR (polymyalgia rheumatica) Status: Chronic (14) S/p bare metal coronary artery stent Status: Chronic Surgical Problems: (1) History of cataract surgery Status: Chronic (2) S/P cholecystectomy Status: Chronic (3) S/P partial mastectomy Status: Chronic (4) S/p removal of bowel lesion Status: Chronic (5) S/P total knee arthroplasty Status: Chronic Family History Heart disease FATHER MOTHER SISTER Pancreatic cancer SISTER Social History Smoking Status: Never Smoker Smokeless Tobacco Use: No Alcohol Use: none Drug Use: none Allergies Coded Allergies: Cyclobenzaprine (Verified Adverse Reaction, Unknown, DRY MOUTH, 07/15/17) NSAIDs (Unverified Adverse Reaction, Unknown, DYSPEPSIA, 07/15/17) PER RECORDS Statins (Unverified Adverse Reaction, Unknown, MYALGIAS, NAUSEA, 07/15/17) PER RECORDS Current Inpatient Medications Current Inpatient Medications Medications (Trade) Dose Ordered Sig/Joanie Route Start Time Stop Time Status Last Admin Dose Admin Vancomycin HCl (Consult) 1 ea UD PRN N/A 08/10/17 15:00 09/09/17 14:59 Vancomycin HCl 1000 mg/Sodium Chloride 270 ml @ 125 mls/hr Q24H IV 08/10/17 17:00 08/20/17 16:59 08/10/17 17:47 125 MLS/HR Oxycodone/ Acetaminophen (Percocet 5-325mg Tab) `1-2 TABS FOR PAIN `1 TAB... Q4H PRN PO 08/10/17 18:00 08/24/17 17:59 Acetaminophen (Tylenol Tab) 650 mg Q6H PRN PO 08/10/17 18:00 09/09/17 17:59 Metoclopramide HCl (Reglan Inj) 10 mg Q6H PRN IV 08/10/17 18:00 09/09/17 17:59 Ondansetron HCl (Zofran Inj) 4 mg Q6H PRN IV 08/10/17 18:00 09/09/17 17:59 Al Hydroxide/Mg Hydroxide (Maalox Susp) 30 ml Q6H PRN PO 08/10/17 18:00 09/09/17 17:59 Morphine Sulfate (MoRPHine SULFATE INJ) 2 mg Q2H PRN IV 08/10/17 18:00 08/24/17 17:59 Colchicine (Colchicine Tab) 0.6 mg HS PO 08/10/17 21:00 09/09/17 20:59 Duloxetine HCl (Cymbalta Cap) 20 mg QAM PO 08/11/17 09:00 09/10/17 08:59 Escitalopram Oxalate (Lexapro Tab) 20 mg QAM PO 08/11/17 09:00 09/10/17 08:59 Isosorbide Mononitrate (Imdur Ext Rel Tab) 30 mg QAM PO 08/11/17 09:00 09/10/17 08:59 Levothyroxine Sodium (Synthroid Tab) 100 mcg MoTuWeThFrSa@0600 PO 08/11/17 06:00 09/10/17 05:59 Losartan Potassium (coZAAR TAB) 50 mg QAM PO 08/11/17 09:00 09/10/17 08:59 Metoprolol Tartrate (Lopressor Tab) 25 mg BID PO 08/10/17 21:00 09/09/17 20:59 Nitroglycerin (Nitrostat Tab) 0.4 mg PRN UT 08/10/17 18:00 09/09/17 17:59 Multivitamins/ Minerals (Multivitamin W/ Minerals Tab) 1 tab BID PO 08/10/17 21:00 09/09/17 20:59 Oxycodone HCl (Roxicodone Immediate Rel Tab) 5 mg Q4H PRN PO 08/10/17 18:00 08/24/17 17:59 Prednisone (PredniSONE TAB) 5 mg QAM PO 08/11/17 09:00 09/10/17 08:59 Rosuvastatin Calcium (Crestor Tab) 40 mg QAM PO 08/11/17 09:00 09/10/17 08:59 Calcium/Vitamin D (Caltrate Plus Tab) 1 tab QAM PO 08/11/17 09:00 09/10/17 08:59 Pantoprazole Sodium (Protonix Tab) 40 mg QAM PO 08/11/17 09:00 09/10/17 08:59 Calcium Polycarbophil (Fibercon Tab) 1 tab QAM PRN PO 08/10/17 18:00 09/09/17 17:59 Levothyroxine Sodium (Synthroid Tab) 50 mcg Gaming@0600 PO 08/14/17 06:00 09/13/17 05:59 Miscellaneous Information (Order Awaiting Action) 1 ea QS N/A 08/11/17 00:00 09/10/17 00:00 Ferrous Gluconate (Ferrous Gluconate Tab) 324 mg TID PO 08/10/17 21:00 09/09/17 20:59 Review of Systems Constitutional: + fever (denies known fever, however pt febrile upon admission) , + chills, No sweats, No weight loss, No weakness, No fatigue, No problem reported Eyes: No worsening of vision, No eye pain, No redness, No discharge, No diplopia ENT: No unusual epistaxis, No nasal symptoms, No sore throat, No trouble swallowing Respiratory: No cough, No sputum, No wheezing, No shortness of breath, No hemoptysis Cardiovascular: No chest pain, No orthopnea, No PND, No edema, No palpitations Abdomen: + problem reported, No pain, No nausea, No vomiting, No diarrhea, No constipation, No GI bleeding Musculoskeletal: + problem reported (see HPI), No calf pain Genitourinary - Female: No dysuria, No urinary frequency, No urinary urgency, No urinary incontinence, No urinary retention, No hematuria Endocrine: No fatigue, No excessive thirst, No excessive urination Hematologic / Lymphatic: No abnormal bleeding/bruising, No night sweats Integumentary: + problem reported (see HPI) Physical Exam Date Time Temp Pulse Resp B/P (MAP) Pulse Ox O2 Delivery O2 Flow Rate FiO2 08/10/17 16:00 Room Air 08/10/17 15:45 37.5 08/10/17 14:41 39.3 118 18 145/68 99 Room Air General Appearance: WD/WN, no apparent distress Head: normocephalic, atraumatic Eyes: normal inspection, PERRL, EOMI, sclerae normal ENT: hearing grossly normal, pharynx normal Neck: supple, no JVD, no carotid bruits Respiratory/Chest: chest non-tender, lungs clear, normal breath sounds, no respiratory distress, no accessory muscle use Cardiovascular: regular rate, rhythm, normal peripheral pulses, + systolic murmur Abdomen/GI: normal bowel sounds, non tender, soft Extremities/Musculoskelatal: no calf tenderness, normal capillary refill, + pertinent finding (R knee with pressure dressing in place, pt with limited flexion of R knee with reproduced tenderness. remaining extremities non-tender, ROM intact) Neurologic/Psych: alert, normal mood/affect, oriented x 3 Skin: normal color, warm/dry Laboratory Results Last 24 Hours Test 08/10/17 15:19 08/10/17 15:35 08/10/17 19:33 White Blood Count 8.99 K/uL Red Blood Count 3.50 M/uL Hemoglobin 10.6 g/dL Hematocrit 32.5 % Mean Corpuscular Volume 92.9 fL Mean Corpuscular Hemoglobin 30.3 pg Mean Corpuscular Hemoglobin Concent 32.6 g/dl Platelet Count 51 K/uL Mean Platelet Volume 12.0 fL Neutrophils (%) (Auto) 69.7 % Lymphocytes (%) (Auto) 16.4 % Monocytes (%) (Auto) 12.7 % Eosinophils (%) (Auto) 0.3 % Basophils (%) (Auto) 0.6 % Neutrophils # (Auto) 6.27 K/uL Lymphocytes # (Auto) 1.47 K/uL Monocytes # (Auto) 1.14 K/uL Eosinophils # (Auto) 0.03 K/uL Basophils # (Auto) 0.05 K/uL RDW Standard Deviation 44.4 fL RDW Coefficient of Variation 13.1 % Immature Granulocyte % (Auto) 0.3 % Immature Granulocyte # (Auto) 0.03 K/uL Red Blood Cell Morphology Unremarkable Prothrombin Time 10.5 SECONDS Prothromb Time International Ratio 1.0 Activated Partial Thromboplast Time 31.5 SECONDS Partial Thromboplastin Ratio 1.2 Sodium Level 132 mmol/L Potassium Level 4.0 mmol/L Chloride Level 101 mmol/L Carbon Dioxide Level 23 mmol/L Anion Gap 8.0 mmol/L Blood Urea Nitrogen 11 mg/dl Creatinine 0.89 mg/dl Est Creatinine Clear Calc Drug Dose 38.6 ml/min Estimated GFR () 69.5 Estimated GFR (Non- 59.9 BUN/Creatinine Ratio 12.6 Random Glucose 106 mg/dl Calcium Level 9.6 mg/dl Total Bilirubin 0.7 mg/dl Aspartate Amino Transf (AST/SGOT) 36 U/L Alanine Aminotransferase (ALT/SGPT) 22 U/L Alkaline Phosphatase 61 U/L Total Protein 7.3 gm/dl Albumin 3.3 gm/dl Globulin 4.0 gm/dl Albumin/Globulin Ratio 0.8 Assessment & Plan R TKA RECURRENT INFECTION Pt with hx multiple complications s/p R TKA >3months ago with hx I&D, poly exchange, wound dehiscence and hx 6 weeks abx use. Recurrent Infection with onset of chills, discharge from R knee. had blood cultures at [facility] yesterday and gram + cocci. Pt febrile upon admission. no leukocytosis. Plan per ortho note is to consider surgery on tuesday. -added lactate -abx per ortho - pt on vancomycin -recommend ID consult -pain management per ortho -wound management per ortho -DVT prophylaxis per ortho -cbc & prp in am HYPONATREMIA Na: 132. suspect mild dehydration -NSS 80ml/hr -repeat prp in am ANEMIA Pt with hx anemia. Hgb stable at 10.6. PLT: 51, but were clumped and repeat CBC is pending. -continue iron -monitor H&H and cbc CAD no c/o CP, SOB, LE edema -continue imdur -continue metoprolol -resume ASA & plavix per ortho when ok after surgery HTN -continue metoprolol -continue losartan GERD -continue protonix Hypothyroidism -pending TSH -continue levothyroxine PMR -continue prednisone ANXIETY/DEPRESSION -continue home meds DYSLIPIDEMIA -continue crestor DVT PROPHYLAXIS -per ortho -would recommend holding heparin until plt rechecked Full Code as per discussion with pt -Follows with Dr Orona for routine care Pt was seen with Dr Jones. See addendum ADDENDUM: This is a 81 year old female with a PMH of CAD, HTN, HLD, hypothyroidism, previous R TKA and subsequent infection presents with worsening infection and planned surgical intervention for possible worsening infection. Currently pain controlled. Had +fevers, +chills prior to arrival. Plan is to continue IV Vancomycin ID consultation for further input cultures pending plan for surgical intervention on Sunday 08/12 will give gentle IV hydration for mild hyponatremia monitor chronic thrombocytopenia - repeat platelets pending
[2017-08-10] MEDS ORDERED: EYE OPR SCH (21:00)
[2017-08-10] MEDS ORDERED: SODIUM CHLORIDE 0.9% 1000ML 1,000 ML IV SCH (21:00)
[2017-08-10] MEDS ORDERED: NON-FORMULARY MEDICATION (Coenzyme Q10 (Ubidecarenone) (Co Q10) 1 CAP) PO SCH (21:00)
[2017-08-10 21:37] LABS: HEMATOCRIT 29.5 % (37-47); HEMOGLOBIN 9.8 g/dL (12.0-16.0); MEAN CELL VOLUME 93.7 fL (80-100); MEAN CORPUSCULAR HEMOGLOBIN 31.1 pg (25-34); MEAN CORPUSCULAR HGB CONC 33.2 g/dl (32-36); RED CELL DISTRIBUTION WIDTH CV 13.1 % (11.5-14.5); RED CELL DISTRIBUTION WIDTH SD 44.1 fL (36.4-46.3); WHITE BLOOD COUNT 8.93 K/uL (4.8-10.8)
[2017-08-10] MEDS: FERROUS GLUCONATE 324 MG TAB PO SCH (21:47)
[2017-08-10 23:21] VITALS: BP 114/62; PULSE 79; TEMP 36.8; O2SAT 97
[2017-08-11] MEDS: OXYCODONE HCL IR 5 MG TAB (IMMEDIATE RELEASE) PO PRN ×3 (00:30→20:48)
[2017-08-11] MEDS: LEVOTHYROXINE 100 MCG TAB PO SCH (05:48)
[2017-08-11 07:09] VITALS: BP 132/72; PULSE 90; TEMP 36.8; O2SAT 96
[2017-08-11 07:23] LABS: CALCIUM 9.3 mg/dl (8.5-10.1); CREATININE 0.76 mg/dl (0.60-1.20); POTASSIUM 3.6 mmol/L (3.5-5.1)
[2017-08-11 07:51] LABS: BASO % 0.7 %; BASO ABS # 0.04 K/uL (0-0.2); EOS % 1.6 %; HEMATOCRIT 30.5 % (37-47); HEMOGLOBIN 9.9 g/dL (12.0-16.0); IG# 0.01 K/uL (0.00-0.02); LYMPH % 27.5 %; LYMPH ABS # 1.69 K/uL (1.2-3.4); MEAN CELL VOLUME 93.8 fL (80-100); MEAN CORPUSCULAR HEMOGLOBIN 30.5 pg (25-34); MEAN CORPUSCULAR HGB CONC 32.5 g/dl (32-36); MONO % 17.8 %; MONO ABS # 1.09 K/uL (0.11-0.59); NEUT % 52.2 %; NEUT ABS # 3.21 K/uL (1.4-6.5); RED CELL DISTRIBUTION WIDTH CV 13.2 % (11.5-14.5); WHITE BLOOD COUNT 6.14 K/uL (4.8-10.8)
[2017-08-11 08:10] VITALS: O2SAT 96
[2017-08-11] MEDS ORDERED: PANTOprazole SOD 40 MG TAB PO SCH (09:00)
--- NOTE | 2017-08-11 09:15 | Orthopedic Progress Note ---
Orthopedic Progress Note Date of Service Aug 11, 2017. Subjective Additional Notes: patient resting comfortably, denies CP/SOB, pain currently tolerable, eating breakfast Objective calves soft nontender, N/V intact, capillary refill less than 2 sec., A&O x3, toes mobile Date Time Temp Pulse Resp B/P (MAP) Pulse Ox O2 Delivery O2 Flow Rate FiO2 08/11/17 07:09 36.8 90 16 132/72 (92) 96 Room Air 08/11/17 00:20 Room Air 08/10/17 23:21 36.8 79 18 114/62 (79) 97 Room Air 08/10/17 20:40 99/57 (71) 08/10/17 16:00 Room Air 08/10/17 15:45 37.5 08/10/17 14:41 39.3 118 18 145/68 99 Room Air Laboratory Results 24 Hours: Test 08/10/17 15:19 08/10/17 19:33 08/11/17 06:33 White Blood Count 8.99 K/uL 6.14 K/uL Red Blood Count 3.50 M/uL 3.25 M/uL Hemoglobin 10.6 g/dL 9.8 g/dL 9.9 g/dL Hematocrit 32.5 % 29.5 % 30.5 % Mean Corpuscular Volume 92.9 fL 93.8 fL Mean Corpuscular Hemoglobin 30.3 pg 30.5 pg Mean Corpuscular Hemoglobin Concent 32.6 g/dl 32.5 g/dl Platelet Count 51 K/uL K/uL Mean Platelet Volume 12.0 fL Neutrophils (%) (Auto) 69.7 % 52.2 % Lymphocytes (%) (Auto) 16.4 % 27.5 % Monocytes (%) (Auto) 12.7 % 17.8 % Eosinophils (%) (Auto) 0.3 % 1.6 % Basophils (%) (Auto) 0.6 % 0.7 % Neutrophils # (Auto) 6.27 K/uL 3.21 K/uL Lymphocytes # (Auto) 1.47 K/uL 1.69 K/uL Monocytes # (Auto) 1.14 K/uL 1.09 K/uL Eosinophils # (Auto) 0.03 K/uL 0.10 K/uL Basophils # (Auto) 0.05 K/uL 0.04 K/uL Prothromb Time International Ratio 1.0 Prothrombin Time 10.5 SECONDS Assessment & Plan Assessment: R TKA infection Plan: The knee was aspirated at the bedside. Cloudy yellow fluid was drained. 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 She has previously under gone I&D and poly exchange with 6 weeks of abx after a wound dehiscence. She then fell and ruptured her retinaculum repair. This was repaired 3 weeks ago. Now with recurrent wound problem and likely deep infection. The plan will be for excision of the TKA and placement of abx spacer. The patient has been an plavix. Will hold this. Given the plavix and with the holiday tomorrow I will not be able to get all the equipment necessary to remove the knee tomorrow. Will plan to do this Tuesday. 08/11- will plan for surgery tomorrow morning with KULDIP hammond after NANCY guerrero.
[2017-08-11 09:33] VITALS: BP 132/65; PULSE 105
[2017-08-11] MEDS: CALCIUM 600MG + VIT D 400 IU TAB PO SCH (09:34)
[2017-08-11] MEDS: DULOXETINE HCL 20 MG CAP PO SCH (09:35)
[2017-08-11] MEDS: LOSARTAN POTASSIUM 50 MG TAB PO SCH (09:35)
[2017-08-11] MEDS: ISOSORBIDE MONONITRATE 30 MG TABCR PO SCH (09:36)
[2017-08-11] MEDS: ESCITALOPRAM OXALATE 20 MG TAB PO SCH (09:36)
[2017-08-11] MEDS: METOPROLOL TARTRATE 25 MG TAB PO SCH ×2 (09:36→20:47)
[2017-08-11] MEDS: PANTOprazole SOD 40 MG TAB PO SCH (09:37)
[2017-08-11] MEDS: FERROUS GLUCONATE 324 MG TAB PO SCH ×3 (09:37→20:47)
[2017-08-11] MEDS: ROSUVASTATIN CALCIUM 20 MG TAB PO SCH (09:37)
[2017-08-11] MEDS: CEROVITE ADV FORMULA TAB PO SCH ×2 (09:38→20:47)
[2017-08-11 15:20] VITALS: BP 97/41; PULSE 68; TEMP 36.7; O2SAT 95
[2017-08-11] MEDS: VANCOMYCIN INJ 1,000 MG in SODIUM CHLORIDE 0.9% 250ML 250 ML IV SCH (17:25)
--- NOTE | 2017-08-11 17:46 | Medical Consult ---
Consultation Date of Consultation: Aug 11, 2017. Attending Physician: Hair Calderon M.D. Reason for Consultation: Infected right TKA History of Present Illness 81-year-old female status post right TKA in April, with subsequent poor healing of the surgical site. Subsequently underwent incision and drainage and poly exchange with prolonged course of IV antibiotics. More recently suffered retinacular tear requiring operative repair. Now presents with worsening swelling and pain of the knee, and had joint aspirated with finding of cloudy fluid, which is now growing streptococcal species. Patient now scheduled for removal of prosthesis and spacer placement tomorrow. Currently being treated with IV vancomycin. Denies any significant fevers. Pain now 3/10 in intensity. Has tolerated antibiotics so far. 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 Surgical Problems: (1) History of cataract surgery (2) S/P cholecystectomy (3) S/P partial mastectomy (4) S/p removal of bowel lesion (5) S/P total knee arthroplasty Family History Heart disease FATHER MOTHER SISTER Pancreatic cancer SISTER Social History Smoking Status: Never Smoker Smokeless Tobacco Use: No Alcohol Use: none Drug Use: none Allergies Coded Allergies: Cyclobenzaprine (Verified Adverse Reaction, Unknown, DRY MOUTH, 07/15/17) NSAIDs (Unverified Adverse Reaction, Unknown, DYSPEPSIA, 07/15/17) PER RECORDS Statins (Unverified Adverse Reaction, Unknown, MYALGIAS, NAUSEA, 07/15/17) PER RECORDS Current Inpatient Medications Current Inpatient Medications Medications (Trade) Dose Ordered Sig/Joanie Route Start Time Stop Time Status Last Admin Dose Admin Vancomycin HCl (Consult) 1 ea UD PRN N/A 08/10/17 15:00 09/09/17 14:59 Vancomycin HCl 1000 mg/Sodium Chloride 270 ml @ 125 mls/hr Q24H IV 08/10/17 17:00 08/20/17 16:59 11/23/17 17:25 125 MLS/HR Oxycodone/ Acetaminophen (Percocet 5-325mg Tab) `1-2 TABS FOR PAIN `1 TAB... Q4H PRN PO 08/10/17 18:00 08/24/17 17:59 Acetaminophen (Tylenol Tab) 650 mg Q6H PRN PO 08/10/17 18:00 09/09/17 17:59 Metoclopramide HCl (Reglan Inj) 10 mg Q6H PRN IV 08/10/17 18:00 09/09/17 17:59 Ondansetron HCl (Zofran Inj) 4 mg Q6H PRN IV 08/10/17 18:00 09/09/17 17:59 Al Hydroxide/Mg Hydroxide (Maalox Susp) 30 ml Q6H PRN PO 08/10/17 18:00 09/09/17 17:59 Morphine Sulfate (MoRPHine SULFATE INJ) 2 mg Q2H PRN IV 08/10/17 18:00 08/24/17 17:59 Colchicine (Colchicine Tab) 0.6 mg HS PO 08/10/17 21:00 09/09/17 20:59 08/10/17 20:37 0.6 MG Duloxetine HCl (Cymbalta Cap) 20 mg QAM PO 08/11/17 09:00 09/10/17 08:59 08/11/17 09:35 20 MG Escitalopram Oxalate (Lexapro Tab) 20 mg QAM PO 08/11/17 09:00 09/10/17 08:59 08/11/17 09:36 20 MG Isosorbide Mononitrate (Imdur Ext Rel Tab) 30 mg QAM PO 08/11/17 09:00 09/10/17 08:59 08/11/17 09:36 30 MG Levothyroxine Sodium (Synthroid Tab) 100 mcg MoTuWeThFrSa@0600 PO 08/11/17 06:00 09/10/17 05:59 08/11/17 05:48 100 MCG Losartan Potassium (coZAAR TAB) 50 mg QAM PO 08/11/17 09:00 09/10/17 08:59 08/11/17 09:35 50 MG Metoprolol Tartrate (Lopressor Tab) 25 mg BID PO 08/10/17 21:00 09/09/17 20:59 08/11/17 09:36 25 MG Nitroglycerin (Nitrostat Tab) 0.4 mg PRN UT 08/10/17 18:00 09/09/17 17:59 Multivitamins/ Minerals (Multivitamin W/ Minerals Tab) 1 tab BID PO 08/10/17 21:00 09/09/17 20:59 08/11/17 09:38 1 TAB Oxycodone HCl (Roxicodone Immediate Rel Tab) 5 mg Q4H PRN PO 08/10/17 18:00 08/24/17 17:59 08/11/17 10:26 5 MG Prednisone (PredniSONE TAB) 5 mg QAM PO 08/11/17 09:00 09/10/17 08:59 08/11/17 09:38 5 MG Rosuvastatin Calcium (Crestor Tab) 40 mg QAM PO 08/11/17 09:00 09/10/17 08:59 08/11/17 09:37 40 MG Calcium/Vitamin D (Caltrate Plus Tab) 1 tab QAM PO 08/11/17 09:00 09/10/17 08:59 08/11/17 09:34 1 TAB Pantoprazole Sodium (Protonix Tab) 40 mg QAM PO 08/11/17 09:00 09/10/17 08:59 08/11/17 09:37 40 MG Calcium Polycarbophil (Fibercon Tab) 1 tab QAM PRN PO 08/10/17 18:00 09/09/17 17:59 Levothyroxine Sodium (Synthroid Tab) 50 mcg Gaming@0600 PO 08/14/17 06:00 09/13/17 05:59 Miscellaneous Information (Order Awaiting Action) 1 ea QS N/A 08/11/17 00:00 09/10/17 00:00 Ferrous Gluconate (Ferrous Gluconate Tab) 324 mg TID PO 08/10/17 21:00 09/09/17 20:59 08/11/17 14:08 324 MG Review of Systems All systems were reviewed and are negative except as per HPI Physical Exam Date Time Temp Pulse Resp B/P (MAP) Pulse Ox O2 Delivery O2 Flow Rate FiO2 08/11/17 15:20 Room Air 08/11/17 15:20 36.7 68 17 97/41 (59) 95 Room Air 08/11/17 09:33 105 132/65 (87) 08/11/17 08:10 96 Room Air 08/11/17 07:09 36.8 90 16 132/72 (92) 96 Room Air 08/11/17 00:20 Room Air 08/10/17 23:21 36.8 79 18 114/62 (79) 97 Room Air 08/10/17 20:40 99/57 (71) General Appearance: WD/WN, no apparent distress Head: normocephalic, atraumatic Eyes: normal inspection, EOMI, sclerae normal ENT: normal ENT inspection, hearing grossly normal, pharynx normal Neck: supple, no adenopathy, thyroid normal, trachea midline Respiratory/Chest: chest non-tender, lungs clear, normal breath sounds, no respiratory distress Cardiovascular: regular rate, rhythm, no gallop, no murmur Abdomen/GI: normal bowel sounds, non tender, soft, no organomegaly Back: normal inspection, no CVA tenderness Extremities/Musculoskelatal: no calf tenderness, normal capillary refill Neurologic/Psych: alert, oriented x 3 Skin: normal color, warm/dry, no rash, + pertinent finding (Dressing intact right knee) Lymphatic: no adenopathy Laboratory Results RUN DATE: 08/11/17 [facility] LAB PAGE 1 RUN TIME: 1227 Specimen Inquiry PATIENT: LEVI LEVI LOC: RASHEED U # : [id number] AGE/SX: 81/F ROOM: [facility] REG : 08/10/[address]: Hair Calderon M.D. : 1935 BED: 2 DIS : STATUS: ADM IN TLOC: SPEC #: [id number] JORDY: 08/10/17 STATUS: RES REQ #: [id number] RECD: 08/10/17 [facility] DR: Hair Calderon M.D. SOURCE: JOINT FLSP ENTR: 08/10/17 [facility] DR: Raman Wall MD SPDES: KNEE RIGHT [place] ORDERED: AER/MELISSA CULTSMR COMMENTS: Specimen Comment total knee Has Specimen Been Obtained/Collected? Y Procedure Result Verified Site GRAM STAIN Final 08/11/17 RESULT MANY WBCs SEEN NO ORGANISMS SEEN OR AER/MELISSA CULT Preliminary 08/11/17 Organism 1 STREPTOCOCCUS SPECIES QUANITY MANY SENS SENSITIVITY TO FOLLOW Last 24 Hours Test 08/10/17 19:33 08/10/17 22:03 08/11/17 06:33 08/11/17 17:29 White Blood Count 8.93 K/uL 6.14 K/uL Red Blood Count 3.15 M/uL 3.25 M/uL Hemoglobin 9.8 g/dL 9.9 g/dL Hematocrit 29.5 % 30.5 % Mean Corpuscular Volume 93.7 fL 93.8 fL Mean Corpuscular Hemoglobin 31.1 pg 30.5 pg Mean Corpuscular Hemoglobin Concent 33.2 g/dl 32.5 g/dl RDW Standard Deviation 44.1 fL 46.0 fL RDW Coefficient of Variation 13.1 % 13.2 % Platelet Count K/uL K/uL Mean Platelet Volume fL Lactic Acid Level 0.9 mmol/L Thyroid Stimulating Hormone (TSH) 1.020 uIu/ml Neutrophils (%) (Auto) 52.2 % Lymphocytes (%) (Auto) 27.5 % Monocytes (%) (Auto) 17.8 % Eosinophils (%) (Auto) 1.6 % Basophils (%) (Auto) 0.7 % Neutrophils # (Auto) 3.21 K/uL Lymphocytes # (Auto) 1.69 K/uL Monocytes # (Auto) 1.09 K/uL Eosinophils # (Auto) 0.10 K/uL Basophils # (Auto) 0.04 K/uL Immature Granulocyte % (Auto) 0.2 % Immature Granulocyte # (Auto) 0.01 K/uL Sodium Level 138 mmol/L Potassium Level 3.6 mmol/L Chloride Level 107 mmol/L Carbon Dioxide Level 21 mmol/L Anion Gap 10.0 mmol/L Blood Urea Nitrogen 10 mg/dl Creatinine 0.76 mg/dl Est Creatinine Clear Calc Drug Dose 45.2 ml/min Estimated GFR () 84.1 Estimated GFR (Non- 72.5 BUN/Creatinine Ratio 13.7 Random Glucose 95 mg/dl Calcium Level 9.3 mg/dl Assessment & Plan Infected right TKA with cultures now growing Streptococcus. Agree with need for removal of prosthesis and antibiotic spacer. Vancomycin will be continued until final culture results and sensitivities are available. Will require prolonged IV 6-8 weeks of IV antibiotics. Will follow.
[2017-08-11 20:27] LABS: PLATELET COUNT 176 K/uL (130-400)
[2017-08-11] MEDS: COLCHICINE 0.6 MG TAB PO SCH (20:47)
--- NOTE | 2017-08-11 21:29 | Progress Note ---
Medicine Progress Note Date & Time of Visit: Aug 11, 2017 at 11:15 . Subjective Doing well. No fever or chills. No chest pain. No cough or dyspnea. No nausea or vomiting. No diarrhea. Right knee pain with ambulation. . Objective Last 8 Hrs Date Time Temp Pulse Resp B/P (MAP) Pulse Ox O2 Delivery O2 Flow Rate FiO2 08/11/17 15:20 Room Air 08/11/17 15:20 36.7 68 17 97/41 (59) 95 Room Air Physical Exam: General- no distress Lungs- clear to auscultation Heart- regular, II/ sys murmur at base, no gallop Abdomen- normal bowel sounds, soft, nontender Extremities- right knee wrapped; no pretibial edema or calf tenderness Neuro- alert, oriented . Laboratory Results: Last 24 Hours Test 08/10/17 22:03 08/11/17 06:33 08/11/17 19:14 Lactic Acid Level 0.9 mmol/L Thyroid Stimulating Hormone (TSH) 1.020 uIu/ml White Blood Count 6.14 K/uL Red Blood Count 3.25 M/uL Hemoglobin 9.9 g/dL Hematocrit 30.5 % Mean Corpuscular Volume 93.8 fL Mean Corpuscular Hemoglobin 30.5 pg Mean Corpuscular Hemoglobin Concent 32.5 g/dl Platelet Count K/uL 176 K/uL Neutrophils (%) (Auto) 52.2 % Lymphocytes (%) (Auto) 27.5 % Monocytes (%) (Auto) 17.8 % Eosinophils (%) (Auto) 1.6 % Basophils (%) (Auto) 0.7 % Neutrophils # (Auto) 3.21 K/uL Lymphocytes # (Auto) 1.69 K/uL Monocytes # (Auto) 1.09 K/uL Eosinophils # (Auto) 0.10 K/uL Basophils # (Auto) 0.04 K/uL RDW Standard Deviation 46.0 fL RDW Coefficient of Variation 13.2 % Immature Granulocyte % (Auto) 0.2 % Immature Granulocyte # (Auto) 0.01 K/uL Sodium Level 138 mmol/L Potassium Level 3.6 mmol/L Chloride Level 107 mmol/L Carbon Dioxide Level 21 mmol/L Anion Gap 10.0 mmol/L Blood Urea Nitrogen 10 mg/dl Creatinine 0.76 mg/dl Est Creatinine Clear Calc Drug Dose 45.2 ml/min Estimated GFR () 84.1 Estimated GFR (Non- 72.5 BUN/Creatinine Ratio 13.7 Random Glucose 95 mg/dl Calcium Level 9.3 mg/dl Platelet Estimate NORMAL Assessment & Plan PROSTHETIC INFECTION RIGHT KNEE Management per Ortho and ID. CORONARY ARTERY DISEASE No anginal symptoms. Aspirin and clopidogrel on hold for surgery; resume as soon as possible when OK from surgical perspective. Continue metoprolol, nitrates, statin. AORTIC STENOSIS Hemodynamically stable. HYPERTENSION Continue metoprolol, losartan, nitrates. HYPOTHYROIDISM Continue levothyroxine. PMR On chronic steroid therapy with prednisone 5 mg daily. IV hydrocortisone pre- and postoperatively. VTE PROPHYLAXIS Per Orthopedic protocol. Thank you for this consultation. We will follow the patient with you during their hospital stay. You can reach a member of the [facility] Medicine Team 11/04 via pager @ [phone]. You can reach me via cell @ [phone]. . Current Inpatient Medications: Current Inpatient Medications Medications (Trade) Dose Ordered Sig/Joanie Route Start Time Stop Time Status Last Admin Dose Admin Vancomycin HCl (Consult) 1 ea UD PRN N/A 08/10/17 15:00 09/09/17 14:59 Vancomycin HCl 1000 mg/Sodium Chloride 270 ml @ 125 mls/hr Q24H IV 08/10/17 17:00 08/20/17 16:59 08/11/17 17:25 125 MLS/HR Oxycodone/ Acetaminophen (Percocet 5-325mg Tab) `1-2 TABS FOR PAIN `1 TAB... Q4H PRN PO 08/10/17 18:00 08/24/17 17:59 Acetaminophen (Tylenol Tab) 650 mg Q6H PRN PO 08/10/17 18:00 09/09/17 17:59 Metoclopramide HCl (Reglan Inj) 10 mg Q6H PRN IV 08/10/17 18:00 09/09/17 17:59 Ondansetron HCl (Zofran Inj) 4 mg Q6H PRN IV 08/10/17 18:00 09/09/17 17:59 Al Hydroxide/Mg Hydroxide (Maalox Susp) 30 ml Q6H PRN PO 08/10/17 18:00 09/09/17 17:59 Morphine Sulfate (MoRPHine SULFATE INJ) 2 mg Q2H PRN IV 08/10/17 18:00 08/24/17 17:59 Colchicine (Colchicine Tab) 0.6 mg HS PO 08/10/17 21:00 09/09/17 20:59 08/11/17 20:47 0.6 MG Duloxetine HCl (Cymbalta Cap) 20 mg QAM PO 08/11/17 09:00 09/10/17 08:59 08/11/17 09:35 20 MG Escitalopram Oxalate (Lexapro Tab) 20 mg QAM PO 08/11/17 09:00 09/10/17 08:59 08/11/17 09:36 20 MG Isosorbide Mononitrate (Imdur Ext Rel Tab) 30 mg QAM PO 08/11/17 09:00 09/10/17 08:59 08/11/17 09:36 30 MG Levothyroxine Sodium (Synthroid Tab) 100 mcg MoTuWeThFrSa@0600 PO 08/11/17 06:00 09/10/17 05:59 08/11/17 05:48 100 MCG Losartan Potassium (coZAAR TAB) 50 mg QAM PO 08/11/17 09:00 09/10/17 08:59 08/11/17 09:35 50 MG Metoprolol Tartrate (Lopressor Tab) 25 mg BID PO 08/10/17 21:00 09/09/17 20:59 08/11/17 20:47 25 MG Nitroglycerin (Nitrostat Tab) 0.4 mg PRN UT 08/10/17 18:00 09/09/17 17:59 Multivitamins/ Minerals (Multivitamin W/ Minerals Tab) 1 tab BID PO 08/10/17 21:00 09/09/17 20:59 08/11/17 20:47 1 TAB Oxycodone HCl (Roxicodone Immediate Rel Tab) 5 mg Q4H PRN PO 08/10/17 18:00 08/24/17 17:59 08/11/17 20:48 5 MG Prednisone (PredniSONE TAB) 5 mg QAM PO 08/11/17 09:00 09/10/17 08:59 08/11/17 09:38 5 MG Rosuvastatin Calcium (Crestor Tab) 40 mg QAM PO 08/11/17 09:00 09/10/17 08:59 08/11/17 09:37 40 MG Calcium/Vitamin D (Caltrate Plus Tab) 1 tab QAM PO 08/11/17 09:00 09/10/17 08:59 08/11/17 09:34 1 TAB Pantoprazole Sodium (Protonix Tab) 40 mg QAM PO 08/11/17 09:00 09/10/17 08:59 08/11/17 09:37 40 MG Calcium Polycarbophil (Fibercon Tab) 1 tab QAM PRN PO 08/10/17 18:00 09/09/17 17:59 Levothyroxine Sodium (Synthroid Tab) 50 mcg Gaming@0600 PO 08/14/17 06:00 09/13/17 05:59 Miscellaneous Information (Order Awaiting Action) 1 ea QS N/A 08/11/17 00:00 09/10/17 00:00 Ferrous Gluconate (Ferrous Gluconate Tab) 324 mg TID PO 08/10/17 21:00 09/09/17 20:59 08/11/17 20:47 324 MG Heparin Sodium (Porcine) (Heparin 10 Unit/ ml 5 ml Flush) 5 ml PRN PRN FLUSH 08/11/17 20:45 09/10/17 20:44 08/11/17 20:48 5 ML
[2017-08-11 22:58] VITALS: BP 99/49; PULSE 69; TEMP 37.1; O2SAT 96
[2017-08-12] VITALS (9 sets, daily range): BP systolic 112–161; BP diastolic 44–67; PULSE 67–92; TEMP 36.4–37.2; O2SAT 88–100
[2017-08-12] MEDS ORDERED: HYDROCORTISONE IV 50 MG in SYRINGE 0 ML IV PRN (06:00)
[2017-08-12] MEDS: LEVOTHYROXINE 100 MCG TAB PO SCH (06:15)
[2017-08-12 06:57] LABS: CREATININE 1.46 mg/dl (0.60-1.20)
[2017-08-12] MEDS ORDERED: POVIDONE-IODINE OP SOLN 30 ML BTL ONE (07:02)
[2017-08-12] MEDS ORDERED: BACITRACIN 50000 UNIT VIAL ONE ×2 (07:02→07:35)
[2017-08-12] MEDS ORDERED: MIDAZOLAM HCL 1 MG/ML 2ML VIAL ONE (07:05)
[2017-08-12] MEDS ORDERED: PROPOFOL IV EMULSION 10 MG/ML 20 ML VIAL IV ONE (07:05)
[2017-08-12] MEDS ORDERED: LIDOCAINE HCL 2% 2 ML VIAL (20MG/ML) ONE (07:05)
[2017-08-12] MEDS ORDERED: FENTANYL CITRATE INJ 50 MCG/1 ML 2 ML VIAL ONE ×2 (07:06→08:35)
[2017-08-12] MEDS ORDERED: NURSING VERBAL MED ORDER ONE ×2 (07:44→19:30)
[2017-08-12] MEDS ORDERED: VANCOMYCIN HCL 1000MG/20ML VIAL ONE (07:57)
[2017-08-12] MEDS ORDERED: DAPTOMYCIN IV SCH (08:30)
[2017-08-12] MEDS: FERROUS GLUCONATE 324 MG TAB PO SCH ×3 (09:00→14:45)
[2017-08-12] MEDS ORDERED: HYDROmorphone INJ 2 MG/ML SYR/VIAL ONE (09:14)
[2017-08-12] MEDS ORDERED: ETOMIDATE 2 MG/ML 20 ML VIAL IV ONE (10:44)
[2017-08-12] MEDS ORDERED: LABETALOL HCL IV 5 MG/ML 20ML IV ONE (10:44)
[2017-08-12] MEDS ORDERED: ONDANSETRON INJ 2 MG/ML 2 ML VIAL ONE (10:44)
--- NOTE | 2017-08-12 11:08 | [facility] Operative Report ---
Operative Report Operative Date Aug 12, 2017. Pre-Operative Diagnosis Recurrent Right Knee Infection Post-Operative Diagnosis Same as preoperative Procedure(s) Performed Right Excision Total Knee Arthroplasty, Placement Antibiotic Spacer Surgeon Dr. Hair Calderon [employer] Director Surgeon(s) Dylan Lewis PA-C Estimated Blood Loss 50ml Findings gross purulence within the knee joint. frozens positive for gram + cocci and > 15 WBC per high powered field Specimens PERMANENT: A.) Explanted Hardware, Right Knee MICROBIOLOGY: 1) Right Knee Synovial Fluid, Left OR7 @ 0830, Results phoned to surgeon in OR7 @ 0916. FROZEN: 2) Bone Prosthetic Interface, Right Knee Femur (#WBCs per high power field), Left OR7 @ 0901, Results phone to surgeon in OR7 @ 0904 3) Bone Prosthetic Interface, Right Tibia (#WBCs per high power field), Left OR7 @ 0981, Results phoned to surgeon in OR7 @ 0929 Drains 2 hemovac Anesthesia geta Complication(s) None Disposition Recovery Room / PACU Indications Patient is an 81-year-old female who had previously undergone a right total knee arthroplasty. In her early postoperative course she had wound dehiscence. A Portion of this may be secondary to a fall disrupting her medial retinaculum as it was found to be open at the time of surgery. Initially she had a fall and injured her back and was not complaining much of her knee pain and the skin incision opened and with the skin incision opened the arthrotomy was open as well. She underwent irrigation and debridement with polyethylene exchange and 6 weeks of IV antibiotics. Cultures taken at that time were positive. She had healed from this and during her rehabilitation had another fall and had a gross disruption of the retinacular repair but the skin was intact. About 3 weeks ago she will underwent open repair of this and he'll be kept in a knee immobilizer. This week she had increasing drainage from the wound. There is erythema along the entirety of the incision in the central portion had opened a bit and cloudy serous fluid was expressed from the anterior aspect the knee. Performed an aspiration which also revealed cloudy yellow fluid which is currently growing Streptococcus species as well as gram- negative bacilli. Given the recurrent infection we elected to proceed with excision of the total knee and placement of antibiotic spacer. Description of Procedure Risks benefits and alternatives of surgery including but not limited to infection, DVT, pain, stiffness, need for surgery, damage to blood vessels, damage to nerves or risks of anesthesia were discussed with the patient and they wished to proceed. The patient was identified and the laterality was confirmed and marked. They received a preoperative antibiotic as well as a spinal anesthetic and an abductor canal block. A well-padded tourniquet was applied and then the limb was prepped and draped in standard manner with ChloraPrep. The tourniquet was inflated. The central portion of her wound had opened and had some purulent material this measured a length of about 2 cm in length. I made a standard anterior incision. I sharply incised the skin then utilized Bovie electrocautery hemostasis. Purulent material was encountered in the region of the arthrotomy just proximal to the patella this region was cultured. The previous sutures were then removed. There was purulent material found to be in the intercondylar notch. I reopened her medial retinaculum and extended this proximally. I used a sagittal saw to excise the patella. The pegs were drilled out with a [employer] pin. I then used the Ultra-Drive to remove the cement mantle circumferentially around the femoral component. I also used osteotomes to ensure we had broken up the cement mantle. I then placed the Esperanza extraction clamp onto the component and then removed the femur component. This came off well without any excessive bone loss. I then used the Ultra-Drive as well as flexible osteotomes to disrupt the cement mantle around the tibial component. Once I was satisfied that we had a good circumferential clearing of the cement around the tibial component again placed the Esperanza extraction clamp onto the tibia and then extracted the tibial component. This came off well without any excessive bone loss. I then performed a thorough debridement sharply down to level of bone using a combination of curettes, knife, Bovie, versa jet. The knee was then thoroughly irrigated with a total 9 L of bacitracin saline. We exchanged our gloves and drapes and equipment for clean items. I then compared the previous femoral component to the Biomet trials and elected to use a size 62.5. I mixed vancomycin powder into this Simplex HV with tobramycin cement. I loosely cemented the femoral component into position. Once this had set I placed a large amount of cement onto the tibia and loosely cemented on a size 10 poly. I also then removed the pegs off of a patella button and cemented this in place as well. The knee was then then again thoroughly irrigated. A Betadine soak was performed. A deep drain was placed. The arthrotomy was closed with interrupted #1 Vicryl suture subcutaneous tissue was closed with interrupted 2-0 Vicryl suture. The skin was closed with with nylon. A Prevena wound VAC was placed. Sterile dressings were applied. All needle and sponge counts were correct at the end of the procedure patient was transferred to the PACU in stable condition without apparent complication. The PA-C was necessary for assistance with procedure for assistance in positioning, prepping, draping, retraction and closure. I attest to the content of the Intraoperative Record and any orders documented therein. Any exceptions are noted below.
[2017-08-12] MEDS ORDERED: NALOXONE HCL 0.4 MG/1 ML VIAL/CARP IV PRN (11:15)
[2017-08-12] MEDS ORDERED: ATROPINE SULFATE 0.1 MG/ML 5ML SYR IV PRN (11:15)
[2017-08-12] MEDS ORDERED: LABETALOL HCL IV 5 MG/ML 20ML IV PRN (11:15)
[2017-08-12] MEDS ORDERED: MoRPHine SULFATE 2 MG/ML CARP IV PRN (11:15)
[2017-08-12] MEDS ORDERED: FLUMAZENIL 0.1 MG/1 ML 10 ML VIAL IV PRN (11:15)
[2017-08-12] MEDS ORDERED: HYDROmorphone INJ 1 MG/ML SYR IV PRN (11:15)
[2017-08-12] MEDS ORDERED: PROMETHAZINE HCL INJ 12.5 MG in SODIUM CHLORIDE 0.9% 50ML 50 ML IV PRN (11:15)
[2017-08-12] MEDS ORDERED: ONDANSETRON INJ 2 MG/ML 2 ML VIAL IV PRN ×2 (11:15)
[2017-08-12] MEDS ORDERED: MAGNESIUM HYDROXIDE SUSP 30 ML UDC PO PRN (11:15)
[2017-08-12] MEDS ORDERED: EpHEDrine SULFATE INJ 50 MG/ML AMP IV PRN (11:15)
--- NOTE | 2017-08-12 11:48 | DIAGNOSTIC IMAGING REPORT ---
R KNEE 1 OR 2 VIEWS ROUTINE CLINICAL HISTORY: AP/LATERAL IN PACU RIGHT KNEE postoperative evaluation COMPARISON: 04/21/2017 DISCUSSION: Surgical removal of patient's tibial prosthetic. Possible replacement of the patient's femoral knee prosthetic. Surgical drains are in position. Soft tissue demonstrates postoperative change. IMPRESSION: Interval revision of the patient's total right knee prosthetic with removal of the patient's tibial prosthetic. Alignment remains anatomic. The above report was generated using voice recognition software. It may contain grammatical, syntax or spelling errors. Electronically signed by: Dylan Garzon M.D. 08/12/2017 11:47 AM Dictated Date/Time: 08/12/2017 11:45 AM
--- NOTE | 2017-08-12 11:51 | Anesthesiology Progress Note ---
Anesthesia Post Op Note Date & Time Aug 12, 2017 at 11:51 Vital Signs Pain Intensity: 0 Vital Signs Past 12 Hours Date Time Temp Pulse Resp B/P (MAP) Pulse Ox O2 Delivery O2 Flow Rate FiO2 08/12/17 11:40 85 18 159/60 100 Nasal Cannula 3 08/12/17 11:30 91 18 149/60 99 Oxymask 10 08/12/17 11:20 86 16 169/69 99 Oxymask 10 08/12/17 11:12 36.8 95 16 178/80 98 Oxymask 10 08/12/17 06:43 36.7 67 16 124/60 (81) 97 Room Air 08/12/17 00:00 Room Air Notes Mental Status: alert / awake / arousable, participated in evaluation Pt Amnestic to Procedure: Yes Nausea / Vomiting: adequately controlled Pain: adequately controlled Airway Patency, RR, SpO2: stable & adequate BP & HR: stable & adequate Hydration State: stable & adequate Anesthetic Complications: no major complications apparent
[2017-08-12] MEDS ORDERED: FERROUS GLUCONATE 324 MG TAB PO SCH (12:30)
[2017-08-12] MEDS: PANTOprazole SOD 40 MG TAB PO SCH ×2 (13:46→14:44)
[2017-08-12] MEDS: LOSARTAN POTASSIUM 50 MG TAB PO SCH ×2 (13:47→16:13)
[2017-08-12] MEDS: CALCIUM 600MG + VIT D 400 IU TAB PO SCH ×2 (13:47→14:45)
[2017-08-12] MEDS: ROSUVASTATIN CALCIUM 20 MG TAB PO SCH ×2 (13:48→16:13)
[2017-08-12] MEDS: DULOXETINE HCL 20 MG CAP PO SCH ×2 (13:48→16:13)
[2017-08-12] MEDS: ISOSORBIDE MONONITRATE 30 MG TABCR PO SCH ×2 (13:48→16:13)
[2017-08-12] MEDS: CEROVITE ADV FORMULA TAB PO SCH ×2 (13:49→14:45)
[2017-08-12] MEDS: METOPROLOL TARTRATE 25 MG TAB PO SCH ×3 (13:49→21:00)
[2017-08-12] MEDS: ESCITALOPRAM OXALATE 20 MG TAB PO SCH ×2 (13:49→16:13)
[2017-08-12] MEDS: ERTAPENEM IV 1 GM in SODIUM CHLOR 0.9% AD-VAN 50ML 50 ML IV SCH (14:36)
[2017-08-12] MEDS: D5W AND 1/2NSS + 20MEQ KCL 1,000 ML IV SCH (15:11)
[2017-08-12] MEDS: OXYCODONE HCL IR 5 MG TAB (IMMEDIATE RELEASE) PO PRN (15:13)
[2017-08-12] MEDS ORDERED: VANCOMYCIN TROUGH ONE (16:30)
[2017-08-12] MEDS ORDERED: ALTEPLASE, RECOMBINANT 1 MG/ML 2 ML VIAL IV ONE (17:30)
[2017-08-12] MEDS: VANCOMYCIN INJ 1,000 MG in SODIUM CHLORIDE 0.9% 250ML 250 ML IV SCH (17:37)
--- NOTE | 2017-08-12 18:00 | Pharmacy Progress Note ---
Pharmacy Abx Dose Short Note Date of Service Aug 12, 2017. Assessment & Plan Item Value Date Time Vancomycin Level Trough 11.6 mcg/ml 08/12/17 1646 Creatinine 0.76 mg/dl 08/11/17 0633 Creatinine 1.46 mg/dl H # 08/12/17 0542 Assessment 81 year old female receiving IV Vancomycin for treatment of right knee cellulitis. Infected right TKA w/ cultures rowing strep. Removal of prosthesis and antibiotic spacer today. Pt will need salvage determiner IV antibiotics upon discharge. Day # 4 of antimicrobial therapy. Increase in SCr today. Plan Vancomycin * Trough level of 11.6 mcg/mL is subtherapeutic, but patient's with increase in Scr will continue current dose. * Continue dose of 1000 mg IV every 24 hours * Goal trough level for cellulitis : ~15 mcg/mL * Random level ordered for: 08/13/17 with AM labs, this will be about 12 hours after patient's dose to re-evaluate how patient is clearing Vancomycin and recheck SCr with AM Labs. Pharmacy will continue to follow and will adjust dose/frequency as necessary. Thank you.
[2017-08-12] MEDS: OXYCODONE/ACETAMINOPHEN 5-325 TAB PO PRN (18:33)
[2017-08-12] MEDS ORDERED: MoRPHine SULFATE 4 MG/ML 1 ML CARP\\VIAL ONE (19:35)
[2017-08-12] MEDS ORDERED: MoRPHine SULFATE 4 MG/ML 1 ML CARP\\VIAL IV PRN (19:45)
--- NOTE | 2017-08-12 19:47 | Progress Note ---
Medicine Progress Note Date & Time of Visit: Aug 12, 2017 at 13:15 . Subjective Right excision total knee arthroplasty, placement of antibiotic spacer performed this morning by Dr. Calderon. Doing well postoperatively. No chest pain. No cough or dyspnea. No nausea or vomiting. Postop pain well-controlled. . Objective Last 8 Hrs Date Time Temp Pulse Resp B/P (MAP) Pulse Ox O2 Delivery O2 Flow Rate FiO2 08/12/17 15:30 Nasal Cannula 3.0 08/12/17 15:05 36.4 68 18 139/55 (83) 92 Nasal Cannula 3.0 08/12/17 14:15 36.4 77 18 139/52 (81) 100 Nasal Cannula 2.0 08/12/17 13:15 36.4 77 18 157/67 (97) 88 Nasal Cannula 3.0 08/12/17 12:41 36.6 76 17 153/64 (93) 93 Nasal Cannula 2.0 08/12/17 12:15 36.7 92 18 161/65 (97) 92 Nasal Cannula 3.0 08/12/17 12:15 Nasal Cannula 3.0 08/12/17 12:00 85 20 155/59 100 Nasal Cannula 3 08/12/17 11:55 85 20 141/58 100 Nasal Cannula 3 08/12/17 11:50 36.7 88 17 160/59 100 Nasal Cannula 3 Physical Exam: General- no distress Neck- no JVD Lungs- clear to auscultation Heart- regular, III/ sys murmur at base, no gallop Abdomen- normal bowel sounds, soft, nontender Extremities- right knee wrapped; SCD's applied to LLE; no pretibial edema or calf tenderness Neuro- sedated postoperatively . Laboratory Results: Last 24 Hours Test 08/12/17 05:42 08/12/17 16:46 Creatinine 1.46 mg/dl Est Creatinine Clear Calc Drug Dose 23.6 ml/min Estimated GFR () 38.2 Estimated GFR (Non- 32.9 Vancomycin Level Trough 11.6 mcg/ml Date/Time Source Procedure Growth Status 08/12/17 08:28 Joint Fluid/Space (Synovial) Knee Right Gram Stain - Final Resulted 08/12/17 08:28 Joint Fluid/Space (Synovial) Knee Right Bacterial Culture Pending Resulted Assessment & Plan PROSTHETIC INFECTION RIGHT KNEE Management per Ortho and ID. CORONARY ARTERY DISEASE No anginal symptoms. Aspirin and clopidogrel on hold for surgery; resume as soon as possible when OK from surgical perspective. Continue metoprolol, nitrates, statin. AORTIC STENOSIS Hemodynamically stable. HYPERTENSION Continue metoprolol, losartan, nitrates. HYPOTHYROIDISM Continue levothyroxine. PMR On chronic steroid therapy with prednisone 5 mg daily. IV hydrocortisone pre- and postoperatively. VTE PROPHYLAXIS Per Orthopedic protocol. Thank you for this consultation. We will follow the patient with you during their hospital stay. You can reach a member of the [facility] Medicine Team 11/04 via pager @ [phone]. You can reach me via cell @ [phone]. . Current Inpatient Medications: Current Inpatient Medications Medications (Trade) Dose Ordered Sig/Joanie Route Start Time Stop Time Status Last Admin Dose Admin Vancomycin HCl (Consult) 1 ea UD PRN N/A 08/10/17 15:00 09/09/17 14:59 Vancomycin HCl 1000 mg/Sodium Chloride 270 ml @ 125 mls/hr Q24H IV 08/10/17 17:00 08/20/17 16:59 08/12/17 17:37 125 MLS/HR Oxycodone/ Acetaminophen (Percocet 5-325mg Tab) `1-2 TABS FOR PAIN `1 TAB... Q4H PRN PO 08/10/17 18:00 08/24/17 17:59 08/12/17 18:33 2 TAB Acetaminophen (Tylenol Tab) 650 mg Q6H PRN PO 08/10/17 18:00 09/09/17 17:59 Metoclopramide HCl (Reglan Inj) 10 mg Q6H PRN IV 08/10/17 18:00 09/09/17 17:59 Ondansetron HCl (Zofran Inj) 4 mg Q6H PRN IV 08/10/17 18:00 09/09/17 17:59 Al Hydroxide/Mg Hydroxide (Maalox Susp) 30 ml Q6H PRN PO 08/10/17 18:00 09/09/17 17:59 Colchicine (Colchicine Tab) 0.6 mg HS PO 08/10/17 21:00 09/09/17 20:59 08/11/17 20:47 0.6 MG Duloxetine HCl (Cymbalta Cap) 20 mg QAM PO 08/11/17 09:00 09/10/17 08:59 08/11/17 09:35 20 MG Escitalopram Oxalate (Lexapro Tab) 20 mg QAM PO 08/11/17 09:00 09/10/17 08:59 08/11/17 09:36 20 MG Isosorbide Mononitrate (Imdur Ext Rel Tab) 30 mg QAM PO 08/11/17 09:00 09/10/17 08:59 08/11/17 09:36 30 MG Levothyroxine Sodium (Synthroid Tab) 100 mcg MoTuWeThFrSa@0600 PO 08/11/17 06:00 09/10/17 05:59 08/12/17 06:15 100 MCG Losartan Potassium (coZAAR TAB) 50 mg QAM PO 08/11/17 09:00 09/10/17 08:59 08/11/17 09:35 50 MG Metoprolol Tartrate (Lopressor Tab) 25 mg BID PO 08/10/17 21:00 09/09/17 20:59 08/11/17 20:47 25 MG Nitroglycerin (Nitrostat Tab) 0.4 mg PRN UT 08/10/17 18:00 09/09/17 17:59 Multivitamins/ Minerals (Multivitamin W/ Minerals Tab) 1 tab BID PO 08/10/17 21:00 09/09/17 20:59 08/11/17 20:47 1 TAB Oxycodone HCl (Roxicodone Immediate Rel Tab) 5 mg Q4H PRN PO 08/10/17 18:00 08/24/17 17:59 08/12/17 15:13 5 MG Prednisone (PredniSONE TAB) 5 mg QAM PO 08/11/17 09:00 09/10/17 08:59 08/11/17 09:38 5 MG Rosuvastatin Calcium (Crestor Tab) 40 mg QAM PO 08/11/17 09:00 09/10/17 08:59 08/11/17 09:37 40 MG Calcium/Vitamin D (Caltrate Plus Tab) 1 tab QAM PO 08/11/17 09:00 09/10/17 08:59 08/11/17 09:34 1 TAB Pantoprazole Sodium (Protonix Tab) 40 mg QAM PO 08/11/17 09:00 09/10/17 08:59 08/11/17 09:37 40 MG Calcium Polycarbophil (Fibercon Tab) 1 tab QAM PRN PO 08/10/17 18:00 09/09/17 17:59 Levothyroxine Sodium (Synthroid Tab) 50 mcg Gaming@0600 PO 08/14/17 06:00 09/13/17 05:59 Miscellaneous Information (Order Awaiting Action) 1 ea QS N/A 08/11/17 00:00 09/10/17 00:00 Ferrous Gluconate (Ferrous Gluconate Tab) 324 mg TID PO 08/10/17 21:00 09/09/17 20:59 08/11/17 20:47 324 MG Heparin Sodium (Porcine) (Heparin 10 Unit/ ml 5 ml Flush) 5 ml PRN PRN FLUSH 08/11/17 20:45 09/10/17 20:44 08/12/17 05:43 5 ML Ertapenem 1 gm/ Sodium Chloride 50 ml @ 120 mls/hr Q24H IV 08/12/17 12:00 09/23/17 11:59 08/12/17 14:36 120 MLS/HR Potassium Chloride/Dextrose/ Sod Cl 1,000 ml @ 100 mls/hr Q10H IV 08/12/17 12:30 08/13/17 11:08 08/12/17 15:11 100 MLS/HR Magnesium Hydroxide (Milk Of Magnesia Susp) 30 ml Q6H PRN PO 08/12/17 11:15 09/11/17 11:14 Aspirin (Ecotrin Tab) 81 mg BID PO 08/13/17 21:00 09/12/17 20:59 Clopidogrel Bisulfate (plAVix TAB) 75 mg QAM PO 08/13/17 09:00 09/12/17 08:59 Morphine Sulfate (MoRPHine SULFATE INJ) 3 mg Q2H PRN IV 08/12/17 19:45 08/26/17 19:44
[2017-08-12] MEDS ORDERED: HYDROCORTISONE IV 50 MG in SYRINGE 0 ML IV ONE (20:00)
[2017-08-12] MEDS: COLCHICINE 0.6 MG TAB PO SCH (21:00)
[2017-08-13] VITALS (12 sets, daily range): BP systolic 95–122; BP diastolic 47–57; PULSE 59–98; TEMP 36.2–36.9; O2SAT 94–99
[2017-08-13] MEDS: OXYCODONE HCL IR 5 MG TAB (IMMEDIATE RELEASE) PO PRN (04:48)
[2017-08-13] MEDS: LEVOTHYROXINE 100 MCG TAB PO SCH (04:57)
[2017-08-13] MEDS: D5W AND 1/2NSS + 20MEQ KCL 1,000 ML IV SCH (04:57)
[2017-08-13] MEDS: OXYCODONE/ACETAMINOPHEN 5-325 TAB PO PRN ×2 (07:46→15:20)
[2017-08-13 08:06] LABS: CALCIUM 8.7 mg/dl (8.5-10.1); CREATININE 1.3 mg/dl (0.60-1.20); POTASSIUM 4.2 mmol/L (3.5-5.1)
[2017-08-13 08:28] LABS: HEMATOCRIT 23.3 % (37-47); HEMOGLOBIN 7.4 g/dL (12.0-16.0); MEAN CELL VOLUME 94.7 fL (80-100); MEAN CORPUSCULAR HEMOGLOBIN 30.1 pg (25-34); MEAN CORPUSCULAR HGB CONC 31.8 g/dl (32-36); RED CELL DISTRIBUTION WIDTH CV 13.2 % (11.5-14.5); RED CELL DISTRIBUTION WIDTH SD 45.4 fL (36.4-46.3); WHITE BLOOD COUNT 9.58 K/uL (4.8-10.8)
[2017-08-13] MEDS ORDERED: PANTOprazole SOD 40 MG TAB PO SCH (09:00)
[2017-08-13] MEDS ORDERED: MULTIVITAMIN TAB PO SCH (09:00)
[2017-08-13] MEDS: METOPROLOL TARTRATE 25 MG TAB PO SCH ×2 (09:00→21:23)
--- NOTE | 2017-08-13 09:05 | Orthopedic Progress Note ---
Orthopedic Progress Note Date of Service Aug 13, 2017. Subjective Post OP Day: 1 Reports: feeling well Objective N/V intact, dressing C/D/I (Prevena in place), toes mobile Date Time Temp Pulse Resp B/P (MAP) Pulse Ox O2 Delivery O2 Flow Rate FiO2 08/13/17 07:40 Room Air 08/13/17 07:33 36.6 87 16 120/57 (78) 99 Room Air 08/13/17 03:04 36.6 87 16 122/51 (74) 99 Nasal Cannula 2.0 08/13/17 00:09 Nasal Cannula 2.0 08/12/17 23:05 37.2 83 18 112/44 (66) 91 Room Air 08/12/17 21:58 93 Room Air 08/12/17 19:55 37.1 84 18 147/55 (85) 100 Nasal Cannula 3.0 08/12/17 15:30 Nasal Cannula 3.0 08/12/17 15:05 36.4 68 18 139/55 (83) 92 Nasal Cannula 3.0 08/12/17 14:15 36.4 77 18 139/52 (81) 100 Nasal Cannula 2.0 08/12/17 13:15 36.4 77 18 157/67 (97) 88 Nasal Cannula 3.0 08/12/17 12:41 36.6 76 17 153/64 (93) 93 Nasal Cannula 2.0 08/12/17 12:15 36.7 92 18 161/65 (97) 92 Nasal Cannula 3.0 08/12/17 12:15 Nasal Cannula 3.0 08/12/17 12:00 85 20 155/59 100 Nasal Cannula 3 08/12/17 11:55 85 20 141/58 100 Nasal Cannula 3 08/12/17 11:50 36.7 88 17 160/59 100 Nasal Cannula 3 08/12/17 11:40 85 18 159/60 100 Nasal Cannula 3 08/12/17 11:30 91 18 149/60 99 Oxymask 10 08/12/17 11:20 86 16 169/69 99 Oxymask 10 08/12/17 11:12 36.8 95 16 178/80 98 Oxymask 10 Laboratory Results 24 Hours: Test 08/13/17 07:09 Hematocrit 23.3 % Hemoglobin 7.4 g/dL Additional Notes: Cultures: Enterococcus Faecalis and Enterobacter Cloacae(both mcguire sensitive) Assessment & Plan Assessment: 81 yo female stable POD #1 s/p excisional arthroplasty/abx spacer septic right TKA Plan: 1. Med management- will transfuse 2 units PRBCs, IV abx per ID 2. DVT prophylaxis- resume ASA and Plavix 3. PT/OT 4. D/C planning- will need 6 weeks IV abx upon d/c
[2017-08-13] MEDS: ISOSORBIDE MONONITRATE 30 MG TABCR PO SCH (09:40)
[2017-08-13] MEDS: CLOPIDOGREL BISULFATE 75 MG TAB PO SCH (09:41)
[2017-08-13] MEDS: ESCITALOPRAM OXALATE 20 MG TAB PO SCH (09:43)
[2017-08-13] MEDS: LOSARTAN POTASSIUM 50 MG TAB PO SCH (09:43)
[2017-08-13] MEDS: DULOXETINE HCL 20 MG CAP PO SCH (09:44)
[2017-08-13] MEDS: CEROVITE ADV FORMULA TAB PO SCH ×2 (09:44→21:23)
[2017-08-13] MEDS: ROSUVASTATIN CALCIUM 20 MG TAB PO SCH (09:45)
[2017-08-13] MEDS: FERROUS GLUCONATE 324 MG TAB PO SCH ×3 (09:45→21:22)
[2017-08-13] MEDS: ERTAPENEM IV 1 GM in SODIUM CHLOR 0.9% AD-VAN 50ML 50 ML IV SCH (13:23)
--- NOTE | 2017-08-13 14:57 | Pharmacy Progress Note ---
Pharmacy Antibiotic Prog Note Date of Service Aug 13, 2017. Subjective The patient is currently receiving vancomycin prn levels Objective Height (Feet): 5 Height (Inches): 0.00 Weight (Kilograms): 59.500 Lab Results (24hrs): Test 08/12/17 16:46 08/13/17 07:09 Vancomycin Level Trough 11.6 mcg/ml (SEE COMMENT) White Blood Count 9.58 K/uL (4.8-10.8) Red Blood Count 2.46 M/uL (4.2-5.4) Hemoglobin 7.4 g/dL (12.0-16.0) Hematocrit 23.3 % (37-47) Mean Corpuscular Volume 94.7 fL (80-100) Mean Corpuscular Hemoglobin 30.1 pg (25-34) Mean Corpuscular Hemoglobin Concent 31.8 g/dl (32-36) RDW Standard Deviation 45.4 fL (36.4-46.3) RDW Coefficient of Variation 13.2 % (11.5-14.5) Platelet Count K/uL (130-400) Sodium Level 140 mmol/L (136-145) Potassium Level 4.2 mmol/L (3.5-5.1) Chloride Level 108 mmol/L (98-107) Carbon Dioxide Level 25 mmol/L (21-32) Anion Gap 7.0 mmol/L (3-11) Blood Urea Nitrogen 14 mg/dl (7-18) Creatinine 1.30 mg/dl (0.60-1.20) Est Creatinine Clear Calc Drug Dose 26.5 ml/min Estimated GFR () 43.9 Estimated GFR (Non- 37.9 BUN/Creatinine Ratio 10.8 (10-20) Random Glucose 150 mg/dl (70-99) Calcium Level 8.7 mg/dl (8.5-10.1) Random Vancomycin Level 17.0 mcg/ml Assessment & Plan Assessment * 81 yo F with infected TKA. On ertapenem, vancomycin * HPI * TKA early April 2017 * Late April 2017, infected TKA s/p I&D w polyexchange, cultures with MSSA, sent to [facility] on cefazolin x6 weeks * Presented to [place] ED 08/09, received cefepime and vancomycin (1500 mg per [facility] pharmacist). Blood cultures obtained growing GPC per [facility] H&P * Current admission * Direct admission to [facility] 08/10 for positive blood cultures / infected TKA * Blood cultures obtained at [facility] 08/10 with NGTD (but post-abx at [facility]) * S/p excision of TKA w antibiotic spacer 08/12 * Joint synovial fluid 08/10 with E. faecalis, Enterobacter, Staph species * Repeat synovial fluid 08/12 intra-op with Strep species, GNR, GPC (likely same organisms as culture obtained 08/10) * ID consulted - anticipate prolonged duration of antibiotics * Concern for ROSA - SCr increased acutely 0.8 to 1.5 from 08/11 to 08/12. Stable at 1.3 mg/dL today (08/13). Vancomycin * Goal vancomycin trough 15-20 mcg/mL * Random level of 17.0 mcg/mL this AM therapeutic * OK to give additional vancomycin, but concern for scheduling ongoing dose at this time 2nd renal dysfunction. * Will give one-time dose and check random level in AM Plan * Vancomycin 1000 mg IV x1 * Repeat random in AM * Extended duration of antibiotics anticipated - will attempt to schedule vancomycin at q24h if/when possible Pharmacy will continue to follow and will adjust dose/frequency as necessary. Thank you
[2017-08-13] MEDS: VANCOMYCIN INJ 1,000 MG in SODIUM CHLORIDE 0.9% 250ML 250 ML IV SCH (16:57)
--- NOTE | 2017-08-13 19:57 | Progress Note ---
Medicine Progress Note Date & Time of Visit: Aug 13, 2017 at 09:30 . Subjective Doing well postoperatively except for postoperative pain. No chest pain. No cough or dyspnea. No nausea or vomiting. Passing flatus, but no stool. Voiding without difficulty. . Objective Last 8 Hrs Date Time Temp Pulse Resp B/P (MAP) Pulse Ox O2 Delivery O2 Flow Rate FiO2 08/13/17 16:20 Room Air 08/13/17 14:57 36.5 84 16 110/50 (70) 94 Room Air 08/13/17 14:42 36.8 98 18 115/51 08/13/17 13:33 36.7 59 17 105/55 99 08/13/17 13:32 36.7 08/13/17 12:45 36.2 82 17 95/47 97 08/13/17 12:17 36.3 80 16 108/56 97 Physical Exam: General- no distress Neck- no JVD Lungs- clear to auscultation Heart- regular, III/ sys murmur at base, no gallop Abdomen- normal bowel sounds, soft, nontender Extremities- right knee wrapped; SCD's applied to LLE; no pretibial edema or calf tenderness Neuro- alert . Laboratory Results: Last 24 Hours Test 08/13/17 07:09 White Blood Count 9.58 K/uL Red Blood Count 2.46 M/uL Hemoglobin 7.4 g/dL Hematocrit 23.3 % Mean Corpuscular Volume 94.7 fL Mean Corpuscular Hemoglobin 30.1 pg Mean Corpuscular Hemoglobin Concent 31.8 g/dl RDW Standard Deviation 45.4 fL RDW Coefficient of Variation 13.2 % Platelet Count K/uL Sodium Level 140 mmol/L Potassium Level 4.2 mmol/L Chloride Level 108 mmol/L Carbon Dioxide Level 25 mmol/L Anion Gap 7.0 mmol/L Blood Urea Nitrogen 14 mg/dl Creatinine 1.30 mg/dl Est Creatinine Clear Calc Drug Dose 26.5 ml/min Estimated GFR () 43.9 Estimated GFR (Non- 37.9 BUN/Creatinine Ratio 10.8 Random Glucose 150 mg/dl Calcium Level 8.7 mg/dl Random Vancomycin Level 17.0 mcg/ml Assessment & Plan PROSTHETIC INFECTION RIGHT KNEE Management per Ortho and ID. CORONARY ARTERY DISEASE No anginal symptoms. Aspirin and clopidogrel held for surgery; OK to resume per Ortho. Continue metoprolol, nitrates, statin. AORTIC STENOSIS Hemodynamically stable. HYPERTENSION Continue metoprolol, losartan, nitrates. HYPOTHYROIDISM Continue levothyroxine. PMR On chronic steroid therapy with prednisone 5 mg daily. VTE PROPHYLAXIS Per Orthopedic protocol. Thank you for this consultation. We will follow the patient with you during their hospital stay. You can reach a member of the [facility] Medicine Team 11/04 via pager @ [phone]. You can reach me via cell @ [phone]. . Current Inpatient Medications: Current Inpatient Medications Medications (Trade) Dose Ordered Sig/Joanie Route Start Time Stop Time Status Last Admin Dose Admin Vancomycin HCl (Consult) 1 ea UD PRN N/A 08/10/17 15:00 09/09/17 14:59 Oxycodone/ Acetaminophen (Percocet 5-325mg Tab) `1-2 TABS FOR PAIN `1 TAB... Q4H PRN PO 08/10/17 18:00 08/24/17 17:59 08/13/17 15:20 2 TAB Acetaminophen (Tylenol Tab) 650 mg Q6H PRN PO 08/10/17 18:00 09/09/17 17:59 Metoclopramide HCl (Reglan Inj) 10 mg Q6H PRN IV 08/10/17 18:00 09/09/17 17:59 Ondansetron HCl (Zofran Inj) 4 mg Q6H PRN IV 08/10/17 18:00 09/09/17 17:59 Al Hydroxide/Mg Hydroxide (Maalox Susp) 30 ml Q6H PRN PO 08/10/17 18:00 09/09/17 17:59 Colchicine (Colchicine Tab) 0.6 mg HS PO 08/10/17 21:00 09/09/17 20:59 08/11/17 20:47 0.6 MG Duloxetine HCl (Cymbalta Cap) 20 mg QAM PO 08/11/17 09:00 09/10/17 08:59 08/13/17 09:44 20 MG Escitalopram Oxalate (Lexapro Tab) 20 mg QAM PO 08/11/17 09:00 09/10/17 08:59 08/13/17 09:43 20 MG Isosorbide Mononitrate (Imdur Ext Rel Tab) 30 mg QAM PO 08/11/17 09:00 09/10/17 08:59 08/13/17 09:40 30 MG Levothyroxine Sodium (Synthroid Tab) 100 mcg MoTuWeThFrSa@0600 PO 08/11/17 06:00 09/10/17 05:59 08/13/17 04:57 100 MCG Losartan Potassium (coZAAR TAB) 50 mg QAM PO 08/11/17 09:00 09/10/17 08:59 08/13/17 09:43 50 MG Metoprolol Tartrate (Lopressor Tab) 25 mg BID PO 08/10/17 21:00 09/09/17 20:59 08/11/17 20:47 25 MG Nitroglycerin (Nitrostat Tab) 0.4 mg PRN UT 08/10/17 18:00 09/09/17 17:59 Multivitamins/ Minerals (Multivitamin W/ Minerals Tab) 1 tab BID PO 08/10/17 21:00 09/09/17 20:59 08/13/17 09:44 1 TAB Oxycodone HCl (Roxicodone Immediate Rel Tab) 5 mg Q4H PRN PO 08/10/17 18:00 08/24/17 17:59 08/13/17 04:48 5 MG Prednisone (PredniSONE TAB) 5 mg QAM PO 08/11/17 09:00 09/10/17 08:59 08/13/17 09:41 5 MG Rosuvastatin Calcium (Crestor Tab) 40 mg QAM PO 08/11/17 09:00 09/10/17 08:59 08/13/17 09:45 40 MG Calcium/Vitamin D (Caltrate Plus Tab) 1 tab QAM PO 08/11/17 09:00 09/10/17 08:59 08/11/17 09:34 1 TAB Pantoprazole Sodium (Protonix Tab) 40 mg QAM PO 08/11/17 09:00 09/10/17 08:59 08/11/17 09:37 40 MG Calcium Polycarbophil (Fibercon Tab) 1 tab QAM PRN PO 08/10/17 18:00 09/09/17 17:59 Levothyroxine Sodium (Synthroid Tab) 50 mcg Gaming@0600 PO 08/14/17 06:00 09/13/17 05:59 Miscellaneous Information (Order Awaiting Action) 1 ea QS N/A 08/11/17 00:00 09/10/17 00:00 Ferrous Gluconate (Ferrous Gluconate Tab) 324 mg TID PO 08/10/17 21:00 09/09/17 20:59 08/13/17 14:05 324 MG Heparin Sodium (Porcine) (Heparin 10 Unit/ ml 5 ml Flush) 5 ml PRN PRN FLUSH 08/11/17 20:45 09/10/17 20:44 08/13/17 16:56 5 ML Ertapenem 1 gm/ Sodium Chloride 50 ml @ 120 mls/hr Q24H IV 08/12/17 12:00 09/23/17 11:59 08/13/17 13:23 120 MLS/HR Magnesium Hydroxide (Milk Of Magnesia Susp) 30 ml Q6H PRN PO 08/12/17 11:15 09/11/17 11:14 Aspirin (Ecotrin Tab) 81 mg BID PO 08/13/17 21:00 09/12/17 20:59 Clopidogrel Bisulfate (plAVix TAB) 75 mg QAM PO 08/13/17 09:00 09/12/17 08:59 08/13/17 09:41 75 MG Morphine Sulfate (MoRPHine SULFATE INJ) 3 mg Q2H PRN IV 08/12/17 19:45 08/26/17 19:44
[2017-08-13] MEDS: ASPIRIN 81 MG ECTAB PO SCH (21:22)
[2017-08-13] MEDS: COLCHICINE 0.6 MG TAB PO SCH (21:22)
[2017-08-14] MEDS ORDERED: LEVOTHYROXINE 50 MCG TAB PO SCH (06:00)
[2017-08-14 06:20] LABS: HEMATOCRIT 27.3 % (37-47); MEAN CELL VOLUME 92.9 fL (80-100); MEAN CORPUSCULAR HEMOGLOBIN 30.6 pg (25-34); RED CELL DISTRIBUTION WIDTH CV 14.5 % (11.5-14.5); RED CELL DISTRIBUTION WIDTH SD 49.6 fL (36.4-46.3); WHITE BLOOD COUNT 9.07 K/uL (4.8-10.8)
[2017-08-14 06:43] LABS: CALCIUM 8.4 mg/dl (8.5-10.1); CREATININE 1.24 mg/dl (0.60-1.20); POTASSIUM 3.8 mmol/L (3.5-5.1)
[2017-08-14 07:35] VITALS: BP 143/56; PULSE 76; TEMP 36.9; O2SAT 93
--- NOTE | 2017-08-14 08:42 | Pharmacy Progress Note ---
Pharmacy Antibiotic Prog Note Date of Service Aug 14, 2017. Subjective The patient is currently receiving vancomycin prn levels Objective Height (Feet): 5 Height (Inches): 0.00 Weight (Kilograms): 59.500 Lab Results (24hrs): Test 08/14/17 05:38 White Blood Count 9.07 K/uL (4.8-10.8) Red Blood Count 2.94 M/uL (4.2-5.4) Hemoglobin 9.0 g/dL (12.0-16.0) Hematocrit 27.3 % (37-47) Mean Corpuscular Volume 92.9 fL (80-100) Mean Corpuscular Hemoglobin 30.6 pg (25-34) Mean Corpuscular Hemoglobin Concent 33.0 g/dl (32-36) RDW Standard Deviation 49.6 fL (36.4-46.3) RDW Coefficient of Variation 14.5 % (11.5-14.5) Platelet Count K/uL (130-400) Mean Platelet Volume fL (7.4-10.4) Sodium Level 141 mmol/L (136-145) Potassium Level 3.8 mmol/L (3.5-5.1) Chloride Level 110 mmol/L (98-107) Carbon Dioxide Level 23 mmol/L (21-32) Anion Gap 8.0 mmol/L (3-11) Blood Urea Nitrogen 14 mg/dl (7-18) Creatinine 1.24 mg/dl (0.60-1.20) Est Creatinine Clear Calc Drug Dose 27.7 ml/min Estimated GFR () 46.5 Estimated GFR (Non- 40.1 BUN/Creatinine Ratio 11.3 (10-20) Random Glucose 83 mg/dl (70-99) Calcium Level 8.4 mg/dl (8.5-10.1) Random Vancomycin Level 21.6 mcg/ml Assessment & Plan Assessment * 81 yo F with infected TKA. On ertapenem, vancomycin * HPI * TKA early April 2017 * Late April 2017, infected TKA s/p I&D w polyexchange, cultures with MSSA, sent to [facility] on cefazolin x6 weeks * Presented to [facility] 08/09, received cefepime and vancomycin (1500 mg per [facility] pharmacist). Blood cultures obtained growing GPC per [facility] H&P * Current admission * Direct admission to [facility] 08/10 for positive blood cultures / infected TKA * Blood cultures obtained at [facility] 08/10 with NGTD (but post-abx at [facility]) * S/p excision of TKA w antibiotic spacer 08/12 * Joint synovial fluid 08/10 with E. faecalis, Enterobacter, (both mcguire- sensitive), and Staph species * Repeat synovial fluid 08/12 intra-op with Strep species, GNR, GPC (likely same organisms as culture obtained 08/10) * ID consulted - anticipate prolonged duration of antibiotics * Concern for ROSA * SCr increased acutely from 08/11 to 08/12, but now stable at ~1.3 mg/dL. * Etiology may be hypoperfusion to kidney 2nd acute blood loss anemia. * Renal function may therefore improve as PRBC administered 08/13. Vancomycin * Goal vancomycin trough 15-20 mcg/mL * Random level of 21.6 mcg/mL this AM is supratherapeutic * This is not concerning as it was drawn ~12 hr after most recent dose * Indicates that patient is clearing vancomycin despite acute renal dysfunction * OK to give additional vancomycin a few hours after random this AM * OK to schedule vancomycin at this time despite renal dysfunction as SCr stable * Will check early level as high likelihood renal function may change acutely Plan * Vancomycin 1250 mg IV q24h * Trough 08/16 @ 0930 * Extended duration of antibiotics anticipated - will attempt to schedule vancomycin at q24h if/when possible Pharmacy will continue to follow and will adjust dose/frequency as necessary. Thank you
--- NOTE | 2017-08-14 08:51 | Orthopedic Progress Note ---
Orthopedic Progress Note Date of Service Aug 14, 2017. Subjective Post OP Day: 2 Reports: feeling well Objective N/V intact, dressing C/D/I, toes mobile Date Time Temp Pulse Resp B/P (MAP) Pulse Ox O2 Delivery O2 Flow Rate FiO2 08/14/17 07:35 36.9 76 18 143/56 (85) 93 Room Air 08/13/17 23:26 Room Air 08/13/17 23:10 36.9 73 16 104/52 (69) 95 Room Air 08/13/17 16:20 Room Air 08/13/17 14:57 36.5 84 16 110/50 (70) 94 Room Air 08/13/17 14:42 36.8 98 18 115/51 08/13/17 13:33 36.7 59 17 105/55 99 08/13/17 13:32 36.7 08/13/17 12:45 36.2 82 17 95/47 97 08/13/17 12:17 36.3 80 16 108/56 97 08/13/17 11:44 36.7 80 16 120/56 97 08/13/17 11:28 36.7 87 16 113/56 99 08/13/17 11:15 36.9 87 18 114/55 Laboratory Results 24 Hours: Test 08/14/17 05:38 Hematocrit 27.3 % Hemoglobin 9.0 g/dL Assessment & Plan Assessment: 81 yo female stable POD #2 s/p excisional arthroplasty/abx spacer septic right TKA Plan: 1. Med management- CBC s/p transfusion, IV abx per ID 2. DVT prophylaxis- resume ASA and Plavix 3. PT/OT- can d/c knee immobilizer in bed 4. D/C planning- pt would like to go to [place], will need 6 weeks IV abx upon d/c
[2017-08-14] MEDS: METOPROLOL TARTRATE 25 MG TAB PO SCH ×2 (09:00→20:40)
[2017-08-14] MEDS: OXYCODONE/ACETAMINOPHEN 5-325 TAB PO PRN ×2 (09:09→14:16)
[2017-08-14] MEDS: CALCIUM 600MG + VIT D 400 IU TAB PO SCH (09:10)
[2017-08-14] MEDS: DULOXETINE HCL 20 MG CAP PO SCH (09:11)
[2017-08-14] MEDS: ESCITALOPRAM OXALATE 20 MG TAB PO SCH (09:11)
[2017-08-14] MEDS: ASPIRIN 81 MG ECTAB PO SCH ×2 (09:11→20:39)
[2017-08-14] MEDS: LOSARTAN POTASSIUM 50 MG TAB PO SCH (09:11)
[2017-08-14] MEDS: ROSUVASTATIN CALCIUM 20 MG TAB PO SCH (09:11)
[2017-08-14] MEDS: CLOPIDOGREL BISULFATE 75 MG TAB PO SCH (09:12)
[2017-08-14] MEDS: ISOSORBIDE MONONITRATE 30 MG TABCR PO SCH (09:12)
[2017-08-14] MEDS: CEROVITE ADV FORMULA TAB PO SCH ×2 (09:13→20:39)
[2017-08-14] MEDS: PANTOprazole SOD 40 MG TAB PO SCH (09:13)
[2017-08-14] MEDS: FERROUS GLUCONATE 324 MG TAB PO SCH ×3 (09:13→20:39)
[2017-08-14] MEDS: VANCOMYCIN INJ 1,250 MG in SODIUM CHLORIDE 0.9% 250ML 250 ML IV SCH (09:57)
[2017-08-14] MEDS: ERTAPENEM IV 1 GM in SODIUM CHLOR 0.9% AD-VAN 50ML 50 ML IV SCH (13:02)
[2017-08-14 15:00] VITALS: BP 105/54; PULSE 77; TEMP 36.5; O2SAT 98
[2017-08-14] MEDS: COLCHICINE 0.6 MG TAB PO SCH (20:39)
[2017-08-14] MEDS: OXYCODONE HCL IR 5 MG TAB (IMMEDIATE RELEASE) PO PRN (20:47)
[2017-08-14 23:10] VITALS: BP 123/53; PULSE 75; TEMP 36.6; O2SAT 97
--- NOTE | 2017-08-14 23:21 | Progress Note ---
Medicine Progress Note Date & Time of Visit: Aug 14, 2017 at 11:30 . Subjective Better today. Postoperative pain improved. No chest pain. No cough or dyspnea. No nausea or vomiting. Passing flatus and stool. Voiding without difficulty. . Objective Last 8 Hrs Date Time Temp Pulse Resp B/P (MAP) Pulse Ox O2 Delivery O2 Flow Rate FiO2 08/14/17 15:20 Room Air Physical Exam: General- no distress Neck- no JVD Lungs- clear to auscultation Heart- regular, III/ sys murmur at base, no gallop Abdomen- normal bowel sounds, soft, nontender Extremities- Wound Vac applied right knee; SCD's applied to LLE; no pretibial edema or calf tenderness Neuro- alert . Laboratory Results: Last 24 Hours Test 08/14/17 05:38 White Blood Count 9.07 K/uL Red Blood Count 2.94 M/uL Hemoglobin 9.0 g/dL Hematocrit 27.3 % Mean Corpuscular Volume 92.9 fL Mean Corpuscular Hemoglobin 30.6 pg Mean Corpuscular Hemoglobin Concent 33.0 g/dl RDW Standard Deviation 49.6 fL RDW Coefficient of Variation 14.5 % Platelet Count K/uL Mean Platelet Volume fL Sodium Level 141 mmol/L Potassium Level 3.8 mmol/L Chloride Level 110 mmol/L Carbon Dioxide Level 23 mmol/L Anion Gap 8.0 mmol/L Blood Urea Nitrogen 14 mg/dl Creatinine 1.24 mg/dl Est Creatinine Clear Calc Drug Dose 27.7 ml/min Estimated GFR () 46.5 Estimated GFR (Non- 40.1 BUN/Creatinine Ratio 11.3 Random Glucose 83 mg/dl Calcium Level 8.4 mg/dl Random Vancomycin Level 21.6 mcg/ml Assessment & Plan PROSTHETIC INFECTION RIGHT KNEE Management per Ortho and ID. CORONARY ARTERY DISEASE No anginal symptoms. Aspirin and clopidogrel held for surgery; OK to resume per Ortho. Continue metoprolol, nitrates, statin. AORTIC STENOSIS Hemodynamically stable. HYPERTENSION Continue metoprolol, losartan, nitrates. HYPOTHYROIDISM Continue levothyroxine. PMR On chronic steroid therapy with prednisone 5 mg daily. ANEMIA Hgb 10.6 --> 7.4. Acute blood loss anemia. Received 1 unit packed RBCs. Hemoglobin today 9.0. ELEVATED CREATININE Serum creatinine 0.89 on admission and chris to 1.46 on 08/12. Creatinine today 1.4. Encourage PO fluids. Avoid potential nephrotoxins when able. VTE PROPHYLAXIS Per Orthopedic protocol. Thank you for this consultation. We will follow the patient with you during their hospital stay. You can reach a member of the [facility] Medicine Team 11/04 via pager @ [phone]. You can reach me via cell @ [phone]. . Current Inpatient Medications: Current Inpatient Medications Medications (Trade) Dose Ordered Sig/Joanie Route Start Time Stop Time Status Last Admin Dose Admin Vancomycin HCl (Consult) 1 ea UD PRN N/A 08/10/17 15:00 09/09/17 14:59 Oxycodone/ Acetaminophen (Percocet 5-325mg Tab) `1-2 TABS FOR PAIN `1 TAB... Q4H PRN PO 08/10/17 18:00 08/24/17 17:59 08/14/17 14:16 2 TAB Acetaminophen (Tylenol Tab) 650 mg Q6H PRN PO 08/10/17 18:00 09/09/17 17:59 Metoclopramide HCl (Reglan Inj) 10 mg Q6H PRN IV 08/10/17 18:00 09/09/17 17:59 Ondansetron HCl (Zofran Inj) 4 mg Q6H PRN IV 08/10/17 18:00 09/09/17 17:59 Al Hydroxide/Mg Hydroxide (Maalox Susp) 30 ml Q6H PRN PO 08/10/17 18:00 09/09/17 17:59 Colchicine (Colchicine Tab) 0.6 mg HS PO 08/10/17 21:00 09/09/17 20:59 08/14/17 20:39 0.6 MG Duloxetine HCl (Cymbalta Cap) 20 mg QAM PO 08/11/17 09:00 09/10/17 08:59 08/14/17 09:11 20 MG Escitalopram Oxalate (Lexapro Tab) 20 mg QAM PO 08/11/17 09:00 09/10/17 08:59 08/14/17 09:11 20 MG Isosorbide Mononitrate (Imdur Ext Rel Tab) 30 mg QAM PO 08/11/17 09:00 09/10/17 08:59 08/14/17 09:12 30 MG Levothyroxine Sodium (Synthroid Tab) 100 mcg MoTuWeThFrSa@0600 PO 08/11/17 06:00 09/10/17 05:59 08/13/17 04:57 100 MCG Losartan Potassium (coZAAR TAB) 50 mg QAM PO 08/11/17 09:00 09/10/17 08:59 08/14/17 09:11 50 MG Metoprolol Tartrate (Lopressor Tab) 25 mg BID PO 08/10/17 21:00 09/09/17 20:59 08/14/17 20:40 25 MG Nitroglycerin (Nitrostat Tab) 0.4 mg PRN UT 08/10/17 18:00 09/09/17 17:59 Multivitamins/ Minerals (Multivitamin W/ Minerals Tab) 1 tab BID PO 08/10/17 21:00 09/09/17 20:59 08/14/17 20:39 1 TAB Oxycodone HCl (Roxicodone Immediate Rel Tab) 5 mg Q4H PRN PO 08/10/17 18:00 08/24/17 17:59 08/14/17 20:47 5 MG Prednisone (PredniSONE TAB) 5 mg QAM PO 08/11/17 09:00 09/10/17 08:59 08/14/17 09:13 5 MG Rosuvastatin Calcium (Crestor Tab) 40 mg QAM PO 08/11/17 09:00 09/10/17 08:59 08/14/17 09:11 40 MG Calcium/Vitamin D (Caltrate Plus Tab) 1 tab QAM PO 08/11/17 09:00 09/10/17 08:59 08/14/17 09:10 1 TAB Pantoprazole Sodium (Protonix Tab) 40 mg QAM PO 08/11/17 09:00 09/10/17 08:59 08/14/17 09:13 40 MG Calcium Polycarbophil (Fibercon Tab) 1 tab QAM PRN PO 08/10/17 18:00 09/09/17 17:59 Levothyroxine Sodium (Synthroid Tab) 50 mcg Gaming@0600 PO 08/14/17 06:00 09/13/17 05:59 08/14/17 05:40 50 MCG Miscellaneous Information (Order Awaiting Action) 1 ea QS N/A 08/11/17 00:00 09/10/17 00:00 Ferrous Gluconate (Ferrous Gluconate Tab) 324 mg TID PO 08/10/17 21:00 09/09/17 20:59 08/14/17 20:39 324 MG Heparin Sodium (Porcine) (Heparin 10 Unit/ ml 5 ml Flush) 5 ml PRN PRN FLUSH 08/11/17 20:45 09/10/17 20:44 08/14/17 05:35 5 ML Ertapenem 1 gm/ Sodium Chloride 50 ml @ 120 mls/hr Q24H IV 08/12/17 12:00 09/23/17 11:59 08/14/17 13:02 120 MLS/HR Magnesium Hydroxide (Milk Of Magnesia Susp) 30 ml Q6H PRN PO 08/12/17 11:15 09/11/17 11:14 Aspirin (Ecotrin Tab) 81 mg BID PO 08/13/17 21:00 09/12/17 20:59 08/14/17 20:39 81 MG Clopidogrel Bisulfate (plAVix TAB) 75 mg QAM PO 08/13/17 09:00 09/12/17 08:59 08/14/17 09:12 75 MG Morphine Sulfate (MoRPHine SULFATE INJ) 3 mg Q2H PRN IV 08/12/17 19:45 08/26/17 19:44 Vancomycin HCl 1250 mg/Sodium Chloride 275 ml @ 125 mls/hr DAILY@1000 IV 08/14/17 10:00 09/25/17 09:59 08/14/17 09:57 125 MLS/HR
[2017-08-15] MEDS: LEVOTHYROXINE 100 MCG TAB PO SCH (05:46)
[2017-08-15 06:57] LABS: CALCIUM 9.3 mg/dl (8.5-10.1); CREATININE 1.24 mg/dl (0.60-1.20); POTASSIUM 3.8 mmol/L (3.5-5.1)
[2017-08-15 07:00] VITALS: BP 147/68; PULSE 68; TEMP 36.8; O2SAT 97
--- NOTE | 2017-08-15 07:30 | Orthopedic Progress Note ---
Orthopedic Progress Note Date of Service Aug 15, 2017. Subjective Post OP Day: 3 Reports: feeling well, pain controlled w PO medications, Denies: complaints, chest pain, SOB, nausea / vomiting, light headedness, calf pain Objective calves soft nontender, N/V intact, capillary refill less than 2 sec., dressing C /D/I, toes mobile Date Time Temp Pulse Resp B/P (MAP) Pulse Ox O2 Delivery O2 Flow Rate FiO2 08/15/17 07:00 36.8 68 18 147/68 (94) 97 Room Air 08/14/17 23:20 Room Air 08/14/17 23:10 36.6 75 16 123/53 (76) 97 Room Air 08/14/17 15:20 Room Air 08/14/17 15:00 36.5 77 18 105/54 (71) 98 Room Air 08/14/17 07:45 Room Air 08/14/17 07:35 36.9 76 18 143/56 (85) 93 Room Air Assessment & Plan Assessment: 81 yo female stable POD #3 s/p excisional arthroplasty/abx spacer septic right TKA Plan: 1. Med management- IV abx per ID - awaiting recommendation 2. DVT prophylaxis- resume ASA and Plavix 3. PT/OT- can d/c knee immobilizer in bed 4. D/C planning- pt would like to go to [place], will need 6 weeks IV abx upon d/c Inhouse Planning Pain Management: Oxy IR DVT Prophylaxis: ASA, other (Plavix 75mg) Discharge Planning Discharge Planning: retirement facility
[2017-08-15] MEDS: OXYCODONE HCL IR 5 MG TAB (IMMEDIATE RELEASE) PO PRN ×3 (09:12→21:02)
[2017-08-15] MEDS: CEROVITE ADV FORMULA TAB PO SCH ×2 (09:13→21:00)
[2017-08-15] MEDS: DULOXETINE HCL 20 MG CAP PO SCH (09:13)
[2017-08-15] MEDS: FERROUS GLUCONATE 324 MG TAB PO SCH ×3 (09:14→21:00)
[2017-08-15] MEDS: ROSUVASTATIN CALCIUM 20 MG TAB PO SCH (09:14)
[2017-08-15] MEDS: ESCITALOPRAM OXALATE 20 MG TAB PO SCH (09:15)
[2017-08-15] MEDS: CLOPIDOGREL BISULFATE 75 MG TAB PO SCH (09:15)
[2017-08-15] MEDS: ISOSORBIDE MONONITRATE 30 MG TABCR PO SCH (09:15)
[2017-08-15] MEDS: LOSARTAN POTASSIUM 50 MG TAB PO SCH (09:15)
[2017-08-15] MEDS: METOPROLOL TARTRATE 25 MG TAB PO SCH ×2 (09:16→21:01)
[2017-08-15] MEDS: ASPIRIN 81 MG ECTAB PO SCH ×2 (09:16→21:00)
[2017-08-15] MEDS: PANTOprazole SOD 40 MG TAB PO SCH (09:16)
[2017-08-15] MEDS: CALCIUM 600MG + VIT D 400 IU TAB PO SCH (09:16)
[2017-08-15] MEDS: VANCOMYCIN INJ 1,250 MG in SODIUM CHLORIDE 0.9% 250ML 250 ML IV SCH (10:41)
[2017-08-15] MEDS: ERTAPENEM IV 1 GM in SODIUM CHLOR 0.9% AD-VAN 50ML 50 ML IV SCH (12:51)
--- NOTE | 2017-08-15 14:33 | Infectious Disease Progress Nt ---
Progress Note Date of Service Aug 15, 2017. Subjective Pt evaluation today including: conversation w/ patient, physical exam, chart review, lab review, review of studies, conversation w/ x ray consultant, review of inpatient medication list Events reviewed. Cultures have grown Enterococcus, Staph, and Enterobacter. Pain controlled. Remains afebrile. All Other Systems: Reviewed and Negative Medications Current Inpatient Medications Medications (Trade) Dose Ordered Sig/Joanie Route Start Time Stop Time Status Last Admin Dose Admin Vancomycin HCl (Consult) 1 ea UD PRN N/A 08/10/17 15:00 09/09/17 14:59 Oxycodone/ Acetaminophen (Percocet 5-325mg Tab) `1-2 TABS FOR PAIN `1 TAB... Q4H PRN PO 08/10/17 18:00 08/24/17 17:59 08/14/17 14:16 2 TAB Acetaminophen (Tylenol Tab) 650 mg Q6H PRN PO 08/10/17 18:00 09/09/17 17:59 Metoclopramide HCl (Reglan Inj) 10 mg Q6H PRN IV 08/10/17 18:00 09/09/17 17:59 Ondansetron HCl (Zofran Inj) 4 mg Q6H PRN IV 08/10/17 18:00 09/09/17 17:59 Al Hydroxide/Mg Hydroxide (Maalox Susp) 30 ml Q6H PRN PO 08/10/17 18:00 09/09/17 17:59 Colchicine (Colchicine Tab) 0.6 mg HS PO 08/10/17 21:00 09/09/17 20:59 08/14/17 20:39 0.6 MG Duloxetine HCl (Cymbalta Cap) 20 mg QAM PO 08/11/17 09:00 09/10/17 08:59 08/15/17 09:13 20 MG Escitalopram Oxalate (Lexapro Tab) 20 mg QAM PO 08/11/17 09:00 09/10/17 08:59 08/15/17 09:15 20 MG Isosorbide Mononitrate (Imdur Ext Rel Tab) 30 mg QAM PO 08/11/17 09:00 09/10/17 08:59 08/15/17 09:15 30 MG Levothyroxine Sodium (Synthroid Tab) 100 mcg MoTuWeThFrSa@0600 PO 08/11/17 06:00 09/10/17 05:59 08/15/17 05:46 100 MCG Losartan Potassium (coZAAR TAB) 50 mg QAM PO 08/11/17 09:00 09/10/17 08:59 08/15/17 09:15 50 MG Metoprolol Tartrate (Lopressor Tab) 25 mg BID PO 08/10/17 21:00 09/09/17 20:59 08/15/17 09:16 25 MG Nitroglycerin (Nitrostat Tab) 0.4 mg PRN UT 08/10/17 18:00 09/09/17 17:59 Multivitamins/ Minerals (Multivitamin W/ Minerals Tab) 1 tab BID PO 08/10/17 21:00 09/09/17 20:59 08/15/17 09:13 1 TAB Oxycodone HCl (Roxicodone Immediate Rel Tab) 5 mg Q4H PRN PO 08/10/17 18:00 08/24/17 17:59 08/15/17 13:32 5 MG Prednisone (PredniSONE TAB) 5 mg QAM PO 08/11/17 09:00 09/10/17 08:59 08/15/17 09:17 5 MG Rosuvastatin Calcium (Crestor Tab) 40 mg QAM PO 08/11/17 09:00 09/10/17 08:59 08/15/17 09:14 40 MG Calcium/Vitamin D (Caltrate Plus Tab) 1 tab QAM PO 08/11/17 09:00 09/10/17 08:59 08/15/17 09:16 1 TAB Pantoprazole Sodium (Protonix Tab) 40 mg QAM PO 08/11/17 09:00 09/10/17 08:59 08/15/17 09:16 40 MG Calcium Polycarbophil (Fibercon Tab) 1 tab QAM PRN PO 08/10/17 18:00 09/09/17 17:59 Levothyroxine Sodium (Synthroid Tab) 50 mcg Gaming@0600 PO 08/14/17 06:00 09/13/17 05:59 08/14/17 05:40 50 MCG Miscellaneous Information (Order Awaiting Action) 1 ea QS N/A 08/11/17 00:00 09/10/17 00:00 Ferrous Gluconate (Ferrous Gluconate Tab) 324 mg TID PO 08/10/17 21:00 09/09/17 20:59 08/15/17 13:27 324 MG Heparin Sodium (Porcine) (Heparin 10 Unit/ ml 5 ml Flush) 5 ml PRN PRN FLUSH 08/11/17 20:45 09/10/17 20:44 08/15/17 13:26 5 ML Ertapenem 1 gm/ Sodium Chloride 50 ml @ 120 mls/hr Q24H IV 08/12/17 12:00 09/23/17 11:59 08/15/17 12:51 120 MLS/HR Magnesium Hydroxide (Milk Of Magnesia Susp) 30 ml Q6H PRN PO 08/12/17 11:15 09/11/17 11:14 Aspirin (Ecotrin Tab) 81 mg BID PO 08/13/17 21:00 09/12/17 20:59 08/15/17 09:16 81 MG Clopidogrel Bisulfate (plAVix TAB) 75 mg QAM PO 08/13/17 09:00 09/12/17 08:59 08/15/17 09:15 75 MG Morphine Sulfate (MoRPHine SULFATE INJ) 3 mg Q2H PRN IV 08/12/17 19:45 08/26/17 19:44 Vancomycin HCl 1250 mg/Sodium Chloride 275 ml @ 125 mls/hr DAILY@1000 IV 08/14/17 10:00 09/25/17 09:59 08/15/17 10:41 125 MLS/HR Objective Vital Signs Date Time Temp Pulse Resp B/P (MAP) Pulse Ox O2 Delivery O2 Flow Rate FiO2 08/15/17 07:35 Room Air 08/15/17 07:00 36.8 68 18 147/68 (94) 97 Room Air 08/14/17 23:20 Room Air 08/14/17 23:10 36.6 75 16 123/53 (76) 97 Room Air 08/14/17 15:20 Room Air 08/14/17 15:00 36.5 77 18 105/54 (71) 98 Room Air Physical Exam General Appearance: WD/WN, no apparent distress Eyes: normal inspection, EOMI, sclerae normal ENT: normal ENT inspection, pharynx normal Neck: supple, no adenopathy, trachea midline Respiratory/Chest: chest non-tender, lungs clear, normal breath sounds, no respiratory distress Cardiovascular: regular rate, rhythm, no gallop, no murmur Abdomen: normal bowel sounds, non tender, soft, no organomegaly Extremities: non-tender, normal capillary refill Neurologic/Psychiatric: alert, oriented x 3 Skin: normal color, no rash, + pertinent finding (dressing intact) Lymphatic: no adenopathy Laboratory Results RUN DATE: 08/15/17 [facility] PAGE 1 RUN TIME: 1238 Specimen Inquiry PATIENT: LEVI LEVI LOC: RASHEED U # : [id number] AGE/SX: 81/F ROOM: [facility] REG : 08/10/[address]: Hair Calderon M.D. : 1935 BED: 2 DIS : STATUS: ADM IN TLOC: SPEC #: [id number] JORDY: 08/12/17 STATUS: RES REQ #: [id number] RECD: 08/12/[address]: Hair Calderon M.D. SOURCE: JOINT FLSP ENTR: 08/12/[address]: Raman Wall MD SPDES: KNEE RIGHT CopCristian henderson M.D. Szulawski, Ireneusz ORDERED: AER/MELISSA CULTSMR Procedure Result Verified Site GRAM STAIN Final 08/12/17-09 RESULT MANY WBCs SEEN RARE GRAM POSITIVE COCCI Phoned results to TABITHA Strange on 08/12/17 at 0915 by Chandni Edgar. Results were verbalized back to MAEGAN. OR AER/MELISSA CULT Preliminary 08/15/17-1278 Organism 1 ENTEROCOCCUS FAECALIS QUANITY FEW SENS SENSITIVITY TO FOLLOW Organism 2 STAPH SPECIES QUANITY RARE SENS SENSITIVITY TO FOLLOW Organism 3 ENTEROBACTER CLOACAE QUANITY RARE SENS SENSITIVITY TO FOLLOW E FAECALIS ENT CLOAC M.I.C. RX M.I.C. RX --------- ------ --------- ------ TRIMET/SULFA <=2/38 S AMPICILLIN <=2 S CEFOTAXIME <=2 S CEFTRIAXONE <=1 S CEFEPIME <=4 S IMIPENEM <=1 S GENT SYNERGY <=500 S VANCOMYCIN 1 S PENICILLIN 2 S GENTAMICIN <=4 S TOBRAMYCIN <=4 S AMIKACIN <=16 S CIPROFLOXACIN <=1 S LEVOFLOXACIN <=2 S ERTAPENEM <=1 S DAPTOMYCIN 2 S PIP/TAZO <=16 S CONTINUED ON NEXT PAGE RUN DATE: 08/15/17 [facility] PAGE 2 RUN TIME: 1238 Specimen Inquiry SPEC: [id number] PATIENT: LEVI LEVI [id number] ( Continued) Procedure Result Verified Site OR AER/MELISSA CULT Preliminary (continued) 08/15/17-1238 E FAECALIS ENT CLOAC M.I.C. RX M.I.C. RX --------- ------ --------- ------ STREP SYNERGY <=1000 S 1. ENTEROCOCCUS FAECALIS Target Route Dose RX AB Cost M.I.C. IQ ------ ----- ------ -- ------ -------- - ------ AMPICILLIN S <=2 GENT SYNERGY S <=500 VANCOMYCIN S 1 PENICILLIN S 2 DAPTOMYCIN S 2 STREP SYNERGY S <=1000 Streptomycin Synergy Screen S Gentamicin Synergy Screen S 3. ENTEROBACTER CLOACAE Target Route Dose RX AB Cost M.I.C. IQ ------ ----- ------ -- ------ -------- - ------ TRIMET/SULFA S <=2/38 CEFOTAXIME S <=2 CEFTRIAXONE S <=1 CEFEPIME S <=4 IMIPENEM S <=1 GENTAMICIN S <=4 TOBRAMYCIN S <=4 AMIKACIN S <=16 CIPROFLOXACIN S <=1 LEVOFLOXACIN S <=2 ERTAPENEM S <=1 PIP/TAZO S <=16 S = SENSITIVE I = INTERMEDIATE R = RESISTANT END OF REPORT Last 24 Hours Test 08/15/17 05:37 Sodium Level 140 mmol/L Potassium Level 3.8 mmol/L Chloride Level 108 mmol/L Carbon Dioxide Level 26 mmol/L Anion Gap 6.0 mmol/L Blood Urea Nitrogen 13 mg/dl Creatinine 1.24 mg/dl Est Creatinine Clear Calc Drug Dose 27.7 ml/min Estimated GFR () 46.5 Estimated GFR (Non- 40.1 BUN/Creatinine Ratio 10.9 Random Glucose 74 mg/dl Calcium Level 9.3 mg/dl Assessment and Plan Infected right TKA with Enterococcus, Staph, and Enterobacter. Would treat with combination of vancomycin and ceftriaxone (I have ordered first dose of ceftriaxone), likely 6 week course. Will follow.
[2017-08-15] MEDS: CEFTRIAXONE SOD INJ 2,000 MG in DEXTROSE 5% ADD-VANTAGE 50ML 50 ML IV SCH (15:10)
[2017-08-15 16:13] VITALS: BP 105/55; PULSE 67; TEMP 36.8; O2SAT 95
--- NOTE | 2017-08-15 20:08 | Progress Note ---
Medicine Progress Note Date & Time of Visit: Aug 15, 2017 at 12:00 . Subjective No fever. Right knee pain improved. No CP. No cough or SOB. No nausea, vomiting, diarrhea. . Objective Last 8 Hrs Date Time Temp Pulse Resp B/P (MAP) Pulse Ox O2 Delivery O2 Flow Rate FiO2 08/15/17 16:13 36.8 67 18 105/55 (72) 95 Room Air 08/15/17 15:40 Room Air Physical Exam: General- sitting in chair, no distress Neck- no JVD Lungs- clear to auscultation Heart- regular, III/ sys murmur at base, no gallop Abdomen- normal bowel sounds, soft, nontender Extremities- Wound Vac applied right knee; TEDS applied to LLE; trace pretibial edema; no calf tenderness Neuro- alert . Laboratory Results: Last 24 Hours Test 08/15/17 05:37 Sodium Level 140 mmol/L Potassium Level 3.8 mmol/L Chloride Level 108 mmol/L Carbon Dioxide Level 26 mmol/L Anion Gap 6.0 mmol/L Blood Urea Nitrogen 13 mg/dl Creatinine 1.24 mg/dl Est Creatinine Clear Calc Drug Dose 27.7 ml/min Estimated GFR () 46.5 Estimated GFR (Non- 40.1 BUN/Creatinine Ratio 10.9 Random Glucose 74 mg/dl Calcium Level 9.3 mg/dl Assessment & Plan PROSTHETIC INFECTION RIGHT KNEE Management per Ortho and ID. CORONARY ARTERY DISEASE No anginal symptoms. Aspirin and clopidogrel held for surgery, resumed postop. Continue metoprolol, nitrates, statin. AORTIC STENOSIS Hemodynamically stable. HYPERTENSION Continue metoprolol, losartan, nitrates. HYPOTHYROIDISM Continue levothyroxine. PMR On chronic steroid therapy with prednisone 5 mg daily. ANEMIA Hgb 10.6 --> 7.4. Acute blood loss anemia. Received 1 unit packed RBCs. Hemoglobin 08/14 = 9.0. ELEVATED CREATININE Serum creatinine 0.89 on admission and chris to 1.46 on 08/12. Creatinine today 1.24 (stable, but not back to baseline). Encourage PO fluids. Avoid potential nephrotoxins when able. Follow. VTE PROPHYLAXIS Per Orthopedic protocol. Thank you for this consultation. We will follow the patient with you during their hospital stay. Dr. Reyes will be assuming medical management Tuesday08/16/17. You can reach a member of the [facility] Medicine Team 11/04 via pager @ [phone]. You can reach me via cell @ [phone]. . Current Inpatient Medications: Current Inpatient Medications Medications (Trade) Dose Ordered Sig/Joanie Route Start Time Stop Time Status Last Admin Dose Admin Vancomycin HCl (Consult) 1 ea UD PRN N/A 08/10/17 15:00 09/09/17 14:59 Oxycodone/ Acetaminophen (Percocet 5-325mg Tab) `1-2 TABS FOR PAIN `1 TAB... Q4H PRN PO 08/10/17 18:00 08/24/17 17:59 08/14/17 14:16 2 TAB Acetaminophen (Tylenol Tab) 650 mg Q6H PRN PO 08/10/17 18:00 09/09/17 17:59 Metoclopramide HCl (Reglan Inj) 10 mg Q6H PRN IV 08/10/17 18:00 09/09/17 17:59 Ondansetron HCl (Zofran Inj) 4 mg Q6H PRN IV 08/10/17 18:00 09/09/17 17:59 Al Hydroxide/Mg Hydroxide (Maalox Susp) 30 ml Q6H PRN PO 08/10/17 18:00 09/09/17 17:59 Colchicine (Colchicine Tab) 0.6 mg HS PO 08/10/17 21:00 09/09/17 20:59 08/14/17 20:39 0.6 MG Duloxetine HCl (Cymbalta Cap) 20 mg QAM PO 08/11/17 09:00 09/10/17 08:59 08/15/17 09:13 20 MG Escitalopram Oxalate (Lexapro Tab) 20 mg QAM PO 08/11/17 09:00 09/10/17 08:59 08/15/17 09:15 20 MG Isosorbide Mononitrate (Imdur Ext Rel Tab) 30 mg QAM PO 08/11/17 09:00 09/10/17 08:59 08/15/17 09:15 30 MG Levothyroxine Sodium (Synthroid Tab) 100 mcg MoTuWeThFrSa@0600 PO 08/11/17 06:00 09/10/17 05:59 08/15/17 05:46 100 MCG Losartan Potassium (coZAAR TAB) 50 mg QAM PO 08/11/17 09:00 09/10/17 08:59 08/15/17 09:15 50 MG Metoprolol Tartrate (Lopressor Tab) 25 mg BID PO 08/10/17 21:00 09/09/17 20:59 08/15/17 09:16 25 MG Nitroglycerin (Nitrostat Tab) 0.4 mg PRN UT 08/10/17 18:00 09/09/17 17:59 Multivitamins/ Minerals (Multivitamin W/ Minerals Tab) 1 tab BID PO 08/10/17 21:00 09/09/17 20:59 08/15/17 09:13 1 TAB Oxycodone HCl (Roxicodone Immediate Rel Tab) 5 mg Q4H PRN PO 08/10/17 18:00 08/24/17 17:59 08/15/17 13:32 5 MG Prednisone (PredniSONE TAB) 5 mg QAM PO 08/11/17 09:00 09/10/17 08:59 08/15/17 09:17 5 MG Rosuvastatin Calcium (Crestor Tab) 40 mg QAM PO 08/11/17 09:00 09/10/17 08:59 08/15/17 09:14 40 MG Calcium/Vitamin D (Caltrate Plus Tab) 1 tab QAM PO 08/11/17 09:00 09/10/17 08:59 08/15/17 09:16 1 TAB Pantoprazole Sodium (Protonix Tab) 40 mg QAM PO 08/11/17 09:00 09/10/17 08:59 08/15/17 09:16 40 MG Calcium Polycarbophil (Fibercon Tab) 1 tab QAM PRN PO 08/10/17 18:00 09/09/17 17:59 Levothyroxine Sodium (Synthroid Tab) 50 mcg Gaming@0600 PO 08/14/17 06:00 09/13/17 05:59 08/14/17 05:40 50 MCG Miscellaneous Information (Order Awaiting Action) 1 ea QS N/A 08/11/17 00:00 09/10/17 00:00 Ferrous Gluconate (Ferrous Gluconate Tab) 324 mg TID PO 08/10/17 21:00 09/09/17 20:59 08/15/17 13:27 324 MG Heparin Sodium (Porcine) (Heparin 10 Unit/ ml 5 ml Flush) 5 ml PRN PRN FLUSH 08/11/17 20:45 09/10/17 20:44 08/15/17 16:34 5 ML Magnesium Hydroxide (Milk Of Magnesia Susp) 30 ml Q6H PRN PO 08/12/17 11:15 09/11/17 11:14 Aspirin (Ecotrin Tab) 81 mg BID PO 08/13/17 21:00 09/12/17 20:59 08/15/17 09:16 81 MG Clopidogrel Bisulfate (plAVix TAB) 75 mg QAM PO 08/13/17 09:00 09/12/17 08:59 08/15/17 09:15 75 MG Morphine Sulfate (MoRPHine SULFATE INJ) 3 mg Q2H PRN IV 08/12/17 19:45 08/26/17 19:44 Vancomycin HCl 1250 mg/Sodium Chloride 275 ml @ 125 mls/hr DAILY@1000 IV 08/14/17 10:00 09/25/17 09:59 08/15/17 10:41 125 MLS/HR Ceftriaxone Sodium 2000 mg/ Dextrose 70 ml @ 100 mls/hr DAILY@1500 IV 08/15/17 15:00 09/26/17 14:59 08/15/17 15:10 100 MLS/HR
[2017-08-15 20:59] VITALS: BP 127/55; PULSE 67
[2017-08-15] MEDS: COLCHICINE 0.6 MG TAB PO SCH (21:00)
[2017-08-15] MEDS: OXYCODONE/ACETAMINOPHEN 5-325 TAB PO PRN (23:59)
[2017-08-16] VITALS (7 sets, daily range): BP systolic 117–152; BP diastolic 47–66; PULSE 66–68; TEMP 36.6–37.1; O2SAT 94–97
[2017-08-16] MEDS: LEVOTHYROXINE 100 MCG TAB PO SCH (05:57)
--- NOTE | 2017-08-16 06:32 | Orthopedic Progress Note ---
Orthopedic Progress Note Date of Service Aug 16, 2017. Subjective Post OP Day: 4 Reports: feeling well, pain controlled w PO medications, Denies: complaints, chest pain, SOB, nausea / vomiting, light headedness, calf pain Objective calves soft nontender, N/V intact, capillary refill less than 2 sec., dressing C /D/I, toes mobile Date Time Temp Pulse Resp B/P (MAP) Pulse Ox O2 Delivery O2 Flow Rate FiO2 08/16/17 00:00 36.6 68 16 117/52 (73) 94 Room Air 08/15/17 23:55 Room Air 08/15/17 20:59 67 127/55 (79) 08/15/17 16:13 36.8 67 18 105/55 (72) 95 Room Air 08/15/17 15:40 Room Air 08/15/17 07:35 Room Air 08/15/17 07:00 36.8 68 18 147/68 (94) 97 Room Air Assessment & Plan Assessment: 81 yo female stable POD #4 s/p excisional arthroplasty/abx spacer septic right TKA Plan: 1. Med management- IV abx per ID - Vanco and ceftriaxone 2. DVT prophylaxis- resume ASA and Plavix 3. PT/OT- can d/c knee immobilizer in bed 4. D/C planning- pt would like to go to [place], will need 6 weeks IV abx upon d/c Inhouse Planning Pain Management: Oxy IR DVT Prophylaxis: ASA, other (Plavix 75mg) Discharge Planning [facility]charge [facility]: [facility] facility
[2017-08-16] MEDS ORDERED: CEFT1INJ57 IV (06:37)
[2017-08-16] MEDS ORDERED: VANC1INJ94 IV (06:37)
--- NOTE | 2017-08-16 06:41 | Discharge Instructions ---
Discharge Instructions Date of Service Aug 16, 2017. Admission Reason for Admission: Post Op Infection Discharge Discharge Diagnosis / Problem: S/P antibiotic spacer placement right knee Discharge Goals Goal(s): Decrease discomfort, Improve function Activity Recommendations Activity Limitations: per Instructions/Follow-up section . Instructions / Follow-Up Instructions / Follow-Up ACTIVITY RECOMMENDATIONS: SELF CARE INSTRUCTIONS A. You may need to continue a physical therapy program after discharge from the hospital. There are several options available to you. Your doctor will assist you in selecting the best one for you. This will be at the halfway facility. B. You may progress at your own pace from walking with a walker or crutches to a cane, please use assistance at all times. C. Wear the long elastic stockings (DALJIT hose) 20 hours a day for 2 weeks after surgery. They can be removed several times a day for laundering and for a bath. D. You may shower, no tub baths until cleared by your doctor. SPECIAL CARE INSTRUCTIONS: VERY IMPORTANT TO READ AND REVIEW A. There are a few signs you need to watch for after you are home. Call [facility] if you notice any of the followin. Increased severe knee pain. Some pain is expected especially when you exercise. 2. Increased swelling in your leg or knee; pain or swelling of the calf muscle in either lower leg. 3. Any fluid drainage from the incision. 4. Shortness of breath or chest pain. B. Please call [facility] at if you have any concerns or questions about your operation or recovery. The doctor or his nurse will return your call promptly. C. You must take antibiotics before dental work, bladder, bowel or other surgery. Your doctor will provide you with a permanent care to carry describing this precaution. IMPORTANT: * REMEMBER TO TAKE ASPIRIN, 81 MG, TWICE DAILY FOR 4 WEEKS UNLESS OTHERWISE DIRECTED. THIS IS YOUR BLOOD THINNER. * CALL IF INCREASED PAIN, REDNESS, DRAINAGE OR FEVER GREATER THAT 101. * WEAR DALJIT HOSE 20 HOURS PER DAY FOR 2 WEEKS. * YOU MAY HAVE A LARGE BAND-AID LIKE DRESSING (Prevena). THIS WILL REMAIN ON YOUR INCISION FOR 7 DAYS, THEN CAN BE REMOVED. IF INCISION IS LEAKING THROUGH DRESSING, CALL THE OFFICE . FOLLOW UP VISIT: If appointment is not already scheduled: Please call [facility] to make a follow-up appointment for 2 weeks after your surgery at . Her Creatinine is slightly elevated to 1.36 on 08/16 and she is on Vancomycin. Please check PRP 2 times a week or as recommended to monitor Kidney function. Current Hospital Diet Patient's current hospital diet: Regular Diet, AHA Diet (Heart Healthy) Discharge Diet Recommended Diet: AHA Diet (Heart Healthy) Procedures Procedures Performed: Right Excision Total Knee Arthroplasty, Placement Antibiotic Spacer Pending Studies Studies pending at discharge: no Medical Emergencies . Who to Call and When: Medical Emergencies: If at any time you feel your situation is an emergency, please call 911 immediately. . Non-Emergent Contact Non-Emergency issues call your: Surgeon Call Non-Emergent contact if: temperature is above 101.5, your pain is worsening, wound has increased drainage, wound has increased redness . "Provider Documentation" section prepared by Jack Perla. . VTE Core Measure Inpt VTE Proph given/why not?: Other Anticoagulation (ASA and Plavix), [place] Drug Monitoring Program Search Results: patient reviewed within database, no issues identified
[2017-08-16] MEDS: PANTOprazole SOD 40 MG TAB PO SCH (08:28)
[2017-08-16] MEDS: CEROVITE ADV FORMULA TAB PO SCH ×2 (08:28→20:32)
[2017-08-16] MEDS: ASPIRIN 81 MG ECTAB PO SCH ×2 (08:29→20:32)
[2017-08-16] MEDS: CLOPIDOGREL BISULFATE 75 MG TAB PO SCH (08:29)
[2017-08-16] MEDS: METOPROLOL TARTRATE 25 MG TAB PO SCH ×2 (08:29→20:32)
[2017-08-16] MEDS: ESCITALOPRAM OXALATE 20 MG TAB PO SCH (08:29)
[2017-08-16] MEDS: ISOSORBIDE MONONITRATE 30 MG TABCR PO SCH (08:30)
[2017-08-16] MEDS: DULOXETINE HCL 20 MG CAP PO SCH (08:30)
[2017-08-16] MEDS: FERROUS GLUCONATE 324 MG TAB PO SCH ×3 (08:30→20:32)
[2017-08-16] MEDS: ROSUVASTATIN CALCIUM 20 MG TAB PO SCH (08:31)
[2017-08-16] MEDS: LOSARTAN POTASSIUM 50 MG TAB PO SCH (08:31)
[2017-08-16] MEDS: CALCIUM 600MG + VIT D 400 IU TAB PO SCH (08:31)
[2017-08-16] MEDS ORDERED: VANCOMYCIN TROUGH ONE (09:30)
[2017-08-16] MEDS: VANCOMYCIN INJ 1,250 MG in SODIUM CHLORIDE 0.9% 250ML 250 ML IV SCH (10:43)
[2017-08-16 10:58] LABS: CALCIUM 9.7 mg/dl (8.5-10.1); CREATININE 1.36 mg/dl (0.60-1.20); POTASSIUM 3.1 mmol/L (3.5-5.1)
--- NOTE | 2017-08-16 11:59 | Pharmacy Progress Note ---
Pharmacy Abx Dose Short Note Date of Service Aug 16, 2017. 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 She is also receiving CEFTRIAXONE IV - dosing per ID. * Day # 8 of VANCOMYCIN therapy * R knee synovial fluid cx's growing: enterococcus faecalis (sensitive vancomycin, ALOK = 1), enterobacter cloacae (sensitive ceftriaxone) and CoN staph (sensitive vancomycin ALOK = 2) * Planned duration of therapy = 6 wks per ID. * Renal fxn appears to be diminished vs admission, but stable - admission SCr 0.89, SCr has been hovering in the the 1.24-1.36 range the last 4 days. U.O. appears to be adequate. * Currently afebrile and VSS Plan Vancomycin * Trough level of 22.3 mcg/mL is supratherapeutic; prior doses hung on time; level was drawn at the appropriate time * Change to 1000 mg IV every 24 hours * Goal trough level for prosthetic joint infxn involving organisms w/ ALOK of 1 and 2: 15 to 20 mcg/mL - ideally the closer to 20mcg/mL the better given CoN Staph ALOK of 2. Clinical failure is possible w/ ALOK of 2 as the ability to obtain vancomycin AUC:ALOK >400 is difficult w/ conventional dosing methods; please correlate clinically and consider use of alternative therapy for CoN Staph if not improving (daptomycin would cover both CoN Staph and Enterococcus) * Will repeat trough level in 3 days Pharmacy will continue to follow and will adjust dose/frequency as necessary. Thank you.
--- NOTE | 2017-08-16 12:18 | Progress Note ---
Internal Med Progress Note Date of Service: Aug 16, 2017. Provider Documentation: SUBJECTIVE: The patient was seen and examined Complains of pain in right Knee joint Difficult for her to move around OBJECTIVE: Vital Signs-as noted below Exam: General-Minimal distress at rest Eyes-normal ENT-normal Neck-supple Lungs-Clear to ausucltate bilaterally Heart-Regular with ESM at the AA Abdomen-Benign,no masses,bowel sound present Extremities-Trace edema on right Right Knee is swollen and has wound vac in place Neuro-AAOx3 Lab data as noted below. ASSESSMENT & PLAN: PROSTHETIC INFECTION RIGHT KNEE Management per Ortho and ID. Wii need IV Vanco and Ceftriaxone for 6 weeks in total CORONARY ARTERY DISEASE No anginal symptoms. Aspirin and clopidogrel held for surgery, resumed postop. Continue metoprolol, nitrates, statin. Remains stable AORTIC STENOSIS Hemodynamically stable. Denies any symptoms HYPERTENSION Continue metoprolol, losartan, nitrates. Remains at the Upper side HYPOTHYROIDISM Continue levothyroxine. PMR On chronic steroid therapy with prednisone 5 mg daily. No acue issue ANEMIA Hgb 10.6 --> 7.4. Acute blood loss anemia. Received 1 unit packed RBCs. Hemoglobin 08/14 = 9.0. ELEVATED CREATININE Serum creatinine 0.89 on admission and chris to 1.46 on 08/12. Creatinine today 1.24 (stable, but not back to baseline). Encourage PO fluids. Avoid potential nephrotoxins when able. Creatinine 1.36 on 08/16-not significantly abnormal however will need monitoring Will supplemtn K VTE PROPHYLAXIS Per Orthopedic protocol. Vital Signs: Date Time Temp Pulse Resp B/P (MAP) Pulse Ox O2 Delivery O2 Flow Rate FiO2 08/16/17 08:21 36.9 68 18 145/64 (91) 94 Room Air 08/16/17 07:35 94 Room Air 08/16/17 00:00 36.6 68 16 117/52 (73) 94 Room Air 08/15/17 23:55 Room Air 08/15/17 20:59 67 127/55 (79) 08/15/17 16:13 36.8 67 18 105/55 (72) 95 Room Air 08/15/17 15:40 Room Air Lab Results: Results Past 24 Hours Test 08/16/17 09:55 Range/Units Sodium Level 141 136-145 mmol/L Potassium Level 3.1 3.5-5.1 mmol/L Chloride Level 107 98-107 mmol/L Carbon Dioxide Level 26 21-32 mmol/L Anion Gap 8.0 3-11 mmol/L Blood Urea Nitrogen 14 7-18 mg/dl Creatinine 1.36 0.60-1.20 mg/dl Est Creatinine Clear Calc Drug Dose 25.3 ml/min Estimated GFR () 41.6 Estimated GFR (Non- 35.9 BUN/Creatinine Ratio 10.1 10-20 Random Glucose 111 70-99 mg/dl Calcium Level 9.7 8.5-10.1 mg/dl Vancomycin Level Trough 22.3 SEE COMMENT mcg/ml
[2017-08-16] MEDS: POTASSIUM CHLORIDE 10 MEQ TABCR PO ONE ×2 (13:47→14:08)
[2017-08-16] MEDS: CEFTRIAXONE SOD INJ 2,000 MG in DEXTROSE 5% ADD-VANTAGE 50ML 50 ML IV SCH (14:34)
--- NOTE | 2017-08-16 14:57 | Infectious Disease Progress Nt ---
Progress Note Date of Service Aug 16, 2017. Subjective Pt evaluation today including: conversation w/ patient, physical exam, chart review, lab review, review of studies, conversation w/ networks software consultant, review of inpatient medication list Patient complaining of right knee pain, currently 5/10 in intensity. Remains afebrile. Cultures with Staph, Enterobacter, and Enterococcus. Tolerating antibiotics without apparent difficulty. All Other Systems: Reviewed and Negative Medications Current Inpatient Medications Medications (Trade) Dose Ordered Sig/Joanie Route Start Time Stop Time Status Last Admin Dose Admin Vancomycin HCl (Consult) 1 ea UD PRN N/A 08/10/17 15:00 09/09/17 14:59 Oxycodone/ Acetaminophen (Percocet 5-325mg Tab) `1-2 TABS FOR PAIN `1 TAB... Q4H PRN PO 08/10/17 18:00 08/24/17 17:59 08/15/17 23:59 1 TAB Acetaminophen (Tylenol Tab) 650 mg Q6H PRN PO 08/10/17 18:00 09/09/17 17:59 Metoclopramide HCl (Reglan Inj) 10 mg Q6H PRN IV 08/10/17 18:00 09/09/17 17:59 Ondansetron HCl (Zofran Inj) 4 mg Q6H PRN IV 08/10/17 18:00 09/09/17 17:59 Al Hydroxide/Mg Hydroxide (Maalox Susp) 30 ml Q6H PRN PO 08/10/17 18:00 09/09/17 17:59 Colchicine (Colchicine Tab) 0.6 mg HS PO 08/10/17 21:00 09/09/17 20:59 08/15/17 21:00 0.6 MG Duloxetine HCl (Cymbalta Cap) 20 mg QAM PO 08/11/17 09:00 09/10/17 08:59 08/16/17 08:30 20 MG Escitalopram Oxalate (Lexapro Tab) 20 mg QAM PO 08/11/17 09:00 09/10/17 08:59 08/16/17 08:29 20 MG Isosorbide Mononitrate (Imdur Ext Rel Tab) 30 mg QAM PO 08/11/17 09:00 09/10/17 08:59 08/16/17 08:30 30 MG Levothyroxine Sodium (Synthroid Tab) 100 mcg MoTuWeThFrSa@0600 PO 08/11/17 06:00 09/10/17 05:59 08/16/17 05:57 100 MCG Losartan Potassium (coZAAR TAB) 50 mg QAM PO 08/11/17 09:00 09/10/17 08:59 08/16/17 08:31 50 MG Metoprolol Tartrate (Lopressor Tab) 25 mg BID PO 08/10/17 21:00 09/09/17 20:59 08/16/17 08:29 25 MG Nitroglycerin (Nitrostat Tab) 0.4 mg PRN UT 08/10/17 18:00 09/09/17 17:59 Multivitamins/ Minerals (Multivitamin W/ Minerals Tab) 1 tab BID PO 08/10/17 21:00 09/09/17 20:59 08/16/17 08:28 1 TAB Oxycodone HCl (Roxicodone Immediate Rel Tab) 5 mg Q4H PRN PO 08/10/17 18:00 08/24/17 17:59 08/15/17 21:02 5 MG Prednisone (PredniSONE TAB) 5 mg QAM PO 08/11/17 09:00 09/10/17 08:59 08/16/17 08:28 5 MG Rosuvastatin Calcium (Crestor Tab) 40 mg QAM PO 08/11/17 09:00 09/10/17 08:59 08/16/17 08:31 40 MG Calcium/Vitamin D (Caltrate Plus Tab) 1 tab QAM PO 08/11/17 09:00 09/10/17 08:59 08/16/17 08:31 1 TAB Pantoprazole Sodium (Protonix Tab) 40 mg QAM PO 08/11/17 09:00 09/10/17 08:59 08/16/17 08:28 40 MG Calcium Polycarbophil (Fibercon Tab) 1 tab QAM PRN PO 08/10/17 18:00 09/09/17 17:59 Levothyroxine Sodium (Synthroid Tab) 50 mcg Gaming@0600 PO 08/14/17 06:00 09/13/17 05:59 08/14/17 05:40 50 MCG Miscellaneous Information (Order Awaiting Action) 1 ea QS N/A 08/11/17 00:00 09/10/17 00:00 Ferrous Gluconate (Ferrous Gluconate Tab) 324 mg TID PO 08/10/17 21:00 09/09/17 20:59 08/16/17 13:48 324 MG Heparin Sodium (Porcine) (Heparin 10 Unit/ ml 5 ml Flush) 5 ml PRN PRN FLUSH 08/11/17 20:45 09/10/17 20:44 08/16/17 14:10 5 ML Magnesium Hydroxide (Milk Of Magnesia Susp) 30 ml Q6H PRN PO 08/12/17 11:15 09/11/17 11:14 Aspirin (Ecotrin Tab) 81 mg BID PO 08/13/17 21:00 09/12/17 20:59 08/16/17 08:29 81 MG Clopidogrel Bisulfate (plAVix TAB) 75 mg QAM PO 08/13/17 09:00 09/12/17 08:59 08/16/17 08:29 75 MG Morphine Sulfate (MoRPHine SULFATE INJ) 3 mg Q2H PRN IV 08/12/17 19:45 08/26/17 19:44 Ceftriaxone Sodium 2000 mg/ Dextrose 70 ml @ 100 mls/hr DAILY@1500 IV 08/15/17 15:00 09/26/17 14:59 08/16/17 14:34 100 MLS/HR Vancomycin HCl 1000 mg/Sodium Chloride 270 ml @ 125 mls/hr Q24H IV 08/17/17 10:00 09/25/17 09:59 Objective Vital Signs Date Time Temp Pulse Resp B/P (MAP) Pulse Ox O2 Delivery O2 Flow Rate FiO2 08/16/17 13:14 36.9 68 18 94 Room Air 08/16/17 08:21 36.9 68 18 145/64 (91) 94 Room Air 08/16/17 07:35 94 Room Air 08/16/17 00:00 36.6 68 16 117/52 (73) 94 Room Air 08/15/17 23:55 Room Air 08/15/17 20:59 67 127/55 (79) 08/15/17 16:13 36.8 67 18 105/55 (72) 95 Room Air 08/15/17 15:40 Room Air Physical Exam General Appearance: WD/WN, no apparent distress Eyes: normal inspection, EOMI, sclerae normal ENT: normal ENT inspection, pharynx normal Neck: supple, no adenopathy, trachea midline Respiratory/Chest: chest non-tender, lungs clear, normal breath sounds, no respiratory distress Cardiovascular: regular rate, rhythm, no gallop, no murmur Abdomen: normal bowel sounds, non tender, soft, no organomegaly Extremities: no calf tenderness, normal capillary refill, + pertinent finding ( Wound VAC in place below right knee) Neurologic/Psychiatric: alert, oriented x 3 Skin: normal color, no rash Lymphatic: no adenopathy Laboratory Results RUN DATE: 08/16/17 [facility] LAB PAGE 1 RUN TIME: 1032 Specimen Inquiry PATIENT: LEVI LEVI [place] [facility] [id number] AGE/SX: 81/F ROOM: [facility] REG : 08/10/[address]: Hair Calderon M.D. : 1935 BED: 2 DIS : STATUS: ADM IN TLOC: SPEC #: [id number] JORDY: 08/12/17 STATUS: RES REQ #: [id number] RECD: 08/12/[address]: Hair Calderon M.D. SOURCE: JOINT FLSP ENTR: 08/12/[address] [facility] [address]: Raman Wall MD [facility] KNEE RIGHT CopCristian henderson M.D. Szulawski, Ireneusz ORDERED: AER/MELISSA CULTSMR Procedure Result Verified Site GRAM STAIN Final 08/12/17-916 RESULT MANY WBCs SEEN RARE GRAM POSITIVE COCCI Phoned results to TABITHA Strange on 08/12/17 at 0915 by Chandni Edgar. Results were verbalized back to MAEGAN. OR AER/MELISSA CULT Preliminary 08/16/17-1031 Organism 1 ENTEROCOCCUS FAECALIS QUANITY FEW SENS SENSITIVITY TO FOLLOW Organism 2 COAG NEG STAPHYLOCOCCUS QUANITY RARE SENS SENSITIVITY TO FOLLOW Organism 3 ENTEROBACTER CLOACAE QUANITY RARE SENS SENSITIVITY TO FOLLOW CONTINUED ON NEXT PAGE RUN DATE: 08/16/17 [facility] LAB PAGE 2 RUN TIME: 103 Specimen Inquiry SPEC: [id number] PATIENT: LEVI LEVI [id number] ( Continued) Procedure Result Verified Site OR AER/MELISSA CULT Preliminary (continued) 08/16/17 E FAECALIS HIDES INSPECTOR ENT CLOAC M.I.C. RX M.I.C. RX M.I.C. RX --------- ------ --------- ------ --------- ------ TRIMET/SULFA > R <=238 S AMPICILLIN <=2 S * OXACILLIN >2 R CEFOTAXIME <=2 S CEFTRIAXONE <=1 S CEFEPIME <=4 S IMIPENEM <=1 S GENT SYNERGY <=500 S VANCOMYCIN 1 S 2 S PENICILLIN 2 S GENTAMICIN <=4 S TOBRAMYCIN <=4 S ERYTHROMYCIN >4 R TETRACYCLINE >8 R AMIKACIN <=16 S CIPROFLOXACIN <=1 S LEVOFLOXACIN <=2 S CLINDAMYCIN >4 R ERTAPENEM <=1 S DAPTOMYCIN 2 S <=0.5 S PIP/TAZO <=16 S STREP SYNERGY <=1000 S 1. ENTEROCOCCUS FAECALIS Target Route Dose RX AB Cost M.I.C. IQ ------ ----- ------ -- ------ -------- - ------ AMPICILLIN S <=2 GENT SYNERGY S <=500 VANCOMYCIN S 1 PENICILLIN S 2 DAPTOMYCIN S 2 STREP SYNERGY S <=1000 Streptomycin Synergy Screen S Gentamicin Synergy Screen S 2. COAG NEG STAPHYLOCOCCUS Target Route Dose RX AB Cost M.I.C. IQ ------ ----- ------ -- ------ -------- - ------ TRIMET/SULFA R >2/38 * OXACILLIN R >2 VANCOMYCIN S 2 ERYTHROMYCIN R >4 TETRACYCLINE R >8 CLINDAMYCIN R >4 DAPTOMYCIN S <=0.5 CONTINUED ON NEXT PAGE RUN DATE: 08/16/17 [facility] LAB PAGE 3 RUN TIME: 1032 Specimen Inquiry SPEC: [id number] PATIENT: LEVI LEVI [id number] ( Continued) Procedure Result Verified Site OR AER/MELISSA CULT Preliminary (continued) 08/16/17-1031 3. ENTEROBACTER CLOACAE Target Route Dose RX AB Cost M.I.C. IQ ------ ----- ------ -- ------ -------- - ------ TRIMET/SULFA S <=2/38 CEFOTAXIME S <=2 CEFTRIAXONE S <=1 CEFEPIME S <=4 IMIPENEM S <=1 GENTAMICIN S <=4 TOBRAMYCIN S <=4 AMIKACIN S <=16 CIPROFLOXACIN S <=1 LEVOFLOXACIN S <=2 ERTAPENEM S <=1 PIP/TAZO S <=16 S = SENSITIVE I = INTERMEDIATE R = RESISTANT Last 24 Hours Test 08/16/17 09:55 Sodium Level 141 mmol/L Potassium Level 3.1 mmol/L Chloride Level 107 mmol/L Carbon Dioxide Level 26 mmol/L Anion Gap 8.0 mmol/L Blood Urea Nitrogen 14 mg/dl Creatinine 1.36 mg/dl Est Creatinine Clear Calc Drug Dose 25.3 ml/min Estimated GFR () 41.6 Estimated GFR (Non- 35.9 BUN/Creatinine Ratio 10.1 Random Glucose 111 mg/dl Calcium Level 9.7 mg/dl Vancomycin Level Trough 22.3 mcg/ml Assessment and Plan Infected right TKA with Enterococcus, Staph, and Enterobacter. Would continue treatment with combination of vancomycin and ceftriaxone,, likely 6 week course of antibiotics. Will follow.
[2017-08-16] MEDS: OXYCODONE HCL IR 5 MG TAB (IMMEDIATE RELEASE) PO PRN ×2 (15:32→21:10)
[2017-08-16] MEDS: COLCHICINE 0.6 MG TAB PO SCH (20:33)
[2017-08-17] MEDS: LEVOTHYROXINE 100 MCG TAB PO SCH (05:18)
[2017-08-17 06:38] LABS: CREATININE 1.32 mg/dl (0.60-1.20)
[2017-08-17 07:20] VITALS: O2SAT 94
[2017-08-17 07:52] VITALS: BP 152/64; PULSE 68; TEMP 37.1; O2SAT 94
[2017-08-17] MEDS: CALCIUM 600MG + VIT D 400 IU TAB PO SCH (08:38)
[2017-08-17] MEDS: LOSARTAN POTASSIUM 50 MG TAB PO SCH (08:39)
[2017-08-17] MEDS: PANTOprazole SOD 40 MG TAB PO SCH (08:39)
[2017-08-17] MEDS: FERROUS GLUCONATE 324 MG TAB PO SCH (08:39)
[2017-08-17] MEDS: ISOSORBIDE MONONITRATE 30 MG TABCR PO SCH (08:39)
[2017-08-17] MEDS: ESCITALOPRAM OXALATE 20 MG TAB PO SCH (08:40)
[2017-08-17] MEDS: CLOPIDOGREL BISULFATE 75 MG TAB PO SCH (08:40)
[2017-08-17] MEDS: ASPIRIN 81 MG ECTAB PO SCH (08:40)
[2017-08-17] MEDS: CEROVITE ADV FORMULA TAB PO SCH (08:40)
[2017-08-17] MEDS: METOPROLOL TARTRATE 25 MG TAB PO SCH (08:40)
[2017-08-17] MEDS: ROSUVASTATIN CALCIUM 20 MG TAB PO SCH (08:41)
[2017-08-17] MEDS: DULOXETINE HCL 20 MG CAP PO SCH (08:41)
[2017-08-17 09:19] VITALS: O2SAT 94
[2017-08-17 09:44] LABS: POTASSIUM 3.3 mmol/L (3.5-5.1)
[2017-08-17] MEDS ORDERED: VANCOMYCIN INJ 1,000 MG in SODIUM CHLORIDE 0.9% 250ML 250 ML IV SCH (10:00)
[2017-08-17] MEDS: OXYCODONE HCL IR 5 MG TAB (IMMEDIATE RELEASE) PO PRN (10:21)
--- NOTE | 2017-08-17 10:42 | Orthopedic Progress Note ---
Orthopedic Progress Note Date of Service Aug 17, 2017. Subjective Post OP Day: 5 Reports: feeling well, Denies: complaints Objective calves soft nontender, N/V intact, dressing C/D/I (prevena intact), A&O x3, toes mobile Date Time Temp Pulse Resp B/P (MAP) Pulse Ox O2 Delivery O2 Flow Rate FiO2 08/17/17 09:19 94 Room Air 08/17/17 08:38 18 08/17/17 07:52 37.1 68 28 152/64 (93) 94 Room Air 08/17/17 07:20 94 Room Air 08/16/17 22:50 36.7 66 16 139/65 (89) 94 Room Air 08/16/17 22:50 Room Air 08/16/17 20:33 66 129/66 (87) 08/16/17 15:20 Room Air 08/16/17 15:07 36.6 66 17 126/47 (73) 97 Room Air 08/16/17 13:14 36.9 68 18 94 Room Air Assessment & Plan Assessment: 81 yo female stable POD #5 s/p excisional arthroplasty/abx spacer septic right TKA Plan: 1. Med management- IV abx per ID - Vanco and ceftriaxone 2. DVT prophylaxis- resume ASA and Plavix 3. PT/OT- can d/c knee immobilizer in bed 4. D/C planning- to go to [place] today, will need 6 weeks IV abx upon d/c Inhouse Planning Pain Management: Oxy IR DVT Prophylaxis: ASA, other (Plavix 75mg) Discharge Planning Discharge Planning: retirement facility
[2017-08-17] MEDS ORDERED: VANC1INJ94 IV (10:45)
--- NOTE | 2017-08-17 10:55 | Infectious Disease Progress Nt ---
Progress Note Date of Service Aug 17, 2017. Subjective Pt evaluation today including: conversation w/ patient, physical exam, chart review, lab review, review of studies, conversation w/ clinical practice consultant, review of inpatient medication list Patient offering no new complaints today. Tolerating antibiotics without apparent difficulty. Remains afebrile. Knee pain better. All Other Systems: Reviewed and Negative Medications Current Inpatient Medications Medications (Trade) Dose Ordered Sig/Joanie Route Start Time Stop Time Status Last Admin Dose Admin Vancomycin HCl (Consult) 1 ea UD PRN N/A 08/10/17 15:00 09/09/17 14:59 Oxycodone/ Acetaminophen (Percocet 5-325mg Tab) `1-2 TABS FOR PAIN `1 TAB... Q4H PRN PO 08/10/17 18:00 08/24/17 17:59 08/15/17 23:59 1 TAB Acetaminophen (Tylenol Tab) 650 mg Q6H PRN PO 08/10/17 18:00 09/09/17 17:59 Metoclopramide HCl (Reglan Inj) 10 mg Q6H PRN IV 08/10/17 18:00 09/09/17 17:59 Ondansetron HCl (Zofran Inj) 4 mg Q6H PRN IV 08/10/17 18:00 09/09/17 17:59 Al Hydroxide/Mg Hydroxide (Maalox Susp) 30 ml Q6H PRN PO 08/10/17 18:00 09/09/17 17:59 Colchicine (Colchicine Tab) 0.6 mg HS PO 08/10/17 21:00 09/09/17 20:59 08/16/17 20:33 0.6 MG Duloxetine HCl (Cymbalta Cap) 20 mg QAM PO 08/11/17 09:00 09/10/17 08:59 08/17/17 08:41 20 MG Escitalopram Oxalate (Lexapro Tab) 20 mg QAM PO 08/11/17 09:00 09/10/17 08:59 08/17/17 08:40 20 MG Isosorbide Mononitrate (Imdur Ext Rel Tab) 30 mg QAM PO 08/11/17 09:00 09/10/17 08:59 08/17/17 08:39 30 MG Levothyroxine Sodium (Synthroid Tab) 100 mcg MoTuWeThFrSa@0600 PO 08/11/17 06:00 09/10/17 05:59 08/17/17 05:18 100 MCG Losartan Potassium (coZAAR TAB) 50 mg QAM PO 08/11/17 09:00 09/10/17 08:59 08/17/17 08:39 50 MG Metoprolol Tartrate (Lopressor Tab) 25 mg BID PO 08/10/17 21:00 09/09/17 20:59 08/17/17 08:40 25 MG Nitroglycerin (Nitrostat Tab) 0.4 mg PRN UT 08/10/17 18:00 09/09/17 17:59 Multivitamins/ Minerals (Multivitamin W/ Minerals Tab) 1 tab BID PO 08/10/17 21:00 09/09/17 20:59 08/17/17 08:40 1 TAB Oxycodone HCl (Roxicodone Immediate Rel Tab) 5 mg Q4H PRN PO 08/10/17 18:00 08/24/17 17:59 08/17/17 10:21 5 MG Prednisone (PredniSONE TAB) 5 mg QAM PO 08/11/17 09:00 09/10/17 08:59 08/17/17 08:39 5 MG Rosuvastatin Calcium (Crestor Tab) 40 mg QAM PO 08/11/17 09:00 09/10/17 08:59 08/17/17 08:41 40 MG Calcium/Vitamin D (Caltrate Plus Tab) 1 tab QAM PO 08/11/17 09:00 09/10/17 08:59 08/17/17 08:38 1 TAB Pantoprazole Sodium (Protonix Tab) 40 mg QAM PO 08/11/17 09:00 09/10/17 08:59 08/17/17 08:39 40 MG Calcium Polycarbophil (Fibercon Tab) 1 tab QAM PRN PO 08/10/17 18:00 09/09/17 17:59 Levothyroxine Sodium (Synthroid Tab) 50 mcg Gaming@0600 PO 08/14/17 06:00 09/13/17 05:59 08/14/17 05:40 50 MCG Miscellaneous Information (Order Awaiting Action) 1 ea QS N/A 08/11/17 00:00 09/10/17 00:00 Ferrous Gluconate (Ferrous Gluconate Tab) 324 mg TID PO 08/10/17 21:00 09/09/17 20:59 08/17/17 08:39 324 MG Heparin Sodium (Porcine) (Heparin 10 Unit/ ml 5 ml Flush) 5 ml PRN PRN FLUSH 08/11/17 20:45 09/10/17 20:44 08/17/17 09:16 5 ML Magnesium Hydroxide (Milk Of Magnesia Susp) 30 ml Q6H PRN PO 08/12/17 11:15 09/11/17 11:14 Aspirin (Ecotrin Tab) 81 mg BID PO 08/13/17 21:00 09/12/17 20:59 08/17/17 08:40 81 MG Clopidogrel Bisulfate (plAVix TAB) 75 mg QAM PO 08/13/17 09:00 09/12/17 08:59 08/17/17 08:40 75 MG Morphine Sulfate (MoRPHine SULFATE INJ) 3 mg Q2H PRN IV 08/12/17 19:45 08/26/17 19:44 Ceftriaxone Sodium 2000 mg/ Dextrose 70 ml @ 100 mls/hr DAILY@1500 IV 08/15/17 15:00 09/26/17 14:59 08/16/17 14:34 100 MLS/HR Vancomycin HCl 1000 mg/Sodium Chloride 270 ml @ 125 mls/hr Q24H IV 08/17/17 10:00 09/25/17 09:59 08/17/17 10:03 125 MLS/HR Objective Vital Signs Date Time Temp Pulse Resp B/P (MAP) Pulse Ox O2 Delivery O2 Flow Rate FiO2 08/17/17 09:19 94 Room Air 08/17/17 08:38 18 08/17/17 07:52 37.1 68 28 152/64 (93) 94 Room Air 08/17/17 07:20 94 Room Air 08/16/17 22:50 36.7 66 16 139/65 (89) 94 Room Air 08/16/17 22:50 Room Air 08/16/17 20:33 66 129/66 (87) 08/16/17 15:20 Room Air 08/16/17 15:07 36.6 66 17 126/47 (73) 97 Room Air 08/16/17 13:14 36.9 68 18 94 Room Air Physical Exam General Appearance: WD/WN, no apparent distress Eyes: normal inspection, EOMI, sclerae normal ENT: normal ENT inspection, pharynx normal Neck: supple, no adenopathy, thyroid normal, trachea midline Respiratory/Chest: chest non-tender, lungs clear, normal breath sounds, no respiratory distress Cardiovascular: regular rate, rhythm, no gallop, no murmur Abdomen: normal bowel sounds, non tender, soft, no organomegaly Extremities: no calf tenderness, normal capillary refill Neurologic/Psychiatric: alert, oriented x 3 Skin: normal color, no rash, + pertinent finding (Wound VAC in place right leg) Lymphatic: no adenopathy Laboratory Results Last 24 Hours Test 08/17/17 05:33 08/17/17 09:14 Creatinine 1.32 mg/dl Est Creatinine Clear Calc Drug Dose 26.0 ml/min Estimated GFR () 43.1 Estimated GFR (Non- 37.2 Sodium Level 138 mmol/L Potassium Level 3.3 mmol/L Chloride Level 105 mmol/L Carbon Dioxide Level 28 mmol/L Anion Gap 5.0 mmol/L Assessment and Plan Infected right TKA with Enterococcus, Staph, and Enterobacter. Would continue treatment with combination of vancomycin and ceftriaxone,, likely 6 week course of antibiotics. Would like to see 2 weeks after discharge as outpatient.
[2017-08-17] MEDS ORDERED: RXC5 PO (10:57)
[2017-08-17] MEDS: CEFTRIAXONE SOD INJ 2,000 MG in DEXTROSE 5% ADD-VANTAGE 50ML 50 ML IV SCH (12:53)
[2017-08-17] MEDS ORDERED: POTASSIUM CHLORIDE 10 MEQ TABCR PO STA (13:45)
--- NOTE | 2017-08-17 13:49 | Progress Note ---
Internal Med Progress Note Date of Service: Aug 17, 2017. Provider Documentation: SUBJECTIVE: The patient was seen and examined Complains of pain in right Knee joint but less compared to yesterday Denies any other symptoms Waiting to go to Rehab OBJECTIVE: Vital Signs-as noted below Exam: General-Minimal distress at rest Eyes-normal ENT-normal Neck-supple Lungs-Clear to ausucltate bilaterally Heart-Regular with ESM at the AA Abdomen-Benign,no masses,bowel sound present Extremities-Trace edema on right Right Knee is swollen and has wound vac in place Moderate pain on movement of the right knee Neuro-AAOx3 Lab data as noted below. ASSESSMENT & PLAN: PROSTHETIC INFECTION RIGHT KNEE Management per Ortho and ID. Wii need IV Vanco and Ceftriaxone for 6 weeks in total Discussed with the ID and the patient CORONARY ARTERY DISEASE No anginal symptoms. Aspirin and clopidogrel held for surgery, resumed postop. Continue metoprolol, nitrates, statin. Remains stable AORTIC STENOSIS Hemodynamically stable. Denies any symptoms HYPERTENSION Continue metoprolol, losartan, nitrates. Remains at the Upper side HYPOTHYROIDISM Continue levothyroxine. PMR On chronic steroid therapy with prednisone 5 mg daily. No acue issue ANEMIA Hgb 10.6 --> 7.4. Acute blood loss anemia. Received 1 unit packed RBCs. Hemoglobin 08/14 = 9.0. ELEVATED CREATININE Serum creatinine 0.89 on admission and chris to 1.46 on 08/12. Creatinine today 1.24 (stable, but not back to baseline). Encourage PO fluids. Avoid potential nephrotoxins when able. Creatinine 1.36 on 08/16-not significantly abnormal however will need monitoring Will supplement K again today VTE PROPHYLAXIS Per Orthopedic protocol. Medically stable Vital Signs: Date Time Temp Pulse Resp B/P (MAP) Pulse Ox O2 Delivery O2 Flow Rate FiO2 08/17/17 09:19 94 Room Air 08/17/17 08:38 18 08/17/17 07:52 37.1 68 28 152/64 (93) 94 Room Air 08/17/17 07:20 94 Room Air 08/16/17 22:50 36.7 66 16 139/65 (89) 94 Room Air 08/16/17 22:50 Room Air 08/16/17 20:33 66 129/66 (87) 08/16/17 15:20 Room Air 08/16/17 15:07 36.6 66 17 126/47 (73) 97 Room Air Lab Results: Results Past 24 Hours Test 08/17/17 05:33 08/17/17 09:14 Range/Units Creatinine 1.32 0.60-1.20 mg/dl Est Creatinine Clear Calc Drug Dose 26.0 ml/min Estimated GFR () 43.1 Estimated GFR (Non- 37.2 Sodium Level 138 136-145 mmol/L Potassium Level 3.3 3.5-5.1 mmol/L Chloride Level 105 98-107 mmol/L Carbon Dioxide Level 28 21-32 mmol/L Anion Gap 5.0 3-11 mmol/L
--- NOTE | 2017-08-18 13:05 | Discharge Summary ---
Orthopedic Discharge Summary Admission Date/Reason Aug 10, 2017 at 14:22 Post Op Infection. Discharge Date/Disposition Aug 16, 2017 retirement facility Diagnosis Principal Diagnosis: Recurrent Right Knee Infection Procedure(s) Performed Right Excision Total Knee Arthroplasty, Placement Antibiotic Spacer Consultations Dr Wall- Infectious Disease Dr Reyes- Medical Management Medication Reconciliation New Medications: Ceftriaxone Sod (Rocephin) 1 Gm Inj 2 GM IV Q24H for 42 Days, VIAL Vancomycin HCl in Sodium Chlor (VANCOMYCIN in NSS) 1 Inj Inj 1000 MG IV DAILY for 42 Days, BAG In 250 ml NSS Continued Medications: Aspirin (Aspirin EC Low Dose) 81 Mg Ectab 81 MG PO BID for 30 Days Take aspirin 81mg BID for 30 days then continue normal routine aspirin if taken before surgery. Calcium Carbonate-Cholecalcife (Caltrate 600+D) 1 Tab Tab 1 TAB PO QAM Clopidogrel (Plavix) 75 Mg Tab 75 MG PO QAM, TAB Coenzyme Q10 (Ubidecarenone) (Co Q10) 50 Mg Cap 1 CAP PO BID, CAP Colchicine (Colchicine) 0.6 Mg Tab 0.6 MG PO HS, TAB Duloxetine HCl (Cymbalta) 20 Mg Cap 1 CAP PO QAM for 30 Days, #30 CAP Escitalopram (Lexapro) 10 Mg Tab 20 MG PO QAM, TAB Ferrous Gluconate (Ferrous Gluconate) 324 Mg Tab 324 MG PO TID, TAB Isosorbide Mononitrate (Isosorbide Mononitrate ER) 30 Mg Tabcr 30 MG PO QAM Levothyroxine Sodium (Levothyroxine Sodium) 100 Mcg Tab 100 MCG PO UD Take 1 tablet (100 mcg) by mouth daily except Sundays. Take 1/2 tablet (50 mcg) on Tuesday. Losartan Potassium (Losartan Potassium) 50 Mg Tab 50 MG PO QAM Metoprolol Tartrate (Lopressor) (Lopressor) 25 Mg Tab 25 MG PO BID, TAB Nitroglycerin (Nitrostat) 0.4 Mg Tab 0.4 MG UT PRN, BTL Ocuvite Preservision (Ocuvite Preservision) 1 Tab Tab 1 TAB PO BID, TAB Oxycodone HCl (Oxycodone HCl) 5 Mg Tab 5-10 MG PO Q4H PRN for Pain, #36 TAB (This prescription has been renewed) Pantoprazole Sodium (Protonix) 40 Mg Tab 40 MG PO DAILY, #30 TAB Prednisone (Prednisone) 5 Mg Tab 5 MG PO QAM, TAB Rosuvastatin Calcium (Crestor) 40 Mg Tab 40 MG PO QAM, TAB Wheat Dextrin (Benefiber) 1 Tab Tab 1 TAB PO QAM PRN for Constipation Admission Physical Exam As per Admitting History & Physical. Hospital Course Patient is an 81-year-old female who had previously undergone a right total knee arthroplasty. In her early postoperative course she had wound dehiscence. A Portion of this may be secondary to a fall disrupting her medial retinaculum as it was found to be open at the time of surgery. Initially she had a fall and injured her back and was not complaining much of her knee pain and the skin incision opened and with the skin incision opened the arthrotomy was open as well. She underwent irrigation and debridement with polyethylene exchange and 6 weeks of IV antibiotics. Cultures taken at that time were positive. She had healed from this and during her rehabilitation had another fall and had a gross disruption of the retinacular repair but the skin was intact. About 3 weeks ago she will underwent open repair of this and he'll be kept in a knee immobilizer. This week she had increasing drainage from the wound. There is erythema along the entirety of the incision in the central portion had opened a bit and cloudy serous fluid was expressed from the anterior aspect the knee. Performed an aspiration which also revealed cloudy yellow fluid which is currently growing Streptococcus species as well as gram- negative bacilli. Given the recurrent infection we elected to proceed with excision of the total knee and placement of antibiotic spacer. She was admitted and underwent removal of TKA and placement of antibiotic spacer. please refer to daily progress notes and discharge instructions for further details. Discharge Instructions Instructions / Follow-Up Instructions / Follow-Up ACTIVITY RECOMMENDATIONS: SELF CARE INSTRUCTIONS A. You may need to continue a physical therapy program after discharge from the hospital. There are several options available to you. Your doctor will assist you in selecting the best one for you. This will be at the assisted facility. B. You may progress at your own pace from walking with a walker or crutches to a cane, please use assistance at all times. C. Wear the long elastic stockings (DALJIT hose) 20 hours a day for 2 weeks after surgery. They can be removed several times a day for laundering and for a bath. D. You may shower, no tub baths until cleared by your doctor. SPECIAL CARE INSTRUCTIONS: VERY IMPORTANT TO READ AND REVIEW A. There are a few signs you need to watch for after you are home. Call [facility] if you notice any of the followin. Increased severe knee pain. Some pain is expected especially when you exercise. 2. Increased swelling in your leg or knee; pain or swelling of the calf muscle in either lower leg. 3. Any fluid drainage from the incision. 4. Shortness of breath or chest pain. B. Please call [facility] at if you have any concerns or questions about your operation or recovery. The doctor or his nurse will return your call promptly. C. You must take antibiotics before dental work, bladder, bowel or other surgery. Your doctor will provide you with a permanent care to carry describing this precaution. IMPORTANT: * REMEMBER TO TAKE ASPIRIN, 81 MG, TWICE DAILY FOR 4 WEEKS UNLESS OTHERWISE DIRECTED. THIS IS YOUR BLOOD THINNER. * CALL IF INCREASED PAIN, REDNESS, DRAINAGE OR FEVER GREATER THAT 101. * WEAR DALJIT HOSE 20 HOURS PER DAY FOR 2 WEEKS. * YOU MAY HAVE A LARGE BAND-AID LIKE DRESSING (Prevena). THIS WILL REMAIN ON YOUR INCISION FOR 7 DAYS, THEN CAN BE REMOVED. IF INCISION IS LEAKING THROUGH DRESSING, CALL THE OFFICE . FOLLOW UP VISIT: If appointment is not already scheduled: Please call [facility] to make a follow-up appointment for 2 weeks after your surgery at . Her Creatinine is slightly elevated to 1.36 on 08/16 and she is on Vancomycin. Please check PRP 2 times a week or as recommended to monitor Kidney function. Current Hospital Diet Patient's current hospital diet: Regular Diet, AHA Diet (Heart Healthy) Discharge Diet Recommended Diet: AHA Diet (Heart Healthy) Procedures Procedures Performed: Right Excision Total Knee Arthroplasty, Placement Antibiotic Spacer Pending Studies Studies pending at discharge: no Medical Emergencies . Who to Call and When: Medical Emergencies: If at any time you feel your situation is an emergency, please call [phone] immediately. . Non-Emergent Contact Non-Emergency issues call your: Surgeon Call Non-Emergent contact if: temperature is above 101.5, your pain is worsening, wound has increased drainage, wound has increased redness . "Provider Documentation" section prepared by Jack Perla. . VTE Core Measure Inpt VTE Proph given/why not?: Other Anticoagulation (ASA and Plavix), Fabiana STYLES Drug Monitoring Program Search Results: patient reviewed within database, no issues identified <Electronically signed by Jack Perla Jr., PA-C> <Electronically signed by Hair Calderon M.D.> Signed: 08/16/17647 Signed: 08/16/17 1448 The status of this report is Addendum * If report status is Draft, the document has not been finalized by the responsible provider. Addendum: 08/17/173 Addendum: Kush Kidd,P.A. on 08/17/17 @ 10:53 Discharge Inst - Addendum Addendum Notes: Prevena dressing to be removed 08/20/17. Wound may be left to open air if dry. If still draining, cover with 4x4 gauze or ABD. Addendum Provider: Addendum Notes were documented by provider Kush Kidd. Signed: 08/16/17647 Addendum: 08/17/174 Addendum: Kush Kidd,P.A. on 08/17/17 @ 10:54 Discharge Inst - Addendum Addendum Notes: Follow up with Dr Wall in 2 weeks. call for appt. [phone] Addendum Provider: Addendum Notes were documented by provider Kush Kidd.
[2017-08-19] MEDS ORDERED: VANCOMYCIN TROUGH ONE (09:30)
== END 2017-08-17 13:48 | DRG 464 ==
LOC: C.MSN 14:22
PROVIDERS: ADMIT Orthopaedic Surgery; ATTEND Orthopaedic Surgery
PROC: 02HV33Z Insertion of Infusion Device into Superior Vena Cava, Percutaneous Approach (ICD-10-PCS; 2017-08-11)
PROC: 0SPC0JZ Removal of Synthetic Substitute from Right Knee Joint, Open Approach (ICD-10-PCS; principal; 2017-08-12 07:30)
PROC: 0SHC08Z Insertion of Spacer into Right Knee Joint, Open Approach (ICD-10-PCS; principal; 2017-08-12 07:30)
DX: T84.53XA Infection and inflammatory reaction due to internal right knee prosthesis, initial encounter (principal); L03.115 Cellulitis of right lower limb; D62 Acute posthemorrhagic anemia; B95.2 Enterococcus as the cause of diseases classified elsewhere; B95.7 Other staphylococcus as the cause of diseases classified elsewhere; B96.89 Other specified bacterial agents as the cause of diseases classified elsewhere; M35.3 Polymyalgia rheumatica; I35.0 Nonrheumatic aortic (valve) stenosis; I11.9 Hypertensive heart disease without heart failure; E03.9 Hypothyroidism, unspecified; I25.10 Atherosclerotic heart disease of native coronary artery without angina pectoris; E87.5 Hyperkalemia; K21.9 Gastro-esophageal reflux disease without esophagitis; F41.9 Anxiety disorder, unspecified; F32.9 Major depressive disorder, single episode, unspecified; Z79.899 Other long term (current) drug therapy; Z79.02 Long term (current) use of antithrombotics/antiplatelets; Z79.52 Long term (current) use of systemic steroids; Z91.81 History of falling; Z96.651 Presence of right artificial knee joint; Z80.0 Family history of malignant neoplasm of digestive organs; Y83.1 Surgical operation with implant of artificial internal device as the cause of abnormal reaction of the patient, or of later complication, without mention of misadventure at the time of the procedure

== ENCOUNTER → 2017-10-05 | Outpatient (CLI) | payer OTHER ==
[~2017-10-05] MED LIST changes: -EYED OPR; +FERR325T18 PO; -OMEP20TA PO; +PANT40TA PO; +VANC1INJ94 IV; -ZOLE5INJ IV
[2017-10-05 12:28] LABS: HEMATOCRIT 31.8 % (37-47); HEMOGLOBIN 10.3 g/dL (12.0-16.0); MEAN CELL VOLUME 93.8 fL (80-100); MEAN CORPUSCULAR HEMOGLOBIN 30.4 pg (25-34); MEAN CORPUSCULAR HGB CONC 32.4 g/dl (32-36); RED CELL DISTRIBUTION WIDTH CV 14.2 % (11.5-14.5); RED CELL DISTRIBUTION WIDTH SD 48.3 fL (36.4-46.3); WHITE BLOOD COUNT 13.44 K/uL (4.8-10.8)
[2017-10-05 12:31] LABS: PTT PATIENT 23.4 SECONDS (21.0-31.0)
[2017-10-05 12:45] LABS: BASO % 0.7 %; BASO ABS # 0.09 K/uL (0-0.2); EOS % 2.2 %; EOS ABS # 0.29 K/uL (0-0.5); IG# 0.07 K/uL (0.00-0.02); LYMPH % 12.2 %; LYMPH ABS # 1.64 K/uL (1.2-3.4); MEAN PLATELET VOLUME 11.1 fL (7.4-10.4); MONO % 8.2 %; NEUT % 76.2 %; NEUT ABS # 10.25 K/uL (1.4-6.5); PLATELET COUNT 219 K/uL (130-400)
[2017-10-05 13:05] LABS: BLOOD UREA NITROGEN 23 mg/dl (7-18); CALCIUM 10.4 mg/dl (8.5-10.1); CARBON DIOXIDE 25 mmol/L (21-32); CREATININE 1.34 mg/dl (0.60-1.20); GLUCOSE 113 mg/dl (70-99); POTASSIUM 4.4 mmol/L (3.5-5.1); SODIUM 141 mmol/L (136-145)
== END | disposition home or self-care (01) ==
LOC: C.LABMFLN 09:55
PROVIDERS: ATTEND Internal Medicine
DX: Z01.812 Encounter for preprocedural laboratory examination (principal)

== ENCOUNTER → 2017-10-17 | Outpatient (CLI) | payer OTHER ==
[~2017-10-17] MED LIST changes: -ASPEC81 PO; +ASPI81TA28 PO; +ONDA8TAB6 PO; +OXYC1TAB3 PO; -RXC5 PO; -VANC1INJ94 IV
== END | disposition home or self-care (01) ==
LOC: C.LAB 14:22
PROVIDERS: ATTEND Orthopaedic Surgery
DX: Z96.651 Presence of right artificial knee joint (principal)

== ENCOUNTER → 2017-10-17 | Outpatient (CLI) | payer OTHER | END | disposition home or self-care (01) | LOC: C.LABSPEC 14:35 | PROVIDERS: ATTEND Orthopaedic Surgery | DX: Z96.651 Presence of right artificial knee joint (principal) ==

== ENCOUNTER 2017-10-28 09:58 | Day surgery (SDC) | payer OTHER ==
[2017-10-10 15:51] VITALS: BMI 24.0
--- NOTE | 2017-10-24 08:21 | History and Physical ---
History & Physical Date Oct 24, 2017. Chief Complaint Right hip pain History of Present Illness The patient is a 81 year old female with complaints of right knee pain. She has had an antibiotic spacer for her right knee for the last 8 weeks. She has finished her course of IV antibiotics as well. She is scheduled for a right hip removal of hardware and possible right knee aspiration. 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 Surgical Problems: (1) History of cataract surgery (2) S/P cholecystectomy (3) S/P partial mastectomy (4) S/p removal of bowel lesion (5) S/P total knee arthroplasty Additional History Hepatic Disease: No Endocrine Disorder: Yes Kidney Disease: No Hypertension: Yes Heart Disease: No Bleeding Tendencies: No Infectious Diseases: No Allergies Coded Allergies: Cyclobenzaprine (Verified Adverse Reaction, Unknown, DRY MOUTH, 10/10/17) NSAIDs (Unverified Adverse Reaction, Unknown, DYSPEPSIA, 10/10/17) PER RECORDS Statins (Unverified Adverse Reaction, Unknown, MYALGIAS, NAUSEA, 10/10/17) PER RECORDS Home Medications Scheduled Aspirin (Aspirin Ec), 81 MG PO QAM Calcium Carbonate-Cholecalcife (Caltrate 600+D), 1 TAB PO QAM Clopidogrel (Plavix), 75 MG PO QAM Coenzyme Q10 (Ubidecarenone) (Co Q10), 1 CAP PO QAM Colchicine (Colchicine), 0.6 MG PO HS Duloxetine HCl (Cymbalta), 1 CAP PO QAM Escitalopram (Lexapro), 20 MG PO QAM Ferrous Gluconate (Ferrous Gluconate), 324 MG PO QAM Isosorbide Mononitrate (Isosorbide Mononitrate ER), 30 MG PO QAM Levothyroxine Sodium (Levothyroxine Sodium), 100 MCG PO UD Losartan Potassium (Losartan Potassium), 50 MG PO QAM Metoprolol Tartrate (Lopressor) (Lopressor), 25 MG PO BID Nitroglycerin (Nitrostat), 0.4 MG UT PRN Ocuvite Preservision (Ocuvite Preservision), 1 TAB PO BID Pantoprazole Sodium (Protonix), 40 MG PO QAM Prednisone (Prednisone), 5 MG PO QAM Rosuvastatin Calcium (Crestor), 40 MG PO QAM Scheduled PRN Ondansetron Hcl (Zofran), 8 MG PO PRN PRN for Nausea Oxycodone Ir (Roxicodone Ir), 1-2 TAB PO Q4H PRN for Severe Pain Wheat Dextrin (Benefiber), 1 TAB PO QAM PRN for Constipation Physical Examination Skin: warm/dry, no rash Eyes: normal inspection, EOMI ENT: normal ENT inspection Head: normocephalic, atraumatic Neck: supple, no adenopathy Respiratory/Chest: lungs clear, normal breath sounds Cardiovascular: regular rate, rhythm Abdomen / GI: normal bowel sounds, non tender Extremities: normal inspection Diagnosis Right knee pain Plan of Treatment Patient is scheduled for Right hip removal of hardware with possible aspiration of right knee. Risks and benefits to the surgery were discussed with the patient and she wishes to proceed. All questions were answered to her satisfaction.
[~2017-10-28] VITALS: Ht 152.4 cm; Wt 55.5 kg
[~2017-10-28 09:58] MED LIST changes: +BUPIVACAINE 0.25% 30 ML VIAL ONE; +BUPIVACAINE 0.5 % 5 MG/1 ML PF 10ML VIAL ONE; +CEFAZOLIN 1000MG IV PUSH 7.5 ML IV SCH; +LACTATED RINGER'S 1000ML 1,000 ML IV SCH; +LACTATED RINGER'S 1000ML 500 ML IV SCH
[2017-10-28 10:42] VITALS: BP 104/67; PULSE 55; TEMP 36.7; O2SAT 98; Ht 152.4 cm; Wt 55.5 kg
[2017-10-28] MEDS ORDERED: MIDAZOLAM HCL 1 MG/ML 2ML VIAL ONE (12:20)
[2017-10-28] MEDS ORDERED: FENTANYL CITRATE INJ 50 MCG/1 ML 2 ML VIAL ONE ×2 (12:20→14:37)
[2017-10-28] MEDS ORDERED: BUPIVACAINE/EPINEPHRINE 0.5% MPF 1:200,000 30 ML VIAL ONE (13:00)
[2017-10-28] MEDS ORDERED: HYDROmorphone INJ 2 MG/ML SYR/VIAL IV PRN (15:00)
[2017-10-28] MEDS ORDERED: ONDANSETRON INJ 2 MG/ML 2 ML VIAL IV PRN ×2 (15:00→16:30)
[2017-10-28] MEDS ORDERED: ATROPINE SULFATE 0.1 MG/ML 5ML SYR IV PRN (15:00)
[2017-10-28] MEDS ORDERED: ETOMIDATE 2 MG/ML 20 ML VIAL IV ONE (15:28)
[2017-10-28] MEDS ORDERED: DEXAMETHASONE SOD INJ 4 MG/ML VIAL ONE (15:28)
[2017-10-28] MEDS ORDERED: LIDOCAINE HCL 2% 2 ML VIAL (20MG/ML) ONE (15:28)
[2017-10-28] MEDS ORDERED: ONDANSETRON INJ 2 MG/ML 2 ML VIAL ONE (15:28)
[2017-10-28] MEDS ORDERED: PROPOFOL IV EMULSION 10 MG/ML 20 ML VIAL IV ONE (15:28)
--- NOTE | 2017-10-28 16:12 | [facility] Operative Report ---
Operative Report Operative Date Oct 28, 2017. Pre-Operative Diagnosis Status Post Infected Right Total Knee Arthroplastyand status post long TFN Post-Operative Diagnosis Same Procedure(s) Performed Right hip hardware removal Synthes long tronchanteric fixation nail), aspiration of right knee Surgeon Dr. Calderon Scientific Specialist Surgeon(s) Danisha Kidd PA-C Estimated Blood Loss 200ml Specimens a. right knee explants culture 1 right knee aspirate culture aerobic, anerobic, gram stain cell count Drains None Anesthesia Type General Complication(s) none Disposition Recovery Room / PACU Indications The patient is a 81-year-old female who previously undergone a right total knee arthroplasty. Socially developed infections in the that thorough irrigation and debridement with polyethylene exchange. She subsequently had a excision of the total knee arthroplasty with antibiotic spacer placed. She's been on a course of IV antibiotics. She is about ready to have a revision total knee placed into position. However she has a long trochanteric fixation nail proximally to this and this needs to be removed prior to a revision femoral component being placed. She presents for hardware removal. Description of Procedure Risks benefits and alternatives of surgery including but not limited to infection, DVT, PE, pain, stiffness, need for surgery, damage to blood vessels, damage to nerves or risks of anesthesia, were discussed with the patient and her family and they wished to proceed. Patient was identified in the laterality was confirmed and marked. They received a preoperative antibiotic. The patient was transferred to the fracture table. The operative limb was placed in traction and the well leg was placed in a well leg zuniga that was well-padded. The arms were well-padded and placed out of the way of the surgical field. The hip was then prepped and draped in the usual standard manner with ChloraPrep. I made a longitudinal incision proximal to the greater trochanter. I sharply incised through the skin and then used Bovie electrocautery to achieve hemostasis. I incised through the fascia and then bluntly dissected down to the tip of the greater trochanter. Under fluoroscopic guidance I placed a guide pin into the greater trochanter and ensured proper placement on both AP and lateral fluoroscopy views. Once I was satisfied with the position of the guide. I advanced this distally. I then overreamed with the 17 mm proximal reamer. This cleared of any overgrown bone. I then loosened the set screw over the helical blade. I then made an incision over the distal aspect of the femur and dissected down to the distal interlocking screw and then remove this. I then reopened the incision over the helical blade and dissected down to this. I inserted the insertion device onto the helical blade and then extended on an extraction alon and removed helical blade. I then placed a threaded in extraction alon to the proximal aspect of the nail and then removed the nail. I then aspirated the knee for approximately 3 mL of serous fluid. This was sent for culture Gram stain and sensitivities. Her previous aspiration done in the office had already been negative for growth. The wounds were anesthetized with Marcaine. The fascia was closed with interrupted #1 Vicryl suture. Subcutaneous tissues closed with interrupted 2-0 Vicryl suture and the skin with basilio. Sterile dressings applied. All needle and sponge counts were correct at the end of the procedure the patient was transferred to the PACU in stable condition without apparent complication. The PA-C was necessary for assistance with procedure for assistance in positioning, prepping, draping, retraction and closure. I attest to the content of the Intraoperative Record and any orders documented therein. Any exceptions are noted below.
--- NOTE | 2017-10-28 16:19 | DIAGNOSTIC IMAGING REPORT ---
R HIP OR FILMS CLINICAL HISTORY: 81 years-old Female presenting with RT TROC NAIL. TECHNIQUE: 1 fluoroscopic spot image(s) obtained as part of an intraoperative procedure. COMPARISON: None. FINDINGS/IMPRESSION: An intramedullary nail track may be present through the proximal right femoral metadiaphysis. An interlocking screw track may also be present through the femoral head and neck. The right femoral head appears congruent in the acetabulum. Please see surgical report for further details. Fluoroscopy dosage (mGy): 7.70. Fluoroscopy time: 75.9 seconds. Number of fluoroscopic spot images: 1. Electronically signed by: Hair Martínez M.D. 10/28/2017 4:18 PM Dictated Date/Time: 10/28/2017 4:17 PM
[2017-10-28] MEDS ORDERED: OXYC-57 PO (16:24)
[2017-10-28] MEDS ORDERED: MoRPHine SULFATE 2 MG/ML CARP IV PRN (16:30)
[2017-10-28] MEDS ORDERED: ACETAMINOPHEN 325 MG TAB PO PRN (16:30)
[2017-10-28] MEDS ORDERED: OXYCODONE/ACETAMINOPHEN 5-325 TAB PO PRN (16:30)
[2017-10-28] MEDS ORDERED: OXYCODONE HCL IR 5 MG TAB (IMMEDIATE RELEASE) PO PRN (16:30)
--- NOTE | 2017-10-28 16:35 | Anesthesiology Progress Note ---
Anesthesia Post Op Note Date & Time Oct 28, 2017 at 16:35 Vital Signs Pain Intensity: 0 Vital Signs Past 12 Hours Date Time Temp Pulse Resp B/P (MAP) Pulse Ox O2 Delivery O2 Flow Rate FiO2 10/28/17 16:30 68 16 144/51 95 Oxymask 10 10/28/17 16:20 36.3 62 16 125/44 100 Oxymask 10 10/28/17 10:42 36.7 55 18 104/67 (79) 98 Room Air Notes Mental Status: alert / awake / arousable, participated in evaluation Pt Amnestic to Procedure: Yes Nausea / Vomiting: adequately controlled Pain: adequately controlled Airway Patency, RR, SpO2: stable & adequate BP & HR: stable & adequate Hydration State: stable & adequate Anesthetic Complications: no major complications apparent
--- NOTE | 2017-10-28 16:37 | Discharge Instructions ---
Discharge Instructions Date of Service Oct 28, 2017. Visit Reason for Visit: Retained Hardware Of Right Knee Discharge Discharge Diagnosis / Problem: Retained Hardware Right Femur Discharge Goals Goal(s): Decrease discomfort, Improve function, Increase independence Activity Recommendations Activity Limitations: per Instructions/Follow-up section Weightbearing Status: Right weightbearing (as tolerated) Anesthesia . Post Anesthesia Instructions: If you have had General Anesthesia or IV Sedation: * Do not drive today. * Resume driving when surgeon permits. * Do not make important decisions or sign legal documents today. * Call surgeon for: 1. Temperature elevations greater than 101 degrees F. 2. Uncontrollable pain. 3. Excessive bleeding. 4. Persistent nausea and vomiting. 5. Medication intolerance (nausea, vomiting or rash). * For nausea and vomiting use only clear liquids such as: tea, soda, bouillon until nausea subsides, then gradually increase diet as tolerated. * If you have any concerns or questions, call your surgeon's office. If physician is unavailable and it is an emergency, call 911 or go to the nearest emergency room. . Instructions / Follow-Up Instructions / Follow-Up YOU CAN RESTART YOUR PLAVIX TOMORROW. 10/29/17 You may be Weightbearing as tolerated on the right lower extremity. You may use crutches or a walker as needed Change the dressing in [address] 4[address]4 gauze over each wound. Please keep them covered. Once the wounds remain dry, you may leave them to the open air. If the dressings become saturated before the 48 hour kg, you can change them. You may notice some bloody drainage on the dressings. This is normal. You may shower in 72 hours. No tub baths. No direct shower pressure on the wounds themselves. Do not soak them. No creams or ointments on the wounds. Place small ice packs on the wounds of and on for the next 48 hours to help with pain and swelling. Please call Dr Calderon's office with any questions. [phone] Calderon in 10-14 days. Please call for an appointment. [phone] Diet Recommendations Recommended Home Diet: resume previous diet Procedures Procedures Performed: Right hip hardware removal Synthes long tronchanteric fixation nail), aspiration of right knee Pending Studies Studies pending at discharge: yes List of pending studies: Gram stain and Culture Right Knee fluid. Medical Emergencies . Who to Call and When: Medical Emergencies: If at any time you feel your situation is an emergency, please call 911 immediately. . Non-Emergent Contact Non-Emergency issues call your: Surgeon Call Non-Emergent contact if: temperature is above 101.5, your pain is not controlled, your pain is worsening, wound has increased drainage, wound has increased redness . . "Provider Documentation" section prepared by Kush Kidd. . [place] Drug Monitoring Program Search Results: patient reviewed within database, see additional documentation Drug Monitoring Findings: Pt receiving Oxycodone from Dr Nelson Ferrera in [place] on regular schedule. Pt will need to follow up with him for further pain medications once the post operative period is over.
[2017-10-28 17:03] VITALS: BP 140/49; PULSE 74; TEMP 36.6; O2SAT 18; O2SAT 96
[2017-10-28] MEDS ORDERED: OXYCODONE HCL IR 5 MG TAB (IMMEDIATE RELEASE) ONE (17:10)
[2017-10-28 17:30] VITALS: BP 135/50; PULSE 66; O2SAT 97
[2017-10-28 18:00] VITALS: BP 131/65; PULSE 70; TEMP 36.6; O2SAT 95
== END 2017-10-28 18:34 | disposition home or self-care (01) ==
LOC: C.ACU 09:58
PROVIDERS: ATTEND Orthopaedic Surgery
DX: Z47.2 Encounter for removal of internal fixation device (principal); M35.3 Polymyalgia rheumatica; I35.0 Nonrheumatic aortic (valve) stenosis; F41.9 Anxiety disorder, unspecified; I25.10 Atherosclerotic heart disease of native coronary artery without angina pectoris; F32.9 Major depressive disorder, single episode, unspecified; E78.5 Hyperlipidemia, unspecified; I10 Essential (primary) hypertension; E03.9 Hypothyroidism, unspecified; M81.0 Age-related osteoporosis without current pathological fracture; Z90.49 Acquired absence of other specified parts of digestive tract; Z96.651 Presence of right artificial knee joint; Z88.8 Allergy status to other drugs, medicaments and biological substances; Z88.6 Allergy status to analgesic agent; Z79.82 Long term (current) use of aspirin; Z79.899 Other long term (current) drug therapy; Z79.52 Long term (current) use of systemic steroids

== ENCOUNTER → 2017-11-23 | Outpatient (CLI) | payer OTHER ==
[~2017-11-23] MED LIST changes: +ASPEC81 PO; -BUPIVACAINE 0.25% 30 ML VIAL ONE; -BUPIVACAINE 0.5 % 5 MG/1 ML PF 10ML VIAL ONE; -CEFAZOLIN 1000MG IV PUSH 7.5 ML IV SCH; +CLB200 PO; -LACTATED RINGER'S 1000ML 1,000 ML IV SCH; -LACTATED RINGER'S 1000ML 500 ML IV SCH; +NRN100 PO; +OXYB10TA13 PO; +OXYC-57 PO; -OXYC1TAB3 PO; +RXC5 PO; +SULF-302 PO
[2017-11-23 17:58] LABS: ALBUMIN 3.6 gm/dl (3.4-5.0); BLOOD UREA NITROGEN 33 mg/dl (7-18); CALCIUM 9.7 mg/dl (8.5-10.1); CARBON DIOXIDE 24 mmol/L (21-32); GLUCOSE 127 mg/dl (70-99); POTASSIUM 5.1 mmol/L (3.5-5.1); SODIUM 138 mmol/L (136-145)
[2017-11-23 18:04] LABS: INR 0.9 (0.9-1.1); PTT PATIENT 24.8 SECONDS (21.0-31.0)
[2017-11-23 18:27] LABS: HEMATOCRIT 31.3 % (37-47); HEMOGLOBIN 9.9 g/dL (12.0-16.0); MEAN CELL VOLUME 96.6 fL (80-100); MEAN CORPUSCULAR HEMOGLOBIN 30.6 pg (25-34); MEAN CORPUSCULAR HGB CONC 31.6 g/dl (32-36); MEAN PLATELET VOLUME 12.1 fL (7.4-10.4); RED CELL DISTRIBUTION WIDTH CV 15.1 % (11.5-14.5); RED CELL DISTRIBUTION WIDTH SD 53.2 fL (36.4-46.3); WHITE BLOOD COUNT 8.05 K/uL (4.8-10.8)
[2017-11-23 18:28] LABS: BASO ABS # 0.08 K/uL (0-0.2); EOS % 1.9 %; EOS ABS # 0.15 K/uL (0-0.5); IG# 0.03 K/uL (0.00-0.02); LYMPH % 21.6 %; LYMPH ABS # 1.74 K/uL (1.2-3.4); MONO % 5.8 %; MONO ABS # 0.47 K/uL (0.11-0.59); NEUT % 69.3 %; NEUT ABS # 5.58 K/uL (1.4-6.5)
[2017-11-24 08:31] LABS: HEMOGLOBIN A1C 5.1 % (4.5-5.6)
== END | disposition home or self-care (01) ==
LOC: C.LABMFLN 13:11
PROVIDERS: ATTEND Orthopaedic Surgery
DX: Z01.812 Encounter for preprocedural laboratory examination (principal)

== ENCOUNTER 2017-11-25 04:51 | Inpatient (IN) | payer OTHER ==
[2017-10-27 07:24] VITALS: BMI 24.0
--- NOTE | 2017-11-21 15:59 | HISTORY & PHYSICAL EXAMINATION ---
DATE OF ADMISSION: 11/25/2017 CHIEF COMPLAINT: Right knee pain. HISTORY OF PRESENT ILLNESS: The patient is an 81-year-old female who complains of right knee pain. She currently has an antibiotic spacer in her right knee. She has had antibiotic therapy for about 8 weeks. She is scheduled to have a right revision total knee arthroplasty. PAST MEDICAL HISTORY: Significant for anxiety; aortic stenosis; coronary artery disease; depression; dyslipidemia; glaucoma; history of open reduction internal fixation, right hip; history of colorectal cancer; history of hip fracture; hypertension; hypothyroidism; osteoporosis; right knee DJD; status post coronary artery stent. PAST SURGICAL HISTORY: History of cataract surgery, cholecystectomy, partial mastectomy, removal of bowel lesion, and right total knee arthroplasty. SOCIAL HISTORY: She denies alcohol. She denies smoking or tobacco use. She denies IV or illegal drug use. FAMILY HISTORY: Noncontributory. ALLERGIES: CYCLOBENZAPRINE, NSAIDS, STATINS. MEDICATIONS: Aspirin 81 mg daily, calcium 1 tab daily, Coenzyme Q10 one capsule daily, Cymbalta 1 capsule in the morning, Lexapro 20 mg 1 tablet in the morning, isosorbide mononitrate 30 mg p.o. daily, levothyroxine 100 mcg p.o. daily, losartan 50 mg p.o. daily, Lopressor 25 mg p.o. twice a day, Ocuvite PreserVision 1 tab p.o. twice a day, Protonix 40 mg p.o. daily, prednisone 5 mg p.o. daily, Crestor 40 mg p.o. daily. REVIEW OF SYSTEMS: She denies headaches, fevers, chills, double vision, blurry vision, sore throat, cough, chest pain, nausea, vomiting, diarrhea, constipation, numbness or tingling, She has joint pain, joint stiffness of the right knee, no urinary difficulties, thoughts to harm herself or harm others or depression. OBJECTIVE: GENERAL APPEARANCE: The patient is an 81-year-old female, sitting, in no acute distress. She is well-dressed, well-nourished. She is awake, alert and oriented x3. VITAL SIGNS: She is 5 feet tall, 124 pounds, blood pressure is 112/60. HEENT: Normocephalic, atraumatic. Extraocular movements are intact. Mucosa was moist. NECK: Supple with no lymphadenopathy, no JVD, no thyromegaly. HEART: Regular rate and rhythm with no murmurs or gallops. LUNGS: Clear to auscultation. No wheezing or rhonchi. ABDOMEN: Soft, nontender, nondistended. Normal bowel sounds. No hepatosplenomegaly. EXTREMITIES: Paying particular attention to the right knee. She has a surgical scar over her right knee that is well healed. She has limited range of motion 0-90 degrees. Decreased strength. NEUROLOGIC: Cranial nerves II-XII are intact. Pulses were compared bilaterally and were equal. 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 PLAN: The patient is scheduled for a right revision total knee arthroplasty. Risks and benefits and alternatives to surgery were discussed that include but not limited to infection, DVT, pain, stiffness, need for revision surgeries, damage to blood vessels, damage to nerves, PE, , and anesthesia risks were all discussed with patient and she wished to proceed. All questions were answered to her satisfaction. DVT prophylaxis will be aspirin 81 mg twice a day. Discharge; she would like to go to [facility] for outpatient physical therapy. JEFFERY
[2017-11-25] VITALS (14 sets, daily range): BP systolic 103–186; BP diastolic 54–81; PULSE 64–104; TEMP 36.4–37; O2SAT 98–100; Ht 152.4 cm; Wt 55.5 kg
[~2017-11-25] VITALS: Ht 152.4 cm; Wt 55.5 kg
[~2017-11-25 04:51] MED LIST changes: -ASPEC81 PO; -CLB200 PO; -NRN100 PO; +ONDA-170 PO; -ONDA8TAB6 PO; -OXYB10TA13 PO; -RXC5 PO; -SULF-302 PO
[2017-11-25] MEDS ORDERED: GABAPENTIN 300 MG CAP PO SCH (06:00)
[2017-11-25] MEDS: TRANEXAMIC ACID INJ 1,000 MG x 2 Bags IV SCH ×4 (06:00→06:30)
[2017-11-25] MEDS ORDERED: LACTATED RINGER'S 1000ML 1,000 ML IV SCH ×2 (06:00)
[2017-11-25] MEDS ORDERED: CeleBREX 200 MG CAP PO SCH (06:00)
[2017-11-25] MEDS ORDERED: CEFAZOLIN 1000MG IV PUSH 7.5 ML IV SCH (06:00)
[2017-11-25] MEDS ORDERED: DEXAMETHASONE 4 MG TAB PO SCH (06:00)
[2017-11-25] MEDS ORDERED: ROPIVACAINE 5MG/ML 30 ML 150 MG, BUPIVACAINE 0.5% MPF INJ 30 ML, EpINEphrine HCL INJ 0.... INFIL SCH ×8 (06:00)
[2017-11-25] MEDS ORDERED: METOCLOPRAMIDE HCL 10 MG TAB PO SCH (06:00)
[2017-11-25] MEDS ORDERED: FAMOTIDINE 20 MG TAB PO SCH (06:00)
[2017-11-25] MEDS ORDERED: ACETAMINOPHEN 500 MG TAB PO SCH (06:00)
[2017-11-25] MEDS ORDERED: POVIDONE-IODINE OP SOLN 30 ML BTL ONE (06:31)
[2017-11-25] MEDS ORDERED: ORTHO JOINT ANESTHETIC ONE (06:31)
[2017-11-25] MEDS ORDERED: BACITRACIN 50000 UNIT VIAL ONE (06:32)
[2017-11-25] MEDS ORDERED: BUPIVACAINE 0.5 % 5 MG/1 ML PF 10ML VIAL ONE (06:37)
[2017-11-25] MEDS ORDERED: BUPIVACAINE 0.25% 30 ML VIAL ONE (06:37)
[2017-11-25] MEDS ORDERED: FENTANYL CITRATE INJ 50 MCG/1 ML 2 ML VIAL ONE (06:56)
[2017-11-25] MEDS ORDERED: MIDAZOLAM HCL 1 MG/ML 2ML VIAL ONE (06:56)
[2017-11-25] MEDS ORDERED: HYDROmorphone INJ 2 MG/ML SYR/VIAL ONE (07:48)
[2017-11-25] MEDS ORDERED: HYDROmorphone INJ 1 MG/ML SYR IV PRN (09:30)
[2017-11-25] MEDS ORDERED: ATROPINE SULFATE 0.1 MG/ML 5ML SYR IV PRN (09:30)
[2017-11-25] MEDS ORDERED: LABETALOL HCL IV 5 MG/ML 20ML IV PRN (09:30)
[2017-11-25] MEDS ORDERED: MEPERIDINE HCL 25 MG/ML CARP IV PRN (09:30)
[2017-11-25] MEDS ORDERED: ONDANSETRON INJ 2 MG/ML 2 ML VIAL IV PRN (09:30)
[2017-11-25] MEDS ORDERED: EpHEDrine SULFATE INJ 50 MG/ML AMP IV PRN (09:30)
[2017-11-25] MEDS ORDERED: FENTANYL CITRATE INJ 50 MCG/1 ML 2 ML VIAL IV PRN (09:30)
[2017-11-25] MEDS ORDERED: PROPOFOL IV EMULSION 10 MG/ML 20 ML VIAL IV ONE (09:38)
[2017-11-25] MEDS ORDERED: DEXAMETHASONE SOD INJ 4 MG/ML VIAL ONE (09:38)
[2017-11-25] MEDS ORDERED: ONDANSETRON INJ 2 MG/ML 2 ML VIAL ONE (09:38)
[2017-11-25] MEDS ORDERED: LIDOCAINE HCL 2% 2 ML VIAL (20MG/ML) ONE (09:38)
--- NOTE | 2017-11-25 09:59 | OPERATIVE REPORT ---
DATE OF OPERATION: 11/25/2017 PREOPERATIVE DIAGNOSIS: Status post placement of articulated cement spacer for an infected right total knee. PROCEDURE: Revision articulated cement spacer to posterior stabilized right total knee. SURGEON: Maynor Borges MD ORGANIZATIONAL DEVELOPMENT SPECIALIST: Hair Calderon MD ANESTHESIA: Spinal. COMPLICATIONS: None. DESCRIPTION OF PROCEDURE: Following induction of adequate spinal anesthesia, the patient's right leg was prepped and draped in the usual sterile manner. The limb was exsanguinated with an Esmarch bandage and tourniquet inflated to 350 mmHg. A longitudinal incision was made through the previously made incision. Subcutaneous tissue was sharply dissected. Electrocautery was used for hemostasis. A medial parapatellar incision was made. Medial face of the tibia was subperiosteally elevated using electrocautery. A significant scarring in the synovium was removed using sharp dissection circumferentially. The patella was unable to be subluxed into the lateral gutter. A lateral snip was provided. An oscillating saw was then used to remove the provisionally placed patella and a lateral release was carried out, which gave enough mobility to the patella to sublux it into the lateral gutter. Attention was turned to the tibial component, which was undermined using an oscillating saw and was removed using a bone tenaculum, Next, attention was turned to the femur, where narrow flexible osteotomes were used to undermine the bone cement interface of the tibia until the femur could be disimpacted using a bone tamp and a mallet. Virtually, no additional bone was lost in this process. The soft tissue was sent to the lab for pathologic evaluation. There were found to be no inflammatory cells. There were less than 5 white cells per high power field. Next, attention was turned back to the tibia, where the cement in the canal was removed using a combination of drill, bone tamp and a rongeur. This removed all cement. Sequential reamers were taken down through the tibia and a clean-up cut was made using the appropriate guide until a flat defect free proximal tibia was presented. Tibial baseplate was placed and overdrilled using the boss reamer and a 4-mm offset in the 5 position was chosen the size to be used. The proximal tibia was prepared using a drill punch and a mallet and the trial tibial baseplate with the stem was placed. Next, attention was turned to the femur, where sequential reamings were taken up to a size 14. This gave good filling of the canal and a size 3 femoral component was chosen the size to be used. Augment cuts 5 mm posteriorly and 5 mm distal laterally were made. The trial femoral component was prepared after cutting the notch. The femoral component was impacted into position. Trial reduction was carried out and a 60-mm component gave good reproduction of soft tissue tension in flexion and extension. The patella was then prepared using drill and a 33 patella was chosen the size to be used. With a towel clip provisionally repairing the lateral snip, the patella tracked nicely. The trials were all removed. The final components were assembled on the back table. The knee was thoroughly irrigated with pulsatile irrigation, removing all debris and the tibial component was first cemented into position. All excess cement was removed. Following this, the femoral component was cemented into position and the tibial poly was placed. Lastly, the patella was cemented. The knee was irrigated while cement hardened. A Hemovac drain was placed and the knee was closed using #1 FiberWire. Subcutaneous tissue was closed using 0 Dexon and skin was closed with basilio. Sterile dressing of Adaptic, 4 x 4's, sterile Webril and a double length José was applied. The patient tolerated the procedure well. I attest to the content of the Intraoperative Record and any orders documented therein. Any exception s are noted below.
[2017-11-25] MEDS: SODIUM CHLORIDE 0.9% 1000ML 1,000 ML IV SCH ×2 (10:26→23:19)
[2017-11-25] MEDS ORDERED: MoRPHine SULFATE 2 MG/ML CARP IV PRN (10:30)
[2017-11-25] MEDS ORDERED: ZOLPIDEM TARTRATE 5 MG TAB PO PRN (10:30)
[2017-11-25] MEDS ORDERED: MAGNESIUM HYDROXIDE SUSP 30 ML UDC PO PRN (10:30)
[2017-11-25] MEDS ORDERED: SOD PHOSPHATE/SOD BIPHOSPHATE ENEMA 132 ML BTL PR PRN (10:30)
[2017-11-25] MEDS ORDERED: ALUMINUM/MAGNESIUM/SIMETH (MAALOX MAX) 30 ML UDC PO PRN (10:30)
[2017-11-25] MEDS ORDERED: CALCIUM POLYCARBOPHIL 1 TAB PO PRN (10:30)
[2017-11-25] MEDS ORDERED: ONDANSETRON 8 MG TAB PO PRN (10:30)
[2017-11-25] MEDS ORDERED: BISACODYL 10 MG SUPP PR PRN (10:30)
[2017-11-25] MEDS ORDERED: OXYCODONE HCL IR 5 MG TAB (IMMEDIATE RELEASE) PO PRN (10:30)
[2017-11-25] MEDS ORDERED: CEFAZOLIN IV 1,000 MG in DEXTROSE 5% 50ML 50 ML IV SCH (10:30)
[2017-11-25] MEDS ORDERED: NITROGLYCERIN 0.4 MG SL PER TAB CHARGE UT PRN (10:30)
--- NOTE | 2017-11-25 11:07 | DIAGNOSTIC IMAGING REPORT ---
RIGHT KNEE 2 VIEWS History: Right total knee arthroplasty replacement. Right knee infection. Postop. FINDINGS: The patient is status post revision of a right total knee arthroplasty. The hardware is intact. No fracture or dislocation. Surgical drains are in place. IMPRESSION: Status post replacement of a right total knee arthroplasty. No evidence for hardware complication. Electronically signed by: Nelson Pate M.D. 11/25/2017 11:06 AM Dictated Date/Time: 11/25/2017 11:04 AM
--- NOTE | 2017-11-25 13:01 | Anesthesiology Progress Note ---
Anesthesia Post Op Note Date & Time Nov 25, 2017 at 12:59 Vital Signs Pain Intensity: 0 Vital Signs Past 12 Hours Date Time Temp Pulse Resp B/P (MAP) Pulse Ox O2 Delivery O2 Flow Rate FiO2 11/25/17 12:51 93 14 11/25/17 12:51 93 14 99 11/25/17 12:50 127/78 11/25/17 12:46 91 18 99 11/25/17 12:46 91 18 11/25/17 12:45 116/54 11/25/17 12:41 91 24 11/25/17 12:41 90 24 99 11/25/17 12:40 119/51 11/25/17 12:36 95 24 11/25/17 12:36 95 24 96 11/25/17 12:35 132/50 11/25/17 12:31 89 18 94 11/25/17 12:31 90 18 11/25/17 12:30 104/52 11/25/17 12:30 37.2 11/25/17 12:26 90 23 97 11/25/17 12:26 91 23 11/25/17 12:25 113/51 11/25/17 12:24 91 27 96 11/25/17 12:24 92 27 11/25/17 12:20 113/47 11/25/17 12:19 91 25 95 11/25/17 12:19 91 25 11/25/17 12:18 91 27 11/25/17 12:18 91 27 95 11/25/17 12:15 125/49 11/25/17 12:13 97 16 11/25/17 12:13 96 16 98 11/25/17 12:10 119/45 11/25/17 12:08 92 25 96 11/25/17 12:08 92 25 11/25/17 12:05 129/49 11/25/17 12:03 95 16 11/25/17 12:03 94 16 98 11/25/17 12:00 117/49 11/25/17 11:58 91 25 11/25/17 11:58 91 25 93 11/25/17 11:57 92 25 11/25/17 11:57 91 25 94 11/25/17 11:55 117/48 11/25/17 11:52 93 24 92 11/25/17 11:52 93 24 3/9/18 11:50 111/46 3/9/18 11:47 96 17 97 3/9/18 11:47 96 17 3/9/18 11:46 95 26 3/9/18 11:46 95 26 92 3/9/18 11:45 122/51 3/9/18 11:41 93 24 3/9/18 11:41 94 24 94 3/9/18 11:40 122/48 3/9/18 11:36 95 18 97 3/9/18 11:36 95 18 3/9/18 11:35 134/51 3/9/18 11:33 99 14 3/9/18 11:33 100 14 97 3/9/18 11:30 120/50 3/9/18 11:28 94 20 95 3/9/18 11:28 93 20 3/9/18 11:25 120/52 3/9/18 11:23 97 16 3/9/18 11:23 97 16 96 3/9/18 11:22 96 24 3/9/18 11:22 96 24 94 3/9/18 11:20 138/56 3/9/18 11:17 94 20 3/9/18 11:17 94 20 93 3/9/18 11:15 133/52 3/9/18 11:12 94 23 94 3/9/18 11:12 94 23 3/9/18 11:11 96 29 3/9/18 11:11 96 29 96 3/9/18 11:10 139/55 3/9/18 11:06 97 23 3/9/18 11:06 97 23 98 3/9/18 11:05 126/49 3/9/18 11:01 100 25 3/9/18 11:01 99 25 99 3/9/18 11:00 136/53 3/9/18 10:57 104 17 3/9/18 10:57 104 17 98 3/9/18 10:55 124/47 3/9/18 10:52 93 17 99 3/9/18 10:52 94 17 3/9/18 10:51 92 14 3/9/18 10:51 92 14 99 3/9/18 10:50 117/50 3/9/18 10:46 93 16 116/39 98 3/9/18 10:46 92 16 3/9/18 10:41 86 16 100 11/25/17 10:41 86 16 11/25/17 10:40 88/49 11/25/17 10:39 85 12 100 11/25/17 10:39 85 12 11/25/17 10:35 103/37 11/25/17 10:34 85 16 100 11/25/17 10:34 85 16 11/25/17 10:30 93/38 11/25/17 10:29 84 11/25/17 10:29 37.2 84 16 102/37 100 Oxymask 10 11/25/17 10:29 84 102/37 98 11/25/17 05:38 36.7 64 20 132/55 100 Room Air Notes Mental Status: alert / awake / arousable, participated in evaluation Pt Amnestic to Procedure: Yes Nausea / Vomiting: adequately controlled Pain: adequately controlled Airway Patency, RR, SpO2: stable & adequate BP & HR: stable & adequate Hydration State: stable & adequate Anesthetic Complications: no major complications apparent pt somnolent from narcotic administration.I have ordered a continuous pulse oximetry on the floor for her.
[2017-11-25] MEDS ORDERED: ISOSORBIDE MONONITRATE 30 MG TABCR PO STA (13:40)
[2017-11-25] MEDS: ESCITALOPRAM OXALATE 10 MG TAB PO SCH (14:00)
[2017-11-25] MEDS: DULOXETINE HCL 20 MG CAP PO SCH (14:00)
[2017-11-25] MEDS: ACETAMINOPHEN 500 MG TAB PO SCH ×2 (14:00→21:51)
[2017-11-25] MEDS ORDERED: INFLUENZA VACCINE HIGH DOSE 65+ 0.5 ML SYR IM. ONE (16:15)
[2017-11-25] MEDS ORDERED: PNEUMOCOCCAL ADMINISTRATION CHARGE ONE (16:15)
[2017-11-25] MEDS ORDERED: PNEUMOCOCCAL POLYSACCHARIDES 25 MCG/0.5 ML VIAL/SYR IM. ONE (16:15)
[2017-11-25] MEDS ORDERED: INFLUENZA ADMINISTRATION CHARGE ONE (16:15)
[2017-11-25] MEDS ORDERED: VANCOMYCIN CONSULT ACTIVE PRN (17:00)
[2017-11-25] MEDS: FERROUS GLUCONATE 324 MG TAB PO SCH (17:45)
[2017-11-25] MEDS: CEFAZOLIN IV 1,000 MG in SYRINGE 0 ML IV SCH (18:29)
--- NOTE | 2017-11-25 18:43 | Pharmacy Progress Note ---
Pharmacy Abx Initial Consult Date of Service Nov 25, 2017. Pharmacy Dosing Scope Date of Consult: 11/25/17 Consultation requested by: Dr. Calderon Pharmacy is consulted to initiate Vancomycin IV dosing therapy, order appropriate labs and adjust drug dose/frequency. Subjective The patient is a 82 year old female admitted on Nov 25, 2017 at 06:45. Objective Height (Feet): 5 Height (Inches): 0 Weight (Kilograms): 55.450 Vital Signs (Past 12Hrs) Vital Signs Past 12 Hours Date Time Temp Pulse Resp B/P (MAP) Pulse Ox O2 Delivery O2 Flow Rate FiO2 11/25/17 18:02 36.6 88 18 155/81 (105) 100 Oxymask 2.0 11/25/17 17:09 36.9 83 16 112/58 (76) 100 Nasal Cannula 4.0 11/25/17 16:09 36.4 87 18 112/56 (74) 100 Oxymask 4.0 11/25/17 15:20 36.5 91 16 136/60 (85) 100 Oxymask 4.0 11/25/17 15:20 100 Oxymask 4.0 11/25/17 14:45 88 12 108/54 (72) 100 Oxymask 4.0 11/25/17 14:17 36.8 91 12 116/63 (80) 100 Oxymask 4.0 11/25/17 14:09 98 Nasal Cannula 4.0 11/25/17 13:45 92 12 103/62 (76) 100 Oxymask 4.0 11/25/17 13:45 Oxymask 11/25/17 13:15 36.6 104 12 150/64 (92) 98 Oxymask 4.0 11/25/17 13:02 95 15 99 11/25/17 13:02 95 15 11/25/17 13:00 135/56 11/25/17 12:57 98 13 11/25/17 12:57 98 13 99 11/25/17 12:55 123/76 11/25/17 12:52 92 14 11/25/17 12:52 92 14 99 11/25/17 12:51 93 14 11/25/17 12:51 93 14 99 11/25/17 12:50 127/78 11/25/17 12:46 91 18 99 3/9/18 12:46 91 18 3/9/18 12:45 116/54 3/9/18 12:41 91 24 3/9/18 12:41 90 24 99 3/9/18 12:40 119/51 3/9/18 12:36 95 24 3/9/18 12:36 95 24 96 3/9/18 12:35 132/50 3/9/18 12:31 89 18 94 3/9/18 12:31 90 18 3/9/18 12:30 104/52 3/9/18 12:30 37.2 3/9/18 12:26 90 23 97 3/9/18 12:26 91 23 3/9/18 12:25 113/51 3/9/18 12:24 91 27 96 3/9/18 12:24 92 27 3/9/18 12:20 113/47 3/9/18 12:19 91 25 95 3/9/18 12:19 91 25 3/9/18 12:18 91 27 3/9/18 12:18 91 27 95 3/9/18 12:15 125/49 3/9/18 12:13 97 16 3/9/18 12:13 96 16 98 3/9/18 12:10 119/45 3/9/18 12:08 92 25 96 3/9/18 12:08 92 25 3/9/18 12:05 129/49 3/9/18 12:03 95 16 3/9/18 12:03 94 16 98 3/9/18 12:00 117/49 3/9/18 11:58 91 25 3/9/18 11:58 91 25 93 3/9/18 11:57 92 25 3/9/18 11:57 91 25 94 3/9/18 11:55 117/48 3/9/18 11:52 93 24 92 3/9/18 11:52 93 24 3/9/18 11:50 111/46 3/9/18 11:47 96 17 97 3/9/18 11:47 96 17 3/9/18 11:46 95 26 3/9/18 11:46 95 26 92 3/9/18 11:45 122/51 3/9/18 11:41 93 24 3/9/18 11:41 94 24 94 3/9/18 11:40 122/48 3/9/18 11:36 95 18 97 3/9/18 11:36 95 18 3/9/18 11:35 134/51 3/9/18 11:33 99 14 3/9/18 11:33 100 14 97 3/9/18 11:30 120/50 3/9/18 11:28 94 20 95 3/9/18 11:28 93 20 3/9/18 11:25 120/52 3/9/18 11:23 97 16 3/9/18 11:23 97 16 96 3/9/18 11:22 96 24 3/9/18 11:22 96 24 94 3/9/18 11:20 138/56 3/9/18 11:17 94 20 3/9/18 11:17 94 20 93 3/9/18 11:15 133/52 3/9/18 11:12 94 23 94 3/9/18 11:12 94 23 3/9/18 11:11 96 29 3/9/18 11:11 96 29 96 3/9/18 11:10 139/55 3/9/18 11:06 97 23 3/9/18 11:06 97 23 98 3/9/18 11:05 126/49 3/9/18 11:01 100 25 3/9/18 11:01 99 25 99 3/9/18 11:00 136/53 3/9/18 10:57 104 17 3/9/18 10:57 104 17 98 3/9/18 10:55 124/47 3/9/18 10:52 93 17 99 3/9/18 10:52 94 17 3/9/18 10:51 92 14 3/9/18 10:51 92 14 99 3/9/18 10:50 117/50 3/9/18 10:46 93 16 116/39 98 3/9/18 10:46 92 16 3/9/18 10:41 86 16 100 3/9/18 10:41 86 16 3/9/18 10:40 88/49 3/9/18 10:39 85 12 100 3/9/18 10:39 85 12 3/9/18 10:35 103/37 3/9/18 10:34 85 16 100 3/9/18 10:34 85 16 3/9/18 10:30 93/38 11/25/17 10:29 84 11/25/17 10:29 37.2 84 16 102/37 100 Oxymask 10 11/25/17 10:29 84 102/37 98 Risk Factors for Resistance * Antimicrobial use within the last 90 days Assessment & Plan Assessment 82 year old female with infected R-TKA s/p revision today. History of joint infection with methicillin resistant CONS, E.faecalis (mcguire- sensitive), and Enterobacter cloacae (mcguire-sensitive) Plan Vancomycin IV * Loading dose: 1250 mg (23 mg/kg) * Maintenance dose: not scheduled at this time * Goal trough level for bone/joint infection : 15 to 20 mcg/mL * Random level will be ordered on 11/26 once Scr/CrCl values are available * Most recent Scr of 1.5 mg/dL is from 11/23/17 -> estimated vanc T1/2 of 31.5 hr based on this data Pharmacy will continue to follow and will adjust dose/frequency as necessary. Thank you.
[2017-11-25] MEDS ORDERED: VANCOMYCIN INJ 1,250 MG in SODIUM CHLORIDE 0.9% 250ML 250 ML IV ONE (18:45)
[2017-11-25] MEDS: DOCUSATE SODIUM 100 MG CAP PO SCH (21:49)
[2017-11-25] MEDS: CeleBREX 200 MG CAP PO SCH (21:49)
[2017-11-25] MEDS: ASPIRIN 81 MG ECTAB PO SCH (21:50)
[2017-11-25] MEDS: METOPROLOL TARTRATE 25 MG TAB PO SCH (21:50)
[2017-11-25] MEDS: COLCHICINE 0.6 MG TAB PO SCH (21:50)
[2017-11-25] MEDS: CEROVITE ADV FORMULA TAB PO SCH (21:51)
[2017-11-25] MEDS: SENNA 8.6 MG TAB PO SCH (21:51)
[2017-11-25] MEDS: ONDANSETRON INJ 2 MG/ML 2 ML VIAL IV PRN (23:16)
[2017-11-26] VITALS (25 sets, daily range): BP systolic 100–150; BP diastolic 52–80; PULSE 62–86; TEMP 36.6–37.6; O2SAT 96–100
[2017-11-26] MEDS ORDERED: NURSING VERBAL MED ORDER ONE ×3 (00:30→11:30)
[2017-11-26] MEDS ORDERED: PROMETHAZINE HCL INJ 25 MG in SODIUM CHLORIDE 0.9% 50ML 50 ML IV PRN (00:30)
[2017-11-26] MEDS: CEFAZOLIN IV 1,000 MG in SYRINGE 0 ML IV SCH (01:55)
[2017-11-26] MEDS: LEVOTHYROXINE 100 MCG TAB PO SCH (06:10)
[2017-11-26] MEDS: ACETAMINOPHEN 500 MG TAB PO SCH ×3 (06:11→22:00)
[2017-11-26] MEDS ORDERED: OXYB10TA13 PO (06:24)
[2017-11-26 07:49] LABS: CALCIUM 8.3 mg/dl (8.5-10.1); CREATININE 1.28 mg/dl (0.60-1.20); POTASSIUM 5.1 mmol/L (3.5-5.1)
[2017-11-26 07:50] LABS: HEMOGLOBIN 7.4 g/dL (12.0-16.0); MEAN CORPUSCULAR HEMOGLOBIN 29.6 pg (25-34); MEAN CORPUSCULAR HGB CONC 30.8 g/dl (32-36); PLATELET COUNT 185 K/uL (130-400); RED CELL DISTRIBUTION WIDTH CV 14.5 % (11.5-14.5); RED CELL DISTRIBUTION WIDTH SD 50.9 fL (36.4-46.3); WHITE BLOOD COUNT 13.02 K/uL (4.8-10.8)
[2017-11-26] MEDS ORDERED: NRN100 PO (07:52)
--- NOTE | 2017-11-26 08:07 | Medical Consult ---
Consultation Date of Consultation: Nov 26, 2017. Attending Physician: Hair Calderon M.D. Reason for Consultation: elevated blood pressure post-op History of Present Illness The patient is an 81-year-old female complains of right knee pain and was admitted for a right total knee arthroplasty. She underwent surgery on 11/25 and subsequently had postoperative high blood pressure with a systolic in the 180s. This improved spontaneously to 167/68 millimeters to 150 systolic without medication. Throughout the night she continued to improve from a respiratory standpoint and a blood pressure standpoint. Review of systems reveals controlled pain in her knee postoperatively. She is tolerating p.o. she denies nausea chest pain shortness of breath or any other symptom at this time. She does have a history of aortic stenosis and is receiving postoperative IV fluids , which will be stopped. Past Medical/Surgical History Medical Problems: (1) Anxiety Status: Chronic (2) Aortic stenosis Status: Chronic (3) CAD (coronary artery disease) Permanent Comment: s/p stent in 2016 Status: Chronic (4) Depression Status: Chronic (5) Dyslipidemia Status: Chronic (6) Glaucoma Status: Chronic (7) H/O reduction of open fracture Status: Chronic (8) History of colorectal cancer Status: Chronic (9) History of hip fracture Status: Chronic (10) HTN (hypertension) Status: Chronic (11) Hypothyroidism Status: Chronic (12) Osteoporosis Status: Chronic (13) PMR (polymyalgia rheumatica) Status: Chronic (14) S/p bare metal coronary artery stent Status: Chronic Surgical Problems: (1) History of cataract surgery Status: Chronic (2) S/P cholecystectomy Status: Chronic (3) S/P partial mastectomy Status: Chronic (4) S/p removal of bowel lesion Status: Chronic (5) S/P total knee arthroplasty Status: Chronic Family History Heart disease FATHER MOTHER SISTER Pancreatic cancer SISTER Social History Smoking Status: Never Smoker Smokeless Tobacco Use: No Alcohol Use: none Drug Use: none Marital Status: single Housing Status: lives alone Occupation Status: retired Allergies Coded Allergies: Cyclobenzaprine (Verified Adverse Reaction, Unknown, DRY MOUTH, 11/25/17) NSAIDs (Verified Adverse Reaction, Unknown, DYSPEPSIA, 11/25/17) PER RECORDS Statins (Verified Adverse Reaction, Unknown, MYALGIAS, NAUSEA, 11/25/17) PER RECORDS Home Medications Reported Home Medications Medications Dose Route/Sig Max Daily Dose Days Date Category Dose Instructions Gabapentin 100 Mg Cap 100 Mg PO HS 11/26/17 Reported Ditropan Xl (Oxybutynin Chloride) 10 Mg Tab 1 Tab PO DAILY 30 11/26/17 Reported Percocet 5MG/325MG (Oxycodone/Acetaminophen) Tab 1-2 Tablets PO Q4-6H PRN 10/28/17 Rx Zofran (Ondansetron HCl) 8 Mg Tab 8 Mg PO PRN PRN 10/10/17 Reported Aspirin Ec (Aspirin) 81 Mg Tab 81 Mg PO QAM 10/10/17 Reported PT WILL CHECK WITH SURGEON Ferrous Gluconate 324 Mg Tab 324 Mg PO QAM 08/10/17 Reported Protonix (Pantoprazole Sodium) 40 Mg Tab 40 Mg PO QAM 08/10/17 Reported Isosorbide Mononitrate ER (Isosorbide Mononitrate) 30 Mg Tabcr 30 Mg PO QAM 04/21/17 Reported Ocuvite Preservision (Multivitamins/Minerals) 1 Tab Tab 1 Tab PO BID 03/01/17 Reported Benefiber (Wheat Dextrin) 1 Tab Tab 1 Tab PO QAM PRN 03/01/17 Reported Co Q10 (Coenzyme Q10) 50 Mg Cap 1 Cap PO QAM 03/01/17 Reported Nitrostat (Nitroglycerin) 0.4 Mg Tab 0.4 Mg UT PRN 03/01/17 Reported Lexapro (Escitalopram Oxalate) 10 Mg Tab 20 Mg PO QAM 03/01/17 Reported Crestor (Rosuvastatin Calcium) 40 Mg Tab 40 Mg PO QAM 03/01/17 Reported Plavix (Clopidogrel Bisulfate) 75 Mg Tab 75 Mg PO QAM 03/01/17 Reported STOPPED OCT 21, 2017. PT REPORTS PT IS TO STOP ALL TOGETHER Prednisone 5 Mg Tab 5 Mg PO QAM 03/01/17 Reported Cymbalta (Duloxetine HCl) 20 Mg Cap 1 Cap PO QAM 30 03/01/17 Reported Lopressor (Metoprolol Tartrate) 25 Mg Tab 25 Mg PO BID 03/01/17 Reported Colchicine 0.6 Mg Tab 0.6 Mg PO HS 03/01/17 Reported Caltrate 600+D (Calcium Carbonate-Cholecalcife) 1 Tab Tab 1 Tab PO QAM 09/24/14 Reported Levothyroxine Sodium 100 Mcg Tab 100 Mcg PO UD 09/24/14 Reported Take 1 tablet (100 mcg) by mouth daily except Sundays. Take 1/2 tablet (50 mcg) on Tuesday. Losartan Potassium 50 Mg Tab 50 Mg PO QAM 09/24/14 Reported Current Inpatient Medications Current Inpatient Medications Medications (Trade) Dose Ordered Sig/Joanie Route Start Time Stop Time Status Last Admin Dose Admin Sodium Chloride 1,000 ml @ 100 mls/hr Q10H IV 11/25/17 10:26 11/26/17 10:25 11/25/17 23:19 100 MLS/HR Celecoxib (CeleBREX CAP) 200 mg BID PO 11/25/17 21:00 12/25/17 20:59 11/25/17 21:49 200 MG Oxycodone HCl (Roxicodone Immediate Rel Tab) 1 TABLET FOR PAIN RATING... Q4H PRN PO 11/25/17 10:30 12/09/17 10:29 Morphine Sulfate (MoRPHine SULFATE INJ) 2 mg Q4H PRN IV 11/25/17 10:30 12/09/17 10:29 Acetaminophen (Tylenol Tab) 1,000 mg Q8H PO 11/25/17 14:00 12/25/17 13:59 11/26/17 06:11 1,000 MG Magnesium Hydroxide (Milk Of Magnesia Susp) 30 ml Q6H PRN PO 11/25/17 10:30 12/25/17 10:29 Bisacodyl (Dulcolax Supp) 10 mg DAILY PRN MO 11/25/17 10:30 12/25/17 10:29 Sodium Biphosphate/ Sodium Phosphate (Fleet Enema) 132 ml DAILY PRN MO 11/25/17 10:30 12/25/17 10:29 Senna (Senokot Tab) 17.2 mg HS PO 11/25/17 21:00 12/25/17 20:59 11/25/17 21:51 17.2 MG Docusate Sodium (coLACE CAP) 100 mg BID PO 11/25/17 21:00 12/25/17 20:59 11/25/17 21:49 100 MG Diphenhydramine HCl (Benadryl Cap) 25 mg Q8H PRN PO 11/25/17 10:30 12/25/17 10:29 Al Hydrox/Mg Hydrox/Simethicone (Maalox Max Susp) 15 ml Q4H PRN PO 11/25/17 10:30 12/25/17 10:29 Zolpidem Tartrate (Ambien Tab) 5 mg HSZ PRN PO 11/25/17 10:30 12/25/17 10:29 Ondansetron HCl (Zofran Inj) 4 mg Q6H PRN IV 11/25/17 10:30 12/25/17 10:29 11/25/17 23:16 4 MG Ferrous Gluconate (Ferrous Gluconate Tab) 324 mg TIDM PO 11/25/17 17:45 12/25/17 17:44 Aspirin (Ecotrin Tab) 81 mg BID PO 11/25/17 21:00 12/25/17 20:59 11/25/17 21:50 81 MG Colchicine (Colchicine Tab) 0.6 mg HS PO 11/25/17 21:00 12/25/17 20:59 11/25/17 21:50 0.6 MG Duloxetine HCl (Cymbalta Cap) 20 mg QAM PO 11/25/17 14:00 12/25/17 13:59 Escitalopram Oxalate (Lexapro Tab) 20 mg QAM PO 11/25/17 14:00 12/25/17 13:59 Isosorbide Mononitrate (Imdur Ext Rel Tab) 30 mg QAM PO 11/26/17 09:00 12/26/17 08:59 Levothyroxine Sodium (Synthroid Tab) 100 mcg MoTuWeThFrSa@0630 PO 11/26/17 06:30 12/26/17 06:29 11/26/17 06:10 100 MCG Losartan Potassium (coZAAR TAB) 50 mg QAM PO 11/26/17 09:00 12/26/17 08:59 Metoprolol Tartrate (Lopressor Tab) 25 mg BID PO 11/25/17 21:00 12/25/17 20:59 11/25/17 21:50 25 MG Nitroglycerin (Nitrostat Tab) 0.4 mg UD PRN UT 11/25/17 10:30 12/25/17 10:29 Multivitamins/ Minerals (Multivitamin W/ Minerals Tab) 1 tab BID PO 11/25/17 21:00 12/25/17 20:59 11/25/17 21:51 1 TAB Ondansetron HCl (Zofran Tab) 8 mg ONE PRN PO 11/25/17 10:30 12/25/17 10:29 Pantoprazole Sodium (Protonix Tab) 40 mg QAM PO 11/26/17 09:00 12/26/17 08:59 Prednisone (PredniSONE TAB) 5 mg QAM PO 11/26/17 09:00 12/26/17 08:59 Rosuvastatin Calcium (Crestor Tab) 40 mg QAM PO 11/26/17 09:00 12/26/17 08:59 Calcium/Vitamin D (Caltrate Plus Tab) 1 tab QAM PO 11/26/17 09:00 12/26/17 08:59 Calcium Polycarbophil (Fibercon Tab) 1 tab DAILY PRN PO 11/25/17 10:30 12/25/17 10:29 Levothyroxine Sodium (Synthroid Tab) 50 mcg Q7D@0630 PO 11/27/17 06:30 12/27/17 06:29 Miscellaneous Information (Consult) 1 ea UD PRN N/A 11/25/17 17:00 12/25/17 16:59 Promethazine HCl 25 mg/Sodium Chloride 51 ml @ 204 mls/hr Q6H PRN IV 11/26/17 00:30 12/26/17 00:29 Review of Systems At least 10 systems were reviewed and negative except as indicated in HPI. Physical Exam Date Time Temp Pulse Resp B/P (MAP) Pulse Ox O2 Delivery O2 Flow Rate FiO2 11/26/17 07:22 36.8 75 16 133/63 (86) 99 Room Air 11/26/17 06:00 119/63 (81) 11/26/17 03:52 37.3 81 16 100/55 (70) 100 Oxymask 4.0 11/26/17 00:00 150/71 (97) 11/25/17 23:15 100 Oxymask 4.0 11/25/17 23:15 167/68 (101) 11/25/17 23:04 37.0 75 14 186/76 (112) 100 Oxymask 4.0 11/25/17 22:22 36.9 88 16 148/79 (102) 100 Nasal Cannula 4.0 11/25/17 20:14 36.8 80 16 150/73 (98) 100 Nasal Cannula 4.0 11/25/17 18:50 36.8 79 16 127/68 (87) 100 Nasal Cannula 4.0 11/25/17 18:02 36.6 88 18 155/81 (105) 100 Oxymask 2.0 11/25/17 17:09 36.9 83 16 112/58 (76) 100 Nasal Cannula 4.0 11/25/17 16:09 36.4 87 18 112/56 (74) 100 Oxymask 4.0 11/25/17 15:20 36.5 91 16 136/60 (85) 100 Oxymask 4.0 11/25/17 15:20 100 Oxymask 4.0 11/25/17 14:45 88 12 108/54 (72) 100 Oxymask 4.0 11/25/17 14:17 36.8 91 12 116/63 (80) 100 Oxymask 4.0 11/25/17 14:09 98 Nasal Cannula 4.0 11/25/17 13:45 92 12 103/62 (76) 100 Oxymask 4.0 11/25/17 13:45 Oxymask 11/25/17 13:15 36.6 104 12 150/64 (92) 98 Oxymask 4.0 11/25/17 13:02 95 15 99 11/25/17 13:02 95 15 11/25/17 13:00 135/56 11/25/17 12:57 98 13 11/25/17 12:57 98 13 99 11/25/17 12:55 123/76 11/25/17 12:52 92 14 11/25/17 12:52 92 14 99 11/25/17 12:51 93 14 11/25/17 12:51 93 14 99 11/25/17 12:50 127/78 11/25/17 12:46 91 18 99 11/25/17 12:46 91 18 11/25/17 12:45 116/54 11/25/17 12:41 91 24 11/25/17 12:41 90 24 99 11/25/17 12:40 119/51 11/25/17 12:36 95 24 11/25/17 12:36 95 24 96 11/25/17 12:35 132/50 11/25/17 12:31 89 18 94 3/9/18 12:31 90 18 3/9/18 12:30 104/52 3/9/18 12:30 37.2 3/9/18 12:26 90 23 97 3/9/18 12:26 91 23 3/9/18 12:25 113/51 3/9/18 12:24 91 27 96 3/9/18 12:24 92 27 3/9/18 12:20 113/47 3/9/18 12:19 91 25 95 3/9/18 12:19 91 25 3/9/18 12:18 91 27 3/9/18 12:18 91 27 95 3/9/18 12:15 125/49 3/9/18 12:13 97 16 3/9/18 12:13 96 16 98 3/9/18 12:10 119/45 3/9/18 12:08 92 25 96 3/9/18 12:08 92 25 3/9/18 12:05 129/49 3/9/18 12:03 95 16 3/9/18 12:03 94 16 98 3/9/18 12:00 117/49 3/9/18 11:58 91 25 3/9/18 11:58 91 25 93 3/9/18 11:57 92 25 3/9/18 11:57 91 25 94 3/9/18 11:55 117/48 3/9/18 11:52 93 24 92 3/9/18 11:52 93 24 3/9/18 11:50 111/46 3/9/18 11:47 96 17 97 3/9/18 11:47 96 17 3/9/18 11:46 95 26 3/9/18 11:46 95 26 92 3/9/18 11:45 122/51 3/9/18 11:41 93 24 3/9/18 11:41 94 24 94 3/9/18 11:40 122/48 3/9/18 11:36 95 18 97 3/9/18 11:36 95 18 3/9/18 11:35 134/51 3/9/18 11:33 99 14 3/9/18 11:33 100 14 97 3/9/18 11:30 120/50 3/9/18 11:28 94 20 95 3/9/18 11:28 93 20 3/9/18 11:25 120/52 18 11:23 97 16 18 11:23 97 16 96 18 11:22 96 24 18 11:22 96 24 94 18 11:20 138/56 18 11:17 94 20 18 11:17 94 20 93 11/25/17 11:15 133/52 11/25/17 11:12 94 23 94 11/25/17 11:12 94 23 11/25/17 11:11 96 29 11/25/17 11:11 96 29 96 11/25/17 11:10 139/55 11/25/17 11:06 97 23 11/25/17 11:06 97 23 98 11/25/17 11:05 126/49 11/25/17 11:01 100 25 11/25/17 11:01 99 25 99 11/25/17 11:00 136/53 11/25/17 10:57 104 17 11/25/17 10:57 104 17 98 11/25/17 10:55 124/47 11/25/17 10:52 93 17 99 11/25/17 10:52 94 17 11/25/17 10:51 92 14 11/25/17 10:51 92 14 99 11/25/17 10:50 117/50 11/25/17 10:46 93 16 116/39 98 11/25/17 10:46 92 16 11/25/17 10:41 86 16 100 11/25/17 10:41 86 16 11/25/17 10:40 88/49 11/25/17 10:39 85 12 100 11/25/17 10:39 85 12 11/25/17 10:35 103/37 11/25/17 10:34 85 16 100 11/25/17 10:34 85 16 11/25/17 10:30 93/38 11/25/17 10:29 84 11/25/17 10:29 37.2 84 16 102/37 100 Oxymask 10 11/25/17 10:29 84 102/37 98 General Appearance: WD/WN, no apparent distress Eyes: normal inspection, PERRL, sclerae normal ENT: hearing grossly normal Neck: trachea midline Respiratory/Chest: lungs clear, normal breath sounds, no respiratory distress, no accessory muscle use Cardiovascular: regular rate, rhythm, no edema, no gallop, no JVD, + systolic murmur Extremities/Musculoskelatal: + pertinent finding (NVI, postoperative dressing in place that is clean dry and intact on right leg) 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, no motor/sensory deficits, normal mood/affect, oriented x 3, + pertinent finding (Fatigued frequently sleeping) Skin: normal color Laboratory Results 11/26/17 06:42 11/26/17 06:42 Test 11/26/17 06:42 Red Blood Count 2.50 M/uL (4.2-5.4) Mean Corpuscular Volume 96.0 fL (80-100) Mean Corpuscular Hemoglobin 29.6 pg (25-34) Mean Corpuscular Hemoglobin Concent 30.8 g/dl (32-36) RDW Standard Deviation 50.9 fL (36.4-46.3) RDW Coefficient of Variation 14.5 % (11.5-14.5) Platelet Estimate NORMAL Prothrombin Time 10.0 SECONDS (9.0-12.0) Prothromb Time International Ratio 1.0 (0.9-1.1) Anion Gap 7.0 mmol/L (3-11) Est Creatinine Clear Calc Drug Dose 25.6 ml/min Estimated GFR () 44.5 Estimated GFR (Non- 38.4 BUN/Creatinine Ratio 26.5 (10-20) Calcium Level 8.3 mg/dl (8.5-10.1) Last 24 Hours Test 11/26/17 06:42 White Blood Count 13.02 K/uL Red Blood Count 2.50 M/uL Hemoglobin 7.4 g/dL Hematocrit 24.0 % Mean Corpuscular Volume 96.0 fL Mean Corpuscular Hemoglobin 29.6 pg Mean Corpuscular Hemoglobin Concent 30.8 g/dl RDW Standard Deviation 50.9 fL RDW Coefficient of Variation 14.5 % Platelet Count 185 K/uL Platelet Estimate NORMAL Prothrombin Time 10.0 SECONDS Prothromb Time International Ratio 1.0 Sodium Level 138 mmol/L Potassium Level 5.1 mmol/L Chloride Level 111 mmol/L Carbon Dioxide Level 20 mmol/L Anion Gap 7.0 mmol/L Blood Urea Nitrogen 34 mg/dl Creatinine 1.28 mg/dl Est Creatinine Clear Calc Drug Dose 25.6 ml/min Estimated GFR () 44.5 Estimated GFR (Non- 38.4 BUN/Creatinine Ratio 26.5 Random Glucose 112 mg/dl Calcium Level 8.3 mg/dl Assessment & Plan 82-year-old female with postoperative hypertension 1. Status post right knee surgery-patient recovering well tolerating p.o. IV fluids will be stopped in setting of aortic stenosis to avoid volume overload. Continue management per or so. Incentive spirometer encouraged. 2. Hypertension-resolved spontaneously postoperatively along with improvement in respiratory status. Continue home medications to include Lopressor and losartan. 3. Aortic stenosis 4. Coronary artery disease status post stent 2 years ago-stable, no chest pain. Continue medical management with aspirin. Plavix on hold. Noted intolerance of statins. 5. Postoperative anemia-asymptomatic preoperative H&H 9.9/31. H&H this morning is 7.4/24. Deferred to Ortho for blood transfusion. Will monitor patient closely today. Of note IV fluids overnight delusional component to anemia. These were stopped. 6. CKD stage III-at baseline 7. Leukocytosis likely secondary to chronic prednisone use and Decadron given perioperatively. DVT prophylaxis-aspirin 81 mg twice daily per Orth Full code Disposition-MedSurg per Kwaku Toledo DO [facility] hospitalist
[2017-11-26] MEDS: METOPROLOL TARTRATE 25 MG TAB PO SCH ×2 (08:26→20:39)
[2017-11-26] MEDS: LOSARTAN POTASSIUM 50 MG TAB PO SCH (08:26)
[2017-11-26] MEDS: CEROVITE ADV FORMULA TAB PO SCH ×2 (08:26→20:38)
[2017-11-26] MEDS: ESCITALOPRAM OXALATE 10 MG TAB PO SCH (08:27)
[2017-11-26] MEDS: DULOXETINE HCL 20 MG CAP PO SCH (08:27)
[2017-11-26] MEDS: ROSUVASTATIN CALCIUM 20 MG TAB PO SCH (08:27)
[2017-11-26] MEDS: DOCUSATE SODIUM 100 MG CAP PO SCH ×3 (08:27→20:38)
[2017-11-26] MEDS: PANTOprazole SOD 40 MG TAB PO SCH (08:27)
[2017-11-26] MEDS: CALCIUM 600MG + VIT D 400 IU TAB PO SCH (08:27)
[2017-11-26] MEDS: ASPIRIN 81 MG ECTAB PO SCH ×2 (08:27→20:39)
[2017-11-26] MEDS: ISOSORBIDE MONONITRATE 30 MG TABCR PO SCH (08:27)
[2017-11-26] MEDS: FERROUS GLUCONATE 324 MG TAB PO SCH ×3 (08:28→17:45)
[2017-11-26] MEDS: CeleBREX 200 MG CAP PO SCH ×2 (08:28→20:39)
[2017-11-26] MEDS ORDERED: FUROSEMIDE INJ 20 MG in SYRINGE 0 ML IV SCH (08:45)
[2017-11-26] MEDS ORDERED: DiphenhydrAMINE HCL 50 MG/ML VIAL IV SCH (08:45)
[2017-11-26] MEDS ORDERED: ACETAMINOPHEN 325 MG TAB PO SCH (08:45)
[2017-11-26] MEDS ORDERED: NON-FORMULARY MEDICATION (Coenzyme Q10 (Ubidecarenone) (Co Q10) 1 CAP) PO SCH (09:00)
[2017-11-26] MEDS ORDERED: FERROUS GLUCONATE 324 MG TAB PO SCH (09:00)
[2017-11-26] MEDS ORDERED: MULTIVITAMIN TAB PO SCH (09:00)
[2017-11-26] MEDS: ONDANSETRON INJ 2 MG/ML 2 ML VIAL IV PRN ×2 (10:02→11:28)
--- NOTE | 2017-11-26 11:01 | Progress Note ---
Internal Med Progress Note Date of Service: Nov 26, 2017. Provider Documentation: SUBJECTIVE: Patient followed up care by medicine hospitalist service. Patient had PRBC transfusion running. Patient having nausea. Denies acute pain or shortness of breath OBJECTIVE: General Appearance: WD/WN, no apparent distress Eyes: normal inspection, sclerae normal ENT: hearing grossly normal Neck: trachea midline Respiratory/Chest: lungs clear, normal breath sounds, no respiratory distress, no accessory muscle use Cardiovascular: regular rate, rhythm, no edema, no gallop, no JVD, + systolic murmur Extremities/Musculoskelatal: postoperative dressing in place that is clean dry and intact on right leg Neurologic/Psych: normal mood/affect, oriented x 3 Skin: normal color ASSESSMENT & PLAN: 82-year-old female status post right knee surgery with initial hospitalist medicine consult for postoperative hypertension with blood pressure now controlled and also now receiving PRBC for postoperative anemia. Will need followup CBC Patient also on antiemetics for nausea. Nausea may be from narcotic pain medications. Continue to provide supportive care and observe Other health issues of aortic stenosis, CAD with stent, CKD stage III, leukocytosis likely secondary to chronic prednisone use and Decadron given perioperatively. DVT prophylaxis-aspirin 81 mg twice daily per Orth Full code Vital Signs: Date Time Temp Pulse Resp B/P (MAP) Pulse Ox O2 Delivery O2 Flow Rate FiO2 11/26/17 10:53 37.6 86 20 123/64 11/26/17 10:20 36.7 65 16 135/70 97 11/26/17 09:50 37.3 71 18 135/54 11/26/17 09:36 36.9 78 18 114/56 97 11/26/17 09:13 37.3 81 18 144/56 97 11/26/17 08:14 99 Room Air 11/26/17 07:22 36.8 75 16 133/63 (86) 99 Room Air 11/26/17 06:00 119/63 (81) 11/26/17 03:52 37.3 81 16 100/55 (70) 100 Oxymask 4.0 11/26/17 00:00 150/71 (97) 11/25/17 23:15 100 Oxymask 4.0 11/25/17 23:15 167/68 (101) 11/25/17 23:04 37.0 75 14 186/76 (112) 100 Oxymask 4.0 11/25/17 22:22 36.9 88 16 148/79 (102) 100 Nasal Cannula 4.0 11/25/17 20:14 36.8 80 16 150/73 (98) 100 Nasal Cannula 4.0 11/25/17 18:50 36.8 79 16 127/68 (87) 100 Nasal Cannula 4.0 11/25/17 18:02 36.6 88 18 155/81 (105) 100 Oxymask 2.0 11/25/17 17:09 36.9 83 16 112/58 (76) 100 Nasal Cannula 4.0 11/25/17 16:09 36.4 87 18 112/56 (74) 100 Oxymask 4.0 11/25/17 15:20 36.5 91 16 136/60 (85) 100 Oxymask 4.0 11/25/17 15:20 100 Oxymask 4.0 11/25/17 14:45 88 12 108/54 (72) 100 Oxymask 4.0 11/25/17 14:17 36.8 91 12 116/63 (80) 100 Oxymask 4.0 11/25/17 14:09 98 Nasal Cannula 4.0 11/25/17 13:45 92 12 103/62 (76) 100 Oxymask 4.0 11/25/17 13:45 Oxymask 11/25/17 13:15 36.6 104 12 150/64 (92) 98 Oxymask 4.0 11/25/17 13:02 95 15 99 11/25/17 13:02 95 15 11/25/17 13:00 135/56 11/25/17 12:57 98 13 11/25/17 12:57 98 13 99 11/25/17 12:55 123/76 11/25/17 12:52 92 14 11/25/17 12:52 92 14 99 11/25/17 12:51 93 14 11/25/17 12:51 93 14 99 11/25/17 12:50 127/78 11/25/17 12:46 91 18 99 11/25/17 12:46 91 18 11/25/17 12:45 116/54 11/25/17 12:41 91 24 11/25/17 12:41 90 24 99 3/9/18 12:40 119/51 3/9/18 12:36 95 24 3/9/18 12:36 95 24 96 3/9/18 12:35 132/50 3/9/18 12:31 89 18 94 3/9/18 12:31 90 18 3/9/18 12:30 104/52 3/9/18 12:30 37.2 3/9/18 12:26 90 23 97 3/9/18 12:26 91 23 3/9/18 12:25 113/51 3/9/18 12:24 91 27 96 3/9/18 12:24 92 27 3/9/18 12:20 113/47 3/9/18 12:19 91 25 95 3/9/18 12:19 91 25 3/9/18 12:18 91 27 3/9/18 12:18 91 27 95 3/9/18 12:15 125/49 3/9/18 12:13 97 16 3/9/18 12:13 96 16 98 3/9/18 12:10 119/45 3/9/18 12:08 92 25 96 3/9/18 12:08 92 25 3/9/18 12:05 129/49 3/9/18 12:03 95 16 3/9/18 12:03 94 16 98 3/9/18 12:00 117/49 3/9/18 11:58 91 25 3/9/18 11:58 91 25 93 3/9/18 11:57 92 25 3/9/18 11:57 91 25 94 3/9/18 11:55 117/48 3/9/18 11:52 93 24 92 3/9/18 11:52 93 24 3/9/18 11:50 111/46 3/9/18 11:47 96 17 97 3/9/18 11:47 96 17 3/9/18 11:46 95 26 3/9/18 11:46 95 26 92 3/9/18 11:45 122/51 3/9/18 11:41 93 24 3/9/18 11:41 94 24 94 3/9/18 11:40 122/48 3/9/18 11:36 95 18 97 3/9/18 11:36 95 18 3/9/18 11:35 134/51 3/9/18 11:33 99 14 11/25/17 11:33 100 14 97 11/25/17 11:30 120/50 11/25/17 11:28 94 20 95 11/25/17 11:28 93 20 11/25/17 11:25 120/52 11/25/17 11:23 97 16 11/25/17 11:23 97 16 96 11/25/17 11:22 96 24 11/25/17 11:22 96 24 94 11/25/17 11:20 138/56 11/25/17 11:17 94 20 11/25/17 11:17 94 20 93 11/25/17 11:15 133/52 11/25/17 11:12 94 23 94 11/25/17 11:12 94 23 11/25/17 11:11 96 29 11/25/17 11:11 96 29 96 11/25/17 11:10 139/55 11/25/17 11:06 97 23 11/25/17 11:06 97 23 98 11/25/17 11:05 126/49 Lab Results: Results Past 24 Hours Test 11/26/17 06:42 Range/Units White Blood Count 13.02 4.8-10.8 K/uL Red Blood Count 2.50 4.2-5.4 M/uL Hemoglobin 7.4 12.0-16.0 g/dL Hematocrit 24.0 37-47 % Mean Corpuscular Volume 96.0 80-100 fL Mean Corpuscular Hemoglobin 29.6 25-34 pg Mean Corpuscular Hemoglobin Concent 30.8 32-36 g/dl RDW Standard Deviation 50.9 36.4-46.3 fL RDW Coefficient of Variation 14.5 11.5-14.5 % Platelet Count 185 130-400 K/uL Platelet Estimate NORMAL Prothrombin Time 10.0 9.0-12.0 SECONDS Prothromb Time International Ratio 1.0 0.9-1.1 Sodium Level 138 136-145 mmol/L Potassium Level 5.1 3.5-5.1 mmol/L Chloride Level 111 98-107 mmol/L Carbon Dioxide Level 20 21-32 mmol/L Anion Gap 7.0 3-11 mmol/L Blood Urea Nitrogen 34 7-18 mg/dl Creatinine 1.28 0.60-1.20 mg/dl Est Creatinine Clear Calc Drug Dose 25.6 ml/min Estimated GFR () 44.5 Estimated GFR (Non- 38.4 BUN/Creatinine Ratio 26.5 10-20 Random Glucose 112 70-99 mg/dl Calcium Level 8.3 8.5-10.1 mg/dl
--- NOTE | 2017-11-26 12:00 | Orthopedic Progress Note ---
Orthopedic Progress Note Date of Service Nov 26, 2017. Subjective Post OP Day: 1 Reports: nausea / vomiting, Denies: chest pain, SOB, light headedness, calf pain Objective calves soft nontender, N/V intact, capillary refill less than 2 sec., dressing C /D/I, A&O x3, toes mobile, hemovac drainage Date Time Temp Pulse Resp B/P (MAP) Pulse Ox O2 Delivery O2 Flow Rate FiO2 11/26/17 10:53 37.6 86 20 123/64 11/26/17 10:20 36.7 65 16 135/70 97 11/26/17 09:50 37.3 71 18 135/54 11/26/17 09:36 36.9 78 18 114/56 97 11/26/17 09:13 37.3 81 18 144/56 97 11/26/17 08:14 99 Room Air 11/26/17 07:22 36.8 75 16 133/63 (86) 99 Room Air 11/26/17 06:00 119/63 (81) 11/26/17 03:52 37.3 81 16 100/55 (70) 100 Oxymask 4.0 11/26/17 00:00 150/71 (97) 11/25/17 23:15 100 Oxymask 4.0 11/25/17 23:15 167/68 (101) 11/25/17 23:04 37.0 75 14 186/76 (112) 100 Oxymask 4.0 11/25/17 22:22 36.9 88 16 148/79 (102) 100 Nasal Cannula 4.0 11/25/17 20:14 36.8 80 16 150/73 (98) 100 Nasal Cannula 4.0 11/25/17 18:50 36.8 79 16 127/68 (87) 100 Nasal Cannula 4.0 11/25/17 18:02 36.6 88 18 155/81 (105) 100 Oxymask 2.0 11/25/17 17:09 36.9 83 16 112/58 (76) 100 Nasal Cannula 4.0 11/25/17 16:09 36.4 87 18 112/56 (74) 100 Oxymask 4.0 11/25/17 15:20 36.5 91 16 136/60 (85) 100 Oxymask 4.0 11/25/17 15:20 100 Oxymask 4.0 11/25/17 14:45 88 12 108/54 (72) 100 Oxymask 4.0 11/25/17 14:17 36.8 91 12 116/63 (80) 100 Oxymask 4.0 11/25/17 14:09 98 Nasal Cannula 4.0 11/25/17 13:45 92 12 103/62 (76) 100 Oxymask 4.0 11/25/17 13:45 Oxymask 11/25/17 13:15 36.6 104 12 150/64 (92) 98 Oxymask 4.0 11/25/17 13:02 95 15 99 11/25/17 13:02 95 15 11/25/17 13:00 135/56 11/25/17 12:57 98 13 11/25/17 12:57 98 13 99 11/25/17 12:55 123/76 11/25/17 12:52 92 14 11/25/17 12:52 92 14 99 11/25/17 12:51 93 14 11/25/17 12:51 93 14 99 11/25/17 12:50 127/78 11/25/17 12:46 91 18 99 11/25/17 12:46 91 18 11/25/17 12:45 116/54 11/25/17 12:41 91 24 11/25/17 12:41 90 24 99 11/25/17 12:40 119/51 11/25/17 12:36 95 24 11/25/17 12:36 95 24 96 11/25/17 12:35 132/50 11/25/17 12:31 89 18 94 11/25/17 12:31 90 18 11/25/17 12:30 104/52 11/25/17 12:30 37.2 11/25/17 12:26 90 23 97 11/25/17 12:26 91 23 11/25/17 12:25 113/51 11/25/17 12:24 91 27 96 11/25/17 12:24 92 27 11/25/17 12:20 113/47 11/25/17 12:19 91 25 95 11/25/17 12:19 91 25 11/25/17 12:18 91 27 11/25/17 12:18 91 27 95 11/25/17 12:15 125/49 11/25/17 12:13 97 16 11/25/17 12:13 96 16 98 11/25/17 12:10 119/45 11/25/17 12:08 92 25 96 11/25/17 12:08 92 25 11/25/17 12:05 129/49 11/25/17 12:03 95 16 11/25/17 12:03 94 16 98 11/25/17 12:00 117/49 11/25/17 11:58 91 25 11/25/17 11:58 91 25 93 11/25/17 11:57 92 25 11/25/17 11:57 91 25 94 Laboratory Results 24 Hours: Test 11/26/17 06:42 Hematocrit 24.0 % Hemoglobin 7.4 g/dL Prothromb Time International Ratio 1.0 Prothrombin Time 10.0 SECONDS Assessment & Plan Assessment: s/p right TKA Revision Plan: Bactrim for [address] Calderon 2 units PRBC today due to H/H 7.4, pain controlled DVT prophylaxis: ASA, SCDs, TEDs Plan for [facility] on discharge Inhouse Planning Pain Management: PO Tylenol, Oxy IR DVT Prophylaxis: TEDs, SCDs, ASA Discharge Planning Discharge Planning: half-way facility Therapy: Physical Therapy
[2017-11-26] MEDS: SENNA 8.6 MG TAB PO SCH (20:38)
[2017-11-26] MEDS: SULFAMETHOXAZOLE/TRIMETHOPRIM DS 800/160MG TAB PO SCH (20:38)
[2017-11-26] MEDS: GABAPENTIN 100 MG CAP PO SCH (20:38)
[2017-11-26] MEDS: COLCHICINE 0.6 MG TAB PO SCH (20:39)
[2017-11-27] MEDS: ACETAMINOPHEN 500 MG TAB PO SCH ×3 (05:58→21:35)
[2017-11-27 06:08] VITALS: BP 112/67; PULSE 67; TEMP 37.6; O2SAT 96
[2017-11-27 06:10] LABS: CREATININE 1.18 mg/dl (0.60-1.20)
[2017-11-27] MEDS ORDERED: LEVOTHYROXINE 50 MCG TAB PO SCH (06:30)
[2017-11-27 06:40] VITALS: TEMP 37.4
[2017-11-27 06:48] LABS: HEMATOCRIT 31.3 % (37-47); HEMOGLOBIN 10.5 g/dL (12.0-16.0); MEAN CELL VOLUME 91.3 fL (80-100); MEAN CORPUSCULAR HEMOGLOBIN 30.6 pg (25-34); MEAN CORPUSCULAR HGB CONC 33.5 g/dl (32-36); MEAN PLATELET VOLUME 9.9 fL (7.4-10.4); PLATELET COUNT 185 K/uL (130-400); RED CELL DISTRIBUTION WIDTH CV 15.4 % (11.5-14.5); RED CELL DISTRIBUTION WIDTH SD 51.4 fL (36.4-46.3); WHITE BLOOD COUNT 10.02 K/uL (4.8-10.8)
--- NOTE | 2017-11-27 08:31 | Progress Note ---
Progress Note Date of Service Nov 27, 2017. Progress Note ID Consult Dictated #[id number] A/P: 1. Knee Revision 2. Leukocytosis - resolved, likely reactive -No clinical signs ongoing infection, no OR cultures -H/o infected joint, s/p IV abx, pt declining IV abx post d/c -Would avoid bactrim in elderly pt with elevated creat, alternative would be augmentin, but infection less likely -thank you
[2017-11-27] MEDS: DULOXETINE HCL 20 MG CAP PO SCH (08:49)
[2017-11-27] MEDS: CeleBREX 200 MG CAP PO SCH ×2 (08:49→20:32)
[2017-11-27] MEDS: FERROUS GLUCONATE 324 MG TAB PO SCH ×3 (08:49→17:53)
[2017-11-27] MEDS: SULFAMETHOXAZOLE/TRIMETHOPRIM DS 800/160MG TAB PO SCH ×2 (08:49→20:32)
[2017-11-27] MEDS: CALCIUM 600MG + VIT D 400 IU TAB PO SCH (08:49)
[2017-11-27] MEDS: ASPIRIN 81 MG ECTAB PO SCH ×2 (08:49→20:32)
[2017-11-27] MEDS: DOCUSATE SODIUM 100 MG CAP PO SCH ×2 (08:50→20:32)
[2017-11-27] MEDS: ESCITALOPRAM OXALATE 10 MG TAB PO SCH (08:50)
[2017-11-27] MEDS: LOSARTAN POTASSIUM 50 MG TAB PO SCH (08:50)
[2017-11-27] MEDS: ISOSORBIDE MONONITRATE 30 MG TABCR PO SCH (08:50)
[2017-11-27] MEDS: CEROVITE ADV FORMULA TAB PO SCH ×2 (08:51→20:32)
[2017-11-27] MEDS: ROSUVASTATIN CALCIUM 20 MG TAB PO SCH (08:51)
[2017-11-27] MEDS: METOPROLOL TARTRATE 25 MG TAB PO SCH ×2 (08:51→20:32)
[2017-11-27] MEDS: PANTOprazole SOD 40 MG TAB PO SCH (08:51)
--- NOTE | 2017-11-27 09:10 | INFECT. DISEASE CONSULTATION ---
DATE OF CONSULTATION: 11/27/2017 HISTORY OF PRESENT ILLNESS: This is an 82-year-old female who was admitted to the hospital with right knee pain. She does have a history of a knee infection from July of this year. At that time, cultures grew Enterobacter and Enterococcus faecalis. She was placed on a course of vancomycin and Rocephin. She states that she did require admission to a custodial facility as she was not approved for home antibiotics. She has been off antibiotics for some time. She was scheduled to undergo right knee revision, actually this happened on the . She does not have a VAC in place. No intraoperative cultures were obtained. She denies any fevers or chills. She denies any pain. She states she does not wish to be on any additional IV antibiotics as she would like to go home. She denies any chest pain, cough, shortness of breath, nausea, vomiting or diarrhea. Her remaining review of systems is unremarkable. She is currently on Bactrim and did receive a 1 time dose of vancomycin. PAST MEDICAL HISTORY: Significant for anxiety, aortic stenosis, coronary artery disease, depression, high cholesterol, glaucoma, hip surgery, colorectal cancer, hypertension, hypothyroidism, osteoporosis, degenerative joint disease, coronary artery stenting, cataract surgery, cholecystectomy, partial mastectomy and right knee replacement complicated by infection cement placer and now revision. SOCIAL HISTORY: Negative for alcohol use, tobacco use or drug use. FAMILY HISTORY: Noncontributory. ALLERGIES: SHE HAS KNOWN ANTIBIOTIC ALLERGIES. CURRENT MEDICATIONS: Include Synthroid, Neurontin, Bactrim, Imdur, Cozaar, Protonix, Crestor, calcium, Synthroid, Celebrex, Senokot, Colace, Ecotrin, colchicine, Lopressor, multivitamins, iron, Tylenol, Cymbalta, Lexapro, Roxicodone, morphine, milk of magnesia, Dulcolax, Fleet enemas, Benadryl, Maalox, Ambien, and Zofran. OBJECTIVE: VITAL SIGNS: She is afebrile with the exception of a mild low grade temperature this morning of 37.6 for which she states she was asymptomatic, pulse 67, respiratory rate 14, blood pressure 112/67, oxygen saturation is 96-97% on room air. GENERAL: She is sitting up in bed. She is in no acute distress. She is awake, alert and oriented x3. HEENT: Mucous membranes are moist. Extraocular muscles are intact. HEART: Regular. LUNGS: Clear. ABDOMEN: Soft and nondistended. EXTREMITIES: There is no lower extremity edema. Right knee does have edema. VAC is in place. LABORATORY STUDIES: CBC today reveals a white blood cell count of 10, hemoglobin 10.5, platelets are 185. Chemistry panel on the reveals a sodium of 138, potassium 5.1, chloride 111, bicarbonate 20, BUN 34, creatinine 1.2 and improved to 1.1 this morning, glucose was 112. A vancomycin level yesterday was 12. There is no imaging to review. Again, all micro from July grew Enterococcus and Enterobacter. ASSESSMENT AND PLAN: History of a postoperative knee infection status post revision surgery. She does not wish to continue on intravenous antibiotics at this time. There is no report of concern for ongoing infection. I would be concerned with ongoing Bactrim therapy in an 82-year-old female with some underlying creatinine elevation, this has improved somewhat this morning. Alternative agent would include Augmentin if there is concern for ongoing infection. Thank you for this consultation.
--- NOTE | 2017-11-27 10:51 | Progress Note ---
Internal Med Progress Note Date of Service: Nov 27, 2017. Provider Documentation: Hospitalist follow up consult note SUBJECTIVE: Patient s/p 2 units of PRBC yesterday with CBC when Hgb was 7.4 and today is 10.5. Patient denies shortness of breath or lightheadedness. Patient reports from nausea yesterday has resolved. Patient reports that right knee swelling is the same as yesterday. OBJECTIVE: General Appearance: WD/WN, no apparent distress Eyes: normal inspection, sclerae normal ENT: hearing grossly normal Neck: trachea midline Respiratory/Chest: lungs clear, normal breath sounds, no respiratory distress, no accessory muscle use Cardiovascular: regular rate, rhythm, no edema, no gallop, no JVD, + systolic murmur Extremities/Musculoskelatal: right knee still swollen, wound vac Neurologic/Psych: normal mood/affect, oriented x 3 Skin: normal color ASSESSMENT & PLAN: 82-year-old female status post right knee surgery with initial hospitalist medicine consult for postoperative hypertension with blood pressure now controlled and s/p 2 units PRBC for postoperative anemia. history of antibiotic spacer (had antibiotic therapy for about 8 weeks) and now s/p right revision total knee arthroplasty. Infectious disease evaluation on 11/27/17 "History of a postoperative knee infection status post revision surgery. She does not wish to continue on intravenous antibiotics at this time. There is no report of concern for ongoing infection. I would be concerned with ongoing Bactrim therapy in an 82-year-old female with some underlying creatinine elevation, this has improved somewhat this morning. Alternative agent would include Augmentin if there is concern for ongoing infection." Leukocytosis: likely secondary to chronic prednisone use and Decadron given perioperatively; WBC downtrending postoperative anemia. s/p 2 units of PRBC on 11/26/17 with CBC when Hgb was 7.4 and today is 10.5 Nausea resolved on antiemetics for nausea Hypertension-resolved spontaneously postoperatively along with improvement in respiratory status. Continue home medications to include Lopressor and losartan. CAD with stent Aortic stenosis ROSA on CKD stage III renal function improving DVT prophylaxis-aspirin 81 mg twice daily per Orth Full code Vital Signs: Date Time Temp Pulse Resp B/P (MAP) Pulse Ox O2 Delivery O2 Flow Rate FiO2 11/27/17 09:18 Room Air 11/27/17 06:40 37.4 11/27/17 06:08 37.6 67 14 112/67 (82) 96 Room Air 11/26/17 23:45 Room Air 11/26/17 22:53 37.1 64 20 118/80 (93) 96 Room Air 11/26/17 20:37 71 128/61 (83) 11/26/17 20:30 37.0 72 18 139/54 (82) 97 Room Air 11/26/17 17:08 37.2 69 18 129/52 (77) 96 Room Air 11/26/17 16:30 100 Room Air 11/26/17 16:12 37.0 75 18 123/56 100 11/26/17 15:12 37.1 66 18 118/57 97 11/26/17 14:10 99 11/26/17 14:09 36.6 63 18 133/52 11/26/17 14:01 83 97 11/26/17 13:38 37.1 69 18 124/63 11/26/17 13:21 37.2 81 18 120/54 98 11/26/17 13:06 37.1 72 18 131/61 96 11/26/17 12:48 37.2 62 18 135/68 11/26/17 12:09 37.3 68 16 120/70 96 Lab Results: Results Past 24 Hours Test 11/26/17 12:02 11/27/17 05:30 Range/Units Random Vancomycin Level 12.1 mcg/ml White Blood Count 10.02 4.8-10.8 K/uL Red Blood Count 3.43 4.2-5.4 M/uL Hemoglobin 10.5 12.0-16.0 g/dL Hematocrit 31.3 37-47 % Mean Corpuscular Volume 91.3 80-100 fL Mean Corpuscular Hemoglobin 30.6 25-34 pg Mean Corpuscular Hemoglobin Concent 33.5 32-36 g/dl RDW Standard Deviation 51.4 36.4-46.3 fL RDW Coefficient of Variation 15.4 11.5-14.5 % Platelet Count 185 130-400 K/uL Mean Platelet Volume 9.9 7.4-10.4 fL Platelet Estimate NORMAL Potassium Level 4.8 3.5-5.1 mmol/L Creatinine 1.18 0.60-1.20 mg/dl Est Creatinine Clear Calc Drug Dose 27.7 ml/min Estimated GFR () 49.0 Estimated GFR (Non- 42.3
--- NOTE | 2017-11-27 13:58 | Orthopedic Progress Note ---
Orthopedic Progress Note Date of Service Nov 27, 2017. Subjective Post OP Day: 2 Reports: feeling well, pain controlled w PO medications, Denies: chest pain, SOB , nausea / vomiting, light headedness, calf pain Objective calves soft nontender, N/V intact, capillary refill less than 2 sec., dressing C /D/I, A&O x3, toes mobile Date Time Temp Pulse Resp B/P (MAP) Pulse Ox O2 Delivery O2 Flow Rate FiO2 11/27/17 09:18 Room Air 11/27/17 06:40 37.4 11/27/17 06:08 37.6 67 14 112/67 (82) 96 Room Air 11/26/17 23:45 Room Air 11/26/17 22:53 37.1 64 20 118/80 (93) 96 Room Air 11/26/17 20:37 71 128/61 (83) 11/26/17 20:30 37.0 72 18 139/54 (82) 97 Room Air 11/26/17 17:08 37.2 69 18 129/52 (77) 96 Room Air 11/26/17 16:30 100 Room Air 11/26/17 16:12 37.0 75 18 123/56 100 11/26/17 15:12 37.1 66 18 118/57 97 11/26/17 14:10 99 11/26/17 14:09 36.6 63 18 133/52 11/26/17 14:01 83 97 Laboratory Results 24 Hours: Test 11/27/17 05:30 Hematocrit 31.3 % Hemoglobin 10.5 g/dL Assessment & Plan Assessment: s/p right TKA Revision Plan: Bactrim for [address] Calderon 2 units PRBC tuesday due to H/H 7.4/26, improved to 10.5/31.3 Nausea vomiting resolved, feels much better pain controlled DVT prophylaxis: ASA, SCDs, TEDs Plan for [facility] on discharge most likely tuesday Inhouse Planning Pain Management: PO Tylenol, Oxy IR DVT Prophylaxis: TEDs, SCDs, ASA Discharge Planning Discharge Planning: group home facility Therapy: Physical Therapy
[2017-11-27 15:04] VITALS: BP 91/49; PULSE 67; TEMP 37.1; O2SAT 95
[2017-11-27 16:15] VITALS: O2SAT 95
[2017-11-27 20:31] VITALS: BP 114/57; PULSE 68; O2SAT 98
[2017-11-27] MEDS: COLCHICINE 0.6 MG TAB PO SCH (20:32)
[2017-11-27] MEDS: SENNA 8.6 MG TAB PO SCH (20:32)
[2017-11-27] MEDS: GABAPENTIN 100 MG CAP PO SCH (20:33)
[2017-11-27 22:55] VITALS: BP 119/62; PULSE 66; TEMP 37.2; O2SAT 97
[2017-11-28] MEDS: ACETAMINOPHEN 500 MG TAB PO SCH ×2 (05:32→09:42)
[2017-11-28 06:08] LABS: CREATININE 1.33 mg/dl (0.60-1.20)
[2017-11-28 06:36] VITALS: BP 99/48; PULSE 68; TEMP 37.3; O2SAT 97
[2017-11-28] MEDS: LEVOTHYROXINE 100 MCG TAB PO SCH (06:39)
--- NOTE | 2017-11-28 07:09 | Orthopedic Progress Note ---
Orthopedic Progress Note Date of Service Nov 28, 2017. Subjective Post OP Day: 3 Reports: feeling well, pain controlled w PO medications, Denies: complaints, chest pain, SOB, nausea / vomiting, light headedness, calf pain Additional Notes: Patient states she is feeling very well today. She has no complaints. Objective calves soft nontender, N/V intact, capillary refill less than 2 sec., dressing C /D/I, A&O x3, toes mobile Date Time Temp Pulse Resp B/P (MAP) Pulse Ox O2 Delivery O2 Flow Rate FiO2 11/28/17 06:36 37.3 68 18 99/48 (65) 97 Room Air 11/27/17 23:45 Room Air 11/27/17 22:55 37.2 66 20 119/62 (81) 97 Room Air 11/27/17 20:31 68 114/57 (76) 98 Room Air 11/27/17 16:15 95 Room Air 11/27/17 15:04 37.1 67 16 91/49 (63) 95 Room Air 11/27/17 09:18 Room Air Assessment & Plan Assessment: POD#3 s/p right TKA Revision Plan: Bactrim for [address] Calderon 2 units PRBC tuesday due to H/H 7.4/26, improved to 10.5/31.3 pain controlled DVT prophylaxis: ASA, SCDs, TEDs Discharge to [facility] Inhouse Planning Pain Management: PO Tylenol, Oxy IR DVT Prophylaxis: TEDs, SCDs, ASA Discharge Planning Discharge Planning: [facility] facility Therapy: Physical Therapy
[2017-11-28] MEDS ORDERED: RXC5 PO (07:12)
[2017-11-28] MEDS ORDERED: ASPEC81 PO (07:12)
[2017-11-28] MEDS ORDERED: CLB200 PO ×2 (07:12→13:50)
[2017-11-28] MEDS ORDERED: SULF-302 PO (07:12)
--- NOTE | 2017-11-28 07:18 | Discharge Instructions ---
Discharge Instructions Date of Service Nov 28, 2017. Admission Reason for Admission: Right Knee Infection & Inflammatory Reaction D/T I Discharge Discharge Diagnosis / Problem: S/P Revision Right TKA Discharge Goals Goal(s): Decrease discomfort, Improve function Activity Recommendations Activity Level: Up Ad Tete Do not flex the knee beyond 90 degrees . Additional Information Patient informed of condition: Yes Advance Directives: Yes DNR: No Level of Care: Skilled Communicable Disease: No Prognosis: Stable Instructions / Follow-Up Instructions / Follow-Up ACTIVITY RECOMMENDATIONS: SELF CARE INSTRUCTIONS AFTER REVISION TOTAL KNEE REPLACEMENT A. You may need to continue a physical therapy program after discharge from the hospital. There are several options available to you. Your doctor will assist you in selecting the best one for you. 1. An out-patient facility 2 to 3 times a week for therapy or home therapy. 2. Continue working on all exercises taught to you in the hospital. Your goals should be to increase bending of your knee to 90 degrees and to fully straighten your knee. B. You may progress at your own pace from walking with a walker or crutches to a cane; then to no assistive devices. C. Make walking a part of your daily routine. Be up as much as comfortable with rest periods throughout the day. Rest with leg elevation is very important. Use the ice wrap frequently for the first 3-4 weeks. D. There are no restrictions on activities. You may ride in a car, shop, participate in plugger worker and all social activities. E. Wear the long elastic stockings (DALJIT hose) 20 hours a day for 2 weeks after surgery. They can be removed several times a day for laundering and for a bath. F. You may shower, no tub baths until cleared by your doctor. G. TAKE ANTIBIOTICS ORALLY FOR 30 DAYS. AFTER 30 DAYS YOU MAY DISCONTINUE THE MEDICATION. SPECIAL CARE INSTRUCTIONS: VERY IMPORTANT TO READ AND REVIEW A. There are a few signs you need to watch for after you are home. Call [facility] if you notice any of the followin. Increased severe knee pain. Some pain is expected especially when you exercise. 2. Increased swelling in your leg or knee; pain or swelling of the calf muscle in either lower leg. 3. Any fluid drainage from the incision. 4. Shortness of breath or chest pain. B. Please call [facility] at if you have any concerns or questions about your operation or recovery. The doctor or his nurse will return your call promptly. C. You must take antibiotics before dental work, bladder, bowel or other surgery. Your doctor will provide you with a permanent care to carry describing this precaution. IMPORTANT: * REMEMBER TO TAKE ASPIRIN, 81 MG, TWICE DAILY FOR 4 WEEKS UNLESS OTHERWISE DIRECTED. THIS IS YOUR BLOOD THINNER. * CALL IF INCREASED PAIN, REDNESS, DRAINAGE OR FEVER GREATER THAT 101. * WEAR DALJIT HOSE 20 HOURS PER DAY FOR 2 WEEKS. * YOU MAY HAVE A LARGE BAND-AID LIKE DRESSING (PREVENA). THIS WILL REMAIN ON YOUR INCISION FOR 7 DAYS, YOU CAN THEN REMOVE IT. IF INCISION IS LEAKING THROUGH DRESSING, CALL THE OFFICE . FOLLOW UP VISIT: If appointment is not already scheduled: Please call [facility] to make a follow-up appointment for 2 weeks after your surgery at . Current Hospital Diet Patient's current hospital diet: Regular Diet Discharge Diet Recommended Diet: Regular Diet Procedures Procedures Performed: RIGHT TOTAL KNEE REVISION Pending Studies Studies pending at discharge: no Laboratory Results Hemoglobin A1c Test 11/23/17 13:18 Range/Units Estimated Average Glucose 100 mg/dl Hemoglobin A1c 5.1 4.5-5.6 % Medical Emergencies . Who to Call and When: Medical Emergencies: If at any time you feel your situation is an emergency, please call 911 immediately. . Non-Emergent Contact Non-Emergency issues call your: Surgeon Call Non-Emergent contact if: temperature is above 101.5, your pain is worsening, wound has increased drainage, wound has increased redness . . "Provider Documentation" section prepared by Jack Perla. . Core Measure Problem Core Measures: None [place] Drug Monitoring Program Search Results: patient reviewed within database, no issues identified
[2017-11-28 07:36] VITALS: BP 132/62; PULSE 65; TEMP 37.4; O2SAT 98
[2017-11-28 08:05] VITALS: O2SAT 98
[2017-11-28] MEDS: FERROUS GLUCONATE 324 MG TAB PO SCH ×2 (09:24→12:37)
[2017-11-28] MEDS: DULOXETINE HCL 20 MG CAP PO SCH (09:25)
[2017-11-28] MEDS: DOCUSATE SODIUM 100 MG CAP PO SCH (09:25)
[2017-11-28] MEDS: LOSARTAN POTASSIUM 50 MG TAB PO SCH (09:25)
[2017-11-28] MEDS: PANTOprazole SOD 40 MG TAB PO SCH (09:25)
[2017-11-28] MEDS: ROSUVASTATIN CALCIUM 20 MG TAB PO SCH (09:25)
[2017-11-28] MEDS: ESCITALOPRAM OXALATE 10 MG TAB PO SCH (09:25)
[2017-11-28] MEDS: ISOSORBIDE MONONITRATE 30 MG TABCR PO SCH (09:25)
[2017-11-28] MEDS: CeleBREX 200 MG CAP PO SCH (09:26)
[2017-11-28] MEDS: METOPROLOL TARTRATE 25 MG TAB PO SCH (09:26)
[2017-11-28] MEDS: ASPIRIN 81 MG ECTAB PO SCH (09:26)
[2017-11-28] MEDS: CEROVITE ADV FORMULA TAB PO SCH (09:26)
[2017-11-28] MEDS: CALCIUM 600MG + VIT D 400 IU TAB PO SCH (09:27)
[2017-11-28] MEDS: SULFAMETHOXAZOLE/TRIMETHOPRIM DS 800/160MG TAB PO SCH (09:27)
--- NOTE | 2017-11-28 11:02 | Anesthesiology Progress Note ---
Anesthesia Post Op Note Date & Time Nov 28, 2017 at 11:01 Vital Signs Pain Intensity: 0.0 Vital Signs Past 12 Hours Date Time Temp Pulse Resp B/P (MAP) Pulse Ox O2 Delivery O2 Flow Rate FiO2 11/28/17 08:05 98 Room Air 11/28/17 07:36 37.4 65 18 132/62 (85) 98 Room Air 11/28/17 07:15 Room Air 11/28/17 06:36 37.3 68 18 99/48 (65) 97 Room Air 11/27/17 23:45 Room Air Notes Mental Status: alert / awake / arousable, participated in evaluation Pt Amnestic to Procedure: Yes Nausea / Vomiting: adequately controlled Pain: adequately controlled Airway Patency, RR, SpO2: stable & adequate BP & HR: stable & adequate Hydration State: stable & adequate Anesthetic Complications: no major complications apparent Anesthetic Complications: Satisfied with anesthesia care. No complaints.
[2017-11-28 11:38] VITALS: BP 110/60; PULSE 61; TEMP 37; O2SAT 97
--- NOTE | 2017-11-28 13:17 | Consultant Recommendations ---
Finishing Powder Press Operator Recommendations Date of Service Nov 28, 2017. Finishing Powder Press Operator Recommendations Hospitalist follow up consult note - Hospitalist signing off as patient is to be discharged by orthopedics SUBJECTIVE: Patient ambulating with wound vac OBJECTIVE: General Appearance: WD/WN, no apparent distress, ambulatory Eyes: normal inspection, sclerae normal ENT: hearing grossly normal Neck: trachea midline Respiratory/Chest: lungs clear, normal breath sounds, no respiratory distress, no accessory muscle use Cardiovascular: regular rate, rhythm, no edema, no gallop, no JVD, + systolic murmur Extremities/Musculoskelatal: right knee swollen with wound vac Neurologic/Psych: normal mood/affect, oriented x 3 Skin: normal color ASSESSMENT & PLAN: 82-year-old female status post right knee surgery with initial hospitalist medicine consult for postoperative hypertension with blood pressure now controlled and s/p 2 units PRBC for postoperative anemia. history of antibiotic spacer (had antibiotic therapy for about 8 weeks) and now s/p right revision total knee arthroplasty on this admission Infectious disease evaluation on 11/27/17 Leukocytosis: likely secondary to chronic prednisone use and Decadron given perioperatively; WBC downtrended patient to continue wound vac over right knee upon discharge postoperative anemia. s/p 2 units of PRBC on 11/26/17 with CBC when Hgb was 7.4 the follow up Hgb is 10.5 Nausea resolved Hypertension-resolved spontaneously postoperatively along with improvement in respiratory status. Continue home medications to include Lopressor and losartan upon discharge CAD with stent Aortic stenosis ROSA on CKD stage III - creatinine 1.28 to 1.18 to 1.33, need follow up labs with primary medical doctor after discharge DVT prophylaxis- to be discharged with aspirin 81 mg twice daily per Orthopedics
--- NOTE | 2017-11-28 13:56 | Discharge Instructions ---
Discharge Instructions Date of Service Nov 28, 2017. Admission Reason for Admission: Right Knee Infection & Inflammatory Reaction D/T I Discharge Discharge Diagnosis / Problem: Status post right TKA infection with implantation of antibiotic spacer Discharge Goals Goal(s): Decrease discomfort, Improve function, Increase independence Activity Recommendations Activity Limitations: per Instructions/Follow-up section Weightbearing Status: Right weightbearing (as tolerated) . Instructions / Follow-Up Instructions / Follow-Up ACTIVITY RECOMMENDATIONS: SELF CARE INSTRUCTIONS AFTER TOTAL KNEE REPLACEMENT A. You may need to continue a physical therapy program after discharge from the hospital. There are several options available to you. Your doctor will assist you in selecting the best one for you. 1. An out-patient facility 2 to 3 times a week for therapy or home therapy. 2. Continue working on all exercises taught to you in the hospital. Your goals should be to increase bending of your knee to 90 degrees and beyond and to fully straighten your knee. B. You may progress at your own pace from walking with a walker or crutches to a cane; then to no assistive devices. C. Make walking a part of your daily routine. Be up as much as comfortable with rest periods throughout the day. Rest with leg elevation is very important. Use the ice wrap frequently for the first 3-4 weeks. D. There are no restrictions on activities. You may ride in a car, shop, participate in customer solutions supervisor and all social activities. E. Wear the long elastic stockings (DALJIT hose) 20 hours a day for 2 weeks after surgery. They can be removed several times a day for laundering and for a bath. F. You may shower, no tub baths until cleared by your doctor. SPECIAL CARE INSTRUCTIONS: VERY IMPORTANT TO READ AND REVIEW A. There are a few signs you need to watch for after you are home. Call [facility] if you notice any of the followin. Increased severe knee pain. Some pain is expected especially when you exercise. 2. Increased swelling in your leg or knee; pain or swelling of the calf muscle in either lower leg. 3. Any fluid drainage from the incision. 4. Shortness of breath or chest pain. B. Please call [facility] at if you have any concerns or questions about your operation or recovery. The doctor or his nurse will return your call promptly. C. You must take antibiotics before dental work, bladder, bowel or other surgery. Your doctor will provide you with a permanent care to carry describing this precaution. IMPORTANT: * REMEMBER TO TAKE ASPIRIN, 81 MG, TWICE DAILY FOR 4 WEEKS UNLESS OTHERWISE DIRECTED. THIS IS YOUR BLOOD THINNER. * HIGH RISK PATIENTS MAY BE PRESCRIBED A STRONGER BLOOD THINNER. THIS WILL BE PROVIDED AT DISCHARGE. * CALL IF INCREASED PAIN, REDNESS, DRAINAGE OR FEVER GREATER THAT 101. * WEAR DALJIT HOSE 20 HOURS PER DAY FOR 2 WEEKS. * Prevena- This is a large suction dressing covering your incision. This will help pull any excess drainage from the wound and allow your incision to heal properly. You may shower with this if you can keep the unit outside of the shower. If any bleeding or leakage is noted please call your doctor's office. This will remain on your incision for 7 days and then should be removed. This can be done yourself or by the home nursing staff if applicable. The entire unit is disposable once removed. Once removed, keep incision clean and dry. If redness or drainage is noted, please call your surgeon. IF INCISION IS LEAKING THROUGH DRESSING, CALL THE OFFICE . FOLLOW UP VISIT: If appointment is not already scheduled: Please call [facility] to make a follow-up appointment for 2 weeks after your surgery at . Current Hospital Diet Patient's current hospital diet: Regular Diet Discharge Diet Recommended Diet: Regular Diet Procedures Procedures Performed: RIGHT TOTAL KNEE REVISION Pending Studies Studies pending at discharge: no Laboratory Results Hemoglobin A1c Test 11/23/17 13:18 Range/Units Estimated Average Glucose 100 mg/dl Hemoglobin A1c 5.1 4.5-5.6 % Medical Emergencies . Who to Call and When: Medical Emergencies: If at any time you feel your situation is an emergency, please call 911 immediately. . Non-Emergent Contact Non-Emergency issues call your: Surgeon Call Non-Emergent contact if: temperature is above 101.5, your pain is not controlled, your pain is worsening, wound has increased drainage, wound has increased redness . "Provider Documentation" section prepared by Kush Kidd. . Associate Director Of Biostatistics Recommendations Associate Director Of Biostatistics Recommendations: Hospitalist follow up consult note - Hospitalist signing off as patient is to be discharged by orthopedics SUBJECTIVE: Patient ambulating with wound vac OBJECTIVE: General Appearance: WD/WN, no apparent distress, ambulatory Eyes: normal inspection, sclerae normal ENT: hearing grossly normal Neck: trachea midline Respiratory/Chest: lungs clear, normal breath sounds, no respiratory distress, no accessory muscle use Cardiovascular: regular rate, rhythm, no edema, no gallop, no JVD, + systolic murmur Extremities/Musculoskelatal: right knee swollen with wound vac Neurologic/Psych: normal mood/affect, oriented x 3 Skin: normal color ASSESSMENT & PLAN: 82-year-old female status post right knee surgery with initial hospitalist medicine consult for postoperative hypertension with blood pressure now controlled and s/p 2 units PRBC for postoperative anemia. history of antibiotic spacer (had antibiotic therapy for about 8 weeks) and now s/p right revision total knee arthroplasty on this admission Infectious disease evaluation on 11/27/17 Leukocytosis: likely secondary to chronic prednisone use and Decadron given perioperatively; WBC downtrended patient to continue wound vac over right knee upon discharge postoperative anemia. s/p 2 units of PRBC on 11/26/17 with CBC when Hgb was 7.4 the follow up Hgb is 10.5 Nausea resolved Hypertension-resolved spontaneously postoperatively along with improvement in respiratory status. Continue home medications to include Lopressor and losartan upon discharge CAD with stent Aortic stenosis ROSA on CKD stage III - creatinine 1.28 to 1.18 to 1.33, need follow up labs with primary medical doctor after discharge DVT prophylaxis- to be discharged with aspirin 81 mg twice daily per Orthopedics [place] Drug Monitoring Program Search Results: patient reviewed within database, no issues identified
[2017-11-28 13:58] VITALS: BP 110/60; PULSE 61; TEMP 37; O2SAT 97
== END 2017-11-28 15:00 | disposition home health service (06) | DRG 467 ==
LOC: C.ACU 04:51 → C.3E 06:45 → ENRESERV 10:58 → C.3E 13:58
PROVIDERS: ADMIT Orthopaedic Surgery; ATTEND Orthopaedic Surgery
PROC: 0SPC0JZ Removal of Synthetic Substitute from Right Knee Joint, Open Approach (ICD-10-PCS; principal; 2017-11-25 07:00)
PROC: 0SRC0J9 Replacement of Right Knee Joint with Synthetic Substitute, Cemented, Open Approach (ICD-10-PCS; principal; 2017-11-25 07:00)
DX: T84.53XA Infection and inflammatory reaction due to internal right knee prosthesis, initial encounter (principal); D62 Acute posthemorrhagic anemia; N17.9 Acute kidney failure, unspecified; B95.2 Enterococcus as the cause of diseases classified elsewhere; B96.89 Other specified bacterial agents as the cause of diseases classified elsewhere; Z96.653 Presence of artificial knee joint, bilateral; I97.3 Postprocedural hypertension; D72.829 Elevated white blood cell count, unspecified; T38.0X5A Adverse effect of glucocorticoids and synthetic analogues, initial encounter; R11.0 Nausea; I12.9 Hypertensive chronic kidney disease with stage 1 through stage 4 chronic kidney disease, or unspecified chronic kidney disease; N18.3 Chronic kidney disease, stage 3 (moderate); I25.10 Atherosclerotic heart disease of native coronary artery without angina pectoris; I35.0 Nonrheumatic aortic (valve) stenosis; F32.9 Major depressive disorder, single episode, unspecified; F41.9 Anxiety disorder, unspecified; E03.9 Hypothyroidism, unspecified; E78.5 Hyperlipidemia, unspecified; I25.2 Old myocardial infarction; Z95.5 Presence of coronary angioplasty implant and graft; Z90.49 Acquired absence of other specified parts of digestive tract; Z98.890 Other specified postprocedural states; Z87.828 Personal history of other (healed) physical injury and trauma; Z85.038 Personal history of other malignant neoplasm of large intestine; Z85.048 Personal history of other malignant neoplasm of rectum, rectosigmoid junction, and anus; Z79.52 Long term (current) use of systemic steroids; Z79.82 Long term (current) use of aspirin; Z79.899 Other long term (current) drug therapy; Z88.6 Allergy status to analgesic agent; Z88.8 Allergy status to other drugs, medicaments and biological substances; Z82.49 Family history of ischemic heart disease and other diseases of the circulatory system; Z80.0 Family history of malignant neoplasm of digestive organs